=== PATIENT | male | born 1950 | race Caucasian/White ===

== ENCOUNTER → 2020-06-03 14:26 | Outpatient (BNVA) | payer MEDICARE, MEDICAID, SELFPAY | PROVIDERS: Family Provider Family Medicine; Visit Provider Surgery | DX: R11.10 Vomiting, unspecified (principal) | CPT/HCPCS: 87635 ==

== ENCOUNTER 2020-06-08 07:57 | Day surgery (SDC) | payer MEDICARE, MEDICAID, SELFPAY ==
[2020-06-06 16:49] VITALS: BMI 40.3
[2020-06-08 08:15] VITALS: BP 159/95; PULSE 81; RESP 20; TEMP 36.2; O2SAT 94
[2020-06-08] MEDS: sodium chloride 0.9% 1,000 ML 30 ML IV (08:49)
[2020-06-08 08:55] LABS: Glucose Point of Care 154 mg/dL (70-110)
--- NOTE | 2020-06-08 09:01 | ANES.PREANE2 ---
Pre-Anesthetic Assessment Pre-Anesthetic Assessment: Height/Weight: Height 1.75 m Weight 123.831 kg Temp Pulse Resp BP Pulse Ox 97.2 F L 81 20 H 159/95 94 06/08/20 08:15 06/08/20 08:15 06/08/20 08:15 06/08/20 08:15 06/08/20 08:15 Preop Diagnosis: Vomiting Proposed Procedure: Operation Date: 06/08/20 09:15 Proposed Procedures p EGD 10418/R11.10(Not Applicable) - Jerson Yepez MD Familial anesthetic complications: none Was Beta Rom taken within 24 hours: N/A Last intake: Intake Last Liquid Date 06/07/20 Last Liquid Time 19:00 Last Solid Date 06/07/20 Last Solid Time 19:00 Social: Social History: No alcohol and No tobacco Exam: Pre-Anes Outpt Exam: alert, oriented x 3, clear to auscultation bilaterally and regular rate & rhythm Airway: Cervical ROM: WNL MP: 2 Dentition: False Additional comments: full hernandez Pulmonary: Pulmonary: COPD (2 L NC at night) CV/HEM: CV/HEM: HTN GI: GI: GERD Metabolic: Metabolic: DM and Morbid obesity Anesthetic Plan: ASA status: 3 Anesthesia: MAC Risk of > 500 ml blood loss (7ml/kg in children): No Meds/Allergies Current Medications: Current Medications Generic Name Dose Route Start Last Admin Trade Name Freq PRN Reason Stop Dose Admin Sodium Chloride 1,000 mls @ 30 ml s/hr 06/08/20 08:15 06/08/20 08:49 Sodium Chloride 0.9% IV 06/09/20 08:14 30 mls/hr .Q24H PADMAJA Administration PFSH Anesthesia PFSH: Medical History Vomiting Family History Denies family history of Anesthesia complication Bleeding disorder Social History Smoking and tobacco status: never smoked Alcohol intake: never Adopted: No Caregiver/support person: Yes Lives independently: Yes Household members: spouse Housing: House Marital status: Data Anesthesia Other Labs: Laboratory Results - last 48 hr 06/08/20 08:49 POC Glucose 154 Cardiac Studies: No Data to Display
--- NOTE | 2020-06-08 10:16 | W.PM.OPSUD ---
Surgery/Procedure H&P Update DATE OF PROCEDURE: June 08, 2020 DATE H&P PERFORMED: 05/16/20 H&P UPDATE INFORMATION: I have reviewed H&P completed within last 30 days, I have examined patient prior to procedure and No changes to prior documentation PREOP DIAGNOSIS: Vomiting PRIMARY INDICATION FOR PROCEDURE: The same PLANNED PROCEDURE: Operation Date: 06/08/20 09:15 Proposed Procedures p EGD 77568/R11.10(Not Applicable) - Jerson Yepez MD
[2020-06-08 10:41] VITALS: BP 172/101; PULSE 93; RESP 16; TEMP 36.4; O2SAT 98
[2020-06-08 10:56] VITALS: BP 190/125; PULSE 86; RESP 18; TEMP 36.3; O2SAT 98
--- NOTE | 2020-06-08 14:24 | W.PM.OPSFHP ---
Same Day Surgery H&P Indication for Procedure/HPI DATE OF PROCEDURE: June 08, 2020 CHIEF COMPLAINT/INDICATIONFOR SURGICAL PROCEDURE: Vomiting PREOP DIAGNOSIS: Vomiting PLANNED PROCEDRUE: Operation Date: 06/08/20 09:15 Proposed Procedures p EGD 64757/R11.10(Not Applicable) - Jerson Yepez MD History of present illness: This is a pleasant 69 years old gentleman referred to my practice with history of nonbloody emesis for the past 3 months associated with no weight loss. Never had this before and he denies any fatty dyspepsia, patient reports that he is diabetic when I asked him. He never had an EGD before. Denies any other constitutional symptoms. Interim history 06/08/2020 Patient comes today for diagnostic EGD ROS All systems have been reviewed negative except as per the above or per problem list Medications/Allergies* Home Medications Medication Instructions Recorded Confirmed Type albuterol sulfate 2.5 mg INHALATION Q6H 05/16/20 06/08/20 History albuterol sulfate 90 mcg/actuation 2 inh INHALATION Q4H PRN 05/16/20 06/08/20 History breath activated powder inhaler amlodipine 10 mg tablet 10 mg PO DAILY 05/16/20 06/06/20 History aspirin 81 mg tablet,delayed 81 mg PO DAILY 05/16/20 06/06/20 History release baclofen 10 mg tablet 10 mg PO QID 05/16/20 06/06/20 History bisacodyl 5 mg tablet,delayed 5 mg PO DAILY 05/16/20 06/06/20 History release celecoxib 200 mg capsule 200 mg PO DAILY 05/16/20 06/06/20 History docusate sodium 100 mg capsule 100 mg PO BID 05/16/20 06/06/20 History ergocalciferol (vitamin D2) 50,000 50,000 unit PO DIRECTED 05/16/20 06/08/20 History unit tablet fluoxetine 20 mg capsule 20 mg PO DAILY 05/16/20 06/08/20 History fluticasone 250 mcg-salmeterol 50 1 inh INHALATION BID 05/16/20 06/06/20 History mcg/dose blistr powdr for inhalation fluticasone propionate 50 1 spray INTRANASAL DAILY 05/16/20 06/08/20 History mcg/actuation nasal spray,suspension gabapentin 600 mg tablet 600 mg PO TID 05/16/20 06/06/20 History insulin degludec 100 50 unit SUBCUT DAILY ml 05/16/20 06/06/20 History unit-liraglutide 3.6 mg/mL(3 mL) subcutaneous pen lisinopril 20 mg tablet 20 mg PO DAILY 05/16/20 06/06/20 History omeprazole 40 mg capsule,delayed 40 mg PO DAILY 05/16/20 06/06/20 History release oxycodone 10 mg tablet 20 mg PO Q4H PRN tab MDD 1 05/16/20 06/08/20 History sennosides 8.6 mg capsule 8.6 mg PO DAILY 05/16/20 06/06/20 History tamsulosin 0.4 mg capsule 0.4 mg PO DAILY 05/16/20 06/06/20 History Allergies/Adverse Reactions Allergy/AdvReac Type Severity Reaction Status Date / Time metoclopramide [From Reglan] Allergy Severe ADR-Nausea Verified 06/08/20 14:24 Pertinent History/Comorbid Conditions* Medical History (Updated 05/16/20 @ 14:33 by Jerson Yepez MD) Vomiting Family History (Updated 05/16/20 @ 10:56 by Tata Amor RN) Denies family history of Anesthesia complication Bleeding disorder Social History Smoking and tobacco status: never smoked Alcohol intake: never Adopted: No Caregiver/support person: Yes Lives independently: Yes Household members: spouse Housing: House Marital status: Pertinent Exam Findings alert, oriented x 3 and procedure specific exam findings (Done examination nontender nondistended morbidly obese) Recommendations Surgery/Procedure today (Diagnostic EGD with possible biopsy) Coding Level of Care Code 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
--- NOTE | 2020-06-08 21:10 | ANE.PACU2 ---
Inpatient post-anesthesia follow up: Airway intact: Yes Vital signs: Temperature 97.4 F Pulse Rate 86 Respiratory Rate 18 Blood Pressure 190/125 Pulse Oximetry 98 Oxygen Delivery Me thod Room Air Oxygen Flow Rate 4 Fraction of Inspir ed Oxygen Hydration adequate: Yes Nausea and vomiting: No Pain level: 1 Mental status: Baseline
== END 2020-06-08 11:40 | disposition home or self-care (01) ==
PROVIDERS: PCP Family Medicine; Visit Provider Surgery
PROC: 0DJ08ZZ Inspection of Upper Intestinal Tract, Via Natural or Artificial Opening Endoscopic (ICD-10-PCS; CPT 43235; principal; 2020-06-08 09:15)
DX: R11.10 Vomiting, unspecified (principal); K31.7 Polyp of stomach and duodenum; K29.70 Gastritis, unspecified, without bleeding; J44.9 Chronic obstructive pulmonary disease, unspecified; I10 Essential (primary) hypertension; E11.8 Type 2 diabetes mellitus with unspecified complications; E66.01 Morbid (severe) obesity due to excess calories; Z68.41 Body mass index [BMI] 40.0-44.9, adult; K21.9 Gastro-esophageal reflux disease without esophagitis; Z79.82 Long term (current) use of aspirin; Z79.891 Long term (current) use of opiate analgesic
CPT/HCPCS: 12345; 36416; 43239; 82962; 88305; J0360; J2704; J7030

== ENCOUNTER → 2021-12-20 08:53 | Outpatient (BNVA) | payer MEDICARE, MEDICAID, SELFPAY | PROVIDERS: PCP Family Medicine; Visit Provider Nurse Practitioner Family | DX: N40.1 Benign prostatic hyperplasia with lower urinary tract symptoms (principal); Z12.5 Encounter for screening for malignant neoplasm of prostate | CPT/HCPCS: 51798; 81003; 99203 ==

== ENCOUNTER 2023-03-01 09:59 | Inpatient (IN) | payer MEDICARE, MEDICAID, SELFPAY ==
[2023-03-01] VITALS (14 sets, daily range): BP systolic 126–163; BP diastolic 70–90; PULSE 66–101; RESP 11–20; TEMP 36.5–36.9; O2SAT 87–98; BMI 44.3
--- NOTE | 2023-03-01 10:00 | XR_ITS ---
WS: [id number] XR chest 1V portable [id number] REASON FOR EXAM: cp FINDINGS: Significant tortuosity and ectasia of the thoracic aorta. Normal heart size. Calcified granulomas disease bilaterally. Prominence of the upper lobe pulmonary veins. No other significant pulmonary parenchymal or pleural abnormality. Mild degenerative spondylosis in the mid and lower thoracic spine. IMPRESSION: Pulmonary venous hypertension with no other findings of congestive heart failure. No acute chest abno rmality identified.
--- NOTE | 2023-03-01 10:00 | ECG_ITS ---
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 Measurements Intervals [place] Rate: 83 P: 36 NM: 208 QRS: -49 QRSD: 90 T: 56 QT: 401 QTc: 473 Interpretive Statements SINUS RHYTHM LEFT AXIS DEVIATION [QRS AXIS < -30] PATTERN CONSISTENT WITH PULMONARY DISEASE Compared to ECG 11/12/2015 22:05:58 T-wave abnormality no longer present Electronically Signed On 03-01-2023 10:44:14 CDT by Keely Hess M.D. [id number] f
--- NOTE | 2023-03-01 10:00 | W.ED.CHESTPA ---
HPI - Chest Pain General: Chief Complaint: Chest Pain Stated Complaint: Chest Pain Time Seen by Provider: 03/01/23 09:59 History of Present Illness: Mr. Appiah is a 72-year-old gentleman with history of hypertension, diabetes, obesity presented the emergency department for evaluation of chest pain and shortness of breath. He reports onset of symptoms gradual approximately 2 days ago. Notes cough and increased shortness of breath associated with pain in the left anterior chest with radiation to the shoulder blade. He has difficulty describing the characteristic. Denies associated fevers. Has had generalized malaise. EMS found the patient to be hypoxemic, no baseline oxygen requirement, currently requiring 2 L. Overall course of symptoms has worsened. Moderate to severe in intensity. Denies frequent similar episodes in the past. No other specific changes in health, exacerbating, or alleviating factors identified. EMS administered 324 mg aspirin and 4 mg oral Zofran Onset (ago): day(s) Timing of current episode: constant Onset: during rest Pain location: left chest Pain radiation: left shoulder and left scapula Severity: moderate Exacerbating factors: exertion Associated symptoms: Reports dyspnea, nausea and other Review of Systems General: Reports: 10 or more systems reviewed and unremarkable except in HPI and below Resp: Reports: dyspnea GI: Reports: nausea PFSH ED PFSH: Medical History BPH loc w urin obs/LUTS Diabetes GERD (gastroesophageal reflux disease) Hypertension Vomiting Surgical History History of ankle surgery History of hernia surgery History of lumbar surgery S/P TURP Family History Father , AT 86 of unknown cause Mother , AT 36 Lupus Denies family history of Anesthesia complication Bleeding disorder Social History Smoking and tobacco status: former smoker Alcohol intake: never Substance/Drug Use: never Marital status: Current occupational status: disabled Physical Exam Const: COMMON NORMALS: alert GENERAL APPEARANCE: cooperative and well developed HENMT: COMMON NORMALS: normocephalic and atraumatic HEAD & SCALP: normocephalic and atraumatic Eye: COMMON NORMALS: conjunctivae normal CONJUNCTIVA: Yes conjunctivae normal SCLERA: sclerae normal Neck/C-Spine: COMMON NORMALS: supple GENERAL: Yes trachea midline Resp: COMMON NORMALS: normal respiratory effort AUSCULTATION: diminished lung sounds Cardio: COMMON NORMALS: regular rate and regular rhythm RATE: regular rate RHYTHM: regular rhythm GI: COMMON NORMALS: Soft to palpation PALPATION: Yes Soft to palpation and No Tenderness to palpation present (GI) Extremity: GENERAL: Yes normal exam except as noted and Yes edema (Chronic lower extremity appearing vascular changes) Neuro: COMMON NORMALS: moves all extremities SENSORIUM/ORIENTATION: Yes alert and No Orientation impaired Psych: COMMON NORMALS: mental status grossly normal and Normal thought process present THOUGHT PROCESS: Normal thought process present Course Vital Signs: Vital signs: Vital Signs Temperature 98.7 F 03/04/23 12:00 Pulse Rate 78 03/04/23 14:20 Respiratory Rate 17 03/04/23 14:20 Blood Pressure 131/74 03/04/23 14:20 Pulse Oximetry 94 03/04/23 14:20 Oxygen Delivery Me thod Room Air 03/04/23 11:34 Oxygen Flow Rate 1 03/04/23 08:26 MDM - Chest Pain Medical Decision Making 72-year-old gentleman presenting with chest pain. Exam as above. Appears clinically volume overloaded. EKG demonstrates sinus rhythm with left axis deviation, no STEMI. Labs with no leukocytosis, mild anemia. Metabolic panel with no acute electrolyte arrangement. Negative range 2-hour delta troponin. COVID-negative. Chest x-ray with pulmonary venous hypertension and no lobar consolidation or pneumothorax. Treated with Lasix, RT treatment, treatment for COPD and morphine. The results of ED evaluation were discussed with the patient including plan for admission due to requirement for level of care not available if discharged to prevent significant worsening/deterioration. Patient agreeable with plan. Discussed with hospitalist service who was agreeable to admit patient. Medical Records I reviewed the patient's medical records. Lab Data I reviewed the patient's lab results. 03/04/23 05:12 03/04/23 05:12 Laboratory Results WBC 8.3 10^3/uL (4.0-10.0) 03/01/23 10:05 RBC 4.45 10^6/uL (4.1-5.3) 03/01/23 10:05 Hgb 11.3 g/dL (11.7-16.6) L 03/01/23 10:05 Hct 38.3 % (42.0-52.0) L 03/01/23 10:05 MCV 86.1 fl (80-94) 03/01/23 10:05 MCH 25.4 pg (28.0-34.0) L 03/01/23 10:05 MCHC 29.5 g/dL (30.0-36.0) L 03/01/23 10:05 RDW 14.9 % (12.1-15.1) 03/01/23 10:05 Plt Count 282 10^3/cmm (130-400) 03/01/23 10:05 MPV 10.2 fL (7.4-10.4) 03/01/23 10:05 Neut % (Auto) 73.3 % 03/01/23 10:05 Lymph % (Auto) 14.1 % 03/01/23 10:05 Bates % (Auto) 8.8 % 03/01/23 10:05 Eos % (Auto) 2.5 % 03/01/23 10:05 Baso % (Auto) 0.6 % 03/01/23 10:05 Neut # (Auto) 6.05 10^3/uL (1.8-7.7) 03/01/23 10:05 Lymph # (Auto) 1.2 10^3/uL (0.8-4.8) 03/01/23 10:05 Bates # (Auto) 0.7 10^3/uL (0.2-0.9) 03/01/23 10:05 Eos # (Auto) 0.2 10^3/uL (0.0-0.8) 03/01/23 10:05 Baso # (Auto) 0.1 10^3/uL (0.0-0.1) 03/01/23 10:05 Nucleated RBC % (auto) 0 % 03/01/23 10:05 Nucleated RBCs # 0.0 /100WBC 03/01/23 10:05 Specimen Type Arterial 03/01/23 16:16 Sample Site Radial, left 03/01/23 16:16 ABG pH 7.32 (7.35-7.45) L 03/01/23 16:16 ABG pCO2 55.5 mmHg (35-45) H 03/01/23 16:16 ABG pO2 61.4 mmHg (80.0-100.0) L 03/01/23 16:16 ABG HCO3 28.8 mmol/L (22-26) H 03/01/23 16:16 ABG Base Excess 1.7 mmol/L (-2.0-2.0) 03/01/23 16:16 Onel Test Pos 03/01/23 16:16 Hematocrit 37.5 % (42-52) L 03/01/23 16:16 O2 Delivery Device Nc 03/01/23 16:16 O2 Liters/Min 2.0 % 03/01/23 16:16 Cigarette Making Machine Hopper Feeder ID Pedro 03/01/23 16:16 Sodium 138 mmol/L (136-145) 03/01/23 10:05 Potassium 4.5 mmol/L (3.5-5.1) 03/01/23 10:05 Chloride 102 mmol/L (98-107) 03/01/23 10:05 Carbon Dioxide 28 mmol/L (22-29) 03/01/23 10:05 Anion Gap 12.5 (5-19) 03/01/23 10:05 BUN 15 mg/dL (8-23) 03/01/23 10:05 Creatinine 1.2 mg/dL (0.7-1.2) 03/01/23 10:05 GFR Calculation Not Reportable 03/01/23 10:05 Glucose 208 mg/dL (65-115) H 03/01/23 10:05 Estimat Average Glucose 131 03/01/23 10:05 Hemoglobin A1c 6.2 % (4.0-6.0) H 03/01/23 10:05 Calculated Osmolality 293 mOsm/kg (285-295) 03/01/23 10:05 Calcium 8.4 mg/dL (8.5-10.5) L 03/01/23 10:05 Total Bilirubin 0.5 mg/dL (0.15-1.2) 03/01/23 10:05 AST 23 U/L (0-40) 03/01/23 10:05 ALT 15 U/L (0-41) 03/01/23 10:05 Alkaline Phosphatase 212 U/L (40-130) H 03/01/23 10:05 Troponin T Baseline 11 ng/L (0-15) 03/01/23 10:05 Troponin T 120 Minute 10.63 ng/L (0-15) 03/01/23 12:10 Delta Troponin T -0.37 ABS# (0-10) L 03/01/23 12:10 Troponin T Hi Sens 6Hr 9.04 ng/L (0-15) 03/01/23 16:00 Troponin T Hi Sens 6Hr Delta -1.96 ng/L (0-12) L 03/01/23 16:00 NT-Pro-B Natriuret Pep 766 pg/mL (0-125) H 03/01/23 10:05 NT-Pro-B Natriuret Pep Cancelled 03/01/23 10:05 Total Protein 6.5 g/dL (6.6-8.7) L 03/01/23 10:05 Albumin 3.7 g/dL (3.5-5.2) 03/01/23 10:05 Globulin 2.8 g/dL (1.3-4.6) 03/01/23 10:05 Triglycerides 104 mg/dL (0-150) 03/01/23 10:05 Cholesterol 100 mg/dL (0-200) 03/01/23 10:05 LDL Cholesterol, Calc 44 mg/dL (50-129) L 03/01/23 10:05 HDL Cholesterol 35 mg/dL (60-100) L 03/01/23 10:05 LDL/HDL Ratio 1.26 RATIO (0.00-3.22) 03/01/23 10:05 Cholesterol/HDL Ratio 2.86 mg/dL (1.0-5.00) 03/01/23 10:05 Lipase 14 U/L (13-60) 03/01/23 10:05 Procalcitonin 0.05 ng/mL (0-0.5) 03/01/23 10:05 TSH 3.24 uIU/mL (0.27-4.20) 03/01/23 10:05 SARS-CoV-2 Ag (Rapid) negative (Negative) 03/01/23 10:05 Discharge Plan Discharge Patient Disposition: Admitted As Inpatient Admit Provider: Anand Leroy Clinical Impression: Acute exacerbation of chronic obstructive pulmonary disease, Chest pain, Cardiac volume overload Condition: Stable Discharge Diet: Cardiac Discharge Activity: Resume usual activity Coding Level of Care Code ED Supervisor Furnace Room for Zaynab Iglesias
[2023-03-01] MEDS: morphine 4 mg/mL SDV 1 mL IVP (10:11)
[2023-03-01 10:22] LABS: Basophils # 0.1 10^3/uL (0.0-0.1); Basophils % 0.6 %; Eosinophils # 0.2 10^3/uL (0.0-0.8); Eosinophils % 2.5 %; Hematocrit 38.3 % (42.0-52.0); Hemoglobin 11.3 g/dL (11.7-16.6); Lymphocytes # 1.2 10^3/uL (0.8-4.8); Lymphocytes % 14.1 %; Mean Corpuscular HGB Conc 29.5 g/dL (30.0-36.0); Mean Corpuscular Hemoglobin 25.4 pg (28.0-34.0); Mean Corpuscular Volume 86.1 fl (80-94); Mean Platelet Volume 10.2 fL (7.4-10.4); Monocytes # 0.7 10^3/uL (0.2-0.9); Monocytes % 8.8 %; Neutrophils # 6.05 10^3/uL (1.8-7.7); Neutrophils % 73.3 %; Nucleated Red Blood Cells % 0 %; Platelet Count 282 10^3/cmm (130-400); Red Blood Count 4.45 10^6/uL (4.1-5.3); Red Cell Distribution Width 14.9 % (12.1-15.1); White Blood Count 8.3 10^3/uL (4.0-10.0)
[2023-03-01 10:44] LABS: Troponin(5th) Baseline 11 ng/L (0-15)
[2023-03-01 10:51] LABS: Alanine Aminotransferase 15 U/L (0-41); Albumin Level 3.7 g/dL (3.5-5.2); Alkaline Phosphatase 212 U/L (40-130); Anion Gap 12.5 (5-19); Aspartate Amino Transferase 23 U/L (0-40); Blood Urea Nitrogen 15 mg/dL (8-23); Calcium 8.4 mg/dL (8.5-10.5); Carbon Dioxide 28 mmol/L (22-29); Chloride 102 mmol/L (98-107); Globulin 2.8 g/dL (1.3-4.6); Glucose 208 mg/dL (65-115); Lipase 14 U/L (13-60); NT Pro B Type Natriuretic Pept 766 pg/mL (0-125); Osmolality Calculated 293 mOsm/kg (285-295); Potassium 4.5 mmol/L (3.5-5.1); SARS Covid-2 Antigen negative (Negative); Sodium 138 mmol/L (136-145); Total Bilirubin 0.5 mg/dL (0.15-1.2); Total Protein 6.5 g/dL (6.6-8.7)
[2023-03-01] MEDS: ipratropium-albuterol 3 mL Neb INHALATION (11:13)
[2023-03-01] MEDS: FUROsemide 10 mg/mL SDV 4mL 40 MG IVP ×2 (11:29→20:19)
[2023-03-01] MEDS: methylPREDNISolone sod succ 125 MG in water for injection-sterile 2 ML 24 MG IVP (11:32)
[2023-03-01] MEDS: doxycycline 100 MG in sodium chloride 0.9% (plus) 100 ML IV (11:34)
--- NOTE | 2023-03-01 11:58 | PC.PHAR ---
medications verified with Asha from [facility]
--- NOTE | 2023-03-01 12:06 | ECG_ITS ---
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 Measurements Intervals [place] Rate: 74 P: 33 AK: 206 QRS: -45 QRSD: 94 T: 58 QT: 398 QTc: 442 Interpretive Statements SINUS RHYTHM LEFT AXIS DEVIATION [QRS AXIS < -30] POSSIBLE ANTERIOR MYOCARDIAL INFARCTION , OF INDETERMINATE AGE [30 ms Q WAVE IN V3/V4, OR R < 0.2 mV IN V4] Compared to ECG 03/01/2023 10:09:06 Myocardial infarct finding now present Electronically Signed On 03-01-2023 12:59:41 CDT by Keely Hess M.D. [email or web address] montgomeryPatton Surgicalohio [facility].[employer]/store/OM/[id number]
[2023-03-01 13:04] LABS: Troponin 5 2HR 10.63 ng/L (0-15); Troponin 5 2HR Delta -0.37 ABS# (0-10)
--- NOTE | 2023-03-01 14:47 | CT_ITS ---
WS: [id number] CTA OF THE CHEST WITH PULMONARY EMBOLISM PROTOCOL TECHNIQUE: High-resolution contrast enhanced CTA of the chest with coronal and sagittal reformatted i richies with pulmonary embolism protocol. MIP images are also reviewed. CLINICAL INFORMATION: sob COMPARISON: None. DLP: 610.[address] scans at [facility] use at least one of these dose optimization techniques: automated e xposure control; mA and/or kV adjustment per patient size (includes targeted exams where dose is matc hed to clinical indication); or iterative reconstruction. FINDINGS: Proximal main pulmonary arteries are normal. Normal segmental and subsegmental pulmonary arteries. No evidence of pulmonary embolus. Normal caliber thoracic aorta. Aortic calcification. No mediastinal o r hilar lymphadenopathy. Normal GE junction. Splenic artery calcification. Partially visualized ectatic celiac artery. Lungs are well aerated. No acute pulmonary infiltrates. Small nodule right middle lobe measuring 5 mm . Recommend 12-month follow-up. IMPRESSION: 1. No evidence of pulmonary embolus. 2. Lungs are well aerated. No acute pulmonary infiltrates. 3. Slight bibasal atelectasis. 4. Small nodule right middle lobe measuring 5 mm. Recommend 12-month follow-up.
--- NOTE | 2023-03-01 15:09 | P.HP_ITS ---
Providers/Chief Complaint Admitting Physician: Anand Leroy MD Primary Care Provider: Sammie Rocha DO Chief Complaint: Chest Pain History of Present Illness Alen Appiah is a 72 year old male with a past medical history of pulmonary embolism, completed anticoagulation after back surgery, history of insulin- dependent type 2 diabetes mellitus, history of chronic pain on oxycodone, obesity, who presents to [facility] for complaints of shortness of breath, lower extremity edema. Patient tells me that for the last few weeks, to month he has felt short of breath, short of breath with exertion, he tells me that he cannot lie flat, he has still sleep in a recliner, does report orthopnea, paroxysmal nocturnal dyspnea, also reports left substernal chest pain rating down his left arm, he tells me that many years ago he was transferred to [place] for possible heart attack, but after extensive work-up they told him his heart was okay. He does report a history of pulmonary embolism, for which she was placed on anticoagulant therapy for roughly 6 months after back surgery he has chronic back pain for which he uses oxycodone he does have type 2 diabetes mellitus, he tells me that he takes insulin for this, and his home health care nurse primarily manages his insulin, no fevers, no chills, no cough. For his chest pain, the chest pain has been becoming more frequent with the shortness of breath, no nausea, no vomiting Review of Systems General: Reports: ROS unobtainable due to mental status Const: Denies: fever(s) or chills Eyes: Denies: change in vision ENMT: Denies: throat pain Card: Reports: chest pain, edema, swelling of feet/ankles, dyspnea on exertion and orthopnea Resp: Reports: dyspnea GI: Denies: abdominal pain, nausea or vomiting : Denies: flank pain or difficulty urinating Musc: Reports: back pain; Denies: neck pain Skin/Breast: Denies: rash Neuro: Denies: headache(s) or numbness in extremities Psych: Denies: anxiety Medications/Allergies Home Medications Medication Instructions Recorded Confirmed Last Taken Type albuterol sulfate 2.5 mg/3 mL 2.5 mg inhalation Q6H 05/16/20 03/01/23 Unknown History (0.083 %) solution for nebulization albuterol sulfate 90 mcg/actuation 2 inh inhalation Q4H PRN Allergic 05/16/20 03/01/23 06/01/20 History breath activated powder inhaler Symptoms amlodipine 10 mg tablet 10 mg PO DAILY 05/16/20 03/01/23 06/07/20 History aspirin 81 mg tablet,delayed 81 mg PO DAILY 05/16/20 03/01/23 06/04/20 History release bisacodyl 5 mg tablet,delayed 5 mg PO DAILY 05/16/20 03/01/23 06/07/20 History release (Dulcolax (bisacodyl)) celecoxib 200 mg capsule (Celebrex) 200 mg PO DAILY 05/16/20 03/01/23 06/07/20 History docusate sodium 100 mg capsule 100 mg PO BID 05/16/20 03/01/23 06/07/20 History fluticasone 250 mcg-salmeterol 50 1 inh inhalation BID 05/16/20 03/01/23 06/07/20 History mcg/dose blistr powdr for inhalation (Advair Diskus) fluticasone propionate 50 1 spray intranasal DAILY 05/16/20 03/01/23 06/08/20 04:00 History mcg/actuation nasal spray,suspension (Flonase Allergy Relief) gabapentin 600 mg tablet 600 mg PO BID 05/16/20 03/01/23 06/07/20 History insulin degludec 100 50 unit SUBCUT BID 05/16/20 03/01/23 06/06/20 History unit-liraglutide 3.6 mg/mL(3 mL) subcutaneous pen (Skyler 100/3.6) lisinopril 20 mg tablet 20 mg PO DAILY 05/16/20 03/01/23 06/06/20 History oxycodone 10 mg tablet 20 mg PO Q4H PRN Allergic Symptoms 05/16/20 03/01/23 06/08/20 04:00 History sennosides 8.6 mg capsule (senna) 8.6 mg PO DAILY 05/16/20 03/01/23 06/07/20 History pantoprazole 40 mg tablet,delayed 40 mg PO DAILY #30 tabs 08/30/20 03/01/23 Unknown Rx release (Protonix) fluoxetine 20 mg capsule (Prozac) 40 mg PO DAILY 12/20/21 03/01/23 Unknown History linagliptin 5 mg tablet (Tradjenta) 5 mg PO DAILY 12/20/21 03/01/23 Unknown History metoprolol tartrate 25 mg tablet 25 mg PO BID 12/20/21 03/01/23 Unknown History tamsulosin 0.4 mg capsule (Flomax) 0.4 mg PO BID #60 caps 12/20/21 03/01/23 Unknown Rx bumetanide 2 mg tablet 2 mg PO DAILY 03/01/23 03/01/23 Unknown History finasteride 5 mg tablet 5 mg PO DAILY 03/01/23 03/01/23 Unknown History hydromorphone 4 mg tablet 4 mg PO Q4H PRN Pain 03/01/23 03/01/23 Unknown History potassium chloride 20 mEq 20 meq PO DAILY 03/01/23 03/01/23 Unknown History tablet,extended release(part/cryst) Allergies Allergy/AdvReac Type Severity Reaction Status Date / Time metoclopramide [From Reglan] Allergy Severe ADR-Nausea Verified 03/01/23 10:05 PFSH Acute PFSH: Medical History BPH loc w urin obs/LUTS Diabetes GERD (gastroesophageal reflux disease) Hypertension Vomiting Surgical History History of ankle surgery History of hernia surgery History of lumbar surgery S/P TURP Family History Father , AT 86 of unknown cause Mother , AT 36 Lupus Denies family history of Anesthesia complication Bleeding disorder Social History Smoking and tobacco status: former smoker Alcohol intake: never Substance/Drug Use: never Marital status: Current occupational status: disabled Vitals/I&O/Wt Last Vital Signs Temp 97.7 F 03/01/23 09:59 Pulse 79 03/01/23 11:17 Resp 16 03/01/23 11:14 BP 131/71 03/01/23 10:48 Pulse Ox 96 03/01/23 11:14 O2 Del Method Nasal Cannula 03/01/23 11:14 O2 Flow Rate 2 03/01/23 11:14 Weight last 48 hrs Weight 136.078 kg Physical Exam Const: COMMON NORMALS: no acute distress and patient oriented x3 GENERAL APPEARANCE: cooperative, well kempt and well developed HENMT: COMMON NORMALS: normocephalic and Normal external nose present HEAD & SCALP: normocephalic FACE & SINUS: normal facial exam NOSE: Normal external nose present Eye: COMMON NORMALS: Equal, round and reactive pupils present, EOMs intact bilaterally, conjunctivae normal and no scleral icterus CONJUNCTIVA: Yes conjunctivae normal PUPIL: Yes Equal, round and reactive pupils present Neck/C-Spine: COMMON NORMALS: full ROM, no lymphadenopathy, no JVD, Thyroid normal and No carotid bruits THYROID: Thyroid normal Lymph: LYMPHATIC: no lymphadenopathy noted Chest: COMMONS NORMALS: normal inspection of the chest OTHER: Crackles on exam Resp: COMMON NORMALS: normal respiratory effort, No retractions and No use of accessory muscles Cardio: COMMON NORMALS: regular rate, regular rhythm, S1 normal heart sound present, S2 normal heart sound present, No murmurs present (Cardio) and Peripheral pulses 2+ throughout RATE: regular rate RHYTHM: regular rhythm HEART SOUNDS: S1 normal heart sound present and S2 normal heart sound present PERIPHERAL PULSES: Peripheral pulses 2+ throughout GI: COMMON NORMALS: Normal to inspection, nondistended, normoactive bowel sounds present, Soft to palpation, non-tender and No hepatosplenomegaly present PALPATION: Yes Soft to palpation : BLADDER/KIDNEY EXAM: Yes no CVA tenderness Back/Pelvis: COMMON NORMALS: no CVA tenderness Extremity: NARRATIVE EXTREMITY EXAM: Bilateral extremity 2+ pitting edema, with overlying skin changes bilateral lower extremities, up to the level of bilateral knees, Neuro: COMMON NORMALS: patient oriented x3, CN's II-XII intact bilaterally, moves all extremities, no focal motor deficits and no sensory deficits noted MENINGEAL SIGNS: Yes no meningeal signs Psych: COMMON NORMALS: mental status grossly normal, Normal thought process present, cooperative and speech normal APPEARANCE: Yes well kempt SPEECH: Yes normal speech THOUGHT PROCESS: Normal thought process present Skin: COMMON NORMALS: turgor normal and no jaundice GENERAL SKIN EXAM: turgor normal Data 03/01/23 10:05 03/01/23 10:05 A&P Assessment and plan (1) Chest pain: (2) CHF exacerbation: (3) Goals of care, counseling/discussion: (4) Morbid obesity: (5) Type 2 diabetes mellitus: (6) Chronic prescription opiate use: Plan Shortness of breath -Secondary to CHF exacerbation Plan -Fluid restrictions at 1000 cc -Lasix 40 mg IV push this evening -CT angiogram of the chest as he has a history of pulmonary embolism -Cardiac echo -Monitor respiratory status closely Chest pain -Left-sided, radiating down the left arm -Associate with exertion -Associate with shortness of breath -Serial EKGs, serial troponins, telemetry monitoring -Continue aspirin, statin, metoprolol -Cardiac echo Type 2 diabetes mellitus -Lantus 30 units twice daily, low-dose sliding scale, A1c Obesity Chronic pain, continue oxycodone 20 mg p.o., every 4 hours as needed, confirmed with at bedside that this is his dose -There is some discrepancy on if he is taking Dilaudid or not, patient's denies him taking Dilaudid, patient is unsure as he tells me that the home health care nurse sets up most of his medications Goals of care discussion, patient wants to be a DNR/DNI Attestations Medical Necessity Statement*: patient requires hospitalization, inpatient, greater than 2 midnights, for CHF exacerbation, lower extremity edema, chest pain Diagnoses Chest pain R07.9 CHF exacerbation I50.9 Goals of care, counseling/discussion Z71.89 Morbid obesity E66.01 Type 2 diabetes mellitus E11.9 Chronic prescription opiate use Z79.891
[2023-03-01 15:16] LABS: Procalcitonin 0.05 ng/mL (0-0.5)
--- NOTE | 2023-03-01 16:00 | ECG_ITS ---
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 Measurements Intervals [place] Rate: 74 P: 28 [place]: 204 QRS: -57 QRSD: 91 T: 55 QT: 404 QTc: 450 Interpretive Statements SINUS RHYTHM LEFT AXIS DEVIATION [QRS AXIS < -30] POSSIBLE ANTERIOR MYOCARDIAL INFARCTION , PROBABLY OLD [30 ms Q WAVE IN V3/V4, OR R < 0.2 mV IN V4] Compared to ECG 03/01/2023 12:06:36 No significant changes Electronically Signed On 03-01-2023 18:59:22 CDT by Keely Hess M.D. [id number]
[2023-03-01 16:27] LABS: ABG PCO2 55.5 mmHg (35-45); ABG PH Result 7.32 (7.35-7.45); Arterial Blood Gas Hematocrit 37.5 % (42-52); Base Excess ABG 1.7 mmol/L (-2.0-2.0); Blood Gas Allen Test Pos; Blood Gas Operator Identificat WALCI; Blood Gas Sample Site Radial, left; Blood Gas Sample Type Arterial; HCO3 ABG 28.8 mmol/L (22-26); Oxygen Device NC; PO2 ABG 61.4 mmHg (80.0-100.0)
[2023-03-01 16:56] LABS: Troponin 5 6HR 9.04 ng/L (0-15); Troponin 5 6HR Delta -1.96 ng/L (0-12)
[2023-03-01 17:27] LABS: Chol HDL Ratio 2.86 mg/dL (1.0-5.00); Cholesterol 100 mg/dL (0-200); HDL Cholesterol 35 mg/dL (60-100); LDL Cholesterol Calculated 44 mg/dL (50-129); LDL HDL Ratio 1.26 RATIO (0.00-3.22); Thyroid Stimulating Hormone 3.24 uIU/mL (0.27-4.20); Triglycerides 104 mg/dL (0-150)
[2023-03-01 17:30] LABS: Glucose Point of Care 242 mg/dL (70-110)
[2023-03-01] MEDS: tamsulosin 0.4 mg Capsule PO (17:35)
[2023-03-01] MEDS: insulin lispro 100 unit/1 mL SUBCUT (17:36)
[2023-03-01] MEDS: docusate sodium 100 mg Capsule PO (17:36)
[2023-03-01] MEDS: metoprolol tartrate 25 mg Tablet PO (17:36)
[2023-03-01] MEDS: gabapentin 300 mg Capsule 600 MG PO (17:36)
[2023-03-01] MEDS: enoxaparin 40 mg/0.4 mL Syringe SUBCUT (17:36)
[2023-03-01] MEDS: oxyCODONE 5 mg IR Tab/Cap 20 MG PO ×2 (17:43→23:17)
[2023-03-01] MEDS: insulin glargine 100 units/1 mL 30 UNIT SUBCUT (20:21)
[2023-03-01 20:29] LABS: Glucose Point of Care 265 mg/dL (70-110)
[2023-03-01] MEDS: albuterol 2.5 mg/3 mL Neb INHALATION (20:53)
[2023-03-02] VITALS (16 sets, daily range): BP systolic 130–155; BP diastolic 71–90; PULSE 85–102; RESP 13–22; TEMP 36.9–37.1; O2SAT 91–100
[2023-03-02 01:10] LABS: Estmated Average Glucose 131; Hemoglobin A1C 6.2 % (4.0-6.0)
[2023-03-02] MEDS: albuterol 2.5 mg/3 mL Neb INHALATION ×3 (02:30→20:37)
[2023-03-02 04:31] LABS: Basophils % 0.1 %; Hematocrit 37.7 % (42.0-52.0); Hemoglobin 10.9 g/dL (11.7-16.6); Lymphocytes % 10.3 %; Mean Corpuscular HGB Conc 28.9 g/dL (30.0-36.0); Mean Corpuscular Hemoglobin 24.6 pg (28.0-34.0); Mean Corpuscular Volume 85.1 fl (80-94); Mean Platelet Volume 10.9 fL (7.4-10.4); Monocytes # 0.3 10^3/uL (0.2-0.9); Monocytes % 3.2 %; Neutrophils % 85.7 %; Nucleated Red Blood Cells % 0 %; Platelet Count 280 10^3/cmm (130-400); Red Blood Count 4.43 10^6/uL (4.1-5.3); Red Cell Distribution Width 14.6 % (12.1-15.1); White Blood Count 9.5 10^3/uL (4.0-10.0)
[2023-03-02 04:50] LABS: Anion Gap 13.6 (5-19); Blood Urea Nitrogen 20 mg/dL (8-23); Calcium 8.7 mg/dL (8.5-10.5); Carbon Dioxide 28 mmol/L (22-29); Chloride 102 mmol/L (98-107); Glucose 247 mg/dL (65-115); Magnesium 2.2 mg/dL (1.7-2.3); Osmolality Calculated 299 mOsm/kg (285-295); Phosphorus 2.6 mg/dL (2.5-4.5); Potassium 4.6 mmol/L (3.5-5.1); Sodium 139 mmol/L (136-145)
[2023-03-02 06:12] LABS: Glucose Point of Care 217 mg/dL (70-110)
[2023-03-02] MEDS: insulin glargine 100 units/1 mL 30 UNIT SUBCUT ×2 (08:37→20:50)
[2023-03-02] MEDS: insulin lispro 100 unit/1 mL SUBCUT ×2 (08:37→12:01)
[2023-03-02] MEDS: oxyCODONE 5 mg IR Tab/Cap 20 MG PO ×4 (08:38→20:49)
[2023-03-02] MEDS: finasteride 5 mg Tablet PO (08:39)
[2023-03-02] MEDS: pantoprazole DR 40 mg Tablet PO (08:39)
[2023-03-02] MEDS: aspirin 81 mg EC Tablet PO (08:39)
[2023-03-02] MEDS: gabapentin 300 mg Capsule 600 MG PO ×2 (08:39→17:17)
[2023-03-02] MEDS: tamsulosin 0.4 mg Capsule PO ×2 (08:40→17:18)
[2023-03-02] MEDS: potassium chloride ER 20 mEq Tablet PO (08:40)
[2023-03-02] MEDS: metoprolol tartrate 25 mg Tablet PO ×2 (08:40→17:18)
[2023-03-02] MEDS: fluoxetine 20 mg Capsule 40 MG PO (08:40)
[2023-03-02] MEDS: bisacodyl 5 mg Tablet PO (08:40)
[2023-03-02] MEDS: docusate sodium 100 mg Capsule PO ×2 (08:40→17:17)
[2023-03-02] MEDS: lisinopril 20 mg Tablet PO (08:47)
[2023-03-02 10:06] LABS: NT Pro B Type Natriuretic Pept 1008 pg/mL (0-125)
[2023-03-02] MEDS: FUROsemide 10 mg/mL SDV 4mL 40 MG IVP (10:15)
[2023-03-02 11:48] LABS: Glucose Point of Care 252 mg/dL (70-110)
--- NOTE | 2023-03-02 16:35 | P.PN_ITS ---
Subjective Subjective: Patient was seen this morning, his edema is improving, shortness of breath is improving, no chest pain Vitals/I&O/Wt Last Vital Signs Temp 98.8 F 03/02/23 04:00 Pulse 95 03/02/23 12:29 Resp 18 03/02/23 16:34 BP 150/87 03/02/23 12:29 Pulse Ox 96 03/02/23 16:34 O2 Del Method Nasal Cannula 03/02/23 08:55 O2 Flow Rate 2 03/02/23 08:55 03/02/23 03/02/23 03/02/23 06:59 14:59 22:59 Intake Total 220 / 562 460 / 460 Output Total 1999 / 2199 900 / 900 Balance -1780 / -1638 -440 / -440 Weight last 48 hrs Weight 136.078 kg Physical Exam Const: COMMON NORMALS: no acute distress and patient oriented x3 Resp: COMMON NORMALS: normal respiratory effort, No retractions, No use of accessory muscles and clear to auscultation bilaterally AUSCULTATION: clear to auscultation bilaterally Cardio: COMMON NORMALS: regular rate, regular rhythm, S1 normal heart sound present and S2 normal heart sound present RATE: regular rate RHYTHM: regular rhythm HEART SOUNDS: S1 normal heart sound present and S2 normal heart sound present GI: COMMON NORMALS: Normal to inspection, nondistended, normoactive bowel sounds present and non-tender Extremity: NARRATIVE EXTREMITY EXAM: 2+ pitting edema Neuro: COMMON NORMALS: patient oriented x3 Psych: COMMON NORMALS: mental status grossly normal Urinary Catheter Management: Cisse: Cath Placed During This Visit: yes Reason for Continuing Indwelling Catheter: Acute Urinary Retention or Obstruc tion Urinary Catheter Date of Insertion: 03/01/23 Urinary Catheter Time of Insertion: 21:44 Data 03/02/23 03:21 03/02/23 03:21 A&P Assessment and plan (1) Chest pain: (2) CHF exacerbation: (3) Goals of care, counseling/discussion: (4) Morbid obesity: (5) Type 2 diabetes mellitus: (6) Chronic prescription opiate use: Plan Shortness of breath -Secondary to CHF exacerbation Plan -Fluid restrictions at 1000 cc -Lasix 40 mg IV , daily, check creatinine -CT angiogram negative for pulm embolism -Cardiac echo pending -Monitor respiratory status closely Chest pain -Left-sided, radiating down the left arm -Associate with exertion -Associate with shortness of breath -Serial EKGs, serial troponins, telemetry monitoring -Continue aspirin, statin, metoprolol -Cardiac echo Type 2 diabetes mellitus -Lantus 30 units twice daily, low-dose sliding scale, A1c Obesity Chronic pain, continue oxycodone 20 mg p.o., every 4 hours as needed, confirmed with at bedside that this is his dose -There is some discrepancy on if he is taking Dilaudid or not, patient's denies him taking Dilaudid, patient is unsure as he tells me that the home health care nurse sets up most of his medications Goals of care discussion, patient wants to be a DNR/DNI Plan for today up out of bed, PT OT, continue diuresis monitor urine output Attestations Medical Necessity Statement*: Patient requires hospitalization for shortness of breath secondary to CHF exacerbation requiring diuresis Diagnoses Chest pain R07.9 CHF exacerbation I50.9 Goals of care, counseling/discussion Z71.89 Morbid obesity E66.01 Type 2 diabetes mellitus E11.9 Chronic prescription opiate use Z79.891
--- NOTE | 2023-03-02 16:46 | USCV_ITS ---
Alen Appiah Age: 72 Gender: M : 1950 Exam Date: 03/02/2023 14:59 Ordering Phys: Anand Leroy MD Technologist: ABIGAIL Exam Location: [facility] – [place] Indication: chf BP: / HR: 91 Rhythm: Sinus Technical Quality: Poor MEASUREMENTS (Male / Female) Normal Values 2D ECHO LV Diastolic Diameter PLAX 6.5 cm 4.2 - 5.9 / 3.9 - 5.3 cm LV Systolic Diameter PLAX 4.2 cm IVS Diastolic Thickness 0.9 cm 0.6 - 1.0 / 0.6 - 0.9 cm IVS Systolic Thickness 1.8 cm LVPW Diastolic Thickness 0.9 cm 0.6 - 1.0 / 0.6 - 0.9 cm LVPW Systolic Thickness 1.3 cm LVOT Diameter 2.3 cm LV Ejection Fraction 2D Teich 64.1 % LV Ejection Fraction MOD 2C 38.6 % LV Ejection Fraction 2C AL 37.1 % LA Diameter 3.4 cm M-MODE Aortic Annulus Diameter 3.4 cm LA Ao Ratio MM 1.1 MV E Point Septal Separation 0.3 cm DOPPLER MV Area PHT 3.0 cm squared Mitral E to A Ratio 0.9 MV E' Velocity 61.0 cm/s Mitral E to MV E' Ratio 15.2 Mitral E to LV E' Lateral Ratio 12.9 Mitral E to LV E' Septal Ratio 18.5 PV Peak Velocity 95.0 cm/s FINDINGS Left Ventricle This is a poor quality study. The ventricle is probably normal in size and function. Ejection fraction around 55%. Wall motion disturbances cannot be determined. Diastolic function cannot be determined. Right Ventricle Normal right ventricular size and systolic function. Right Atrium Right atrium not well visualized. Left Atrium Left atrium not well visualized. Mitral Valve Mitral valve not well visualized. No mitral valve stenosis. No mitral valve regurgitation. Aortic Valve Aortic valve not well visualized. Tricuspid Valve Tricuspid valve not well visualized. Pulmonic Valve Pulmonic valve not well visualized. Pericardium Normal pericardium without effusion. Aorta Normal ascending aorta dimension. IVC Inferior vena cava not visualized. CONCLUSIONS This is a poor quality study. The ventricle is probably normal in size and function. Ejection fraction around 55%. Wall motion disturbances cannot be determined. Diastolic function cannot be determined. No change from the previous study done 04/28/2015 Dr. Jake Olvera MD (Electronically Signed) Final Date: 03 March 2023 09:23 S
[2023-03-02] MEDS: enoxaparin 40 mg/0.4 mL Syringe SUBCUT (17:17)
--- NOTE | 2023-03-02 19:23 | PC.NURSE ---
blood sugar is 237 per patient's personal blood glucose monitor
[2023-03-03] VITALS (20 sets, daily range): BP systolic 134–162; BP diastolic 74–95; PULSE 75–88; RESP 15–22; TEMP 36.5–36.9; O2SAT 92–98
[2023-03-03] MEDS: oxyCODONE 5 mg IR Tab/Cap 20 MG PO ×5 (01:39→23:58)
[2023-03-03 04:13] LABS: Basophils # 0.1 10^3/uL (0.0-0.1); Basophils % 0.5 %; Eosinophils # 0.1 10^3/uL (0.0-0.8); Eosinophils % 0.9 %; Hematocrit 37.4 % (42.0-52.0); Hemoglobin 11.1 g/dL (11.7-16.6); Lymphocytes # 2.7 10^3/uL (0.8-4.8); Lymphocytes % 24.8 %; Mean Corpuscular HGB Conc 29.7 g/dL (30.0-36.0); Mean Corpuscular Hemoglobin 25.3 pg (28.0-34.0); Mean Corpuscular Volume 85.4 fl (80-94); Mean Platelet Volume 10.4 fL (7.4-10.4); Monocytes # 0.9 10^3/uL (0.2-0.9); Monocytes % 8.1 %; Neutrophils # 7.06 10^3/uL (1.8-7.7); Neutrophils % 65.3 %; Nucleated Red Blood Cells % 0 %; Platelet Count 269 10^3/cmm (130-400); Red Blood Count 4.38 10^6/uL (4.1-5.3); Red Cell Distribution Width 14.8 % (12.1-15.1); White Blood Count 10.8 10^3/uL (4.0-10.0)
[2023-03-03 04:31] LABS: Anion Gap 15.4 (5-19); Blood Urea Nitrogen 28 mg/dL (8-23); Calcium 8.4 mg/dL (8.5-10.5); Carbon Dioxide 29 mmol/L (22-29); Chloride 103 mmol/L (98-107); Glucose 166 mg/dL (65-115); Magnesium 2.1 mg/dL (1.7-2.3); Osmolality Calculated 305 mOsm/kg (285-295); Potassium 4.4 mmol/L (3.5-5.1); Sodium 143 mmol/L (136-145)
[2023-03-03 04:39] LABS: Urine Appearance Clear (CLEAR); Urine Color Yellow (Yellow); pH Urine 5 (5-7)
[2023-03-03 04:40] LABS: Add Urine Microscopic? YES; Bilirubin Urine Neg (Negative); Blood Urine Neg (Negative); Glucose Urine UA Norm (Normal); Ketones Urine Negative (Negative); Leukocyte Esterase Urine 1+ (Negative); Nitrate Urine Negative (Negative); Protein Urine Neg (Negative); Urobilinogen Urine 1 mg/dL (Negative)
[2023-03-03 04:41] LABS: Bacteria Urine TRACE /hpf; RBC Urine 0-4 /hpf (0-2); Squamous Epithelial Cell Urine 0-4 /hpf (0-5); WBC Urine 0-4 /hpf (0-5)
[2023-03-03 04:42] LABS: Add Urine Culture? No
[2023-03-03 04:43] LABS: NT Pro B Type Natriuretic Pept 1277 pg/mL (0-125)
--- NOTE | 2023-03-03 06:20 | PC.NURSE ---
blood glucose 116 per patient's personal glucose monitor
[2023-03-03] MEDS: gabapentin 300 mg Capsule 600 MG PO ×2 (10:00→17:23)
[2023-03-03] MEDS: fluoxetine 20 mg Capsule 40 MG PO (10:00)
[2023-03-03] MEDS: docusate sodium 100 mg Capsule PO ×2 (10:20→17:23)
[2023-03-03] MEDS: pantoprazole DR 40 mg Tablet PO (10:21)
[2023-03-03] MEDS: finasteride 5 mg Tablet PO (10:21)
[2023-03-03] MEDS: lisinopril 20 mg Tablet PO (10:21)
[2023-03-03] MEDS: tamsulosin 0.4 mg Capsule PO ×2 (10:21→17:25)
[2023-03-03] MEDS: bisacodyl 5 mg Tablet PO (10:23)
[2023-03-03] MEDS: aspirin 81 mg EC Tablet PO (10:23)
[2023-03-03] MEDS: insulin glargine 100 units/1 mL 30 UNIT SUBCUT ×2 (10:23→21:08)
[2023-03-03] MEDS: potassium chloride ER 20 mEq Tablet PO (10:23)
[2023-03-03] MEDS: metoprolol tartrate 25 mg Tablet PO ×2 (10:23→17:25)
--- NOTE | 2023-03-03 11:00 | PC.NURSE ---
Per pt ZEN Estrada his BS is 181
[2023-03-03] MEDS: insulin lispro 100 unit/1 mL SUBCUT ×2 (12:27→17:25)
--- NOTE | 2023-03-03 14:11 | P.PN_ITS ---
Subjective Subjective: Patient was seen this morning, he is anxious about being here in the hospital, he is wondering when he can go home, his legs are elevated he tells me that his edema has improved, continues to have episodes of shortness of breath, he tells me that he has chronic back pain, we discussed his chest pain, he denies any current chest pain, he tells me that he has difficulty lying flat due to low back pain, we discussed doing a stress test while he is in in the hospital, he is a bit hesitant to do it, he tells with the last time they did a stress test on him, he just had severe back pain that he was not able to lie flat it was very uncomfortable but he is agreeable to try it if we give him some pain medications, he is already on oxycodone, we discussed potentially trying Dilaudid 1 mg IV push before doing stress testing, he is agreeable, we discussed his creatinine being 1.4, I Radha give his kidneys a break this morning and will give him a dose at 6 PM, he denies any fevers, no chills, no nausea, no vomiting, he was agreeable with the plan, Vitals/I&O/Wt Last Vital Signs Temp 97.7 F 03/03/23 11:35 Pulse 83 03/03/23 11:35 Resp 17 03/03/23 13:13 BP 134/75 03/03/23 11:35 Pulse Ox 96 03/03/23 11:35 O2 Del Method Nasal Cannula 03/03/23 11:35 O2 Flow Rate 2 03/03/23 07:29 03/02/23 03/03/23 03/03/23 22:59 06:59 14:59 Intake Total 120 / 580 300 / 880 600 / 600 Output Total 1750 / 2650 800 / 3450 680 / 680 Balance -1630 / -2070 -500 / -2570 -80 / -80 Physical Exam Const: COMMON NORMALS: no acute distress and patient oriented x3 Resp: COMMON NORMALS: normal respiratory effort, No retractions, No use of accessory muscles and clear to auscultation bilaterally AUSCULTATION: clear to auscultation bilaterally Cardio: COMMON NORMALS: regular rate, regular rhythm, S1 normal heart sound present and S2 normal heart sound present RATE: regular rate RHYTHM: regular rhythm HEART SOUNDS: S1 normal heart sound present and S2 normal heart sound present GI: COMMON NORMALS: Normal to inspection, nondistended, normoactive bowel sounds present and non-tender Neuro: COMMON NORMALS: patient oriented x3 Psych: COMMON NORMALS: mental status grossly normal Skin: NARRATIVE SKIN EXAM: 1+ nonpitting edema Urinary Catheter Management: Cisse: Cath Placed During This Visit: yes Reason for Continuing Indwelling Catheter: Acute Urinary Retention or Obstruction Urinary Catheter Date of Insertion: 03/01/23 Urinary Catheter Time of Insertion: 21:44 Data 03/03/23 03:37 03/03/23 03:37 A&P Assessment and plan (1) Chest pain: (2) CHF exacerbation: (3) Goals of care, counseling/discussion: (4) Morbid obesity: (5) Type 2 diabetes mellitus: (6) Chronic prescription opiate use: Plan Shortness of breath -Secondary to CHF exacerbation Plan -Fluid restrictions at 1000 cc -Creatinine 1.4, will give his kidneys a break this morning -Lasix 40 mg IV 1 dose this evening, daily, check creatinine -CT angiogram negative for pulm embolism -Cardiac echoas below -Monitor respiratory status closely Chest pain -Left-sided, radiating down the left arm -Associate with exertion -Associate with shortness of breath -Serial EKGs, serial troponins, telemetry monitoring -Continue aspirin, statin, metoprolol -N.p.o. midnight, 1 mg of IV push Dilaudid before stress test, stress test awilda orr -Cardiac echo This is a poor quality study.? The ventricle is probably normal ?in size and function.? Ejection fraction around 55%.? Wall ?motion disturbances cannot be determined.? Diastolic function ?cannot be determined. ?No change from the previous study done 04/28/2015 Type 2 diabetes mellitus -Lantus 30 units twice daily, low-dose sliding scale, A1c Obesity Chronic pain, continue oxycodone 20 mg p.o., every 4 hours as needed, confirmed with at bedside that this is his dose -There is some discrepancy on if he is taking Dilaudid or not, patient's denies him taking Dilaudid, patient is unsure as he tells me that the home health care nurse sets up most of his medications Goals of care discussion, patient wants to be a DNR/DNI Plan for today up out of bed, PT OT, 1 dose of Lasix in the evening, n.p.o. midnight, 1 dose of Dilaudid 1 mg IV push before his stress test, stress test tomorrow morning, monitor creatinine monitor electrolytes Attestations Medical Necessity Statement*: Patient requires hospitalization for shortness of breath secondary to CHF exacerbation requiring diuresis, chest pain requiring stress testing Diagnoses Chest pain R07.9 CHF exacerbation I50.9 Goals of care, counseling/discussion Z71.89 Morbid obesity E66.01 Type 2 diabetes mellitus E11.9 Chronic prescription opiate use Z79.891
[2023-03-03 16:34] LABS: Glucose Point of Care 220 mg/dL (70-110)
[2023-03-03] MEDS: FUROsemide 10 mg/mL SDV 4mL 40 MG IVP (17:24)
[2023-03-03] MEDS: enoxaparin 40 mg/0.4 mL Syringe SUBCUT (17:25)
[2023-03-03 20:51] LABS: Glucose Point of Care 192 mg/dL (70-110)
[2023-03-04] VITALS (12 sets, daily range): BP systolic 128–135; BP diastolic 67–76; PULSE 74–78; RESP 12–17; TEMP 37–37.1; O2SAT 90–96
[2023-03-04] MEDS: oxyCODONE 5 mg IR Tab/Cap 20 MG PO ×3 (04:02→13:34)
[2023-03-04 05:37] LABS: Basophils # 0.1 10^3/uL (0.0-0.1); Basophils % 0.7 %; Eosinophils # 0.2 10^3/uL (0.0-0.8); Eosinophils % 2.6 %; Hematocrit 37.4 % (42.0-52.0); Hemoglobin 11.1 g/dL (11.7-16.6); Lymphocytes # 2.3 10^3/uL (0.8-4.8); Lymphocytes % 24.9 %; Mean Corpuscular HGB Conc 29.7 g/dL (30.0-36.0); Mean Corpuscular Hemoglobin 25.3 pg (28.0-34.0); Mean Corpuscular Volume 85.2 fl (80-94); Mean Platelet Volume 10.1 fL (7.4-10.4); Monocytes # 1.1 10^3/uL (0.2-0.9); Monocytes % 12.1 %; Neutrophils # 5.46 10^3/uL (1.8-7.7); Neutrophils % 59.3 %; Nucleated Red Blood Cells % 0 %; Platelet Count 266 10^3/cmm (130-400); Red Blood Count 4.39 10^6/uL (4.1-5.3); Red Cell Distribution Width 14.6 % (12.1-15.1); White Blood Count 9.2 10^3/uL (4.0-10.0)
[2023-03-04 05:59] LABS: Anion Gap 12.6 (5-19); Blood Urea Nitrogen 21 mg/dL (8-23); Calcium 8.3 mg/dL (8.5-10.5); Carbon Dioxide 28 mmol/L (22-29); Chloride 103 mmol/L (98-107); Glucose 99 mg/dL (65-115); Osmolality Calculated 293 mOsm/kg (285-295); Phosphorus 2.8 mg/dL (2.5-4.5); Potassium 3.6 mmol/L (3.5-5.1); Sodium 140 mmol/L (136-145)
[2023-03-04 06:09] LABS: NT Pro B Type Natriuretic Pept 671 pg/mL (0-125)
[2023-03-04 06:43] LABS: Glucose Point of Care 111 mg/dL (70-110)
[2023-03-04] MEDS: bisacodyl 5 mg Tablet PO (08:42)
[2023-03-04] MEDS: fluoxetine 20 mg Capsule 40 MG PO (08:42)
[2023-03-04] MEDS: metoprolol tartrate 25 mg Tablet PO (08:42)
[2023-03-04] MEDS: docusate sodium 100 mg Capsule PO (08:42)
[2023-03-04] MEDS: aspirin 81 mg EC Tablet PO (08:42)
[2023-03-04] MEDS: lisinopril 20 mg Tablet PO (08:42)
[2023-03-04] MEDS: tamsulosin 0.4 mg Capsule PO (08:42)
[2023-03-04] MEDS: potassium chloride ER 20 mEq Tablet PO (08:42)
[2023-03-04] MEDS: gabapentin 300 mg Capsule 600 MG PO (08:43)
[2023-03-04] MEDS: FUROsemide 10 mg/mL SDV 4mL 40 MG IVP (08:43)
[2023-03-04] MEDS: finasteride 5 mg Tablet PO (08:43)
[2023-03-04] MEDS: insulin glargine 100 units/1 mL 30 UNIT SUBCUT (08:43)
[2023-03-04] MEDS: pantoprazole DR 40 mg Tablet PO (08:43)
--- NOTE | 2023-03-04 10:10 | P.DS_ITS ---
Discharge Providers Date of Admission: 03/01/23 16:46 Date of Discharge: March 04, 2023 Attending Provider at Admission: Anand Leroy MD Attending Provider at Discharge: Anand Leroy MD Primary Care Provider: Sammie Rocha DO Diagnoses at Discharge Discharge Diagnosis (1) Chest pain: Status: Acute (2) CHF exacerbation: Status: Acute (3) Goals of care, counseling/discussion: Status: Acute (4) Morbid obesity: Status: Acute (5) Type 2 diabetes mellitus: Status: Acute (6) Chronic prescription opiate use: Status: Acute Reason for Visit Reason for Visit: Chest Pain Hospital Course Hospital Course Alen Appiah is a 72 year old male with a past medical history of pulmonary embolism, completed anticoagulation after back surgery, history of insulin- dependent type 2 diabetes mellitus, history of chronic pain on oxycodone, obesit y, who presents to [facility] for complaints of shortness of breath, lower extremity edema.? Patient tells me that for the last few weeks, to month he has felt short of breath, short of breath with exertion, he tells me that he cannot lie flat, he has still sleep in a recliner, does report orthopnea, paroxysmal nocturnal dyspnea, also reports left substernal chest pain rating down his left arm, he tells me that many years ago he was transferred to [place] for possible heart attack, but after extensive work-up they told him his heart was okay.? He does report a history of pulmonary embolism, for which she was placed on anticoagulant therapy for roughly 6 months after back surgery he has chronic back pain for which he uses oxycodone he does have type 2 diabetes mellitus, he tells me that he takes insulin for this, and his home health care nurse primarily manages his insulin, no fevers, no chills, no cough.? For his chest pain, the chest pain has been becoming more frequent with the shortness of breath, no nausea, no vomiting Patient requires hospitalization for CHF exacerbation, required inpatient diuresis, diuresed over 8 L, clinically improved, discharged on Lasix 40 mg once daily with potassium replacement therapy, creatinine on discharge was 1.0, please see primary care provider this week to recheck creatinine recheck potassium Patient had chest pain during his hospitalization, there is plans on performing a cardiac stress test however on the morning of the stress test patient declined testing as he could not lie flat due to low back pain. Discussed morbidity and mortality associated with CAD, he voiced understanding, all questions answered, declined stress testing for now, discharged on his home on his aspirin, statin, nitro as needed for chest pain, see cardiology in a week Physical Exam Const: COMMON NORMALS: no acute distress and patient oriented x3 Resp: COMMON NORMALS: normal respiratory effort, No retractions, No use of accessory muscles and clear to auscultation bilaterally AUSCULTATION: clear to auscultation bilaterally Cardio: COMMON NORMALS: regular rate, regular rhythm, S1 normal heart sound present and S2 normal heart sound present RATE: regular rate RHYTHM: regular rhythm HEART SOUNDS: S1 normal heart sound present and S2 normal heart sound present GI: COMMON NORMALS: Normal to inspection, nondistended, normoactive bowel sounds present and non-tender Extremity: COMMON NORMALS: no pedal edema Neuro: COMMON NORMALS: patient oriented x3 Psych: COMMON NORMALS: mental status grossly normal Urinary Catheter Management: Cisse: Cath Placed During This Visit: yes Reason for Continuing Indwelling Catheter: Acute Urinary Retention or Obstruction Urinary Catheter Date of Insertion: 03/01/23 Urinary Catheter Time of Insertion: 21:44 Discharge Data Studies Completed and Pending Completed Studies During Hospitalization Category Date Time Status CT angio chest PE protcl [id number] Stat Cat Scan 03/01/23 14:47 Completed XR chest 1V portable [id number] Stat Exams 03/01/23 10:00 Completed CV. echo complete* [id number] Routine Ultrasound 03/02/23 16:46 Completed Pending at discharge Category Date Time Status Sestamibi Stress Test Request Routine Exams 03/03/23 12:40 Ordered NT Pro B Type Natriuretic Pept QAM Lab 03/05/23 06:00 Ordered Laboratory Results WBC 9.2 10^3/uL (4.0-10.0) 03/04/23 05:12 RBC 4.39 10^6/uL (4.1-5.3) 03/04/23 05:12 Hgb 11.1 g/dL (11.7-16.6) L 03/04/23 05:12 Hct 37.4 % (42.0-52.0) L 03/04/23 05:12 MCV 85.2 fl (80-94) 03/04/23 05:12 MCH 25.3 pg (28.0-34.0) L 03/04/23 05:12 MCHC 29.7 g/dL (30.0-36.0) L 03/04/23 05:12 RDW 14.6 % (12.1-15.1) 03/04/23 05:12 Plt Count 266 10^3/cmm (130-400) 03/04/23 05:12 MPV 10.1 fL (7.4-10.4) 03/04/23 05:12 Neut % (Auto) 59.3 % 03/04/23 05:12 Lymph % (Auto) 24.9 % 03/04/23 05:12 [place] % (Auto) 12.1 % 03/04/23 05:12 Eos % (Auto) 2.6 % 03/04/23 05:12 Baso % (Auto) 0.7 % 03/04/23 05:12 Neut # (Auto) 5.46 10^3/uL (1.8-7.7) 03/04/23 05:12 Lymph # (Auto) 2.3 10^3/uL (0.8-4.8) 03/04/23 05:12 [place] # (Auto) 1.1 10^3/uL (0.2-0.9) H 03/04/23 05:12 Eos # (Auto) 0.2 10^3/uL (0.0-0.8) 03/04/23 05:12 Baso # (Auto) 0.1 10^3/uL (0.0-0.1) 03/04/23 05:12 Nucleated RBC % (auto) 0 % 03/04/23 05:12 Nucleated RBCs # 0.0 /100WBC 03/04/23 05:12 Specimen Type Arterial 03/01/23 16:16 Sample Site Radial, left 03/01/23 16:16 ABG pH 7.32 (7.35-7.45) L 03/01/23 16:16 ABG pCO2 55.5 mmHg (35-45) H 03/01/23 16:16 ABG pO2 61.4 mmHg (80.0-100.0) L 03/01/23 16:16 ABG HCO3 28.8 mmol/L (22-26) H 03/01/23 16:16 ABG Base Excess 1.7 mmol/L (-2.0-2.0) 03/01/23 16:16 Onel Test Pos 03/01/23 16:16 Hematocrit 37.5 % (42-52) L 03/01/23 16:16 O2 Delivery Device Nc 03/01/23 16:16 O2 Liters/Min 2.0 % 03/01/23 16:16 Chief Digital Media Officer ID Pedro 03/01/23 16:16 Sodium 140 mmol/L (136-145) 03/04/23 05:12 Potassium 3.6 mmol/L (3.5-5.1) 03/04/23 05:12 Chloride 103 mmol/L (98-107) 03/04/23 05:12 Carbon Dioxide 28 mmol/L (22-29) 03/04/23 05:12 Anion Gap 12.6 (5-19) 03/04/23 05:12 BUN 21 mg/dL (8-23) 03/04/23 05:12 Creatinine 1.0 mg/dL (0.7-1.2) 03/04/23 05:12 GFR Calculation Not Reportable 03/04/23 05:12 Glucose 99 mg/dL (65-115) 03/04/23 05:12 POC Glucose 111 mg/dL (70-110) H 03/04/23 06:37 Estimat Average Glucose 131 03/01/23 10:05 Hemoglobin A1c 6.2 % (4.0-6.0) H 03/01/23 10:05 Calculated Osmolality 293 mOsm/kg (285-295) 03/04/23 05:12 Calcium 8.3 mg/dL (8.5-10.5) L 03/04/23 05:12 Phosphorus 2.8 mg/dL (2.5-4.5) 03/04/23 05:12 Magnesium 2.0 mg/dL (1.7-2.3) 03/04/23 05:12 Total Bilirubin 0.5 mg/dL (0.15-1.2) 03/01/23 10:05 AST 23 U/L (0-40) 03/01/23 10:05 ALT 15 U/L (0-41) 03/01/23 10:05 Alkaline Phosphatase 212 U/L (40-130) H 03/01/23 10:05 Troponin T Baseline 11 ng/L (0-15) 03/01/23 10:05 Troponin T 120 Minute 10.63 ng/L (0-15) 03/01/23 12:10 Delta Troponin T -0.37 ABS# (0-10) L 03/01/23 12:10 Troponin T Hi Sens 6Hr 9.04 ng/L (0-15) 03/01/23 16:00 Troponin T Hi Sens 6Hr Delta -1.96 ng/L (0-12) L 03/01/23 16:00 NT-Pro-B Natriuret Pep 671 pg/mL (0-125) H 03/04/23 05:12 Total Protein 6.5 g/dL (6.6-8.7) L 03/01/23 10:05 Albumin 3.7 g/dL (3.5-5.2) 03/01/23 10:05 Globulin 2.8 g/dL (1.3-4.6) 03/01/23 10:05 Triglycerides 104 mg/dL (0-150) 03/01/23 10:05 Cholesterol 100 mg/dL (0-200) 03/01/23 10:05 LDL Cholesterol, Calc 44 mg/dL (50-129) L 03/01/23 10:05 HDL Cholesterol 35 mg/dL (60-100) L 03/01/23 10:05 LDL/HDL Ratio 1.26 RATIO (0.00-3.22) 03/01/23 10:05 Cholesterol/HDL Ratio 2.86 mg/dL (1.0-5.00) 03/01/23 10:05 Lipase 14 U/L (13-60) 03/01/23 10:05 Procalcitonin 0.05 ng/mL (0-0.5) 03/01/23 10:05 TSH 3.24 uIU/mL (0.27-4.20) 03/01/23 10:05 Urine Color Yellow (Yellow) 03/03/23 03:45 Urine Appearance Clear (CLEAR) 03/03/23 03:45 Urine pH 5 (5-7) 03/03/23 03:45 Ur Specific [place] 1.010 (1.005-1.030) 03/03/23 03:45 Urine Protein Neg (Negative) 03/03/23 03:45 Urine Glucose (UA) Norm (Normal) 03/03/23 03:45 Urine Ketones Negative (Negative) 03/03/23 03:45 Urine Blood Neg (Negative) 03/03/23 03:45 Urine Nitrate Negative (Negative) 03/03/23 03:45 Urine Bilirubin Neg (Negative) 03/03/23 03:45 Urine Urobilinogen 1 mg/dL (Negative) H 03/03/23 03:45 Ur Leukocyte Esterase 1+ (Negative) H 03/03/23 03:45 Urine RBC 0-4 /hpf (0-2) H 03/03/23 03:45 Urine WBC 0-4 /hpf (0-5) H 03/03/23 03:45 Ur Squamous Epith Cells 0-4 /hpf (0-5) H 03/03/23 03:45 Amorphous Sediment Not Reportable 03/03/23 03:45 Urine Bacteria Trace /hpf (NONE) 03/03/23 03:45 SARS-CoV-2 Ag (Rapid) negative (Negative) 03/01/23 10:05 Vitals Last Vital Signs Temp 98.7 F 03/04/23 07:56 Pulse 78 03/04/23 08:26 Resp 16 03/04/23 08:26 BP 135/67 03/04/23 07:56 Pulse Ox 96 03/04/23 08:26 O2 Del Method Nasal Cannula 03/04/23 08:26 O2 Flow Rate 1 03/04/23 08:26 Discharge Plan Discharge Patient Disposition: Home Health Service Condition: Stable Prescriptions: New furosemide [Lasix] 40 mg tablet 40 mg PO DAILY 30 Days Qty: 30 0RF potassium chloride [Klor-Con M20] 20 mEq tablet,ER particles/crystals 20 meq PO DAILY 30 Days Qty: 30 0RF atorvastatin 40 mg tablet 40 mg PO DAILY 30 Days Qty: 30 0RF nitroglycerin 0.4 mg tablet, sublingual 0.4 mg sublingual Q5M PRN (Reason: chest pain) 30 Days Qty: 30 0RF Rx Instructions: do not exceed 3 doses per episode Continued oxycodone 10 mg tablet 20 mg PO Q4H MDD 1 PRN (Reason: Allergic Symptoms) fluticasone propionate [Flonase Allergy Relief] 50 mcg/actuation spray,suspension 1 spray INTRANASAL DAILY Rx Instructions: administer into each nostril fluticasone propion-salmeterol [Advair Diskus] 250-50 mcg/dose blister with device 1 inh INHALATION BID bisacodyl [Dulcolax (bisacodyl)] 5 mg tablet,delayed release (DR/EC) 5 mg PO DAILY aspirin 81 mg tablet,delayed release (DR/EC) 81 mg PO DAILY Hold Instructions: Resume on 06/11/20. gabapentin 600 mg tablet 600 mg PO BID lisinopril 20 mg tablet 20 mg PO DAILY senna 8.6 mg capsule 8.6 mg PO DAILY albuterol sulfate 2.5 mg /3 mL (0.083 %) solution for nebulization 2.5 mg INHALATION Q6H docusate sodium 100 mg capsule 100 mg PO BID albuterol sulfate 90 mcg/actuation aerosol powdr breath activated 2 inh INHALATION Q4H PRN (Reason: Allergic Symptoms) fluoxetine [Prozac] 20 mg capsule 40 mg PO DAILY metoprolol tartrate 25 mg tablet 25 mg PO BID Tradjenta 5 mg tablet 5 mg PO DAILY tamsulosin [Flomax] 0.4 mg capsule 0.4 mg PO BID Qty: 60 12RF Protonix 40 mg tablet,delayed release (DR/EC) 40 mg PO DAILY Qty: 30 2RF potassium chloride 20 mEq tablet,ER particles/crystals 20 meq PO DAILY finasteride 5 mg tablet 5 mg PO DAILY Changed Xultophy 100/3.6 100 unit-3.6 mg /mL (3 mL) insulin pen 30 unit SUBCUT BID Qty: 15 0RF Discontinued amlodipine 10 mg tablet 10 mg PO DAILY celecoxib [Celebrex] 200 mg capsule 200 mg PO DAILY Hold Instructions: Resume on 06/11/20. bumetanide 2 mg tablet 2 mg PO DAILY hydromorphone 4 mg Tablet 4 mg PO Q4H PRN (Reason: Pain) Discharge Orders: Discharge Order (Routine); Ordered 03/04/23 Ordered By: Anand Leroy Referrals: [facility] [Outside] Michi Sosa MD [Physician] - 1 week Sammie Rocha DO [Primary Care Provider] - 1-3 days Discharge Diet: Cardiac Discharge Activity: Resume usual activity Patient Instructions: Opioid Safety Activity Restrictions/Additional Instructions: - Please limit fluid intake to 2 L a day -Take Lasix 40 mg once daily with potassium replacement -She will primary care provider this week to recheck your creatinine and recheck your potassium -See cardiology in 1 week -If any chest pain please go to emergency room Discharge Attestations Time Spent in Discharge Care*: greater than 30 min Quality Metrics Clinical Quality Measures [ No reported AMI, CVA or VTE this stay] Coding Level of Care Code 66502 Total time (in minutes) for Discharge: 45 Diagnoses Chest pain R07.9 CHF exacerbation I50.9 Goals of care, counseling/discussion Z71.89 Morbid obesity E66.01 Type 2 diabetes mellitus E11.9 Chronic prescription opiate use Z79.891
--- NOTE | 2023-03-04 10:51 | PC.SOCIAL ---
IMM update IMM updated with patient. Verbalized an understanding. Copy PG 2 provided. Initialled, dated, timed, and placed in chart.
[2023-03-04 11:18] LABS: Glucose Point of Care 227 mg/dL (70-110)
[2023-03-04] MEDS: insulin lispro 100 unit/1 mL SUBCUT (12:22)
--- NOTE | 2023-03-04 14:56 | PC.NURSE ---
Discharge Note Patient discharged to [home] via [POV] accompanied by [family]. Discharge instructions reviewed with patient and/or customer account representative. Mobile pharmacy medications and/or prescriptions provided. Belongings/home medications returned.
--- NOTE | 2023-03-04 14:57 | PC.NURSE ---
pt has voided twice since the portillo catheter was removed during this shift.
== END 2023-03-04 14:50 | disposition home or self-care (01) | DRG 292 ==
LOC: ER 13:11 → MEDSURG 14:39 → CSU 16:04
PROVIDERS: Admitting Provider Family Medicine; Emergency Provider Emergency Medicine; PCP Family Medicine; Visit Provider Family Medicine
DX: I11.0 Hypertensive heart disease with heart failure (principal); Z68.41 Body mass index [BMI] 40.0-44.9, adult; I50.9 Heart failure, unspecified; Z86.711 Personal history of pulmonary embolism; E11.9 Type 2 diabetes mellitus without complications; Z79.4 Long term (current) use of insulin; G89.29 Other chronic pain; E66.01 Morbid (severe) obesity due to excess calories; M54.50 Low back pain, unspecified; I25.10 Atherosclerotic heart disease of native coronary artery without angina pectoris; Z79.82 Long term (current) use of aspirin; Z79.51 Long term (current) use of inhaled steroids; N40.1 Benign prostatic hyperplasia with lower urinary tract symptoms; K21.9 Gastro-esophageal reflux disease without esophagitis; Z87.891 Personal history of nicotine dependence; Z66 Do not resuscitate
CPT/HCPCS: 36415; 36416; 36600; 51702; 71045; 71275; 80048; 80053; 80061; 81001; 82803; 82962; 83036; 83690; 83735; 83880; 84100; 84145; 84443; 84484; 85025; 87426; 93005; 93306; 94640; 94664; 96365; 96372; 96375; 96376; 97116; 97161; 97165; 99285; J1650; J1815; J1940; J2270; J2930; J3490; J7613; Q9967

== ENCOUNTER 2023-07-30 11:29 | Emergency (ER) | payer MEDICARE, MEDICAID, SELFPAY ==
[2023-07-30 11:35] VITALS: BP 115/75; PULSE 111; RESP 16; TEMP 37.2; O2SAT 92; BMI 41.8
--- NOTE | 2023-07-30 13:12 | W.ED.BACK ---
HPI - Back Pain/Injury General: Chief Complaint: Extremity Injury, Lower Stated Complaint: Hip Pain Time Seen by Provider: 07/30/23 12:40 Source: patient Mode of arrival: wheelchair Limitations: no limitations History of Present Illness: Patient is a 73-year-old male who presents to ED today with complaint of bilateral hip pain. Patient states he woke up with the pain. He denies any injury or trauma. Denies doing anything yesterday where he may have overdid it stating he rarely ambulates in his home. Patient states pain is located primarily throughout his bilateral posterior hips and buttocks. He denies radicular symptoms into his lower extremities. Patient states he can barely walk secondary to pain. He denies numbness, tingling, loss of sensation to his legs. He has not noticed any color or temperature changes to the legs. He states they are always cool. He has not noticed any worsening swelling to his legs. He does have chronic skin changes to his lower extremities but feels like these are baseline. Patient arrives via EMS and appears fairly uncomfortable. He is mildly tachycardic. He states the pain is making him nauseous. Patient does have chronic back pain that he treats with oxycodone. MD elicited complaint: other (bilateral hip pain) Pertinent past history: prior back pain Onset (ago): hour(s) Timing: constant Severity: severe Similar Symptoms Previously: No Radiation: none Exacerbating factors: movement and walking Relieving factors: none Associated symptoms: Reports no associated symptoms and difficulty walking; Deny abdominal pain, chills, fatigue or fever(s) Work related injury: No Review of Systems Const: Denies: fever(s), chills, body aches, fatigue or malaise Card: Denies: chest pain Resp: Denies: dyspnea GI: Denies: abdominal pain Musc: Reports: back pain (chronic-at baseline), joint pain (bilateral hips) and limited range of motion; Denies: neck pain, extremity pain, extremity swelling, joint swelling, joint redness, joint warmth, joint stiffness or muscle cramps Neuro: Reports: difficulty walking; Denies: headache(s), numbness in extremities, weakness in extremities or sensory changes PFS ED PFSH: Medical History Diabetes Hypertension GERD (gastroesophageal reflux disease) BPH loc w urin obs/LUTS Vomiting Surgical History History of ankle surgery History of lumbar surgery History of hernia surgery S/P TURP Family History Father , AT 86 of unknown cause Mother , AT 36 Lupus Denies family history of Anesthesia complication Bleeding disorder Social History Smoking and tobacco/nicotine status: former use of tobacco/nicotine Alcohol intake: never Substance/Drug Use: never Marital status: Current occupational status: disabled Physical Exam Const: COMMON NORMALS: patient oriented x3, no limitations, alert and well nourished GENERAL APPEARANCE: cooperative and in distress (appears uncomfortable) NUTRITIONAL APPEARANCE: obese morbidly obese ORIENTATION/CONSCIOUSNESS: Yes awake, Yes oriented to person, Yes oriented to place and Yes oriented to time Eye: GENERAL EYE: appearance normal, both eyes and all related structures Neck/C-Spine: GENERAL: Yes normal visual inspection Chest: COMMONS NORMALS: normal inspection of the chest and normal palpation of entire chest wall Resp: COMMON NORMALS: normal respiratory effort and clear to auscultation bilaterally AUSCULTATION: clear to auscultation bilaterally Cardio: COMMON NORMALS: regular rhythm RATE: tachycardic RHYTHM: regular rhythm GI: COMMON NORMALS: Normal to inspection, nondistended, normoactive bowel sounds present, Soft to palpation, non-tender, No hepatosplenomegaly present and no masses INSPECTION: Yes normal to inspection AUSCULTATION: Yes normoactive bowel sounds PALPATION: Yes Soft to palpation, No Guarding due to palpation present (GI), No Rigid due to palpation and Yes No hepatosplenomegaly present : COMMON NORMALS: Yes no CVA tenderness BLADDER/KIDNEY EXAM: Yes no CVA tenderness Back/Pelvis: COMMON NORMALS: no CVA tenderness, thoracic and lumbar spine normal to inspection, no thoracic nor lumbar tenderness and thoraco-lumbar ROM normal PELVIS: Yes buttock abnormal Buttock abnormal laterality: bilateral Bilateral buttock abnormal details: tenderness and Yes sciatic notch tenderness SACROILIAC JOINTS: Yes SI joint(s) abnormal SI joint details: tender to palpation SACRUM: no tenderness COCCYX: no tenderness OTHER: area of erythema/early skin breakdown at gluteal cleft consistent with early decubitus ulcer-no pilonidal cyst; he is tender here; I do not appreciate any draining/fluctuance Extremity: COMMON NORMALS: capillary refill normal, no clubbing, cyanosis or edema, no calf tenderness and no pedal edema NARRATIVE EXTREMITY EXAM: bilateral feet are cool to the touch but DP/PT pulses intact; he has chronic venous stasis skin changes anterior lower legs; R femoral pulse easily palpable however cannot palpate L; he has quite a bit of pain with ROM of bilateral hips and is not able to ambulate on them at this time GENERAL: Yes normal exam except as noted Neuro: COMMON NORMALS: patient oriented x3, moves all extremities, no focal motor deficits and no sensory deficits noted SENSORIUM/ORIENTATION: Yes alert, Yes oriented to person, Yes oriented to place and Yes oriented to time GAIT: Yes Unable to assess gait Course Vital Signs: Vital signs: Vital Signs Temperature 99.0 F 07/30/23 11:35 Pulse Rate 85 07/30/23 14:34 Respiratory Rate 16 07/30/23 11:35 Blood Pressure 122/82 07/30/23 14:34 Pulse Oximetry 91 07/30/23 14:34 Oxygen Delivery Me thod Room Air 07/30/23 14:34 MDM - Back Pain/Injury Medical Decision Making Patient here for atraumatic bilateral hip pain. He also reports lower back pain but states the back pain is chronic for him stating he takes oxycodone daily for this. On exam he has no swelling to his lower extremities. Distal DP/PT pulses are intact bilateral and I could find a palpable right femoral pulse but not on left. RN tried to Doppler and also could not thus US was obtained as there was some concern that this could be an aortoiliac claudication like picture. This was negative. I have no concern for DVT. No concern for septic arthritis or osteonecrosis. He did have a developing sacral ulcer and was tender here. I did not feel anything that was suspicious for abscess I did elect to order pelvis CT imaging. Patient ultimately declined this stating he cannot lie flat and still enough for exam. Discussed how I would like to rule out infectious etiology but again he declines. He was given pain meds, steroids, and muscle relaxers and eventually was able to get up and ambulate around the ED with the use of a walker which is more than what he has been able to do since pain started. At this time patient is requesting discharge. He takes oxycodone daily for his chronic back pain. Will place him on steroids and muscle relaxers. Recommend follow-up with his primary care provider and or pain management provider. Strict return ED precautions given. Medical Records I reviewed the patient's medical records. Labs I reviewed the patient's lab results. 07/30/23 14:20 07/30/23 14:20 Radiology Impressions Aorta Iliac Vascular Ultrasound 07/30/23 13:53 IMPRESSION: As above. Laboratory Results WBC 13.33 10^3/uL (3.29-11.43) H 07/30/23 14:20 RBC 5.71 10^6/uL (3.85-5.65) H 07/30/23 14:20 Hgb 15.00 g/dL (11.27-16.99) 07/30/23 14:20 Hct 48.6 % (37-53) 07/30/23 14:20 MCV 85.1 fl (82-101) 07/30/23 14:20 MCH 26.3 pg (27-33) L 07/30/23 14:20 MCHC 30.9 g/dL (30-55) 07/30/23 14:20 RDW 14.7 % (12.1-15.1) 07/30/23 14:20 Plt Count 275 10^3/cmm (157-399) 07/30/23 14:20 MPV 10.0 fL (7.4-10.4) 07/30/23 14:20 Neut % (Auto) 76.6 % 07/30/23 14:20 Lymph % (Auto) 14.7 % 07/30/23 14:20 [place] % (Auto) 6.7 % 07/30/23 14:20 Eos % (Auto) 1.1 % 07/30/23 14:20 Baso % (Auto) 0.5 % 07/30/23 14:20 Neut # (Auto) 10.22 10^3/uL (1.8-7.7) H 07/30/23 14:20 Lymph # (Auto) 2.0 10^3/uL (0.8-4.8) 07/30/23 14:20 [place] # (Auto) 0.9 10^3/uL (0.2-0.9) 07/30/23 14:20 Eos # (Auto) 0.2 10^3/uL (0.0-0.8) 07/30/23 14:20 Baso # (Auto) 0.1 10^3/uL (0.0-0.1) 07/30/23 14:20 Nucleated RBC % (auto) 0 % 07/30/23 14:20 Nucleated RBCs # 0.0 /100WBC 07/30/23 14:20 Sodium 138 mmol/L (136-145) 07/30/23 14:20 Potassium 4.4 mmol/L (3.5-5.1) 07/30/23 14:20 Chloride 100 mmol/L (98-107) 07/30/23 14:20 Carbon Dioxide 27 mmol/L (22-29) 07/30/23 14:20 Anion Gap 15.4 (5-19) 07/30/23 14:20 BUN 20 mg/dL (8-23) 07/30/23 14:20 Creatinine 2.0 mg/dL (0.7-1.2) H 07/30/23 14:20 GFR Calculation Not Reportable 07/30/23 14:20 Glucose 187 mg/dL (65-115) H 07/30/23 14:20 Calculated Osmolality 294 mOsm/kg (285-295) 07/30/23 14:20 Calcium 8.7 mg/dL (8.5-10.5) 07/30/23 14:20 Total Bilirubin 0.8 mg/dL (0.15-1.2) 07/30/23 14:20 AST 121 U/L (0-40) H 07/30/23 14:20 ALT 49 U/L (0-41) H 07/30/23 14:20 Alkaline Phosphatase 230 U/L (40-130) H 07/30/23 14:20 C-Reactive Protein 5.1 mg/L (0.0-4.9) H 07/30/23 14:20 Total Protein 7.3 g/dL (6.6-8.7) 07/30/23 14:20 Albumin 3.4 g/dL (3.5-5.2) L 07/30/23 14:20 Globulin 3.9 g/dL (1.3-4.6) 07/30/23 14:20 All radiology interpretation(s) finalized by discharge Discharge Plan Discharge Patient Disposition: Home Clinical Impression: Acute hip pain, bilateral Condition: Stable Prescriptions: New methocarbamol 500 mg tablet 1,000 mg PO Q8H Qty: 30 0RF Medrol (Reyes) 4 mg tablets,dose pack See Rx Instructions .ROUTE .COMPLEX Qty: 21 0RF Rx Instructions: orally per package directions No Action oxycodone 10 mg tablet 20 mg PO Q4H MDD 1 PRN (Reason: Allergic Symptoms) fluticasone propionate [Flonase Allergy Relief] 50 mcg/actuation spray,suspension 1 spray INTRANASAL DAILY Rx Instructions: administer into each nostril fluticasone propion-salmeterol [Advair Diskus] 250-50 mcg/dose blister with device 1 inh INHALATION BID bisacodyl [Dulcolax (bisacodyl)] 5 mg tablet,delayed release (DR/EC) 5 mg PO DAILY aspirin 81 mg tablet,delayed release (DR/EC) 81 mg PO DAILY Hold Instructions: Resume on 06/11/20. gabapentin 600 mg tablet 600 mg PO BID lisinopril 20 mg tablet 20 mg PO DAILY senna 8.6 mg capsule 8.6 mg PO DAILY albuterol sulfate 2.5 mg /3 mL (0.083 %) solution for nebulization 2.5 mg INHALATION Q6H docusate sodium 100 mg capsule 100 mg PO BID albuterol sulfate 90 mcg/actuation aerosol powdr breath activated 2 inh INHALATION Q4H PRN (Reason: Allergic Symptoms) fluoxetine [Prozac] 20 mg capsule 40 mg PO DAILY metoprolol tartrate 25 mg tablet 25 mg PO BID Tradjenta 5 mg tablet 5 mg PO DAILY tamsulosin [Flomax] 0.4 mg capsule 0.4 mg PO BID Qty: 60 12RF Protonix 40 mg tablet,delayed release (DR/EC) 40 mg PO DAILY Qty: 30 2RF potassium chloride 20 mEq tablet,ER particles/crystals 20 meq PO DAILY finasteride 5 mg tablet 5 mg PO DAILY Xultophy 100/3.6 100 unit-3.6 mg /mL (3 mL) insulin pen 30 unit SUBCUT BID Qty: 15 0RF Discharge Orders: Discharge ED (Routine); Ordered 07/30/23 Ordered By: Odalis Julian Referrals: Sammie Rocha, [Primary Care Provider] - Activity Restrictions/Additional Instructions: As we discussed you can continue to take your normal oxycodone as needed for discomfort. We will also place you on steroids and muscle relaxers. These have been called into the pharmacy on file. Please follow-up with your primary care provider if symptoms do not seem to be improving over the next few days. Please continue to get up and ambulate with use of your walker several times daily to avoid worsening pain and stiffness. Coding Level of Care Code ED Visual Merchandising Director for Zaynab Iglesias
--- NOTE | 2023-07-30 13:22 | PC.PHAR ---
Addendum entered by Bita Yeh 07/30/23 13:23: FAXING MED LIST 1:23PM Original Note: 07/30/23 PT HAS NURSE SET UP MEDS FROM [facility]
[2023-07-30 13:34] VITALS: O2SAT 92
[2023-07-30] MEDS: morphine 4 mg/mL SDV 1 mL IVP (13:34)
--- NOTE | 2023-07-30 13:53 | USR_ITS ---
PROCEDURE INFORMATION: Exam: US Limited Retroperitoneal, Aorta. Exam date and time: 07/30/2023 2:39 PM Age: 73 years old Clinical indication: Other: Hip pain; Additional info: Cannot palpate L femoral pulse; Bilateral hip pains TECHNIQUE: Imaging protocol: Real-time ultrasound of the retroperitoneum with image documentation. Exam focused on the aorta. COMPARISON: CT angio chest PE protcl [id number] 03/01/2023 2:56 PM FINDINGS: The aorta could not be identified due to overlying bowel gas. However the iliac arteries were patent and of normal caliber. Normal triphasic waveforms. US/CV duplex aorta [id number] IMPRESSION: As above.
[2023-07-30 14:27] LABS: Basophils # 0.1 10^3/uL (0.0-0.1); Basophils % 0.5 %; Eosinophils # 0.2 10^3/uL (0.0-0.8); Eosinophils % 1.1 %; Hematocrit 48.6 % (37-53); Lymphocytes % 14.7 %; Mean Corpuscular HGB Conc 30.9 g/dL (30-55); Mean Corpuscular Hemoglobin 26.3 pg (27-33); Mean Corpuscular Volume 85.1 fl (82-101); Monocytes # 0.9 10^3/uL (0.2-0.9); Monocytes % 6.7 %; Neutrophils # 10.22 10^3/uL (1.8-7.7); Neutrophils % 76.6 %; Nucleated Red Blood Cells % 0 %; Platelet Count 275 10^3/cmm (157-399); Red Blood Count 5.71 10^6/uL (3.85-5.65); Red Cell Distribution Width 14.7 % (12.1-15.1); White Blood Count 13.33 10^3/uL (3.29-11.43)
[2023-07-30 14:34] VITALS: BP 122/82; PULSE 85; O2SAT 91
[2023-07-30 14:45] LABS: Alanine Aminotransferase 49 U/L (0-41); Albumin Level 3.4 g/dL (3.5-5.2); Alkaline Phosphatase 230 U/L (40-130); Anion Gap 15.4 (5-19); Aspartate Amino Transferase 121 U/L (0-40); Blood Urea Nitrogen 20 mg/dL (8-23); C Reactive Protein 5.1 mg/L (0.0-4.9); Calcium 8.7 mg/dL (8.5-10.5); Carbon Dioxide 27 mmol/L (22-29); Chloride 100 mmol/L (98-107); Globulin 3.9 g/dL (1.3-4.6); Glucose 187 mg/dL (65-115); Osmolality Calculated 294 mOsm/kg (285-295); Potassium 4.4 mmol/L (3.5-5.1); Sodium 138 mmol/L (136-145); Total Bilirubin 0.8 mg/dL (0.15-1.2); Total Protein 7.3 g/dL (6.6-8.7)
[2023-07-30] MEDS: orphenadrine 30 mg/mL Inj 2 mL 60 MG IVP (15:36)
[2023-07-30] MEDS: dexamethasone 10 mg/mL INJ IVP (15:37)
== END 2023-07-30 16:07 | disposition home or self-care (01) ==
PROVIDERS: Emergency Provider Physician Assistant; PCP Family Medicine
DX: M25.552 Pain in left hip (principal); M25.551 Pain in right hip; Z79.82 Long term (current) use of aspirin; Z87.891 Personal history of nicotine dependence; E11.9 Type 2 diabetes mellitus without complications; I10 Essential (primary) hypertension
CPT/HCPCS: 36415; 80053; 85025; 86140; 93978; 96374; 96375; 99285; J1100; J2270; J2360

== ENCOUNTER 2024-05-24 13:23 | Inpatient (IN) | payer MEDICARE, MEDICAID, SELFPAY ==
[2024-05-24] VITALS (13 sets, daily range): BP systolic 122–208; BP diastolic 71–117; PULSE 88–105; RESP 16–25; TEMP 36.8–37; O2SAT 92–99
--- NOTE | 2024-05-24 13:31 | ED_ITS ---
HPI - Extremity Problem 2 General: Chief complaint: Extremity Problem,Nontraumatic Stated complaint: right foot pain Time Seen by Provider: 05/24/24 13:31 History of Present Illness: 74-year-old male patient comes in today for complaints of redness and swelling to the right ankle area. Patient does have redness extending up into the posterior calf to just below the knee joint. Patient reports increased pain and nausea and vomiting all night. Patient does have a history of chronic back pain, diabetes mellitus, and hypertension. Patient has stasis dermatitis to the bilateral lower extremities. Increased redness is noted to the right lower extremity. Review of patient's medications and notes that patient takes medications for depression, albuterol, laxatives, chronic pain medication, blood pressure medication, medication for reflux, BPH and diabetes mellitus. Patient reports not taking his medications today. Patient's blood pressure is elevated. Related Data Home Medications Medication Instructions Recorded Confirmed aspirin 81 mg tablet,delayed 81 mg PO DAILY 05/16/20 05/24/24 release bisacodyl 5 mg tablet,delayed 5 mg PO DAILY 05/16/20 05/24/24 release (Dulcolax (bisacodyl)) gabapentin 600 mg tablet 600 mg PO TID 05/16/20 05/24/24 lisinopril 20 mg tablet 20 mg PO DAILY 05/16/20 05/24/24 metoprolol tartrate 25 mg tablet 25 mg PO BID 12/20/21 05/24/24 potassium chloride 20 mEq 20 meq PO DAILY 03/01/23 05/24/24 tablet,extended release(part/cryst) atorvastatin 80 mg tablet 80 mg PO BEDTIME 05/24/24 05/24/24 baclofen 20 mg tablet 20 mg PO TID PRN Pain 05/24/24 05/24/24 furosemide 40 mg tablet 40 mg PO DAILY 05/24/24 05/24/24 insulin degludec 100 30 unit SUBCUT BID PRN bs 05/24/24 05/24/24 unit-liraglutide 3.6 mg/mL(3 mL) subcutaneous pen (Xultophy 100/3.6) oxycodone 20 mg tablet 20 mg PO Q4H PRN Pain 05/24/24 05/24/24 sulfamethoxazole 800 1 tab PO BID 05/24/24 05/24/24 mg-trimethoprim 160 mg tablet Previous Rx's Medication Instructions Recorded tamsulosin 0.4 mg capsule (Flomax) 0.4 mg PO BID #60 caps 12/20/21 Allergies Allergy/AdvReac Type Severity Reaction Status Date / Time metoclopramide [From Reglan] Allergy Severe ADR-Nausea Verified 07/30/23 11:43 Review of Systems 2 General: Reports: 10 or more systems reviewed and unremarkable except in HPI and below PFSH ED 2 PFSH: Medical History Diabetes Hypertension GERD (gastroesophageal reflux disease) BPH loc w urin obs/LUTS Vomiting Surgical History History of ankle surgery History of lumbar surgery History of hernia surgery S/P TURP Family History Father , AT 86 of unknown cause Mother , AT 36 Lupus Denies family history of Anesthesia complication Bleeding disorder Social History Smoking and tobacco/nicotine status: former use of tobacco/nicotine Alcohol intake: never Substance/Drug Use: never Marital status: Current occupational status: disabled Physical Exam 2 Const: COMMON NORMALS: alert HENMT: COMMON NORMALS: normocephalic HEAD & SCALP: normocephalic Neck/C-Spine: COMMON NORMALS: full ROM Resp: COMMON NORMALS: normal respiratory effort Cardio: COMMON NORMALS: regular rate RATE: regular rate GI: COMMON NORMALS: non-tender Extremity: NARRATIVE EXTREMITY EXAM: Bilateral lower extremities have dry flaky skin. Right ankle is swollen with increasing redness extending up into the posterior calf. Patient does have a scar to the medial aspect of the ankle from a prior fracture. Neuro: SENSORIUM/ORIENTATION: Yes alert Skin: COMMON NORMALS: turgor normal GENERAL SKIN EXAM: turgor normal Course 2 Vital Signs: Vital signs: Vital Signs Temperature 98.6 F 05/24/24 13:28 Pulse Rate 105 H 05/24/24 15:21 Respiratory Rate 18 05/24/24 15:21 Blood Pressure 157/106 05/24/24 15:21 Pulse Oximetry 95 05/24/24 15:21 Oxygen Delivery Me thod Room Air 05/24/24 15:21 MDM - Extremity (Nontraumatic) Medical Decision Making 74-year-old male patient comes in today for complaints of uncontrolled pain to the right ankle. Patient reports pain started over the last couple of days. Pain has gotten worse last night which caused patient nauseous and vomiting. Patient reports some chills. Patient does have diabetes. Patient does have some redness and swelling to lower ankle which extends up into the calf. Vital signs are normal except for some mild elevation in pulse of 100, and a blood pressure of 207 systolic. Differential diagnosis includes not limited to traumatic arthritis, gout, cellulitis, osteomyelitis, DVT, sepsis. CBC noted a white blood cell count 12,000. CMP noted glucose of 248. CRP was 36. Sed rate was 13. Procalcitonin 0.06. X-ray of the ankle noted soft tissue edema also there was a notable foreign body in the heel with some surrounding gas. Venous duplex was negative for DVT. I reviewed the exam with Dr. Bolanos attending ER physician who recommended discussion with Dr. Garcia foot and ankle surgeon. Dr. Garcia agreed to come in and see the patient for further evaluation and consideration of treatment plan. Patient was ordered ceftriaxone 2 g and 1 g of vancomycin. Patient was also treated for his high blood pressure with hydralazine. Dr. Garcia came in and debrided out the wound and noted a piece of glass in the heel. He recommended admission for antibiotic and to await culture result. He will reevaluate patient in the morning and consider return to surgery for further debridement. Patient was agreeable to plan. I reviewed this with Dr. Dumont, hospitalist on-call, he agreed with admission. Lab Data 05/24/24 13:50 05/24/24 13:50 Radiology Impressions Ankle X-Ray 05/24/24 13:35 IMPRESSION: 1. Moderate to severe soft tissue edema. 2. Findings concerning for superficial subcuticular radiopaque foreign body in the plantar right heel region with adjacent cellulitis with gas-forming organism. Recommend surgical consultation. 3. Degenerative and postsurgical changes are demonstrated, as described above. 4. Decreased bone density. Chronic bony degenerative changes. Venous Duplex 05/24/24 13:35 IMPRESSION: No evidence of deep vein thrombosis. Laboratory Results WBC 12.00 10^3/uL (3.29-11.43) H 05/24/24 13:50 RBC 4.62 10^6/uL (3.85-5.65) 05/24/24 13:50 Hgb 12.30 g/dL (11.27-16.99) 05/24/24 13:50 Hct 39.5 % (37-53) 05/24/24 13:50 MCV 85.5 fl (82-101) 05/24/24 13:50 MCH 26.6 pg (27-33) L 05/24/24 13:50 MCHC 31.1 g/dL (30-55) 05/24/24 13:50 RDW 14.0 % (12.1-15.1) 05/24/24 13:50 Plt Count 246 10^3/cmm (157-399) 05/24/24 13:50 MPV 10.5 fL (7.4-10.4) H 05/24/24 13:50 Neut % (Auto) 83.1 % 05/24/24 13:50 Lymph % (Auto) 7.3 % 05/24/24 13:50 [place] % (Auto) 8.5 % 05/24/24 13:50 Eos % (Auto) 0.4 % 05/24/24 13:50 Baso % (Auto) 0.3 % 05/24/24 13:50 Neut # (Auto) 9.96 10^3/uL (1.8-7.7) H 05/24/24 13:50 Lymph # (Auto) 0.9 10^3/uL (0.8-4.8) 05/24/24 13:50 [place] # (Auto) 1.0 10^3/uL (0.2-0.9) H 05/24/24 13:50 Eos # (Auto) 0.1 10^3/uL (0.0-0.8) 05/24/24 13:50 Baso # (Auto) 0.0 10^3/uL (0.0-0.1) 05/24/24 13:50 Nucleated RBC % (auto) 0 % 05/24/24 13:50 Nucleated RBCs # 0.0 /100WBC 05/24/24 13:50 ESR 13 mm/hr (0-10) H 05/24/24 13:50 Sodium 137 mmol/L (136-145) 05/24/24 13:50 Potassium 4.0 mmol/L (3.5-5.1) 05/24/24 13:50 Chloride 103 mmol/L (98-107) 05/24/24 13:50 Carbon Dioxide 24 mmol/L (22-29) 05/24/24 13:50 Anion Gap 14.0 (5-19) 05/24/24 13:50 BUN 14 mg/dL (8-23) 05/24/24 13:50 Creatinine 1.0 mg/dL (0.7-1.2) 05/24/24 13:50 GFR Calculation Not Reportable 05/24/24 13:50 Glucose 248 mg/dL (65-115) H 05/24/24 13:50 Calculated Osmolality 293 mOsm/kg (285-295) 05/24/24 13:50 Lactic Acid 1.3 mmol/L (0.5-2.2) 05/24/24 13:50 Uric Acid 4.1 mg/dL (3.4-7.0) 05/24/24 13:50 Calcium 7.8 mg/dL (8.5-10.5) L 05/24/24 13:50 Total Bilirubin 0.9 mg/dL (0.15-1.2) 05/24/24 13:50 AST 25 U/L (0-40) 05/24/24 13:50 ALT 22 U/L (0-41) 05/24/24 13:50 Alkaline Phosphatase 139 U/L (40-130) H 05/24/24 13:50 C-Reactive Protein 36.2 mg/L (0.0-4.9) H 05/24/24 13:50 Total Protein 6.2 g/dL (6.6-8.7) L 05/24/24 13:50 Albumin 3.1 g/dL (3.5-5.2) L 05/24/24 13:50 Globulin 3.1 g/dL (1.3-4.6) 05/24/24 13:50 Procalcitonin 0.06 ng/mL (0-0.5) 05/24/24 13:50 Serum Ketones Negative (Negative) 05/24/24 13:50 All radiology interpretation(s) finalized by discharge Discharge Plan Discharge Patient Disposition: Admitted As Inpatient Clinical Impression: Cellulitis Qualifiers: Site of cellulitis: extremity Site of cellulitis of extremity: lower extremity Laterality: right Qualified Code(s): L03.115 - Cellulitis of right lower limb Condition: Stable Coding Level of Care Code ED Well Testing Operator for Zaynab Iglesias
--- NOTE | 2024-05-24 13:35 | XRR_ITS ---
PROCEDURE INFORMATION: Exam: XR Right Ankle Exam date and time: 05/24/2024 1:57 PM Age: 74 years old Clinical indication: Swelling, leg or foot; Additional info: Swelling redness TECHNIQUE: Imaging protocol: Radiologic exam of the right ankle. Views: 3 or more views. AP Oblique Lateral COMPARISON: No relevant prior studies available. FINDINGS: Bones/joints: No definite radiographic evidence for bony destructive changes, osteomyelitis. There is a screw entering the lateral distal fibula which is fractured at the level of the fibula tibia fusion. The distal screw enters the distal metadiaphysis. There is a separate posterior screw through the distal tibia. Bony irregularity within the distal fibula and tibia compatible with old healed fractures. Moderate to severe generalized bony degenerative changes. Diffusely severely decreased bone density. Limited sensitivity to detect acute abnormalities. Soft tissues: Radiopaque density in the subcuticular soft tissues of the plantar heel region measuring up to 5 mm on sagittal image. This may represent radiopaque foreign body. There is adjacent severe soft tissue edema and soft tissue emphysema within the plantar right heel region concerning for cellulitis with gas-forming organism. Diffuse moderate to severe soft tissue edema. Subcutaneous phleboliths identified. Notes: If there is further concern, recommend follow-up radiographs or MRI for complete assessment. XR/XR ankle RT min 3V* [id number] IMPRESSION: 1. Moderate to severe soft tissue edema. 2. Findings concerning for superficial subcuticular radiopaque foreign body in the plantar right heel region with adjacent cellulitis with gas-forming organism. Recommend surgical consultation. 3. Degenerative and postsurgical changes are demonstrated, as described above. 4. Decreased bone density. Chronic bony degenerative changes.
--- NOTE | 2024-05-24 13:35 | USR_ITS ---
PROCEDURE INFORMATION: Exam: US Duplex Right Lower Extremity Veins, Limited Exam date and time: 05/24/2024 2:06 PM Age: 74 years old Clinical indication: Swelling (edema) of limb; Lower extremity, right; Additional info: Redness swelling TECHNIQUE: Imaging protocol: Real-time duplex ultrasound of the right extremity with 2-D [place] scale, color Doppler flow and spectral waveform analysis including responses to compression and other maneuvers (when performed) with image documentation. Limited exam was focused on the right lower extremity veins. COMPARISON: CR (LOW EXM, ) 05/24/2024 1:57 PM FINDINGS: Right deep veins: Common femoral, femoral, profunda femoral and popliteal veins demonstrate normal compressibility, patency without thrombus. Normal Doppler waveforms. Superficial veins: Greater saphenous vein at the saphenofemoral junction is patent without thrombus. Other veins: Not applicable. Soft tissues: Subcutaneous edema. US/[place] [id number] IMPRESSION: No evidence of deep vein thrombosis.
--- NOTE | 2024-05-24 14:06 | PC.PHAR ---
[facility] [phone] Girdler-sets up medications for pt. He has most of his bottles with him.
[2024-05-24 14:18] LABS: Basophils % 0.3 %; Eosinophils # 0.1 10^3/uL (0.0-0.8); Eosinophils % 0.4 %; Hematocrit 39.5 % (37-53); Lymphocytes # 0.9 10^3/uL (0.8-4.8); Lymphocytes % 7.3 %; Mean Corpuscular HGB Conc 31.1 g/dL (30-55); Mean Corpuscular Hemoglobin 26.6 pg (27-33); Mean Corpuscular Volume 85.5 fl (82-101); Mean Platelet Volume 10.5 fL (7.4-10.4); Monocytes % 8.5 %; Neutrophils # 9.96 10^3/uL (1.8-7.7); Neutrophils % 83.1 %; Nucleated Red Blood Cells % 0 %; Platelet Count 246 10^3/cmm (157-399); Red Blood Count 4.62 10^6/uL (3.85-5.65)
[2024-05-24 14:20] LABS: Ketone (Acetest) Serum Negative (Negative)
[2024-05-24 14:22] LABS: Erythrocyte Sedimentation Rate 13 mm/hr (0-10)
[2024-05-24 14:33] LABS: Lactic Sepsis W/Reflex 1.3 mmol/L (0.5-2.2)
[2024-05-24 14:34] LABS: Alanine Aminotransferase 22 U/L (0-41); Albumin Level 3.1 g/dL (3.5-5.2); Alkaline Phosphatase 139 U/L (40-130); Aspartate Amino Transferase 25 U/L (0-40); Blood Urea Nitrogen 14 mg/dL (8-23); C Reactive Protein 36.2 mg/L (0.0-4.9); Calcium 7.8 mg/dL (8.5-10.5); Carbon Dioxide 24 mmol/L (22-29); Chloride 103 mmol/L (98-107); Globulin 3.1 g/dL (1.3-4.6); Glucose 248 mg/dL (65-115); Osmolality Calculated 293 mOsm/kg (285-295); Sodium 137 mmol/L (136-145); Total Bilirubin 0.9 mg/dL (0.15-1.2); Total Protein 6.2 g/dL (6.6-8.7); Uric Acid 4.1 mg/dL (3.4-7.0)
[2024-05-24] MEDS: HYDROmorphone 1 mg/mL INJ 1 mL IVP (14:39)
[2024-05-24] MEDS: ondansetron 2 mg/ML SDV 2 mL 4 MG IVP (14:39)
[2024-05-24 14:40] LABS: Procalcitonin 0.06 ng/mL (0-0.5)
[2024-05-24] MEDS: cefTRIAXone 2,000 mg SDV 2000 MG IVP (15:19)
[2024-05-24] MEDS: hyDRALAzine 20 mg/mL INJ 1 mL IVP (15:19)
--- NOTE | 2024-05-24 15:22 | P.CONIM_ITS ---
Providers/Reason For Consult 2 Consulting Physician/Specialty*: Neal Garcia D.P.M. Reason for Consult*: Foreign body with diabetic foot infection right heel Primary Care Provider: Sammie Rocha DO History of Present Illness History of Present Illness Alen Appiah is a 74 year old diabetic male presenting with a foreign body in the right heel. The incident occurred when she stepped barefoot on a piece of glass while outside with her dogs on April. Patient reported that the glass penetrated his skin, but he experienced minimal sensations of entry at the time. Medical history includes diabetes mellitus, with blood sugar levels ranging between 84 and 200, and prior episodes of cellulitis resulting from leg swelling. Notably, the patient also has a history of an ankle fracture with internal fixation hardware, including a broken screw. Primary care physician Dr. Rocha placed him on Bactrim DS May 01, 2020 for which she has been taking twice daily up until today which she has not taken due to nausea and has not eaten any food, Bactrim was prescribed for genitourinary complaint. The patient denies smoking and previous hospitalizations related to cellulitis, as far as she recalls. On presentation, the heel wound displayed gas presence on X-ray, consistent with gangrene, posing a risk of serious complications if not managed promptly. Review of Systems 2 General: Reports: 10 or more systems reviewed and unremarkable except in HPI and below Narrative: - Cardiovascular: Reports diminished dis christi pulses - Dermatologic: Reports redness and swel ling of the legs - Lower Extremity: Reports presence of a foreign body in the right heel - Skin: Reports swelling, redness on leg s. - Musculoskeletal: Reports discomfort an d limited mobility due to existing hardware from prior ankle fracture. - Endocrine: Denies any uncontrolled lauryn betes symptoms recently. - General: Reports previous nausea and v omiting likely due to Bactrim. Const: Denies: fever(s) or chills Eyes: Denies: change in vision Card: Denies: chest pain or palpitations Resp: Denies: dyspnea or productive cough GI: Denies: abdominal pain, nausea or vomiting : Denies: flank pain Musc: Reports: extremity swelling, joint stiffness and deformity Skin/Breast: Reports: erythema, sores, changes in skin color, dry skin, nail changes and change in hair Neuro: Reports: numbness in extremities, sensory changes and difficulty walking Psych: Denies: suicidal ideation Endo: Denies: change in body appearance Ede/Lymph: Denies: tender lymph nodes Medications/Allergies Home Medications Medication Instructions Recorded Confirmed Last Taken Type aspirin 81 mg tablet,delayed 81 mg PO DAILY 05/16/20 05/24/24 05/23/24 History release bisacodyl 5 mg tablet,delayed 5 mg PO DAILY 05/16/20 05/24/24 05/23/24 History release (Dulcolax (bisacodyl)) gabapentin 600 mg tablet 600 mg PO TID 05/16/20 05/24/24 05/23/24 History lisinopril 20 mg tablet 20 mg PO DAILY 05/16/20 05/24/24 05/23/24 History metoprolol tartrate 25 mg tablet 25 mg PO BID 12/20/21 05/24/24 05/23/24 History tamsulosin 0.4 mg capsule (Flomax) 0.4 mg PO BID #60 caps 12/20/21 05/24/24 05/23/24 Rx potassium chloride 20 mEq 20 meq PO DAILY 03/01/23 05/24/24 05/23/24 History tablet,extended release(part/cryst) atorvastatin 80 mg tablet 80 mg PO BEDTIME 05/24/24 05/24/24 05/23/24 History baclofen 20 mg tablet 20 mg PO TID PRN Pain 05/24/24 05/24/24 Unknown History furosemide 40 mg tablet 40 mg PO DAILY 05/24/24 05/24/24 05/23/24 History insulin degludec 100 30 unit SUBCUT BID PRN bs 05/24/24 05/24/24 Unknown History unit-liraglutide 3.6 mg/mL(3 mL) subcutaneous pen (Xultophy 100/3.6) oxycodone 20 mg tablet 20 mg PO Q4H PRN Pain 05/24/24 05/24/24 05/23/24 History sulfamethoxazole 800 1 tab PO BID 05/24/24 05/24/24 05/23/24 History mg-trimethoprim 160 mg tablet Allergies Allergy/AdvReac Type Severity Reaction Status Date / Time metoclopramide [From Reglan] Allergy Severe ADR-Nausea Verified 07/30/23 11:43 PFSH Acute 2 PFSH: Medical History Diabetes Hypertension GERD (gastroesophageal reflux disease) BPH loc w urin obs/LUTS Vomiting Surgical History History of ankle surgery History of lumbar surgery History of hernia surgery S/P TURP Family History Father , AT 86 of unknown cause Mother , AT 36 Lupus Denies family history of Anesthesia complication Bleeding disorder Social History Smoking and tobacco/nicotine status: former use of tobacco/nicotine Alcohol intake: never Substance/Drug Use: never Marital status: Current occupational status: disabled Vitals/I&O/Wt Last Vital Signs Temp 98.6 F 05/24/24 13:28 Pulse 105 H 05/24/24 15:21 Resp 18 05/24/24 15:21 BP 157/106 05/24/24 15:21 Pulse Ox 95 05/24/24 15:21 O2 Del Method Room Air 05/24/24 15:21 Physical Exam 2 Narrative: Patient is alert and oriented x 3 and in no acute distress. - Vascular- Diminished pulses palpated a t grade +1; capillary refill time less than 5 seconds distal hallux bilaterally. - Dermatologic- Redness and swelling of the legs; presence of petechiae and scratches noted, - Musculoskeletal- Significant piece of glass measuring approximately 4 mm x 5 mm within the right heel. - Neurological- Protective sensation int act 0/10 sites tested with Noti Joel monofilament bilaterally. Const: COMMON NORMALS: no acute distress, patient oriented x3 and alert Eye: COMMON NORMALS: Equal, round and reactive pupils present PUPIL: Yes Equal, round and reactive pupils present Chest: CHEST: Yes Symmetrical chest wall rise Resp: COMMON NORMALS: normal respiratory effort and No use of accessory muscles Cardio: COMMON NORMALS: regular rate and regular rhythm; negative for Peripheral pulses 2+ throughout RATE: regular rate RHYTHM: r egular rhythm PERIPHERAL PULSES: No Peripheral pulses 2+ throughout Extremity: RIGHT LOWER EXTREMITY: Yes foot & digits (Redness and swelling of the legs; presence of petechiae and scratches noted) Right foot and digits: Yes other (Significant piece of glass measuring approximately 4 mm x 5 mm ) Neuro: COMMON NORMALS: patient oriented x3 SENSORIUM/ORIENTATION: Yes alert SENSORY EXAM: Yes extremities and other (Absent protective sensation) M OTOR EXAM: 5/5 motor strength present throughout Skin: COMMON NORMALS: negative for no wounds Data 05/24/24 13:50 05/24/24 13:50 Micro: Microbiology 05/24/24 13:49 Blood Culture - Preliminary Blood SPECIMEN COLLECTED 05/24/24 13:50 Blood Culture - Preliminary Blood SPECIMEN COLLECTED A&P Assessment and plan (1) Type 2 diabetes mellitus: (2) Cellulitis: Qualifiers: Laterality: right Site of cellulitis: extremity Site of cellulitis of extremity: lower extremity Qualified Code(s): L03.115 - Cellulitis of right lower limb (3) Foreign body in foot: PROCEDURE: Full thickness wound debridement Location: Right heel Local Anesthesia: none due to neuropathy Consent: Verbal Sterile Prep: with alcohol Details: Full thickness sharp debridement of the wound was performed using sterile dermal curette. The wound was debrided of hyperkeratotic rim and devitalized and fibrotic tissue down to muscle/fascia, being the deepest level of debridement. Predebridement measurements: 4 mm x 4 mm x 10 mm Postdebridement measurements: 5 mm x 5 mm x 15 mm Hemostasis: Pressure Irrigation: sterile saline Dressing: Betadine wet-to-dry Estimated Blood Loss: minimal Offloading: Nonweightbearing Qualifiers: Encounter type: initial encounter Laterality: right Qualified Code(s): S90.851A - Superficial foreign body, right foot, initial encounter Plan Mr. Appiah is a 74-year-old diabetic male with glass foreign body right heel having failed outpatient oral antibiotics Bactrim DS. - Labs: WBC count 12.0, ESR 13, CRP 36.2 - Tests and Diagnostics: Duplex Doppler negative for DVT. X-ray of the right ankle shows a foreign body in the right heel with adjacent cellulitis and gas- forming organisms, soft tissue edema, or emphysema. - X-ray of right heel: Presence of gas, indicating gangrene, and locating the foreign body. In the emergency department I performed an aggressive bedside debridement with postdebridement wound culture taken right heel sent to microbiology for Gram stain, culture and sensitivity Recommend admission to hospital service for empiric IV antibiotics to include coverage for MRSA and gram-negative's Potential surgical debridement scheduled for tomorrow at noon pending his response to debridement performed in the ED and IV antibiotics N.p.o. at midnight Coding Level of Care Code Acute Code for Chg Fwd Diagnoses Type 2 diabetes mellitus E11.9 Cellulitis L03.115 Laterality: right Site of cellulitis: extremity Site of cellulitis of extremity: lower extremity Foreign body in right foot, initial encounter S90.851A Encounter type: initial encounter Laterality: right Comment [id number] CPT code debridement
[2024-05-24] MEDS: VANCOMYCIN ADD-Vantage 1,000 MG in 0.9% NaCl ADD-Vantage 250 ML 250 MG IV (15:31)
--- NOTE | 2024-05-24 17:36 | PM.HP ---
Providers/Chief Complaint Admitting Physician: Jennifer Dumont MD Primary Care Provider: Sammie Rocha DO Chief Complaint: right foot pain History of Present Illness Alen Appiah is a 74 year old male with past medical history of pulmonary embolism post back surgery not on anticoagulation anymore, hyperlipidemia, hypertension, diabetes mellitus, diastolic heart failure, morbid obesity, BPH presented to the ER today because of worsening pain, discharge from his right foot. Patient apparently walked outside his house without issue on . Today is Saturday. Apparently he stepped on a glass and had a glass stuck at the base of his foot since . In the ER he was seen by podiatry team with concerns for foreign body and cellulitis. The glass was removed. The ER he was found to have an elevated blood pressure of more than 200 systolics. He was given 20 of IV hydralazine, 1 of hydromorphone, 250 cc of IV fluid bolus, IV ceftriaxone and vancomycin along with removal of foreign body. On examination patient is sitting in a chair. As per the patient and sister at bedside patient usually sleeps in a recliner because of difficulty in breathing on lying down flat for many years. He is supposed to be on Lasix which she has not taken for a long time. He is apparently on antibiotic with Bactrim since May 01 which was started for some kind of an infection in his left scrotum by a physician at [facility]. He is not able to recollect the name of the physician or the hospital where he was diagnosed with swelling of the scrotum. He is not aware of the diagnosis. He has been on Bactrim since May 01. He states he is otherwise regular with his medication but does not check his blood pressures at home. He lives with his who is also currently admitted at [facility] for confusion from UTI. Review of Systems General: Reports: 10 or more systems reviewed and unremarkable except in HPI and below Const: Denies: fever(s), chills, body aches, change in appetite, change in weight, malaise, night sweats, diaphoresis, change in sleep pattern, daytime sleepiness or snoring Eyes: Denies: change in vision, blurry vision, photophobia, eye discomfort or eye discharge ENMT: Denies: throat pain, enlarged tonsils, hoarseness, mouth pain, oral sores, dry mouth, tinnitus, nasal congestion or post nasal drip Card: Denies: chest pain, palpitations, irregular heart rhythm, edema, swelling of feet/ankles, lightheadedness, syncope, pre-syncope, dyspnea on exertion, orthopnea, leg pain with exertion or acrocyanosis Resp: Denies: dyspnea, productive cough, non-productive cough, wheezing, stridor, pain on inspiration, change in phlegm color, hemoptysis or chest congestion GI: Denies: abdominal pain, nausea, vomiting, hematemesis, coffee ground emesis, dysphagia, heartburn, diarrhea, constipation, bloating, GI cramping, change in bowel habits, pain on defecation, hematochezia or melena : Denies: flank pain, difficulty urinating, dysuria, urinary frequency, urinary urgency, urinary hesitancy, urinary dribbling, difficulty starting urination, change in urine stream, nocturia or hematuria Musc: Denies: neck pain, back pain, extremity pain, joint pain, joint swelling, joint redness, joint stiffness or limited range of motion Neuro: Denies: headache(s), numbness in extremities, weakness in extremities, sensory changes, lack of coordination, difficulty walking, frequent falls, dizziness, vertigo, confusion, Slurred speech present, difficulty communicating thoughts or seizure-like activity Psych: Denies: anxiety, depression, mood swings, panic attacks, hopelessness or irritability Endo: Denies: polyuria, polydipsia, tired all the time, cold intolerance, excessive sweating, flushing or heat intolerance Ede/Lymph: Denies: easy bruising or easy bleeding All/Imm: Denies: tongue swelling, facial swelling or acute wheezing Medications/Allergies Home Medications Medication Instructions Recorded Confirmed Last Taken Type aspirin 81 mg tablet,delayed 81 mg PO DAILY 05/16/20 05/24/24 05/23/24 History release bisacodyl 5 mg tablet,delayed 5 mg PO DAILY 05/16/20 05/24/24 05/23/24 History release (Dulcolax (bisacodyl)) gabapentin 600 mg tablet 600 mg PO TID 05/16/20 05/24/24 05/23/24 History lisinopril 20 mg tablet 20 mg PO DAILY 05/16/20 05/24/24 05/23/24 History metoprolol tartrate 25 mg tablet 25 mg PO BID 12/20/21 05/24/24 05/23/24 History tamsulosin 0.4 mg capsule (Flomax) 0.4 mg PO BID #60 caps 12/20/21 05/24/24 05/23/24 Rx potassium chloride 20 mEq 20 meq PO DAILY 03/01/23 05/24/24 05/23/24 History tablet,extended release(part/cryst) atorvastatin 80 mg tablet 80 mg PO BEDTIME 05/24/24 05/24/24 05/23/24 History baclofen 20 mg tablet 20 mg PO TID PRN Pain 05/24/24 05/24/24 Unknown History furosemide 40 mg tablet 40 mg PO DAILY 05/24/24 05/24/24 05/23/24 History insulin degludec 100 30 unit SUBCUT BID PRN bs 05/24/24 05/24/24 Unknown History unit-liraglutide 3.6 mg/mL(3 mL) subcutaneous pen (Xultophy 100/3.6) nitroglycerin 0.4 mg sublingual 0.4 mg sublingual Q5M PRN chest 05/24/24 05/24/24 Unknown History tablet (Nitrostat) pain oxycodone 20 mg tablet 20 mg PO Q4H PRN Pain 05/24/24 05/24/24 05/23/24 History sulfamethoxazole 800 1 tab PO BID 05/24/24 05/24/24 05/23/24 History mg-trimethoprim 160 mg tablet Allergies Allergy/AdvReac Type Severity Reaction Status Date / Time metoclopramide [From Reglan] Allergy Severe ADR-Nausea Verified 07/30/23 11:43 PFSH Acute PFSH: Medical History (Updated 05/24/24 @ 17:38 by Benedict Haro MD) Diastolic CHF Pulmonary embolism History of proctoscopy Chronic back pain Diabetes Hypertension GERD (gastroesophageal reflux disease) BPH loc w urin obs/LUTS Vomiting Surgical History (Updated 05/24/24 @ 17:37 by Benedict Haro MD) History of back surgery History of ankle surgery History of lumbar surgery History of hernia surgery S/P TURP Family History Father , AT 86 of unknown cause Mother , AT 36 Lupus Denies family history of Anesthesia complication Bleeding disorder Social History Smoking and tobacco/nicotine status: former use of tobacco/nicotine Alcohol intake: never Substance/Drug Use: never Marital status: Current occupational status: disabled Vitals/I&O/Wt Last Vital Signs Temp 98.6 F 05/24/24 13:28 Pulse 105 H 05/24/24 15:21 Resp 18 05/24/24 15:21 BP 197/98 05/24/24 16:25 Pulse Ox 95 05/24/24 15:21 O2 Del Method Room Air 05/24/24 15:21 05/24/24 05/24/24 05/24/24 06:59 14:59 22:59 Intake Total 250 / 250 Balance 250 / 250 Physical Exam Narrative: General: No acute distress, AO x3, chronically sick appearing, morbidly obese HEENT: PERRLA, pupils bilaterally equal and reactive Chest: Normal vesicular breath sounds, no added sounds, equal good air entry bilaterally CVS: S1-S2 regular, no murmurs, no tachycardia, no gallops, no rubs Abdomen: Soft, nontender, no organomegaly, bowel sounds present Neuro: No focal deficits, no facial deformity, AO x3, power 5/5 in all limbs Extremity: Bilateral 2+ pitting edema up to knees, superficial venous ulcers in variable healing, right heel wound dressing with mild soakage. : MALE GROIN/PERINEUM EXAM: Yes inguinal lymphadenopathy SCROTUM: Yes testes descended bilaterally and Yes scrotal swelling Scrotal swelling laterality: left Data 05/24/24 13:50 05/24/24 13:50 Micro: Microbiology 05/24/24 13:49 Blood Culture - Preliminary Blood SPECIMEN COLLECTED 05/24/24 13:50 Blood Culture - Preliminary Blood SPECIMEN COLLECTED A&P Assessment and plan (1) Cellulitis: Qualifiers: Laterality: right Site of cellulitis: extremity Site of cellulitis of extremity: lower extremity Qualified Code(s): L03.115 - Cellulitis of right lower limb (2) Foreign body in foot: Qualifiers: Encounter type: initial encounter Laterality: right Qualified Code(s): S90.851A - Superficial foreign body, right foot, initial encounter (3) Diastolic CHF: (4) Type 2 diabetes mellitus: (5) Morbid obesity: (6) Uncontrolled hypertension: Plan Gentleman with history of uncontrolled hypertension, diastolic heart failure, orthopnea presented to the ER with right foot pain found to have cellulitis and foreign body. Cellulitis: In setting of foreign body. Foreign body removed in the ER by podiatry. Plan for OR debridement in AM. Check blood culture. Will request OR cultures. Check MRSA swab, procalcitonin. For now start patient on IV Zosyn and linezolid. Dressing as per podiatry team. Uncontrolled hypertension: Goal blood pressure less than 140/90 mmHg. Blood pressure is elevated and noted to have systolics in the ER. Received IV hydralazine. Continue with home dose of lisinopril 20 mg daily, change from metoprolol. Coreg 12.5 mg twice daily. Add amlodipine 10 mg oral daily. 10 mg IV hydralazine every 4 hours as needed for systolic blood pressure more than 160 mmHg. For now blood pressure elevated to more than 200 mmhg with HR of 105. Give 10 mg of IV labetalol. Orthopnea: Does have history of diastolic heart failure. Noncompliant with Lasix. Fluid restriction to less than 1500 cc. Cisse catheterization. IV Lasix 40 mg twice daily. Check echocardiogram. Strict input output charting. Patient for some reason is on 30-day course of Bactrim. First dose on May 01. Not sure of the reason. Will try to request documents from [facility]. Patient not sure where the medication was prescribed. Check urinalysis, urine culture, urine chlamydia and gonorrhea. Check scrotal ultrasound. For now we will hold off on Bactrim. Continue other chronic medication. Type 2 diabetes mellitus: Check A1c. See sliding scale low-dose protocol. Full code Carb consistent diet. N.p.o. after midnight. Patient is at high risk of DVT. Has history of pulmonary embolism after back surgery. Heparin 5000 Q8 hourly. Protonix OPD prophylaxis Attestations Medical Necessity Statement*: Admission for more than 2 midnights for management of foot cellulitis in setting of foreign body requiring debridement, uncontrolled hypertension, diastolic heart failure Diagnoses Cellulitis L03.115 Laterality: right Site of cellulitis: extremity Site of cellulitis of extremity: lower extremity Foreign body in right foot, initial encounter S90.857I Encounter type: initial encounter Laterality: right Diastolic CHF I50.30 Type 2 diabetes mellitus E11.9 Morbid obesity E66.01 Uncontrolled hypertension I10
[2024-05-24 17:46] LABS: INR 1.05 (0.8-1.2)
[2024-05-24 17:50] LABS: Iron 19 ug/dL (59-158); Percent Saturation 8.4 % (20-50); Total Iron Binding Capacity 224 mcg/dl; Unsaturated Iron Binding 205 ug/dL (112-347)
[2024-05-24 18:15] LABS: NT Pro B Type Natriuretic Pept 2330 pg/mL (0-125)
[2024-05-24 18:23] LABS: Lactic Sepsis W/Reflex 1.5 mmol/L (0.5-2.2)
[2024-05-24 18:43] LABS: Procalcitonin 0.06 ng/mL (0-0.5)
[2024-05-24] MEDS: FUROsemide 10 mg/mL SDV 4mL 40 MG IVP (18:44)
[2024-05-24] MEDS: amlodipine 10 mg Tablet PO (18:44)
[2024-05-24] MEDS: carvedilol 12.5 mg Tablet PO (18:45)
[2024-05-24] MEDS: piperacillin-tazobactam 3.375 GM in sodium chloride 0.9% (plus) 50 ML IV (18:45)
--- NOTE | 2024-05-24 19:02 | PC.NURSE ---
PT STATES HE HAS HYPERTENSION BUT DID NOT TAKE HIS MEDS TODAY D/T FEELING SICK. PROVIDER NOTIFIED AND MEDS ORDERED.
[2024-05-24] MEDS: labetalol 5 mg/mL SDV 20mL 10 MG IVP (19:31)
[2024-05-24 20:05] LABS: Bilirubin Urine Negative (Negative); Blood Urine Negative (Negative); Glucose Urine UA Negative (Normal); Ketones Urine Negative (Negative); Leukocyte Esterase Urine Negative (Negative); Nitrate Urine Negative (Negative); Protein Urine Negative (Negative); Specific Gravity, Urine 1.007 (1.005-1.030); Urine Appearance Clear (CLEAR); Urine Color Yellow (Yellow)
[2024-05-24 20:10] LABS: Add Urine Microscopic? YES; Bacteria Urine None Seen /hpf; Hyaline Casts Urine 0-4 /lpf; RBC Urine 0-2 /hpf (0-2); Squamous Epithelial Cell Urine 0-5 /hpf (0-5); WBC Urine 0-5 /hpf (0-5)
--- NOTE | 2024-05-24 20:50 | PC.NURSE ---
PRIMARY CONTACT INFO UPDATE Didi Arroyo, sister to the patient requests to be contacted at her cell number [phone] instead of her home number in the chart. patient's is currently admitted in the hospital in [place], so primary point of contact will be Didi for now.
[2024-05-24 20:52] LABS: Glucose Point of Care 243 mg/dL (70-110)
[2024-05-24] MEDS: tamsulosin 0.4 mg Capsule PO (21:32)
[2024-05-24] MEDS: baclofen 10 mg Tablet 20 MG PO (21:32)
[2024-05-24] MEDS: gabapentin 300 mg Capsule 600 MG PO (21:32)
[2024-05-24] MEDS: atorvastatin 40 mg Tablet 80 MG PO (21:32)
[2024-05-24] MEDS: pantoprazole 40 mg SDV IVP (21:32)
[2024-05-24] MEDS: oxyCODONE 5 mg IR Tab/Cap 20 MG PO (21:33)
[2024-05-24] MEDS: heparin 5,000 unit/mL INJ 1 mL 5000 UNIT SUBCUT (21:33)
[2024-05-24] MEDS: insulin lispro 100 unit/1 mL SUBCUT (21:40)
[2024-05-24] MEDS: morphine 4 mg/mL SDV 1 mL 2 MG IVP (23:33)
[2024-05-25] VITALS (19 sets, daily range): BP systolic 90–139; BP diastolic 47–80; PULSE 65–83; RESP 16–23; TEMP 36.4–36.7; O2SAT 92–98
[2024-05-25] MEDS: piperacillin-tazobactam 3.375 GM in sodium chloride 0.9% (plus) 50 ML IV ×3 (02:30→17:36)
[2024-05-25] MEDS: oxyCODONE 5 mg IR Tab/Cap 20 MG PO ×4 (02:31→19:39)
[2024-05-25 04:40] LABS: MRSA PCR OZH (swab) NOT DETECTED (Negative)
[2024-05-25] MEDS: FUROsemide 10 mg/mL SDV 4mL 40 MG IVP ×2 (05:46→17:26)
[2024-05-25] MEDS: linezolid 600 mg Tablet PO ×2 (05:46→17:25)
[2024-05-25] MEDS: heparin 5,000 unit/mL INJ 1 mL 5000 UNIT SUBCUT ×2 (05:46→21:25)
[2024-05-25 06:35] LABS: Glucose Point of Care 175 mg/dL (70-110)
--- NOTE | 2024-05-25 06:38 | P.PN_ITS ---
Subjective 2 Subjective: Patient seen bedside this a.m., right foot dressing had to be changed overnight due to bleeding. Complains of back pain. Patient denies any subjective nausea, vomiting, fever, chills, shortness of breath or chest pain. Vitals/I&O/Wt Last Vital Signs Temp 97.9 F 05/25/24 04:00 Pulse 79 05/25/24 04:00 Resp 20 H 05/25/24 06:35 BP 132/76 05/25/24 04:00 Pulse Ox 92 05/25/24 06:35 O2 Del Method Nasal Cannula 05/25/24 04:00 05/24/24 05/24/24 05/25/24 14:59 22:59 06:59 Intake Total 250 / 250 50 / 300 Output Total 1600 / 1600 775 / 2375 Balance -1350 / -1350 -725 / -2075 Weight last 48 hrs Weight 264 lb 3.2 oz Weight 276 lb 1.6 oz Physical Exam 2 Narrative: Patient is alert and oriented x 3 and in no acute distress. - Vascular- Diminished pulses palpated a t grade +1; capillary refill time less than 5 seconds distal hallux bilaterally. - Dermatologic- Redness and swelling of the legs; presence of petechiae and scratches noted, - Musculoskeletal- Significant piece of glass measuring approximately 4 mm x 5 mm within the right heel. - Neurological- Protective sensation int act 0/10 sites tested with [place] Joel monofilament bilaterally. Const: COMMON NORMALS: no acute distress, patient oriented x3 and alert Eye: COMMON NORMALS: Equal, round and reactive pupils present PUPIL: Yes Equal, round and reactive pupils present Chest: CHEST: Yes Symmetrical chest wall rise Resp: COMMON NORMALS: normal respiratory effort and No use of accessory muscles Cardio: COMMON NORMALS: regular rate and regular rhythm; negative for Peripheral pulses 2+ throughout RATE: regular rate RHYTHM: r egular rhythm PERIPHERAL PULSES: No Peripheral pulses 2+ throughout Extremity: RIGHT LOWER EXTREMITY: Yes foot & digits (Redness and swelling of the legs; presence of petechiae and scratches noted) Right foot and digits: Yes other (Significant piece of glass measuring approximately 4 mm x 5 mm ) Neuro: COMMON NORMALS: patient oriented x3 SENSORIUM/ORIENTATION: Yes alert SENSORY EXAM: Yes extremities and other (Absent protective sensation) M OTOR EXAM: 5/5 motor strength present throughout Skin: COMMON NORMALS: negative for no wounds Urinary Catheter Management: Cisse: Cath Placed During This Visit: yes Urinary Catheter Date of Insertion: 05/24/24 Data 05/24/24 13:50 05/24/24 13:50 Micro: Microbiology 05/24/24 13:49 Blood Culture - Preliminary Blood SPECIMEN COLLECTED 05/24/24 13:50 Blood Culture - Preliminary Blood SPECIMEN COLLECTED A&P Assessment and plan (1) Cellulitis: Qualifiers: Laterality: right Site of cellulitis: extremity Site of cellulitis of extremity: lower extremity Qualified Code(s): L03.115 - Cellulitis of right lower limb (2) Foreign body in foot: Qualifiers: Encounter type: initial encounter Laterality: right Qualified Code(s): S90.851A - Superficial foreign body, right foot, initial encounter (3) Diabetic peripheral neuropathy associated with type 2 diabetes mellitus: Plan 74-year-old diabetic male with foreign body right heel with soft tissue emphysema and cellulitis streaking to the medial malleolus. -Dressing change Betadine wet-to-dry -Scheduled for OR debridement at noon -Remain n.p.o. -Continuing empiric IV antibiotics till cultures yield further information -Nonweightbearing right foot may toe-touch for transfers -Elevate lower extremities while resting Attestations 2 Medical Necessity Statement*: Require surgical debridement and IV antibiotics Coding Level of Care Code Acute Code for Chg Fwd Diagnoses Cellulitis L03.115 Laterality: right Site of cellulitis: extremity Site of cellulitis of extremity: lower extremity Foreign body in right foot, initial encounter S90.851A Encounter type: initial encounter Laterality: right Diabetic peripheral neuropathy associated with type 2 diabetes mellitus E11.42
[2024-05-25] MEDS: gabapentin 300 mg Capsule 600 MG PO ×3 (08:42→21:26)
[2024-05-25] MEDS: insulin lispro 100 unit/1 mL SUBCUT ×3 (08:42→21:26)
[2024-05-25] MEDS: aspirin 81 mg EC Tablet PO (08:43)
[2024-05-25] MEDS: tamsulosin 0.4 mg Capsule PO ×2 (08:43→17:25)
[2024-05-25] MEDS: lisinopril 20 mg Tablet PO (08:43)
[2024-05-25] MEDS: carvedilol 12.5 mg Tablet PO ×2 (08:43→17:25)
[2024-05-25] MEDS: amlodipine 10 mg Tablet PO (08:43)
--- NOTE | 2024-05-25 09:57 | PC.CHAP ---
Pastoral Care Encounter/Spiritual Assessment Type of Contact [] Declined wool dyer visit [] Patient/Family/Request visit [] Outpatient visit [] Follow-up visit [] Physician referral [] Code/Alert [x] Routine visit [] Staff referral [] Actively dying [] Patient sleeping [] Family support [] [] Out of room [] Palliative care [] [] Receiving care in room [] Pre-surgical visit [] Trauma [] Long length of stay [] ICU visit [] Other: Relational/Emotional Strength [] Patient feels connected with others/family/visitors/staff [] Distress [] Loneliness/isolation [] Abandonment Spirituality of Patient [x] Person of Alicia [] Attends Muslim of their Alicia [x Believes in Prayer [] Reads Bible or Sabianism materials [] There are Spiritual issues to be addressed [employer] Interventions [x] Prayer [x] Active listening [] Non-anxious presence [] Spiritual/emotional support [] Crisis/trauma care [] Spiritual counseling [] Bereavement support [] Provided bereavement packet [x] Provided Bible/devotional materials [] Provided toy/stuffed animal, coloring book to patient or family member [] Provided Communion [] Anointing/[place] [] Salvation [x] Completed spiritual assessment [] Other: Impact on Illness or Injury [] Angry [] Fearful [] Anxious [] Often cries [] Exhaustion [] Unable to work [] Unable to attend orthodoxy [] Unable to walk/stand [] Unable to read [] Unable to drive [] Unable to eat/drink [] Unable to sleep [] Unable to be with family [] Patient intubated [] Other: Summary Time spent with patient 10 min
[2024-05-25 11:19] LABS: Glucose Point of Care 133 mg/dL (70-110)
[2024-05-25] MEDS: sodium chloride 0.9% 1,000 ML 30 ML IV (11:30)
--- NOTE | 2024-05-25 11:38 | P.PN_ITS ---
Subjective 2 Subjective: He is awaiting debridement in OR around noon today. Denies any dyspnea or shortness of breath, denies any complaints. States he is doing all right. Vitals/I&O/Wt Last Vital Signs Temp 97.6 F 05/25/24 07:50 Pulse 76 05/25/24 09:15 Resp 18 05/25/24 09:15 BP 125/73 05/25/24 07:50 Pulse Ox 98 05/25/24 09:15 O2 Del Method Room Air 05/25/24 09:15 05/24/24 05/25/24 05/25/24 22:59 06:59 14:59 Intake Total 250 / 250 50 / 300 50 / 50 Output Total 1600 / 1600 775 / 2375 Balance -1350 / -1350 -725 / -2075 50 / 50 Weight last 48 hrs Weight 119.839 kg Weight 125.237 kg Physical Exam 2 Const: COMMON NORMALS: patient oriented x3 and alert GENERAL APPEARANCE: c ooperative ORIENTATION/CONSCIOUSNESS: Yes awake HENMT: COMMON NORMALS: oropharynx normal Neck/C-Spine: COMMON NORMALS: no JVD Resp: COMMON NORMALS: normal respiratory effort and clear to auscultation bilaterally AUSCULTATION: clear to auscultation bilaterally Cardio: COMMON NORMALS: no JVD, regular rhythm, S1 normal heart sound present, S2 normal heart sound present and No murmurs present (Cardio) RHYTHM: regular rhythm HEART SOUNDS: S1 normal heart sound present and S2 normal heart sound present GI: COMMON NORMALS: Normal to inspection, nondistended, normoactive bowel sounds present, Soft to palpation and non-tender PALPATION: Yes Soft to palpation Extremity: COMMON NORMALS: no joint enlargement and no pedal edema OTHER: Right lower extremity wrapped in fresh dressing, no bleeding or strikethrough. Neuro: COMMON NORMALS: patient oriented x3 and moves all extremities S ENSORIUM/ORIENTATION: Yes alert Skin: COMMON NORMALS: no rashes or lesions noted GENERAL SKIN EXAM: no rashes or lesions noted Urinary Catheter Management: Cisse: Cath Placed During This Visit: yes Reason for Continuing Indwelling Catheter: Other Urinary Catheter Date of Insertion: 05/24/24 Data 05/24/24 13:50 05/24/24 13:50 Micro: Microbiology 05/24/24 19:51 Bacterial Antigens - Final Urine Kidney 05/24/24 13:49 Blood Culture - Preliminary Blood SPECIMEN COLLECTED 05/24/24 13:50 Blood Culture - Preliminary Blood SPECIMEN COLLECTED A&P Assessment and plan (1) Cellulitis: Qualifiers: Laterality: right Site of cellulitis: extremity Site of cellulitis of extremity: lower extremity Qualified Code(s): L03.115 - Cellulitis of right lower limb (2) Foreign body in foot: Qualifiers: Encounter type: initial encounter Laterality: right Qualified Code(s): S90.851A - Superficial foreign body, right foot, initial encounter (3) Diastolic CHF: (4) Type 2 diabetes mellitus: (5) Morbid obesity: (6) Uncontrolled hypertension: Plan Gentleman with history of uncontrolled hypertension, diastolic heart failure, orthopnea presented to the ER with right foot pain found to have cellulitis and foreign body. Cellulitis: Pending debridement today at noon. He states he is doing well. Discussed with nursing, case filler. Reviewed podiatry note. Continue antibiotic coverage with Zosyn. Linezolid. Monitor for risk of agranulocytosis. Repeat CBC. Monitor for risk of C. difficile. In setting of foreign body. Foreign body removed in the ER by podiatry. Check blood culture. Will request OR cultures. Check MRSA swab, procalcitonin. For now start patient on IV Zosyn and linezolid. Dressing as per podiatry team. Bleeding around Cisse: Noted in the OR. No blood in urine. Possible Cisse catheter injury. Check proper balloon inflation. Keep Cisse in place currently. Discussed with nursing staff. Will need to follow-up with urology. Uncontrolled hypertension: Continue with home dose of lisinopril 20 mg daily, change from metoprolol. Coreg 12.5 mg twice daily. Cont amlodipine 10 mg oral daily. 10 mg IV hydralazine every 4 hours as needed for systolic blood pressure more than 160 mmHg. For now blood pressure elevated to more than 200 mmhg with HR of 105. Give 10 mg of IV labetalol. Orthopnea: Does have history of diastolic heart failure. Noncompliant with Lasix. Fluid restriction to less than 1500 cc. Cisse catheterization. IV Lasix 40 mg twice daily. Pending echocardiogram. Strict input output charting. Patient for some reason is on 30-day course of Bactrim. First dose on May 01. Not sure of the reason. Will try to request documents from [employer]. Patient not sure where the medication was prescribed. Check urinalysis, urine culture, urine chlamydia and gonorrhea. Check scrotal ultrasound. For now we will hold off on Bactrim. Continue other chronic medication. Type 2 diabetes mellitus: Requested A1c. See sliding scale low-dose protocol. Full code Carb consistent diet. N.p.o. after midnight. Patient is at high risk of DVT. Has history of pulmonary embolism after back surgery. Heparin 5000 Q8 hourly. Protonix OPD prophylaxis Attestations 2 Medical Necessity Statement*: Continue admission for assessment management of cellulitis, surgical debridement, IV antibiotics, possible decompensated CHF pending further cardiac assessment. and High MDM includes amount and/or complexity of data reviewed/ordered [ previous or external records, resulted lab(s)/test(s) and other healthcare professional discussion] and described risk of complication, morbidity or mortality of management as documented Diagnoses Cellulitis L03.115 Laterality: right Site of cellulitis: extremity Site of cellulitis of extremity: lower extremity Foreign body in right foot, initial encounter S90.851A Encounter type: initial encounter Laterality: right Diastolic CHF I50.30 Type 2 diabetes mellitus E11.9 Morbid obesity E66.01 Uncontrolled hypertension I10
--- NOTE | 2024-05-25 11:50 | P.HPUD_ITS ---
Surgery/Procedure H&P Update DATE OF PROCEDURE: May 25, 2024 DATE H&P PERFORMED: 05/16/20 H&P UPDATE INFORMATION: I have reviewed H&P completed within last 30 days, I have examined patient prior to procedure, No changes to prior documentation and H&P is in [facility] [place] on date indicated PLANNED PROCEDURE: Operation Date: 05/25/24 12:10 Proposed Procedures p Incision And Drainage of Right Foot(Right) - Neal Garcia DPM
--- NOTE | 2024-05-25 11:56 | ANES.PREANE2 ---
Pre-Anesthetic Assessment Height/Weight: Height 1.75 m Weight 119.839 kg Temp Pulse Resp BP Pulse Ox O2 Del Method 97.9 F 67 18 117/72 92 Room Air 05/25/24 11:00 05/25/24 11:00 05/25/24 11:00 05/25/24 11:00 05/25/24 11:00 05/25/24 11:00 Operation Date: 05/25/24 12:10 Proposed Procedures p Incision And Drainage of Right Foot(Right) - Neal Garcia DPM Familial anesthetic complications: none Was Beta Rom taken within 24 hours: Yes Was Clonidine taken within 24 hours: N/A Last intake: Intake Last Liquid Date 05/24/24 Last Liquid Time 23:00 Last Solid Date 05/24/24 Last Solid Time 22:00 Social No alcohol and No tobacco Exam alert, oriented x 3, clear to auscultation bilaterally and regular rate & rhythm Airway Mallampati: Class III Dentition: full CV/HEM Congestive Heart Failure and Hypertension Metabolic Diabetes Mellitus and Morbid Obesity Anesthetic Plan ASA status: 4 Anesthesia: Choice Risk of > 500 ml blood loss (7ml/kg in children): No Medications/Allergies Home Medications Medication Instructions Recorded Confirmed Last Taken Type aspirin 81 mg tablet,delayed 81 mg PO DAILY 05/16/20 05/24/24 05/23/24 History release bisacodyl 5 mg tablet,delayed 5 mg PO DAILY 05/16/20 05/24/24 05/23/24 History release (Dulcolax (bisacodyl)) gabapentin 600 mg tablet 600 mg PO TID 05/16/20 05/24/24 05/23/24 History lisinopril 20 mg tablet 20 mg PO DAILY 05/16/20 05/24/24 05/23/24 History metoprolol tartrate 25 mg tablet 25 mg PO BID 12/20/21 05/24/24 05/23/24 History tamsulosin 0.4 mg capsule (Flomax) 0.4 mg PO BID #60 caps 12/20/21 05/24/24 05/23/24 Rx potassium chloride 20 mEq 20 meq PO DAILY 03/01/23 05/24/24 05/23/24 History tablet,extended release(part/cryst) atorvastatin 80 mg tablet 80 mg PO BEDTIME 05/24/24 05/24/24 05/23/24 History baclofen 20 mg tablet 20 mg PO TID PRN Pain 05/24/24 05/24/24 Unknown History furosemide 40 mg tablet 40 mg PO DAILY 05/24/24 05/24/24 05/23/24 History insulin degludec 100 30 unit SUBCUT BID PRN bs 05/24/24 05/24/24 Unknown History unit-liraglutide 3.6 mg/mL(3 mL) subcutaneous pen (Xultophy 100/3.6) nitroglycerin 0.4 mg sublingual 0.4 mg sublingual Q5M PRN chest 05/24/24 05/24/24 Unknown History tablet (Nitrostat) pain oxycodone 20 mg tablet 20 mg PO Q4H PRN Pain 05/24/24 05/24/24 05/23/24 History sulfamethoxazole 800 1 tab PO BID 05/24/24 05/24/24 05/23/24 History mg-trimethoprim 160 mg tablet Allergies Allergy/AdvReac Type Severity Reaction Status Date / Time metoclopramide [From [facility]] Allergy Severe ADR-Nausea Verified 07/30/23 11:43 Current Medications Generic Name Dose Route Start Last Admin Trade Name Freq PRN Reason Stop Dose Admin Amlodipine Besylate 10 mg 05/24/24 17:35 05/25/24 08:43 Amlodipine 10 Mg Tablet PO 10 mg DAILY PADMAJA Administration Aspirin 81 mg 05/25/24 09:00 05/25/24 08:43 Aspirin 81 Mg Ec Tablet PO 81 mg DAILY PADMAJA Administration Atorvastatin Calcium 80 mg 05/24/24 21:00 05/24/24 21:32 Atorvastatin 40 Mg Tablet PO 80 mg BEDTIME PADMAJA Administration Baclofen 20 mg 05/24/24 21:08 05/24/24 21:32 Baclofen 10 Mg Tablet PO 20 mg TID PRN Administration Pain Carvedilol 12.5 mg 05/24/24 18:00 05/25/24 08:43 Carvedilol 12.5 Mg Tablet PO 12.5 mg BID PADMAJA Administration Furosemide 40 mg 05/24/24 17:45 05/25/24 05:46 Furosemide 10 Mg/Ml Sdv 4ml IVP 40 mg Q12H PADMAJA Administration Gabapentin 600 mg 05/24/24 21:00 05/25/24 08:42 Gabapentin 300 Mg Capsule PO 600 mg TID PADMAJA Administration Heparin Sodium (Porcine) 5,000 unit 05/24/24 20:29 05/25/24 05:46 Heparin 5,000 Unit/Ml Inj 1 Ml SUBCUT 5,000 unit Q8H PADMAJA Administration Piperacillin Sod/Tazobactam 50 mls @ 12.5 mls/hr 05/24/24 18:00 05/25/24 09:56 Sod 3.375 gm/ Sodium Chloride IV 12.5 mls/hr Q8H PADMAJA Administration Protocol Sodium Chloride 1,000 mls @ 30 mls/hr 05/25/24 11:30 05/25/24 11:30 Sodium Chloride 0.9% IV 05/26/24 11:29 30 mls/hr .Q24H PAMDAJA Administration Insulin Human Lispro 0 unit 05/24/24 18:00 05/25/24 11:04 Insulin Lispro 100 Unit/1 Ml SUBCUT Not Given WM&BEDTIME PADMAJA Protocol Linezolid 600 mg 05/25/24 05:00 05/25/24 05:46 Linezolid 600 Mg Tablet PO 600 mg Q12H PADMAJA Administration Protocol Lisinopril 20 mg 05/25/24 09:00 05/25/24 08:43 Lisinopril 20 Mg Tablet PO 20 mg DAILY PADMAJA Administration Morphine Sulfate 2 mg 05/24/24 21:21 05/24/24 23:33 Morphine 4 Mg/Ml Sdv 1 Ml IVP 2 mg Q4H PRN Administration SEVERE PAIN Oxycodone HCl 20 mg 05/24/24 21:00 05/25/24 06:35 Oxycodone 5 Mg Ir Tab/Cap PO 20 mg Q4H PRN Administration MODERATE PAIN Pantoprazole Sodium 40 mg 05/24/24 20:29 05/24/24 21:32 Pantoprazole 40 Mg Sdv IVP 40 mg Q24H PADMAJA Administration Tamsulosin HCl 0.4 mg 05/24/24 20:29 05/25/24 08:43 Tamsulosin 0.4 Mg Capsule PO 0.4 mg BID PADMAJA Administration PFSH Anesthesia Medical History (Updated 05/25/24 @ 06:40 by Neal Garcia DPM) Diastolic CHF Pulmonary embolism History of proctoscopy Chronic back pain Diabetes Hypertension GERD (gastroesophageal reflux disease) BPH loc w urin obs/LUTS Vomiting Surgical History (Updated 05/24/24 @ 17:37 by Benedict Haro MD) History of back surgery History of ankle surgery History of lumbar surgery History of hernia surgery S/P TURP Family History Father , AT 86 of unknown cause Mother , AT 36 Lupus Denies family history of Anesthesia complication Bleeding disorder Social History Smoking and tobacco/nicotine status: former use of tobacco/nicotine Alcohol intake: never Substance/Drug Use: never Marital status: Current occupational status: disabled Data Anesthesia 05/24/24 13:50 05/24/24 13:50 Short CBC 05/24/24 Range/Units 13:50 WBC 12.00 H (3.29-11.43) 10^3/uL Hgb 12.30 (11.27-16.99) g/dL Hct 39.5 (37-53) % MCV 85.5 (82-101) fl Plt Count 246 (157-399) 10^3/cmm Neut % (Auto) 83.1 % Neut # (Auto) 9.96 H (1.8-7.7) 10^3/uL BMP 05/24/24 13:50 Sodium 137 Potassium 4.0 Chloride 103 Carbon Dioxide 24 BUN 14 Creatinine 1.0 Glucose 248 H Calcium 7.8 L Cardiac Enzymes 05/24/24 Range/Units 13:50 NT-Pro-B Natriuret Pep 2330 H (0-125) pg/mL Liver Function 05/24/24 Range/Units 13:50 Total Bilirubin 0.9 (0.15-1.2) mg/dL AST 25 (0-40) U/L ALT 22 (0-41) U/L Alkaline Phosphatase 139 H (40-130) U/L Albumin 3.1 L (3.5-5.2) g/dL Urine 05/24/24 Range/Units 19:57 Urine Color Yellow (Yellow) Urine Appearance Clear (CLEAR) Urine pH 7.0 (5-7) Ur Specific [place] 1.007 (1.005-1.030) Urine Protein Negative (Negative) Urine Glucose (UA) Negative (Normal) Urine Ketones Negative (Negative) Urine Nitrate Negative (Negative) Urine Bilirubin Negative (Negative) Ur Leukocyte Esterase Negative (Negative) Urine RBC 0-2 (0-2) /hpf Urine WBC 0-5 (0-5) /hpf Coags 05/24/24 13:50 ESR 13 H PT 14.00 INR 1.05 C-Reactive Protein 36.2 H Microbiology 05/24/24 19:51 Bacterial Antigens - Final Urine Kidney 05/24/24 13:49 Blood Culture - Preliminary Blood SPECIMEN COLLECTED 05/24/24 13:50 Blood Culture - Preliminary Blood SPECIMEN COLLECTED Cardiac Studies: Echocardiogram 03/02/23
[2024-05-25] MEDS: lidocaine 1% 10 ML INJ INJECTION (12:32)
--- NOTE | 2024-05-25 12:32 | PM.OP ---
Operative Report Date of procedure: May 25, 2024 Pre-op diagnosis: Puncture wound right foot. Right foot infection with soft tissue emphysema Post-op diagnosis: Same Procedure done: Incision and debridement right heel down to myofascial layer. CPT code 05763 Implants: No implants Surgeon: Neal Garcia DPM [employer]: Gavi Estimated blood loss: 2 mL No tourniquet Brief History: willie Appiah is a 74 year old diabetic male presenting with a foreign body in the right heel. The incident occurred when she stepped barefoot on a piece of glass while outside with her dogs on April. Patient reported that the glass penetrated his skin, but he experienced minimal sensations of entry at the time. Medical history includes diabetes mellitus, with blood sugar levels ranging between 84 and 200, and prior episodes of cellulitis resulting from leg swelling. Notably, the patient also has a history of an ankle fracture with internal fixation hardware, including a broken screw. Primary care physician Dr. Rocha placed him on Bactrim DS May 01, 2020 for which she has been taking twice daily up until today which she has not taken due to nausea and has not eaten any food, Bactrim was prescribed for genitourinary complaint. The patient denies smoking and previous hospitalizations related to cellulitis, as far as she recalls. On presentation, the heel wound displayed gas presence on X-ray, consistent with gangrene, posing a risk of serious complications. Procedure: Under mild sedation patient was brought to the operating room and remained on the gurney in supine position. Timeout was performed. Anesthesia was then administered by the anesthesia service. Local anesthesia was injected by myself consisting of 10 cc of 1% lidocaine plain in the right heel. No tourniquet utilized. Right lower extremity was scrubbed, prepped and draped utilizing normal aseptic technique. Attention was directed to a wound that probe down to myofascial layer of the right plantar heel measuring approximately 5 mm x 5 mm x 5 mm, there is a boggy base with devitalized soft tissue down to myofascial layer there was black adipose tissue, sharp debridement performed with pickups and a #15 blade as well as rongeur of all devitalized tissue including epidermis, dermis, subcutaneous tissue and muscle and fascia. The incision was irrigated with copious amounts of sterile skin solution. Wound did not tunnel. No further devitalized tissue appreciated postdebridement. Postdebridement wound measurements 1.3 cm x 1.4 cm x 2 cm. Dressing consisting of Adaptic, sterile 4 x 4, Kerlix and Sterling wrap as well as application of a postop shoe to the right lower extremity. Patient tolerated the procedure and anesthesia well and was transferred to the PACU with vital signs stable and vascular status intact. Following a period of postoperative monitoring he will be transferred back to the floor to continue empiric IV antibiotics.
--- NOTE | 2024-05-25 12:50 | ANE.PACU2 ---
Inpatient post-anesthesia follow up: Airway intact: Yes Vital signs: Temperature 97.6 F Pulse Rate 78 Respiratory Rate 16 Blood Pressure 113/62 Pulse Oximetry 93 Oxygen Delivery Me thod Room Air Oxygen Flow Rate Fraction of Inspir ed Oxygen Hydration adequate: Yes Nausea and vomiting: No Pain level: 1 Mental status: Baseline
--- NOTE | 2024-05-25 12:55 | ANE.PACU2 ---
Inpatient post-anesthesia follow up: Airway intact: Yes Vital signs: Temperature 97.5 F Pulse Rate 69 Respiratory Rate 18 Blood Pressure 133/73 Pulse Oximetry 96 Oxygen Delivery Me thod Room Air Oxygen Flow Rate Fraction of Inspir ed Oxygen Hydration adequate: Yes Nausea and vomiting: No Pain level: 1 Mental status: Baseline
[2024-05-25 14:31] LABS: Estmated Average Glucose 146; Hemoglobin A1C 6.7 % (4.0-6.0)
[2024-05-25 14:50] LABS: Folate Level 11.8 ng/mL (4.5-32.2)
[2024-05-25 16:32] LABS: Glucose Point of Care 263 mg/dL (70-110)
--- NOTE | 2024-05-25 17:33 | USCV_ITS ---
Alen Appiah Age: 74 Gender: M : 1950 Exam Date: 05/25/2024 10:20 Ordering Phys: Benedict Haro MD Technologist: [place] [facility] [place]: cp BP: 132 / 320 HR: Rhythm: Sinus Technical Quality: Adequate MEASUREMENTS (Male / Female) Normal Values 2D ECHO LV Diastolic Diameter PLAX 5.0 cm 4.2 - 5.9 / 3.9 - 5.3 cm IVS Diastolic Thickness 1.3 cm 0.6 - 1.0 / 0.6 - 0.9 cm IVS Systolic Thickness 2.1 cm LVPW Diastolic Thickness 1.2 cm 0.6 - 1.0 / 0.6 - 0.9 cm LVPW Systolic Thickness 2.0 cm LVOT Diameter 2.2 cm LV Ejection Fraction 2D Teich 55.9 % LV Ejection Fraction MOD 4C 61.4 % LV Ejection Fraction MOD 2C 68.0 % LV Ejection Fraction 2C AL 69.2 % LA Diameter 3.7 cm RA Systolic Volume 4C AL 42.5 ml RA Systolic Volume 4C MOD 41.4 ml LA Sys Volume AL 54.9 cm cubed LA Sys Volume Index AL 16.8 cm cubed/m squared M-MODE LA Ao Ratio MM 1.3 AV Cusp Separation MM 2.7 cm DOPPLER MV Area PHT 4.5 cm squared Mitral E to A Ratio 0.8 TR Peak Velocity 143.0 cm/s TR Peak Gradient 8.2 mmHg TV Peak E Velocity 79.0 cm/s Right Atrial Pressure 3.0 mmHg Pulmonary Artery Systolic Pressu 11.2 mmHg PV Peak Velocity 104.0 cm/s FINDINGS Left Ventricle Normal left ventricular size, systolic function and wall thickness, with no regional wall motion abnormalities. Left ventricular ejection fraction is estimated at 60 %. Grade I/IV diastolic dysfunction (abnormal relaxation filling pattern), normal to mildly elevated filling pressures. Right Ventricle The right ventricle is normal in size and function. Right Atrium The right atrium is normal in size. Left Atrium The left atrium is normal in size. Mitral Valve Structurally normal mitral valve without significant stenosis or prolapse. There is no mitral regurgitation. Aortic Valve Structurally normal trileaflet aortic valve. No aortic valve stenosis. Trace aortic valve regurgitation. Tricuspid Valve Structurally normal tricuspid valve without significant stenosis or regurgitation. Pulmonary artery systolic pressure is normal. Pulmonic Valve Structurally normal pulmonic valve without significant stenosis. There is no pulmonic regurgitation. Pericardium Normal pericardium without effusion. Aorta Normal ascending aorta dimension. IVC The inferior vena cava appears normal. CONCLUSIONS Normal left ventricular size, systolic function and wall thickness, with no regional wall motion abnormalities. Left ventricular ejection fraction is estimated at 60 %. Grade I/IV diastolic dysfunction (abnormal relaxation filling pattern), normal to mildly elevated filling pressures. There is no pericardial effusion. No significant valve abnormalities. Right atrial pressure is around 5 mm of mercury. Joseline Almanzar MD (Electronically Signed) Final Date: 26 May 2024 21:59 S
--- NOTE | 2024-05-25 17:35 | US_ITS ---
WS: [id number] TESTICULAR ULTRASOUND HISTORY: concern for epidymo-orchitis COMPARISON: None available. TECHNIQUE: Real-time and color Doppler imaging or utilized to perform a testicular ultrasound. Right testicle: 4.6 cm x 3.0 cm x 2.6 cm. Normal size and echogenicity. No mass or torsion. Normal color Doppler is present throughout. Systolic and diastolic velocities are both present. No significant hydrocele. Right epididymis: Normal epididymis with no increased vascularity. Left testicle: 4.4 cm x 3.0 cm x 3.0 cm. Normal size and echogenicity. No mass or torsion. Increased Doppler throughout the LEFT testicle. Left epididymis: Heterogeneous enlarged hypervascular LEFT epididymis. US/US scrotum [id number] IMPRESSION: 1. Acute LEFT epididymo-orchitis. 2. No testicular mass or torsion.
[2024-05-25 20:48] LABS: Glucose Point of Care 264 mg/dL (70-110)
[2024-05-25] MEDS: atorvastatin 40 mg Tablet 80 MG PO (21:26)
[2024-05-25] MEDS: pantoprazole 40 mg SDV IVP (21:26)
[2024-05-25 22:50] LABS: Basophils # 0.1 10^3/uL (0.0-0.1); Basophils % 0.5 %; Eosinophils # 0.1 10^3/uL (0.0-0.8); Eosinophils % 0.9 %; Hematocrit 40.5 % (37-53); Lymphocytes # 1.8 10^3/uL (0.8-4.8); Mean Corpuscular HGB Conc 30.9 g/dL (30-55); Mean Corpuscular Hemoglobin 26.8 pg (27-33); Mean Corpuscular Volume 86.7 fl (82-101); Monocytes % 7.4 %; Neutrophils # 9.79 10^3/uL (1.8-7.7); Neutrophils % 76.8 %; Nucleated Red Blood Cells % 0 %; Platelet Count 280 10^3/cmm (157-399); Red Blood Count 4.67 10^6/uL (3.85-5.65); Red Cell Distribution Width 14.1 % (12.1-15.1); White Blood Count 12.76 10^3/uL (3.29-11.43)
[2024-05-25 23:11] LABS: Alanine Aminotransferase 19 U/L (0-41); Albumin Level 3.1 g/dL (3.5-5.2); Alkaline Phosphatase 129 U/L (40-130); Aspartate Amino Transferase 21 U/L (0-40); Blood Urea Nitrogen 19 mg/dL (8-23); Carbon Dioxide 29 mmol/L (22-29); Chloride 103 mmol/L (98-107); Creatinine Clr Calc Pharmacy 60.0578; Globulin 3.4 g/dL (1.3-4.6); Glucose 142 mg/dL (65-115); Osmolality Calculated 295 mOsm/kg (285-295); Phosphorus 2.8 mg/dL (2.5-4.5); Sodium 140 mmol/L (136-145); Total Bilirubin 0.6 mg/dL (0.15-1.2); Total Protein 6.5 g/dL (6.6-8.7)
[2024-05-25 23:12] LABS: Chol HDL Ratio 1.91 mg/dL (1.0-5.00); Cholesterol 65 mg/dL (0-200); HDL Cholesterol 34 mg/dL (60-100); LDL Cholesterol Calculated 17 mg/dL (50-129); Triglycerides 68 mg/dL (0-150)
[2024-05-25 23:16] LABS: Anion Gap 11.5 (5-19); Potassium 3.5 mmol/L (3.5-5.1)
[2024-05-25 23:18] LABS: Procalcitonin 0.07 ng/mL (0-0.5)
[2024-05-26] VITALS (12 sets, daily range): BP systolic 115–128; BP diastolic 60–77; PULSE 68–84; RESP 15–20; TEMP 36.3–36.8; O2SAT 90–96
[2024-05-26] MEDS: piperacillin-tazobactam 3.375 GM in sodium chloride 0.9% (plus) 50 ML IV ×3 (01:35→17:34)
[2024-05-26] MEDS: oxyCODONE 5 mg IR Tab/Cap 20 MG PO ×3 (01:37→20:18)
[2024-05-26] MEDS: baclofen 10 mg Tablet 20 MG PO ×2 (01:43→20:20)
[2024-05-26] MEDS: linezolid 600 mg Tablet PO ×2 (05:17→17:25)
[2024-05-26] MEDS: FUROsemide 10 mg/mL SDV 4mL 40 MG IVP ×2 (05:17→17:25)
[2024-05-26] MEDS: heparin 5,000 unit/mL INJ 1 mL 5000 UNIT SUBCUT ×3 (05:18→20:19)
[2024-05-26 06:32] LABS: Glucose Point of Care 179 mg/dL (70-110)
--- NOTE | 2024-05-26 06:38 | P.PN_ITS ---
Subjective 2 Subjective: Patient seen bedside this a.m., sitting in the chair. Surgical dressing has minimal strikethrough bleeding. 1 day status post incision and debridement right heel ulcer down to myofascial layer. Patient denies any subjective nausea, vomiting, fever, chills, shortness of breath or chest pain. Vitals/I&O/Wt Last Vital Signs Temp 97.4 F L 05/26/24 04:00 Pulse 74 05/26/24 06:00 Resp 18 05/26/24 04:00 BP 122/70 05/26/24 04:00 Pulse Ox 91 05/26/24 04:00 O2 Del Method Room Air 05/26/24 04:00 05/25/24 05/25/24 05/26/24 14:59 22:59 06:59 Intake Total 400.5 / 400.5 650 / 1050.5 50 / 1100.5 Output Total 605 / 605 900 / 1505 150 / 1655 Balance -204.5 / -204.5 -250 / -454.5 -100 / -554.5 Weight last 48 hrs Weight 260 lb 6.4 oz Weight 264 lb 3.2 oz Weight 276 lb 1.6 oz Physical Exam 2 Narrative: Patient is alert and oriented x 3 and in no acute distress. - Vascular- Diminished pulses palpated a t grade +1; capillary refill time less than 5 seconds distal hallux bilaterally. - Dermatologic-wound right plantar heel 1.3 cm x 1.4 cm x 2 cm, does not probe to bone. Redness and swelling of the legs; presence of petechiae and scratches noted. - Musculoskeletal-pain to palpation righ t heel. - Neurological- Protective sensation int act 0/10 sites tested with [place] Joel monofilament bilaterally. Const: COMMON NORMALS: no acute distress, patient oriented x3 and alert Eye: COMMON NORMALS: Equal, round and reactive pupils present PUPIL: Yes Equal, round and reactive pupils present Chest: CHEST: Yes Symmetrical chest wall rise Resp: COMMON NORMALS: normal respiratory effort and No use of accessory muscles Cardio: COMMON NORMALS: regular rate and regular rhythm; negative for Peripheral pulses 2+ throughout RATE: regular rate RHYTHM: r egular rhythm PERIPHERAL PULSES: No Peripheral pulses 2+ throughout Extremity: RIGHT LOWER EXTREMITY: Yes foot & digits (Redness and swelling of the legs; presence of petechiae and scratches noted) Right foot and digits: Yes other (Significant piece of glass measuring approximately 4 mm x 5 mm ) Neuro: COMMON NORMALS: patient oriented x3 SENSORIUM/ORIENTATION: Yes alert SENSORY EXAM: Yes extremities and other (Absent protective sensation) M OTOR EXAM: 5/5 motor strength present throughout Skin: COMMON NORMALS: negative for no wounds Urinary Catheter Management: Cisse: Cath Placed During This Visit: yes Reason for Continuing Indwelling Catheter: Acute Urinary Retention or Obstruction Urinary Catheter Date of Insertion: 05/24/24 Data 05/25/24 22:37 05/25/24 22:37 Micro: Microbiology 05/24/24 13:49 Blood Culture - Preliminary Blood NEGATIVE TO DATE 05/24/24 13:50 Blood Culture - Preliminary Blood NEGATIVE TO DATE 05/24/24 15:50 Gram Stain - Final Toe - Right Wound Culture - Preliminary 05/24/24 19:51 Bacterial Antigens - Final Urine Kidney A&P Assessment and plan (1) Cellulitis: Qualifiers: Laterality: right Site of cellulitis: extremity Site of cellulitis of extremity: lower extremity Qualified Code(s): L03.115 - Cellulitis of right lower limb (2) Foreign body in foot: Qualifiers: Encounter type: initial encounter Laterality: right Qualified Code(s): S90.851A - Superficial foreign body, right foot, initial encounter (3) Diabetic peripheral neuropathy associated with type 2 diabetes mellitus: Plan 74-year-old diabetic male with foreign body right heel with soft tissue emphysema and cellulitis streaking to the medial malleolus. Status post incision and debridement right heel wound date of operation 05/25/2024 Mild improvement of cellulitis to the right lower extremity Dressing changed with half-inch packing, Betadine, 4 x 4 gauze, Kerlix and Sterling wrap, postop shoe Continuing empiric IV antibiotics till cultures yield further information so far there is suppression of growth likely due to being on Bactrim for several weeks prior to the wound Nonweightbearing right foot may toe-touch for transfers Elevate lower extremities while resting Requires continued close monitoring, recommend continuation of empiric of antibiotics until clinical improvement is appreciated. Podiatry will follow daily and monitor progress of the lower extremities. Attestations 2 Medical Necessity Statement*: Requires continued empiric IV antibiotics. High risk wound at right plantar heel with soft tissue emphysema is at risk for higher level of amputation pending infection control. Requires continued hospitalization, empiric of antibiotics and wound care for limb salvage Coding Level of Care Code Acute Code for Chg Fwd Diagnoses Cellulitis L03.115 Laterality: right Site of cellulitis: extremity Site of cellulitis of extremity: lower extremity Foreign body in right foot, initial encounter S90.851A Encounter type: initial encounter Laterality: right Diabetic peripheral neuropathy associated with type 2 diabetes mellitus E11.42
[2024-05-26] MEDS: insulin lispro 100 unit/1 mL SUBCUT ×3 (08:55→20:20)
[2024-05-26] MEDS: lisinopril 20 mg Tablet PO (08:56)
[2024-05-26] MEDS: tamsulosin 0.4 mg Capsule PO ×2 (08:56→17:25)
[2024-05-26] MEDS: gabapentin 300 mg Capsule 600 MG PO ×3 (08:56→20:18)
[2024-05-26] MEDS: amlodipine 10 mg Tablet PO (08:56)
[2024-05-26] MEDS: aspirin 81 mg EC Tablet PO (08:56)
[2024-05-26] MEDS: carvedilol 12.5 mg Tablet PO ×2 (08:56→17:25)
[2024-05-26 11:25] LABS: Glucose Point of Care 126 mg/dL (70-110)
[2024-05-26 12:55] LABS: Chlamydia Trachomatis RNA TMA NOT DETECTED (NOT DETECTED); Neisseria Gonorrhoeae RNA, TMA NOT DETECTED (NOT DETECTED)
--- NOTE | 2024-05-26 16:01 | PM.PN ---
Subjective Subjective: Wakes up. Tells me that he spoke with the content development manager this morning and that the content development manager was satisfied with the appearance of his foot during dressing change. Denies pain at the time of the visit. Vitals/I&O/Wt Last Vital Signs Temp 97.8 F 05/26/24 15:11 Pulse 73 05/26/24 15:11 Resp 15 05/26/24 15:11 BP 120/77 05/26/24 15:11 Pulse Ox 96 05/26/24 15:11 O2 Del Method Room Air 05/26/24 15:11 05/26/24 05/26/24 05/26/24 06:59 14:59 22:59 Intake Total 50 / 1100.5 600 / 600 50 / 650 Output Total 150 / 1655 800 / 800 Balance -100 / -554.5 600 / 600 -750 / -150 Weight last 48 hrs Weight 118.115 kg Weight 118.115 kg Weight 119.839 kg Weight 125.237 kg Physical Exam Const: COMMON NORMALS: patient oriented x3 and alert GENERAL APPEARANCE: cooperative ORIENTATION/CONSCIOUSNESS: Yes awake HENMT: COMMON NORMALS: oropharynx normal Neck/C-Spine: COMMON NORMALS: no JVD Resp: COMMON NORMALS: normal respiratory effort and clear to auscultation bilaterally AUSCULTATION: clear to auscultation bilaterally Cardio: COMMON NORMALS: no JVD, regular rhythm, S1 normal heart sound present, S2 normal heart sound present and No murmurs present (Cardio) RHYTHM: regular rhythm HEART SOUNDS: S1 normal heart sound present and S2 normal heart sound present GI: COMMON NORMALS: Normal to inspection, nondistended, normoactive bowel sounds present, Soft to palpation and non-tender PALPATION: Yes Soft to palpation Extremity: COMMON NORMALS: no joint enlargement and no pedal edema OTHER: Right lower extremity in dressing, no bleeding or strikethrough. Neuro: COMMON NORMALS: patient oriented x3 and moves all extremities SENSORIUM/ORIENTATION: Yes alert Skin: COMMON NORMALS: no rashes or lesions noted GENERAL SKIN EXAM: no rashes or lesions noted Urinary Catheter Management: Cisse: Cath Placed During This Visit: yes Reason for Continuing Indwelling Catheter: Acute Urinary Retention or Obstruction Urinary Catheter Date of Insertion: 05/24/24 Data 05/25/24 22:37 05/25/24 22:37 Micro: Microbiology 05/24/24 15:50 Gram Stain - Final Toe - Right Wound Culture - Preliminary 05/24/24 13:49 Blood Culture - Preliminary Blood NEGATIVE TO DATE 05/24/24 13:50 Blood Culture - Preliminary Blood NEGATIVE TO DATE A&P Assessment and plan (1) Cellulitis: Qualifiers: Laterality: right Site of cellulitis: extremity Site of cellulitis of extremity: lower extremity Qualified Code(s): L03.115 - Cellulitis of right lower limb (2) Foreign body in foot: Qualifiers: Encounter type: initial encounter Laterality: right Qualified Code(s): S90.851A - Superficial foreign body, right foot, initial encounter (3) Diastolic CHF: (4) Type 2 diabetes mellitus: (5) Morbid obesity: (6) Uncontrolled hypertension: Plan Gentleman with history of uncontrolled hypertension, diastolic heart failure, orthopnea presented to the ER with right foot pain found to have cellulitis and foreign body. Cellulitis: Status post debridement in OR by podiatry on 05/25. Reviewed vitals, CBC, CMP, wound culture, podiatry note. So far satisfactory progress, noted recommendation for continued IV antibiotics pending further reassessment for continued improvement with treatment. Discussed with case repairer, at current time anticipate discharge with oral antibiotic. Nursing. Continue antibiotic coverage with Zosyn. Linezolid. Monitor for risk of agranulocytosis. Repeat CBC. Monitor for risk of C. difficile. In setting of foreign body. Foreign body removed in the ER by podiatry. Check blood culture. Will request OR cultures. Check MRSA swab, procalcitonin. For now start patient on IV Zosyn and linezolid. Monitor for risk of agranulocytosis, C. difficile. Dressing as per podiatry team. Bleeding around Cisse: So far without additional bleeding. Noted in the OR. No blood in urine. Possible Cisse catheter injury. Check proper balloon inflation. Keep Cisse in place currently. Discussed with nursing staff. Will need to follow-up with urology. Acute left epididymoorchitis: Reviewed testicular ultrasound, reviewed chlamydia, gonorrhea, not detected. Noted acute left epididymoorchitis. Continue to bag coverage with Zosyn, linezolid. Uncontrolled hypertension: Continue with home dose of lisinopril 20 mg daily, change from metoprolol. Coreg 12.5 mg twice daily. Cont amlodipine 10 mg oral daily. 10 mg IV hydralazine every 4 hours as needed for systolic blood pressure more than 160 mmHg. For now blood pressure elevated to more than 200 mmhg with HR of 105. Give 10 mg of IV labetalol. Orthopnea: Does have history of diastolic heart failure. Noncompliant with Lasix. Fluid restriction to less than 1500 cc. Cisse catheterization. IV Lasix 40 mg twice daily. Pending echocardiogram. Strict input output charting. Patient for some reason is on 30-day course of Bactrim. First dose on May 01. appears for epididymoorchitis as noted on ultrasound. Continue other chronic medication. Type 2 diabetes mellitus: Requested A1c. See sliding scale low-dose protocol. Full code Carb consistent diet. N.p.o. after midnight. Patient is at high risk of DVT. Has history of pulmonary embolism after back surgery. Heparin 5000 Q8 hourly. Protonix OPD prophylaxis Attestations Medical Necessity Statement*: Continue admission for assessment management of cellulitis, surgical debridement, IV antibiotics, possible decompensated CHF pending further cardiac assessment. and High MDM includes amount and/or complexity of data reviewed/ordered [ previous or external records, resulted lab(s)/test(s) and other healthcare professional discussion] and described risk of complication, morbidity or mortality of management as documented Diagnoses Cellulitis L03.115 Laterality: right Site of cellulitis: extremity Site of cellulitis of extremity: lower extremity Foreign body in right foot, initial encounter S90.850B Encounter type: initial encounter Laterality: right Diastolic CHF I50.30 Type 2 diabetes mellitus E11.9 Morbid obesity E66.01 Uncontrolled hypertension I10
[2024-05-26 17:06] LABS: Glucose Point of Care 446 mg/dL (70-110)
[2024-05-26 17:11] LABS: Vitamin B12 234 pg/mL (232-1245)
[2024-05-26 20:15] LABS: Glucose Point of Care 287 mg/dL (70-110)
[2024-05-26] MEDS: pantoprazole 40 mg SDV IVP (20:19)
[2024-05-26] MEDS: atorvastatin 40 mg Tablet 80 MG PO (20:19)
[2024-05-27] VITALS (15 sets, daily range): BP systolic 118–151; BP diastolic 62–81; PULSE 58–80; RESP 14–19; TEMP 36.3–36.7; O2SAT 90–95
[2024-05-27] MEDS: piperacillin-tazobactam 3.375 GM in sodium chloride 0.9% (plus) 50 ML IV ×3 (01:51→17:03)
[2024-05-27] MEDS: FUROsemide 10 mg/mL SDV 4mL 40 MG IVP ×2 (05:02→17:02)
[2024-05-27] MEDS: heparin 5,000 unit/mL INJ 1 mL 5000 UNIT SUBCUT ×3 (05:02→21:39)
[2024-05-27] MEDS: linezolid 600 mg Tablet PO ×2 (05:02→17:01)
[2024-05-27] MEDS: oxyCODONE 5 mg IR Tab/Cap 20 MG PO ×3 (05:09→17:09)
[2024-05-27 05:26] LABS: Basophils # 0.1 10^3/uL (0.0-0.1); Basophils % 0.4 %; Eosinophils # 0.2 10^3/uL (0.0-0.8); Eosinophils % 1.6 %; Hematocrit 40.3 % (37-53); Lymphocytes # 2.5 10^3/uL (0.8-4.8); Lymphocytes % 22.6 %; Mean Corpuscular Hemoglobin 27.2 pg (27-33); Mean Corpuscular Volume 87.6 fl (82-101); Mean Platelet Volume 10.3 fL (7.4-10.4); Monocytes # 1.1 10^3/uL (0.2-0.9); Monocytes % 9.8 %; Neutrophils # 7.28 10^3/uL (1.8-7.7); Neutrophils % 65.2 %; Nucleated Red Blood Cells % 0 %; Platelet Count 284 10^3/cmm (157-399); Red Cell Distribution Width 14.2 % (12.1-15.1); White Blood Count 11.16 10^3/uL (3.29-11.43)
[2024-05-27 05:47] LABS: Anion Gap 12.4 (5-19); Blood Urea Nitrogen 24 mg/dL (8-23); Calcium 7.8 mg/dL (8.5-10.5); Carbon Dioxide 28 mmol/L (22-29); Chloride 105 mmol/L (98-107); Creatinine Clr Calc Pharmacy 49.0819; Glucose 137 mg/dL (65-115); Osmolality Calculated 300 mOsm/kg (285-295); Potassium 3.4 mmol/L (3.5-5.1); Sodium 142 mmol/L (136-145)
[2024-05-27 06:36] LABS: Glucose Point of Care 164 mg/dL (70-110)
--- NOTE | 2024-05-27 06:43 | P.PN_ITS ---
Subjective 2 Subjective: Patient seen bedside this a.m., no strikethrough bleeding at dressing right foot. Endorses back pain, only has pain at the right foot when pressure is applied. Patient denies any subjective nausea, vomiting, fever, chills, shortness of breath or chest pain. Vitals/I&O/Wt Last Vital Signs Temp 98.1 F 05/27/24 04:00 Pulse 69 05/27/24 05:56 Resp 16 05/27/24 05:09 BP 139/75 05/27/24 04:00 Pulse Ox 90 05/27/24 04:00 O2 Del Method Room Air 05/27/24 04:00 05/26/24 05/26/24 05/27/24 14:59 22:59 06:59 Intake Total 600 / 600 340 / 940 50 / 990 Output Total 1350 / 1350 150 / 1500 Balance 600 / 600 -1010 / -410 -100 / -510 Weight last 48 hrs Weight 260 lb 6.4 oz Weight 260 lb 6.4 oz Physical Exam 2 Narrative: GENERAL: Patient is alert and oriented ?3 and in no acute distress. The following is a focused bilateral lower extremity exam. VASCULAR: Dorsalis pedis palpable bilaterally. Posterior tibial arteries palpable. Capillary refill time less than 3 seconds to the distal hallux bilaterally. Calf is supple and nontender proximally and distally. Mild edema noted to the lower extremities +1 pitting tested at lower one third anterior tibial crest. NEUROLOGICAL: Protective sensation intact 0/10 sites, tested with Clifford Joel monofilament to bilateral feet. DERMATOLOGICAL: wound right plantar heel 1.3 cm x 1.4 cm x 2 cm, does not probe to bone. Redness and swelling of the legs; presence of petechiae and scratches noted. There is cellulitis to the level of the ankle both medially and laterally that has yet to subside. MUSCULOSKELETAL: Tenderness to palpation right plantar heel. No crepitus with palpation of soft tissue right lower extremity. Urinary Catheter Management: Cisse: Cath Placed During This Visit: no Data 05/27/24 04:50 05/27/24 04:50 Micro: Microbiology 05/24/24 15:50 Gram Stain - Final Toe - Right Wound Culture - Preliminary A&P Assessment and plan (1) Cellulitis: Qualifiers: Laterality: right Site of cellulitis: extremity Site of cellulitis of extremity: lower extremity Qualified Code(s): L03.115 - Cellulitis of right lower limb (2) Foreign body in foot: Qualifiers: Encounter type: initial encounter Laterality: right Qualified Code(s): S90.851A - Superficial foreign body, right foot, initial encounter (3) Diabetic peripheral neuropathy associated with type 2 diabetes mellitus: Plan 74-year-old diabetic male with foreign body right heel with soft tissue emphysema and cellulitis streaking to the medial malleolus. Status post incision and debridement right heel wound date of operation 05/25/2024 Mild improvement of cellulitis to the right lower extremity Dressing changed with half-inch packing, Betadine, 4 x 4 gauze, Kerlix and Sterling wrap, postop shoe Continuing empiric IV antibiotics till cultures yield further information so far there is suppression of growth likely due to being on Bactrim for several weeks prior to the wound Nonweightbearing right foot may toe-touch for transfers Elevate lower extremities while resting Repeat right foot x-ray Ordered CT right foot without contrast due to kidney function, patient is not a candidate for MRI due to back pain he cannot lie flat. Requires continued close monitoring, recommend continuation of empiric of antibiotics until substantial clinical improvement is appreciated. Podiatry will follow daily and monitor progress of the lower extremities. Attestations 2 Medical Necessity Statement*: Requires continued empiric IV antibiotics for cellulitis and limb salvage effort, may require additional surgical debridement of right foot wound. Coding Level of Care Code Acute Code for [facility] Fwd Diagnoses Cellulitis L03.115 Laterality: right Site of cellulitis: extremity Site of cellulitis of extremity: lower extremity Foreign body in right foot, initial encounter S90.851A Encounter type: initial encounter Laterality: right Diabetic peripheral neuropathy associated with type 2 diabetes mellitus E11.42
--- NOTE | 2024-05-27 07:16 | XR_ITS ---
WS: [id number] XR foot RT min 3V* [id number] REASON FOR EXAM: Serial x-ray for right heel wound FINDINGS: Significant osteopenia. No fracture or focal bone lesion. Severe MCP subluxations of the second through the fourth toes. Midfoot and hindfoot joint spaces are intact and relatively well preserved. No abnormality of the calcaneus. XR/XR foot RT min 3V* [id number] IMPRESSION: Severe forefoot subluxations. No abnormality of the calcaneus.
--- NOTE | 2024-05-27 07:24 | CT_ITS ---
WS: [id number] Noncontrast CT RIGHT foot TECHNIQUE: Noncontrast CT RIGHT foot with coronal and sagittal reformatted images. CLINICAL INFORMATION: Puncture wound with subsequent diabetic foot infection, heel DLP: 139.[address] scans at [facility] use at least one of these dose optimization techniques: automated e xposure control; mA and/or kV adjustment per patient size (includes targeted exams where dose is matc hed to clinical indication); or iterative reconstruction. FINDINGS: Osteopenia.Lateral subluxation of the phalanges of the MTP joints. Hallux valgus. Postoperative gonzalez es at the distal tibial plafond and fibula unchanged in appearance. Unchanged screw fracture Plantar soft tissue laceration overlying the calcaneus. No evidence of osteomyelitis. No drainable fl uid collections or abscess. Mild induration in the area of injury. No visualized radiopaque fragments . CT/CT foot RT wo con* [id number] IMPRESSION: No evidence of osteomyelitis. No drainable abscess or fluid collection
[2024-05-27] MEDS: insulin lispro 100 unit/1 mL SUBCUT ×4 (07:40→21:38)
[2024-05-27] MEDS: amlodipine 10 mg Tablet PO (07:42)
[2024-05-27] MEDS: aspirin 81 mg EC Tablet PO (07:42)
[2024-05-27] MEDS: gabapentin 300 mg Capsule 600 MG PO ×3 (07:43→21:38)
[2024-05-27] MEDS: carvedilol 12.5 mg Tablet PO ×2 (07:43→17:01)
[2024-05-27] MEDS: lisinopril 20 mg Tablet PO (07:44)
[2024-05-27] MEDS: tamsulosin 0.4 mg Capsule PO ×2 (07:44→17:01)
[2024-05-27] MEDS: metroNIDAZOLE 500 MG Tablet PO ×2 (08:59→17:01)
--- NOTE | 2024-05-27 10:22 | PC.SOCIAL ---
IMM Update pg 2 of IMM Updated and reviewed w/ patient. Copy provided and copy dated, initialed and placed in chart.
[2024-05-27 11:28] LABS: Glucose Point of Care 284 mg/dL (70-110)
[2024-05-27 14:16] LABS: C.Diff PCR (Lab) NEGATIVE (Negative)
[2024-05-27] MEDS: morphine 4 mg/mL SDV 1 mL 2 MG IVP ×2 (14:37→21:39)
--- NOTE | 2024-05-27 15:40 | P.PN_ITS ---
Subjective 2 Subjective: He wakes up, states that he is doing all right. Denies pain or discomfort. Has spoken with podiatry today. He was not sure how to use incentive spirometer, discussed with him and ran through an attempt. Vitals/I&O/Wt Last Vital Signs Temp 97.4 F L 05/27/24 11:48 Pulse 73 05/27/24 11:48 Resp 18 05/27/24 14:37 BP 151/81 05/27/24 11:48 Pulse Ox 94 05/27/24 11:48 O2 Del Method Room Air 05/27/24 11:48 05/27/24 05/27/24 05/27/24 06:59 14:59 22:59 Intake Total 50 / 990 770 / 770 Output Total 150 / 1500 600 / 600 Balance -100 / -510 170 / 170 Weight last 48 hrs Weight 118.115 kg Weight 118.115 kg Physical Exam 2 Const: COMMON NORMALS: patient oriented x3 and alert GENERAL APPEARANCE: c ooperative ORIENTATION/CONSCIOUSNESS: Yes awake HENMT: COMMON NORMALS: oropharynx normal Neck/C-Spine: COMMON NORMALS: no JVD Resp: COMMON NORMALS: normal respiratory effort and clear to auscultation bilaterally AUSCULTATION: clear to auscultation bilaterally Cardio: COMMON NORMALS: no JVD, regular rhythm, S1 normal heart sound present, S2 normal heart sound present and No murmurs present (Cardio) RHYTHM: regular rhythm HEART SOUNDS: S1 normal heart sound present and S2 normal heart sound present GI: COMMON NORMALS: Normal to inspection, nondistended, normoactive bowel sounds present, Soft to palpation and non-tender PALPATION: Yes Soft to palpation Extremity: COMMON NORMALS: no joint enlargement and no pedal edema OTHER: Right lower extremity in dressing, no bleeding or strikethrough. Neuro: COMMON NORMALS: patient oriented x3 and moves all extremities S ENSORIUM/ORIENTATION: Yes alert Skin: COMMON NORMALS: no rashes or lesions noted GENERAL SKIN EXAM: no rashes or lesions noted Urinary Catheter Management: Cisse: Cath Placed During This Visit: yes Reason for Continuing Indwelling Catheter: Acute Urinary Retention or Obstruction Urinary Catheter Date of Insertion: 05/24/24 Data 05/27/24 04:50 05/27/24 04:50 Micro: Microbiology 05/24/24 15:50 Gram Stain - Final Toe - Right Wound Culture - Final A&P Assessment and plan (1) Cellulitis: Qualifiers: Laterality: right Site of cellulitis: extremity Site of cellulitis of extremity: lower extremity Qualified Code(s): L03.115 - Cellulitis of right lower limb (2) Foreign body in foot: Qualifiers: Encounter type: initial encounter Laterality: right Qualified Code(s): S90.851A - Superficial foreign body, right foot, initial encounter (3) Diastolic CHF: (4) Type 2 diabetes mellitus: (5) Morbid obesity: (6) Uncontrolled hypertension: Plan Gentleman with history of uncontrolled hypertension, diastolic heart failure, orthopnea presented to the ER with right foot pain found to have cellulitis and foreign body. Cellulitis and wound infection right foot: Persistent cellulitis with still concern of persistent infection appearance at the right heel wound on reassessment by podiatry. Discussed with him. Continue IV antibiotics. We discussed consideration of obtaining MRI, however, due to his back pain he would not be able to stand this study. Additionally with his renal dysfunction not very safe candidate for IV contrast. On review of renal function, reviewed BUN is 24, creatinine is 1.7. We discussed with podiatry with him at least obtaining a noncontrast CT for additional assessment, requested. As per discussion with podiatry additional coverage provided with Flagyl for further anaerobic coverage, so cultures unfortunately may be affected giving falsely negative results. Reviewed CBC, blood and wound culture. Continue antibiotic coverage with Zosyn. Linezolid. Monitor for risk of C. difficile, Monitor for risk of agranulocytosis. Repeat CBC. Monitor for risk of C. difficile. Discussed with high risk case manager. Continue pain management, renew IV morphine which she has been needing for severe pain, oxycodone. In setting of foreign body. Foreign body removed in the ER by podiatry. Reviewed blood culture. Will request OR cultures. Check MRSA swab, procalcitonin. For now start patient on IV Zosyn and linezolid. Monitor for risk of agranulocytosis, C. difficile. Dressing as per podiatry team. Bleeding around Cisse: Possible urethral injury, given small amount of blood around the Cisse from the urethra, discussed with nursing staff, confirmed balloon placement is in the bladder lumen. Maintain Cisse. Follow-up with urology. Hypokalemia: Supplemented. Acute left epididymoorchitis: Reviewed testicular ultrasound, reviewed chlamydia, gonorrhea, not detected. Noted acute left epididymoorchitis. Continue to bag coverage with Zosyn, linezolid. Uncontrolled hypertension: Continue with home dose of lisinopril 20 mg daily, change from metoprolol. Coreg 12.5 mg twice daily. Cont amlodipine 10 mg oral daily. 10 mg IV hydralazine every 4 hours as needed for systolic blood pressure more than 160 mmHg. For now blood pressure elevated to more than 200 mmhg with HR of 105. Give 10 mg of IV labetalol. Orthopnea: Does have history of diastolic heart failure. Noncompliant with Lasix. Fluid restriction to less than 1500 cc. Cisse catheterization. IV Lasix 40 mg twice daily. Pending echocardiogram. Strict input output charting. Patient for some reason is on 30-day course of Bactrim. First dose on May 01. appears for epididymoorchitis as noted on ultrasound. Continue other chronic medication. Type 2 diabetes mellitus: Requested A1c. See sliding scale low-dose protocol. Full code Carb consistent diet. N.p.o. after midnight. Patient is at high risk of DVT. Has history of pulmonary embolism after back surgery. Heparin 5000 Q8 hourly. Protonix OPD prophylaxis Attestations 2 Medical Necessity Statement*: Continue hospitalization for right foot cellulitis and wound infection, so far without significant improvement, and gentleman on antibiotic preadmission making culture assessment difficult, continue IV antibiotics at this time pending further reassessment, possible debridement by podiatry. and High MDM includes amount and/or complexity of data reviewed/ordered [ resulted lab(s)/test(s) and other healthcare professional discussion] and described risk of complication, morbidity or mortality of management as documented Diagnoses Cellulitis L03.115 Laterality: right Site of cellulitis: extremity Site of cellulitis of extremity: lower extremity Foreign body in right foot, initial encounter S90.961N Encounter type: initial encounter Laterality: right Diastolic CHF I50.30 Type 2 diabetes mellitus E11.9 Morbid obesity E66.01 Uncontrolled hypertension I10
[2024-05-27] MEDS: loperamide 2 mg Capsule PO ×2 (16:23→21:38)
[2024-05-27 16:35] LABS: Glucose Point of Care 274 mg/dL (70-110)
[2024-05-27 21:06] LABS: Glucose Point of Care 302 mg/dL (70-110)
[2024-05-27] MEDS: atorvastatin 40 mg Tablet 80 MG PO (21:38)
[2024-05-27] MEDS: pantoprazole 40 mg SDV IVP (21:39)
[2024-05-28] VITALS (14 sets, daily range): BP systolic 107–146; BP diastolic 56–78; PULSE 61–80; RESP 14–18; TEMP 36.4–36.7; O2SAT 92–95
[2024-05-28] MEDS: piperacillin-tazobactam 3.375 GM in sodium chloride 0.9% (plus) 50 ML IV ×3 (01:25→17:33)
[2024-05-28] MEDS: FUROsemide 10 mg/mL SDV 4mL 40 MG IVP ×2 (05:13→17:23)
[2024-05-28] MEDS: morphine 4 mg/mL SDV 1 mL 2 MG IVP (05:13)
[2024-05-28] MEDS: heparin 5,000 unit/mL INJ 1 mL 5000 UNIT SUBCUT ×3 (05:13→20:06)
[2024-05-28] MEDS: linezolid 600 mg Tablet PO ×2 (05:13→17:20)
[2024-05-28 05:38] LABS: Basophils # 0.1 10^3/uL (0.0-0.1); Basophils % 0.6 %; Eosinophils # 0.2 10^3/uL (0.0-0.8); Eosinophils % 1.9 %; Hematocrit 37.5 % (37-53); Lymphocytes # 2.6 10^3/uL (0.8-4.8); Mean Corpuscular HGB Conc 29.6 g/dL (30-55); Mean Corpuscular Hemoglobin 26.6 pg (27-33); Mean Corpuscular Volume 89.7 fl (82-101); Mean Platelet Volume 10.4 fL (7.4-10.4); Monocytes # 0.9 10^3/uL (0.2-0.9); Monocytes % 8.4 %; Neutrophils # 6.93 10^3/uL (1.8-7.7); Neutrophils % 64.4 %; Nucleated Red Blood Cells % 0 %; Platelet Count 289 10^3/cmm (157-399); Red Blood Count 4.18 10^6/uL (3.85-5.65); Red Cell Distribution Width 14.1 % (12.1-15.1); White Blood Count 10.77 10^3/uL (3.29-11.43)
[2024-05-28 05:56] LABS: Blood Urea Nitrogen 25 mg/dL (8-23); Calcium 7.4 mg/dL (8.5-10.5); Carbon Dioxide 23 mmol/L (22-29); Chloride 103 mmol/L (98-107); Creatinine Clr Calc Pharmacy 55.6261; Glucose 155 mg/dL (65-115); Osmolality Calculated 294 mOsm/kg (285-295); Sodium 138 mmol/L (136-145)
[2024-05-28] MEDS: oxyCODONE 5 mg IR Tab/Cap 20 MG PO ×3 (06:12→17:44)
[2024-05-28 06:17] LABS: Anion Gap 15.3 (5-19); Potassium 3.3 mmol/L (3.5-5.1)
[2024-05-28 06:33] LABS: Slide Review Slide Review Perform
[2024-05-28 06:34] LABS: Glucose Point of Care 203 mg/dL (70-110)
--- NOTE | 2024-05-28 07:02 | P.PN_ITS ---
Subjective 2 Subjective: Patient seen bedside this a.m., no strikethrough bleeding at dressing right foot. Patient denies any subjective nausea, vomiting, fever, chills, shortness of breath or chest pain. Vitals/I&O/Wt Last Vital Signs Temp 97.9 F 05/28/24 04:00 Pulse 68 05/28/24 05:49 Resp 14 05/28/24 06:12 BP 124/66 05/28/24 04:00 Pulse Ox 92 05/28/24 04:00 O2 Del Method Room Air 05/28/24 04:00 05/27/24 05/28/24 05/28/24 22:59 06:59 14:59 Intake Total 1250 / 2020 50 / 2070 Output Total 600 / 1200 650 / 1850 Balance 650 / 820 -600 / 220 Weight last 48 hrs Weight 260 lb 6.4 oz Physical Exam 2 Narrative: GENERAL: Patient is alert and oriented ?3 and in no acute distress. The following is a focused bilateral lower extremity exam. VASCULAR: Dorsalis pedis palpable bilaterally. Posterior tibial arteries palpable. Capillary refill time less than 3 seconds to the distal hallux bilaterally. Calf is supple and nontender proximally and distally. Mild edema noted to the lower extremities +1 pitting tested at lower one third anterior tibial crest. NEUROLOGICAL: Protective sensation intact 0/10 sites, tested with Vivian Joel monofilament to bilateral feet. DERMATOLOGICAL: wound right plantar heel 1.3 cm x 1.4 cm x 2 cm, does not probe to bone. Redness and swelling of the legs; presence of petechiae and scratches noted. There is cellulitis to the level of the ankle both medially and laterally that has yet to subside. MUSCULOSKELETAL: Tenderness to palpation right plantar heel. No crepitus with palpation of soft tissue right lower extremity. Urinary Catheter Management: Cisse: Cath Placed During This Visit: yes Reason for Continuing Indwelling Catheter: Acute Urinary Retention or Obstruction Urinary Catheter Date of Insertion: 05/24/24 Data 05/28/24 04:58 05/28/24 04:58 Micro: Microbiology 05/24/24 15:50 Gram Stain - Final Toe - Right Wound Culture - Final A&P Assessment and plan (1) Cellulitis: Qualifiers: Laterality: right Site of cellulitis: extremity Site of cellulitis of extremity: lower extremity Qualified Code(s): L03.115 - Cellulitis of right lower limb (2) Foreign body in foot: Qualifiers: Encounter type: initial encounter Laterality: right Qualified Code(s): S90.851A - Superficial foreign body, right foot, initial encounter (3) Diabetic peripheral neuropathy associated with type 2 diabetes mellitus: Plan 74-year-old diabetic male with foreign body right heel with soft tissue emphysema and cellulitis streaking to the medial malleolus. Status post incision and debridement right heel wound date of operation 05/25/2024 Mild improvement of cellulitis to the right lower extremity Dressing changed with half-inch packing, Betadine, 4 x 4 gauze, Kerlix and Sterling wrap, postop shoe Continuing empiric IV antibiotics till cultures yield further information so far there is suppression of growth likely due to being on Bactrim for several weeks prior to the wound Nonweightbearing right foot may toe-touch for transfers Elevate lower extremities while resting Right foot x-ray and CT scan negative for abscess, negative for osteomyelitis Requires continued close monitoring, recommend continuation of empiric of antibiotics until substantial clinical improvement is appreciated. Podiatry will follow daily and monitor progress of the lower extremities. Attestations 2 Medical Necessity Statement*: Continue hospitalization for right foot cellulitis and wound infection, so far without significant improvement, and gentleman on antibiotic preadmission making culture assessment difficult, continue IV antibiotics at this time pending further reassessment, possible debridement by podiatry. Coding Level of Care Code Acute Code for [facility] Fwd Diagnoses Cellulitis L03.115 Laterality: right Site of cellulitis: extremity Site of cellulitis of extremity: lower extremity Foreign body in right foot, initial encounter S90.851A Encounter type: initial encounter Laterality: right Diabetic peripheral neuropathy associated with type 2 diabetes mellitus E11.42
[2024-05-28] MEDS: insulin lispro 100 unit/1 mL SUBCUT ×4 (07:43→21:13)
[2024-05-28] MEDS: gabapentin 300 mg Capsule 600 MG PO ×3 (08:17→20:05)
[2024-05-28] MEDS: amlodipine 10 mg Tablet PO (08:18)
[2024-05-28] MEDS: carvedilol 12.5 mg Tablet PO ×2 (08:18→17:20)
[2024-05-28] MEDS: lisinopril 20 mg Tablet PO (08:18)
[2024-05-28] MEDS: aspirin 81 mg EC Tablet PO (08:18)
[2024-05-28] MEDS: metroNIDAZOLE 500 MG Tablet PO ×2 (08:18→17:21)
[2024-05-28] MEDS: tamsulosin 0.4 mg Capsule PO ×2 (08:18→17:21)
[2024-05-28 11:10] LABS: Glucose Point of Care 216 mg/dL (70-110)
[2024-05-28] MEDS: baclofen 10 mg Tablet 20 MG PO ×2 (13:06→22:07)
[2024-05-28 16:47] LABS: Glucose Point of Care 237 mg/dL (70-110)
--- NOTE | 2024-05-28 19:06 | P.PN_ITS ---
Subjective 2 Subjective: He states he is doing all right. His left pinky finger started falling asleep from having his elbow on the armrest, he placed a pillow under it with improvement. Vitals/I&O/Wt Last Vital Signs Temp 98 F 05/28/24 15:43 Pulse 72 05/28/24 15:43 Resp 16 05/28/24 17:44 BP 132/70 05/28/24 15:43 Pulse Ox 95 05/28/24 17:44 O2 Del Method Room Air 05/28/24 15:43 05/28/24 05/28/24 05/28/24 06:59 14:59 22:59 Intake Total 50 / 2070 840 / 840 410 / 1250 Output Total 650 / 1850 700 / 700 600 / 1300 Balance -600 / 220 140 / 140 -190 / -50 Physical Exam 2 Const: COMMON NORMALS: patient oriented x3 and alert GENERAL APPEARANCE: c ooperative ORIENTATION/CONSCIOUSNESS: Yes awake HENMT: COMMON NORMALS: oropharynx normal Neck/C-Spine: COMMON NORMALS: no JVD Resp: COMMON NORMALS: normal respiratory effort and clear to auscultation bilaterally AUSCULTATION: clear to auscultation bilaterally Cardio: COMMON NORMALS: no JVD, regular rhythm, S1 normal heart sound present, S2 normal heart sound present and No murmurs present (Cardio) RHYTHM: regular rhythm HEART SOUNDS: S1 normal heart sound present and S2 normal heart sound present GI: COMMON NORMALS: Normal to inspection, nondistended, normoactive bowel sounds present, Soft to palpation and non-tender PALPATION: Yes Soft to palpation Extremity: COMMON NORMALS: no joint enlargement and no pedal edema OTHER: Right lower extremity in dressing, no bleeding or strikethrough. Neuro: COMMON NORMALS: patient oriented x3 and moves all extremities S ENSORIUM/ORIENTATION: Yes alert Skin: COMMON NORMALS: no rashes or lesions noted GENERAL SKIN EXAM: no rashes or lesions noted Urinary Catheter Management: Cisse: Cath Placed During This Visit: yes Reason for Continuing Indwelling Catheter: Acute Urinary Retention or Obstruction Urinary Catheter Date of Insertion: 05/24/24 Data 05/28/24 04:58 05/28/24 04:58 A&P Assessment and plan (1) Cellulitis: Qualifiers: Laterality: right Site of cellulitis: extremity Site of cellulitis of extremity: lower extremity Qualified Code(s): L03.115 - Cellulitis of right lower limb (2) Foreign body in foot: Qualifiers: Encounter type: initial encounter Laterality: right Qualified Code(s): S90.851A - Superficial foreign body, right foot, initial encounter (3) Diastolic CHF: (4) Type 2 diabetes mellitus: (5) Morbid obesity: (6) Uncontrolled hypertension: Plan Gentleman with history of uncontrolled hypertension, diastolic heart failure, orthopnea presented to the ER with right foot pain found to have cellulitis and foreign body. Cellulitis and wound infection right foot: Reviewed CT of the foot. Reviewed vitals, CBC, BMP. Without leukocytosis. Afebrile. Reviewed podiatry note. Continue IV antibiotic today. Reviewed wound culture, blood culture, unrevealing. Discussed with nursing, case work aide. Persistent cellulitis with still concern of persistent infection appearance at the right heel wound on reassessment by podiatry. Cultures are complicated by the fact that he was on Bactrim preadmission. Continue antibiotic coverage with Zosyn. Linezolid. Monitor for risk of C. difficile, Monitor for risk of agranulocytosis. Repeat CBC. Monitor for risk of C. difficile. Continue pain management, renew IV morphine which she has been needing for severe pain, oxycodone. In setting of foreign body. Foreign body removed in the ER by podiatry. Reviewed blood culture. Will request OR cultures. Check MRSA swab, procalcitonin. For now start patient on IV Zosyn and linezolid. Monitor for risk of agranulocytosis, C. difficile. Dressing as per podiatry team. Bleeding around Cisse: Possible urethral injury, given small amount of blood around the Cisse from the urethra, discussed with nursing staff, confirmed balloon placement is in the bladder lumen. Maintain Cisse. Follow-up with urology. Hypokalemia: Supplemented. Acute left epididymoorchitis: Reviewed testicular ultrasound, reviewed chlamydia, gonorrhea, not detected. Noted acute left epididymoorchitis. Continue to bag coverage with Zosyn, linezolid. Uncontrolled hypertension: Continue with home dose of lisinopril 20 mg daily, change from metoprolol. Coreg 12.5 mg twice daily. Cont amlodipine 10 mg oral daily. 10 mg IV hydralazine every 4 hours as needed for systolic blood pressure more than 160 mmHg. For now blood pressure elevated to more than 200 mmhg with HR of 105. Give 10 mg of IV labetalol. Orthopnea: Does have history of diastolic heart failure. Noncompliant with Lasix. Fluid restriction to less than 1500 cc. Cisse catheterization. IV Lasix 40 mg twice daily. Pending echocardiogram. Strict input output charting. Patient for some reason is on 30-day course of Bactrim. First dose on May 01. appears for epididymoorchitis as noted on ultrasound. Continue other chronic medication. Type 2 diabetes mellitus: Requested A1c. See sliding scale low-dose protocol. Full code Carb consistent diet. N.p.o. after midnight. Patient is at high risk of DVT. Has history of pulmonary embolism after back surgery. Heparin 5000 Q8 hourly. Protonix OPD prophylaxis Attestations 2 Medical Necessity Statement*: Continue hospitalization for right foot cellulitis and wound infection, so far without significant improvement, and gentleman on antibiotic preadmission making culture assessment difficult, continue IV antibiotics at this time pending further reassessment, possible debridement by podiatry. and High MDM includes amount and/or complexity of data reviewed/ordered [ previous or external records, resulted lab(s)/test(s), ordered lab(s)/test(s) and other healthcare professional discussion] and described risk of complication, morbidity or mortality of management as documented Diagnoses Cellulitis L03.115 Laterality: right Site of cellulitis: extremity Site of cellulitis of extremity: lower extremity Foreign body in right foot, initial encounter S90.855W Encounter type: initial encounter Laterality: right Diastolic CHF I50.30 Type 2 diabetes mellitus E11.9 Morbid obesity E66.01 Uncontrolled hypertension I10
[2024-05-28] MEDS: pantoprazole 40 mg SDV IVP (20:05)
[2024-05-28] MEDS: atorvastatin 40 mg Tablet 80 MG PO (20:05)
[2024-05-28 20:56] LABS: Glucose Point of Care 316 mg/dL (70-110)
[2024-05-29] VITALS (9 sets, daily range): BP systolic 119–161; BP diastolic 65–87; PULSE 64–75; RESP 14–19; TEMP 36.5–37; O2SAT 92–94
[2024-05-29] MEDS: piperacillin-tazobactam 3.375 GM in sodium chloride 0.9% (plus) 50 ML IV ×2 (01:23→11:41)
[2024-05-29] MEDS: heparin 5,000 unit/mL INJ 1 mL 5000 UNIT SUBCUT ×2 (04:23→11:41)
[2024-05-29 04:58] LABS: Basophils # 0.1 10^3/uL (0.0-0.1); Basophils % 0.7 %; Eosinophils # 0.3 10^3/uL (0.0-0.8); Eosinophils % 3.4 %; Hematocrit 36.6 % (37-53); Lymphocytes # 2.1 10^3/uL (0.8-4.8); Mean Corpuscular HGB Conc 31.1 g/dL (30-55); Mean Corpuscular Hemoglobin 27.1 pg (27-33); Mean Corpuscular Volume 86.9 fl (82-101); Mean Platelet Volume 9.8 fL (7.4-10.4); Monocytes # 0.9 10^3/uL (0.2-0.9); Monocytes % 8.9 %; Neutrophils # 6.53 10^3/uL (1.8-7.7); Neutrophils % 65.4 %; Nucleated Red Blood Cells % 0 %; Platelet Count 288 10^3/cmm (157-399); Red Blood Count 4.21 10^6/uL (3.85-5.65); White Blood Count 9.99 10^3/uL (3.29-11.43)
[2024-05-29] MEDS: FUROsemide 10 mg/mL SDV 4mL 40 MG IVP (05:12)
[2024-05-29] MEDS: linezolid 600 mg Tablet PO (05:12)
[2024-05-29 05:20] LABS: Anion Gap 13.4 (5-19); Blood Urea Nitrogen 25 mg/dL (8-23); Calcium 7.7 mg/dL (8.5-10.5); Carbon Dioxide 25 mmol/L (22-29); Chloride 105 mmol/L (98-107); Creatinine Clr Calc Pharmacy 59.5994; Glucose 214 mg/dL (65-115); Osmolality Calculated 301 mOsm/kg (285-295); Potassium 3.4 mmol/L (3.5-5.1); Sodium 140 mmol/L (136-145)
--- NOTE | 2024-05-29 06:19 | P.PN_ITS ---
Subjective 2 Subjective: Patient seen this afternoon, resting in his chair/recliner, endorses back pain, only has foot pain when pressure is applied to the right foot. Vitals/I&O/Wt Last Vital Signs Temp 98.0 F 05/29/24 04:00 Pulse 75 05/29/24 05:04 Resp 19 H 05/29/24 04:00 BP 138/83 05/29/24 04:00 Pulse Ox 94 05/29/24 04:00 O2 Del Method Room Air 05/29/24 04:00 05/28/24 05/28/24 05/29/24 14:59 22:59 06:59 Intake Total 840 / 840 760 / 1600 50 / 1650 Output Total 700 / 700 1350 / 2050 450 / 2500 Balance 140 / 140 -590 / -450 -400 / -850 Weight last 48 hrs Weight 260 lb 6.4 oz Physical Exam 2 Narrative: GENERAL: Patient is alert and oriented ?3 and in no acute distress. The following is a focused bilateral lower extremity exam. VASCULAR: Dorsalis pedis palpable bilaterally. Posterior tibial arteries palpable. Capillary refill time less than 3 seconds to the distal hallux bilaterally. Calf is supple and nontender proximally and distally. Mild edema noted to the lower extremities +1 pitting tested at lower one third anterior tibial crest. NEUROLOGICAL: Protective sensation intact 0/10 sites, tested with Martell Joel monofilament to bilateral feet. DERMATOLOGICAL: wound right plantar heel 1.3 cm x 1.4 cm x 2 cm, does not probe to bone. Redness and swelling of the legs; presence of petechiae and scratches noted. There is cellulitis to the level of the ankle both medially and laterally that demonstrates appreciable improvement and appreciable subsidence. MUSCULOSKELETAL: Tenderness to palpation right plantar heel. No crepitus with palpation of soft tissue right lower extremity. Urinary Catheter Management: Cisse: Cath Placed During This Visit: yes Reason for Continuing Indwelling Catheter: Acute Urinary Retention or Obstruction Urinary Catheter Date of Insertion: 05/24/24 Data 05/29/24 04:34 05/29/24 04:34 A&P Assessment and plan (1) Cellulitis: Qualifiers: Laterality: right Site of cellulitis: extremity Site of cellulitis of extremity: lower extremity Qualified Code(s): L03.115 - Cellulitis of right lower limb (2) Foreign body in foot: Qualifiers: Encounter type: initial encounter Laterality: right Qualified Code(s): S90.851A - Superficial foreign body, right foot, initial encounter (3) Diabetic peripheral neuropathy associated with type 2 diabetes mellitus: Plan 74-year-old diabetic male with foreign body right heel with soft tissue emphysema and cellulitis streaking to the medial malleolus. Status post incision and debridement right heel wound date of operation 05/25/2024 Mild improvement of cellulitis to the right lower extremity Dressing changed with half-inch packing, Betadine, 4 x 4 gauze, Kerlix and Sterling wrap, postop shoe Continuing empiric IV antibiotics till cultures yield further information so far there is suppression of growth likely due to being on Bactrim for several weeks prior to the wound Nonweightbearing right foot may toe-touch for transfers Elevate lower extremities while resting Right foot x-ray and CT scan negative for abscess, negative for osteomyelitis Requires continued close monitoring, recommend continuation of empiric of antibiotics. Podiatry will follow daily and monitor progress of the lower extremities. Attestations 2 Medical Necessity Statement*: Continue hospitalization for right foot cellulitis and wound infection, so far without significant improvement, and gentleman on antibiotic preadmission making culture assessment difficult, continue IV antibiotics at this time pending further reassessment, possible debridement by podiatry. Coding Level of Care Code [facility] Diagnoses Cellulitis L03.115 Laterality: right Site of cellulitis: extremity Site of cellulitis of extremity: lower extremity Foreign body in right foot, initial encounter S90.851A Encounter type: initial encounter Laterality: right Diabetic peripheral neuropathy associated with type 2 diabetes mellitus E11.42
[2024-05-29 06:35] LABS: Glucose Point of Care 215 mg/dL (70-110)
[2024-05-29] MEDS: metroNIDAZOLE 500 MG Tablet PO (09:47)
[2024-05-29] MEDS: tamsulosin 0.4 mg Capsule PO (09:47)
[2024-05-29] MEDS: amlodipine 10 mg Tablet PO (09:48)
[2024-05-29] MEDS: gabapentin 300 mg Capsule 600 MG PO (09:48)
[2024-05-29] MEDS: aspirin 81 mg EC Tablet PO (09:49)
[2024-05-29] MEDS: lisinopril 20 mg Tablet PO (09:49)
[2024-05-29] MEDS: carvedilol 12.5 mg Tablet PO (09:49)
[2024-05-29] MEDS: insulin lispro 100 unit/1 mL SUBCUT ×2 (09:51→11:41)
--- NOTE | 2024-05-29 09:54 | PC.SOCIAL ---
IMM Update pg 2 of IMM Updated and reviewed w/ patient. Copy provided and copy dated, initialed and placed in chart.
--- NOTE | 2024-05-29 10:11 | PM.PN ---
Subjective Subjective: He states he is doing all right today. Feeling tired. Did not have a restful night. Vitals/I&O/Wt Last Vital Signs Temp 98.6 F 05/29/24 08:00 Pulse 72 05/29/24 08:00 Resp 14 05/29/24 08:00 BP 119/70 05/29/24 08:00 Pulse Ox 94 05/29/24 08:00 O2 Del Method Room Air 05/29/24 08:00 05/28/24 05/29/24 05/29/24 22:59 06:59 14:59 Intake Total 760 / 1600 50 / 1650 125 / 125 Output Total 1350 / 2050 450 / 2500 Balance -590 / -450 -400 / -850 125 / 125 Weight last 48 hrs Weight 118.115 kg Physical Exam Const: COMMON NORMALS: patient oriented x3 and alert GENERAL APPEARANCE: cooperative ORIENTATION/CONSCIOUSNESS: Yes awake HENMT: COMMON NORMALS: oropharynx normal Neck/C-Spine: COMMON NORMALS: no JVD Resp: COMMON NORMALS: normal respiratory effort and clear to auscultation bilaterally AUSCULTATION: clear to auscultation bilaterally Cardio: COMMON NORMALS: no JVD, regular rhythm, S1 normal heart sound present, S2 normal heart sound present and No murmurs present (Cardio) RHYTHM: regular rhythm HEART SOUNDS: S1 normal heart sound present and S2 normal heart sound present GI: COMMON NORMALS: Normal to inspection, nondistended, normoactive bowel sounds present, Soft to palpation and non-tender PALPATION: Yes Soft to palpation Extremity: COMMON NORMALS: no joint enlargement and no pedal edema OTHER: Right lower extremity in dressing, no bleeding or strikethrough. Neuro: COMMON NORMALS: patient oriented x3 and moves all extremities SENSORIUM/ORIENTATION: Yes alert Skin: COMMON NORMALS: no rashes or lesions noted GENERAL SKIN EXAM: no rashes or lesions noted Urinary Catheter Management: Cisse: Cath Placed During This Visit: yes Reason for Continuing Indwelling Catheter: Acute Urinary Retention or Obstruction Urinary Catheter Date of Insertion: 05/24/24 Data 05/29/24 04:34 05/29/24 04:34 A&P Assessment and plan (1) Cellulitis: Qualifiers: Laterality: right Site of cellulitis: extremity Site of cellulitis of extremity: lower extremity Qualified Code(s): L03.115 - Cellulitis of right lower limb (2) Foreign body in foot: Qualifiers: Encounter type: initial encounter Laterality: right Qualified Code(s): S90.851A - Superficial foreign body, right foot, initial encounter (3) Diastolic CHF: (4) Type 2 diabetes mellitus: (5) Morbid obesity: (6) Uncontrolled hypertension: Plan Gentleman with history of uncontrolled hypertension, diastolic heart failure, orthopnea presented to the ER with right foot pain found to have cellulitis and foreign body. Cellulitis and wound infection right foot: Continue wound care. As per discussion with brazing machine operator automatic this morning continue broad-spectrum coverage given culture has been unrevealing unfortunately likely due to effect of antibiotics preadmission. Patient decided he wants to pursue SNF. Arrangements underway for SNF per discussion with onsite case manager. Was still needing IV morphine for pain, will renew for now. Renew oxycodone. Reviewed CBC, BMP. Continue IV antibiotic today. Reviewed wound culture, blood culture, unrevealing. Discussed with nursing, onsite case manager. Persistent cellulitis with still concern of persistent infection appearance at the right heel wound on reassessment by podiatry. Cultures are complicated by the fact that he was on Bactrim preadmission. Continue antibiotic coverage with Zosyn. Linezolid. Monitor for risk of C. difficile, Monitor for risk of agranulocytosis. Recheck CBC In setting of foreign body. Foreign body removed in the ER by podiatry. Reviewed blood culture. Will request OR cultures. Reviewed MRSA swab. Dressing as per podiatry team. Bleeding around Cisse: Continue Cisse, maintain catheter. Educate patient. Follow-up with urology. Possible urethral injury, given small amount of blood around the Cisse from the urethra, discussed with nursing staff, confirmed balloon placement is in the bladder lumen. Maintain Cisse. Follow-up with urology. Need for skilled care: Given need for continued wound care, multiple antibiotics, continued Cisse catheter, and based on his performance with physical therapy would further benefit from SNF rehabilitation. Discussed with onsite case manager. Arrangements are underway. Hypokalemia: Additional supplementation requested. Recheck chemistry Acute left epididymoorchitis: Reviewed testicular ultrasound, reviewed chlamydia, gonorrhea, not detected. Noted acute left epididymoorchitis. Continue to bag coverage with Zosyn, linezolid. Uncontrolled hypertension: Continue with home dose of lisinopril 20 mg daily. Coreg 12.5 mg twice daily. Cont amlodipine 10 mg oral daily. 10 mg IV hydralazine every 4 hours as needed for systolic blood pressure more than 160 mmHg. Orthopnea: Does have history of diastolic heart failure. Noncompliant with Lasix. Fluid restriction to less than 1500 cc. Cisse catheterization. IV Lasix 40 mg twice daily. Reviewed echocardiogram. Grade 1 diastolic dysfunction Strict input output charting. On 30-day course of Bactrim preadmission. First dose on May 01. appears for epididymoorchitis as noted on ultrasound. Continue other chronic medication. Type 2 diabetes mellitus: Reviewed A1c. 6.7 See sliding scale low-dose protocol. Full code Carb consistent diet. Heparin 5000 Q8 hourly. Protonix OPD prophylaxis Attestations Medical Necessity Statement*: Continue hospitalization for right foot cellulitis and wound infection, so far without significant improvement, and gentleman on antibiotic preadmission making culture assessment difficult, continue IV antibiotics at this time pending further reassessment, possible debridement by podiatry. and High MDM includes amount and/or complexity of data reviewed/ordered [ resulted lab(s)/test(s), ordered lab(s)/test(s) and other healthcare professional discussion] and described risk of complication, morbidity or mortality of management as documented Diagnoses Cellulitis L03.115 Laterality: right Site of cellulitis: extremity Site of cellulitis of extremity: lower extremity Foreign body in right foot, initial encounter S90.851A Encounter type: initial encounter Laterality: right Diastolic CHF I50.30 Type 2 diabetes mellitus E11.9 Morbid obesity E66.01 Uncontrolled hypertension I10
[2024-05-29 11:27] LABS: Glucose Point of Care 340 mg/dL (70-110)
[2024-05-29] MEDS: potassium chloride ER 20 mEq Tablet 40 MEQ PO (11:41)
[2024-05-29] MEDS: oxyCODONE 5 mg IR Tab/Cap 20 MG PO (13:52)
--- NOTE | 2024-05-29 14:35 | PC.NURSE ---
1422- Report called to TATIANA Goins at [facility]. Reason for admission, interventions/surgeries, medications, portillo and reason for not removing, and wound care orders given. All questions and concerns addressed.
--- NOTE | 2024-05-29 14:59 | P.DS_ITS ---
Discharge Providers Date of Admission: 05/24/24 16:55 Date of Discharge: May 29, 2024 Attending Provider at Admission: Jennifer Dumont MD Attending Provider at Discharge: Addy Moses Primary Care Provider: Sammie Rocha DO Diagnoses at Discharge Discharge Diagnosis (1) Cellulitis: Status: Acute Qualifiers: Laterality: right Site of cellulitis: extremity Site of cellulitis of extremity: lower extremity Qualified Code(s): L03.115 - Cellulitis of right lower limb (2) Foreign body in foot: Status: Acute Qualifiers: Encounter type: initial encounter Laterality: right Qualified Code(s): S90.851A - Superficial foreign body, right foot, initial encounter (3) Diabetic peripheral neuropathy associated with type 2 diabetes mellitus: Status: Acute Reason for Visit Reason for Visit: right foot pain Hospital Course Hospital Course Pleasant 74-year-old gentleman with diabetes, HTN, HLD, diastolic CHF, obesity, GERD, BPH, history of PE not on anticoagulation anymore, presented with concerns of pain and a foreign body in his right foot with accompanying cellulitis. Shard of glass was removed in ER by podiatry, due to surrounding infection, foot wound infection and cellulitis which required debridement, with leukocytosis, tachycardia, was admitted for further management, treated with IV antibiotics while in the hospital. On presentation also found to have orthopnea, CHF exacerbation, treated with IV Lasix, also uncontrolled hypertension, antihypertensives were adjusted, continued on lisinopril, started on Coreg, amlodipine, with as needed doses of hydralazine. A1c was checked and was 6.7. Underwent incision and debridement of the right heel down to my fascial layer on 05/25. Cultures were obtained, however, he was on a 30-day course of Bactrim preadmission and does unfortunately cultures have been unrevealing. Initially unknown reason for Bactrim, and was found to have epididymoorchitis on scrotal ultrasound. Following debridement with IV antibiotics, wound care, right foot cellulitis gradually showing improvement. He was unable to undergo MRI, and with CKD with fluctuating creatinine foot was imaged with plain CT as per discussion which did not reveal signs of osteomyelitis at current time. With now showing good progress on right foot infection, as per discussion discharged today with follow-up with wound care, additional broad-spectrum antibiotic coverage due to lack of usable culture results, immunocompromise with underlying diabetes and degree of initial wound infection. He is discharging to correction for further skilled care, rehabilitation, and is asked to follow-up with wound care clinic for further treatment and reassessment, continued monitoring of healing, or further reassessment in case of lack of hearing or signs suspicious of progression to osteomyelitis. Physical Exam Const: COMMON NORMALS: patient oriented x3 and alert GENERAL APPEARANCE: cooperative ORIENTATION/CONSCIOUSNESS: Yes awake HENMT: COMMON NORMALS: oropharynx normal Neck/C-Spine: COMMON NORMALS: no JVD Resp: COMMON NORMALS: normal respiratory effort and clear to auscultation bilaterally AUSCULTATION: clear to auscultation bilaterally Cardio: COMMON NORMALS: no JVD, regular rhythm, S1 normal heart sound present, S2 normal heart sound present and No murmurs present (Cardio) RHYTHM: regular rhythm HEART SOUNDS: S1 normal heart sound present and S2 normal heart sound present GI: COMMON NORMALS: Normal to inspection, nondistended, normoactive bowel sounds present, Soft to palpation and non-tender PALPATION: Yes Soft to palpation Extremity: COMMON NORMALS: no joint enlargement and no pedal edema OTHER: Right lower extremity in dressing, no bleeding or strikethrough. Neuro: COMMON NORMALS: patient oriented x3 and moves all extremities SENSORIUM/ORIENTATION: Yes alert Skin: COMMON NORMALS: no rashes or lesions noted GENERAL SKIN EXAM: no rashes or lesions noted Urinary Catheter Management: Raman: Cath Placed During This Visit: yes Reason for Continuing Indwelling Catheter: Acute Urinary Retention or Obstruction Urinary Catheter Date of Insertion: 05/24/24 Discharge Data Studies Completed and Pending Completed Studies During Hospitalization Category Date Time Status CT foot RT wo con* [id number] Routine Cat Scan 05/27/24 07:24 Completed XR ankle RT min 3V* [id number] Stat Exams 05/24/24 13:35 Completed XR foot RT min 3V* [id number] Routine Exams 05/27/24 07:16 Completed CV. echo complete* [id number] Routine Ultrasound 05/25/24 17:33 Completed US scrotum [id number] Routine Ultrasound 05/25/24 17:35 Completed US venous duplex lower extremity RT [CV venous duplex Ultrasound 05/24/24 13:[place] [id number]] Stat Pending at discharge Category Date Time Status Basic Metabolic Panel AM LABS Lab 05/30/24 04:00 Ordered Basic Metabolic Panel AM LABS Lab 05/31/24 04:00 Ordered Basic Metabolic Panel AM LABS Lab 06/01/24 04:00 Ordered Complete Blood Count w/Auto AM LABS Lab 05/30/24 04:00 Ordered Complete Blood Count w/Auto AM LABS Lab 05/31/24 04:00 Ordered Complete Blood Count w/Auto AM LABS Lab 06/01/24 04:00 Ordered Radiology Impressions Ankle X-Ray 05/24/24 13:35 IMPRESSION: 1. Moderate to severe soft tissue edema. 2. Findings concerning for superficial subcuticular radiopaque foreign body in the plantar right heel region with adjacent cellulitis with gas-forming organism. Recommend surgical consultation. 3. Degenerative and postsurgical changes are demonstrated, as described above. 4. Decreased bone density. Chronic bony degenerative changes. Venous Duplex 05/24/24 13:35 IMPRESSION: No evidence of deep vein thrombosis. Scrotum Ultrasound 05/25/24 17:35 IMPRESSION: 1. Acute LEFT epididymo-orchitis. 2. No testicular mass or torsion. Foot X-Ray 05/27/24 07:16 IMPRESSION: Severe forefoot subluxations. No abnormality of the calcaneus. Foot CT 05/27/24 07:24 IMPRESSION: No evidence of osteomyelitis. No drainable abscess or fluid collection Laboratory Results WBC 9.99 10^3/uL (3.29-11.43) 05/29/24 04:34 RBC 4.21 10^6/uL (3.85-5.65) 05/29/24 04:34 Hgb 11.40 g/dL (11.27-16.99) 05/29/24 04:34 Hct 36.6 % (37-53) L 05/29/24 04:34 MCV 86.9 fl (82-101) 05/29/24 04:34 MCH 27.1 pg (27-33) 05/29/24 04:34 MCHC 31.1 g/dL (30-55) D 05/29/24 04:34 RDW 14.0 % (12.1-15.1) 05/29/24 04:34 Plt Count 288 10^3/cmm (157-399) 05/29/24 04:34 MPV 9.8 fL (7.4-10.4) 05/29/24 04:34 Neut % (Auto) 65.4 % 05/29/24 04:34 Lymph % (Auto) 21.0 % 05/29/24 04:34 [place] % (Auto) 8.9 % 05/29/24 04:34 Eos % (Auto) 3.4 % 05/29/24 04:34 Baso % (Auto) 0.7 % 05/29/24 04:34 Neut # (Auto) 6.53 10^3/uL (1.8-7.7) 05/29/24 04:34 Lymph # (Auto) 2.1 10^3/uL (0.8-4.8) 05/29/24 04:34 [place] # (Auto) 0.9 10^3/uL (0.2-0.9) 05/29/24 04:34 Eos # (Auto) 0.3 10^3/uL (0.0-0.8) 05/29/24 04:34 Baso # (Auto) 0.1 10^3/uL (0.0-0.1) 05/29/24 04:34 Nucleated RBC % (auto) 0 % 05/29/24 04:34 Nucleated RBCs # 0.0 /100WBC 05/29/24 04:34 ESR 13 mm/hr (0-10) H 05/24/24 13:50 PT 14.00 SECONDS (12.1-14.9) 05/24/24 13:50 INR 1.05 (0.8-1.2) 05/24/24 13:50 Sodium 140 mmol/L (136-145) 05/29/24 04:34 Potassium 3.4 mmol/L (3.5-5.1) L 05/29/24 04:34 Chloride 105 mmol/L (98-107) 05/29/24 04:34 Carbon Dioxide 25 mmol/L (22-29) 05/29/24 04:34 Anion Gap 13.4 (5-19) 05/29/24 04:34 BUN 25 mg/dL (8-23) H 05/29/24 04:34 Creatinine 1.4 mg/dL (0.7-1.2) H 05/29/24 04:34 GFR Calculation Not Reportable 05/29/24 04:34 Glucose 214 mg/dL (65-115) H 05/29/24 04:34 POC Glucose 340 mg/dL (70-110) H 05/29/24 11:24 Estimat Average Glucose 146 05/24/24 13:50 Hemoglobin A1c 6.7 % (4.0-6.0) H 05/24/24 13:50 Calculated Osmolality 301 mOsm/kg (285-295) H 05/29/24 04:34 Lactic Acid 1.5 mmol/L (0.5-2.2) 05/24/24 17:58 Uric Acid 4.1 mg/dL (3.4-7.0) 05/24/24 13:50 Calcium 7.7 mg/dL (8.5-10.5) L 05/29/24 04:34 Phosphorus 2.8 mg/dL (2.5-4.5) 05/25/24 22:37 Magnesium 2.0 mg/dL (1.7-2.3) 05/25/24 22:37 Iron 19 ug/dL (59-158) L 05/24/24 13:50 TIBC 224 mcg/dl 05/24/24 13:50 % Saturation 8.4 % (20-50) L 05/24/24 13:50 Unsat Iron Binding 205 ug/dL (112-347) 05/24/24 13:50 Total Bilirubin 0.6 mg/dL (0.15-1.2) 05/25/24 22:37 AST 21 U/L (0-40) 05/25/24 22:37 ALT 19 U/L (0-41) 05/25/24 22:37 Alkaline Phosphatase 129 U/L (40-130) 05/25/24 22:37 C-Reactive Protein 36.2 mg/L (0.0-4.9) H 05/24/24 13:50 NT-Pro-B Natriuret Pep 2330 pg/mL (0-125) H 05/24/24 13:50 Total Protein 6.5 g/dL (6.6-8.7) L 05/25/24 22:37 Albumin 3.1 g/dL (3.5-5.2) L 05/25/24 22:37 Globulin 3.4 g/dL (1.3-4.6) 05/25/24 22:37 Triglycerides 68 mg/dL (0-150) 05/25/24 22:37 Cholesterol 65 mg/dL (0-200) 05/25/24 22:37 LDL Cholesterol, Calc 17 mg/dL (50-129) L 05/25/24 22:37 HDL Cholesterol 34 mg/dL (60-100) L 05/25/24 22:37 LDL/HDL Ratio 0.50 RATIO (0.00-3.22) 05/25/24 22:37 Cholesterol/HDL Ratio 1.91 mg/dL (1.0-5.00) 05/25/24 22:37 Vitamin B12 234 pg/mL (232-1245) 05/24/24 13:50 Vitamin B12 Cancelled 05/24/24 13:50 Folate 11.8 ng/mL (4.5-32.2) 05/24/24 13:50 Procalcitonin 0.07 ng/mL (0-0.5) 05/25/24 22:37 TSH 1.40 uIU/mL (0.27-4.20) 05/24/24 13:50 Urine Color Yellow (Yellow) 05/24/24 19:57 Urine Appearance Clear (CLEAR) 05/24/24 19:57 Urine pH 7.0 (5-7) 05/24/24 19:57 Ur Specific [place] 1.007 (1.005-1.030) 05/24/24 19:57 Urine Protein Negative (Negative) 05/24/24 19:57 Urine Glucose (UA) Negative (Normal) 05/24/24 19:57 Urine Ketones Negative (Negative) 05/24/24 19:57 Urine Blood Negative (Negative) 05/24/24 19:57 Urine Nitrate Negative (Negative) 05/24/24 19:57 Urine Bilirubin Negative (Negative) 05/24/24 19:57 Urine Urobilinogen 1.0 mg/dL (Negative) 05/24/24 19:57 Ur Leukocyte Esterase Negative (Negative) 05/24/24 19:57 Urine RBC 0-2 /hpf (0-2) 05/24/24 19:57 Urine WBC 0-5 /hpf (0-5) 05/24/24 19:57 Ur Squamous Epith Cells 0-5 /hpf (0-5) 05/24/24 19:57 Amorphous Sediment Not Reportable 05/24/24 19:57 Urine Bacteria None seen /hpf (NONE) 05/24/24 19:57 Hyaline Casts 0-4 /lpf H 05/24/24 19:57 Nasal MRSA (PCR) Not detected (Negative) 05/25/24 02:50 Serum Ketones Negative (Negative) 05/24/24 13:50 C.trachomatis RNA (TMA) Not detected (NOT DETECTED) 05/24/24 19:51 Chlamydia/GC Comment See note 05/24/24 19:51 C. difficile (PCR) Negative (Negative) 05/27/24 13:20 N.gonorrhoeae RNA (TMA) Not detected (NOT DETECTED) 05/24/24 19:51 Vitals Last Vital Signs Temp 98.6 F 05/29/24 08:00 Pulse 75 05/29/24 11:40 Resp 18 05/29/24 13:52 BP 161/74 05/29/24 11:40 Pulse Ox 94 05/29/24 11:40 O2 Del Method Room Air 05/29/24 11:40 Discharge Plan Discharge Patient Disposition: Home Health Service Condition: Stable Prescriptions: New acetaminophen 325 mg Tablet 650 mg PO Q6H PRN (Reason: Mild/Mod Pain Or Temp >/= 101) Qty: 30 0RF carvedilol 12.5 mg Tablet 12.5 mg PO BID Qty: 180 0RF amlodipine 10 mg Tablet 10 mg PO DAILY Qty: 90 0RF linezolid 600 mg Tablet 600 mg PO Q12H Qty: 14 0RF metronidazole 500 mg Tablet 500 mg PO TID Qty: 21 0RF levofloxacin 750 mg tablet 750 mg PO DAILY 10 Days Qty: 10 0RF Continued bisacodyl [Dulcolax (bisacodyl)] 5 mg tablet,delayed release (DR/EC) 5 mg PO DAILY aspirin 81 mg tablet,delayed release (DR/EC) 81 mg PO DAILY Hold Instructions: Resume on 06/11/20. gabapentin 600 mg tablet 600 mg PO TID lisinopril 20 mg tablet 20 mg PO DAILY tamsulosin [Flomax] 0.4 mg capsule 0.4 mg PO BID Qty: 60 12RF potassium chloride 20 mEq tablet,ER particles/crystals 20 meq PO DAILY oxycodone 20 mg tablet 20 mg PO Q4H PRN (Reason: Pain) Xultophy 100/3.6 100 unit-3.6 mg /mL (3 mL) insulin pen 30 unit SUBCUT BID PRN (Reason: bs) furosemide 40 mg tablet 40 mg PO DAILY atorvastatin 80 mg tablet 80 mg PO BEDTIME baclofen 20 mg tablet 20 mg PO TID PRN (Reason: Pain) nitroglycerin [Nitrostat] 0.4 mg Tablet, Sublingual 0.4 mg SUBLINGUAL Q5M PRN (Reason: chest pain) Rx Instructions: do not exceed 3 doses per episode Discontinued metoprolol tartrate 25 mg tablet 25 mg PO BID sulfamethoxazole-trimethoprim 800-160 mg tablet 1 tab PO BID Discharge Orders: Discharge Order (Routine); Ordered 05/29/24 Ordered By: Addy Moses Other Ambulatory Orders: DME: Wheelchair (Order) Location: None Selected Ordered By: Addy Moses Referrals: [facility] [Provider Group] (Culture negative R foot infection (on Bactrim pre-admit), DM HER OFFICE WILL CALL WITH APPOINTMENT We have notified your physician's clinic of the need for a follow-up appointment to be scheduled. If you have not heard from them within the next 2 business days, please call them directly. We have notified your physician's clinic of the need for a follow-up appointment to be scheduled. If you have not heard from them within the next 2 business days, please call them directly. ) Wound Care [Provider Group] (DR ALMEIDA WILL CALL WOUND CARE FOR APPOINTMENT IF NEEDED) [facility] [Outside] Tom Hamilton [Referring] - (EPIDYDYMO-ORCHITIS BLEED ,RAMAN WEANING We have notified your physician's clinic of the need for a follow-up appointment to be scheduled. If you have not heard from them within the next 2 business days, please call them directly. SENT REFERRAL) Neal Almeida DPM [Physician] - 06/04/24 10:15 am Sammie Rocha DO [Primary Care Provider] - 06/01/24 9:00 am Discharge Diet: As Directed, Cardiac and Diabetic Discharge Activity: As per PT/OT instructions Patient Instructions: Metronidazole (By mouth), Levofloxacin (By mouth) (Levaquin, Levaquin Leva-bel), Linezolid (By mouth), Acute Wound Care (DC), Urinary Leg Bag (GEN), How to Change a Catheter Drainage Bag (GEN), Opioid Safety, Post Anesthesia Care Activity Restrictions/Additional Instructions: Continue to antibiotics for coverage of right foot infection with linezolid, levaquin and flagyl, follow-up with wound care clinic daily for dressing changes, wound reassessment. Monitoring for any progression that may be suspicious for bone infection. Follow up with infectious disease. Follow-up with urology for reassessment of inflammation/infection of your left testicle with epididymo-orchitis. continue treatment with levaquin. As well as for reassessment after having some blood from the urethra around the Raman catheter. Keep Raman catheter in place currently until reassessed by urology. Continue to monitor blood pressure at home 3 times daily and continue to optimize control. Target blood pressure 120/80. Maintain fluid restriction of less than 1500mL of all liquid consumed in a day. Follow up with your primary doctor regarding heart failure, diabetes, hypertension and other chronic problems in addition to the above problems. Seek medical attention in case of any worsening or new concerning symptoms. Discharge Attestations Time Spent in Discharge Care*: greater than 30 min Quality Metrics Clinical Quality Measures [ No reported AMI, CVA or VTE this stay] Coding Level of Care Code 16474 Total time (in minutes) for Discharge: 55 Diagnoses Cellulitis L03.115 Laterality: right Site of cellulitis: extremity Site of cellulitis of extremity: lower extremity Foreign body in right foot, initial encounter S90.851A Encounter type: initial encounter Laterality: right Diabetic peripheral neuropathy associated with type 2 diabetes mellitus E11.42
== END 2024-05-29 16:00 | disposition skilled nursing facility (03) | DRG 570 ==
LOC: ER 16:26 → ER IP 17:29 → MEDSURG 18:45
PROVIDERS: Podiatrist Foot & Ankle Surgery; Student in an Organized Health Care Education/Training Program; Admitting Provider Student in an Organized Health Care Education/Training Program; Emergency Provider Nurse Practitioner Family; PCP Family Medicine; Visit Provider Internal Medicine
PROC: 0JBQ0ZZ Excision of Right Foot Subcutaneous Tissue and Fascia, Open Approach (ICD-10-PCS; principal; 2024-05-25 12:00)
DX: L03.115 Cellulitis of right lower limb (principal); I50.33 Acute on chronic diastolic (congestive) heart failure; I13.0 Hypertensive heart and chronic kidney disease with heart failure and stage 1 through stage 4 chronic kidney disease, or unspecified chronic kidney disease; T79.7XXA Traumatic subcutaneous emphysema, initial encounter; S91.341A Puncture wound with foreign body, right foot, initial encounter; W25.XXXA Contact with sharp glass, initial encounter; E11.65 Type 2 diabetes mellitus with hyperglycemia; E11.22 Type 2 diabetes mellitus with diabetic chronic kidney disease; N18.9 Chronic kidney disease, unspecified; Z79.2 Long term (current) use of antibiotics; Z79.82 Long term (current) use of aspirin; Z79.4 Long term (current) use of insulin; Z79.891 Long term (current) use of opiate analgesic; K21.9 Gastro-esophageal reflux disease without esophagitis; N40.1 Benign prostatic hyperplasia with lower urinary tract symptoms; Z87.891 Personal history of nicotine dependence; Z86.711 Personal history of pulmonary embolism; E78.5 Hyperlipidemia, unspecified; E66.01 Morbid (severe) obesity due to excess calories; Z68.38 Body mass index [BMI] 38.0-38.9, adult; E87.6 Hypokalemia; N45.3 Epididymo-orchitis; E11.42 Type 2 diabetes mellitus with diabetic polyneuropathy; G89.29 Other chronic pain; M54.9 Dorsalgia, unspecified; T50.1X6A Underdosing of loop [high-ceiling] diuretics, initial encounter; Z91.128 Patient's intentional underdosing of medication regimen for other reason
CPT/HCPCS: 36415; 36416; 51702; 73610; 73630; 73700; 76870; 80048; 80053; 80061; 81001; 82009; 82607; 82746; 82962; 83036; 83540; 83550; 83605; 83735; 83880; 84100; 84145; 84443; 84550; 85025; 85610; 85651; 86140; 86403; 87040; 87070; 87075; 87205; 87491; 87493; 87591; 93306; 93971; 94664; 96365; 96372; 96375; 97110; 97116; 97161; 97167; 97530; 99285; J0360; J0696; J1171; J1644; J1815; J1940; J2270; J2405; J2470; J2543; J2704; J3010; J3370; J3490; J7030; J7050

== ENCOUNTER → 2024-06-08 12:57 | Outpatient (BNVA) | payer MEDICARE, MEDICAID, SELFPAY | PROVIDERS: PCP Family Medicine; Visit Provider Podiatrist Foot & Ankle Surgery | DX: E11.42 Type 2 diabetes mellitus with diabetic polyneuropathy (principal); S91.301D Unspecified open wound, right foot, subsequent encounter; X58.XXXD Exposure to other specified factors, subsequent encounter; Z79.4 Long term (current) use of insulin | CPT/HCPCS: 99213 ==

== ENCOUNTER → 2024-06-15 14:12 | Outpatient (BNVA) | payer MEDICARE, MEDICAID, SELFPAY | PROVIDERS: PCP Family Medicine; Visit Provider Thoracic Surgery (Cardiothoracic Vascular Surgery) | DX: E11.621 Type 2 diabetes mellitus with foot ulcer (principal); E11.52 Type 2 diabetes mellitus with diabetic peripheral angiopathy with gangrene; L97.412 Non-pressure chronic ulcer of right heel and midfoot with fat layer exposed | CPT/HCPCS: 11042; 87070; 87176; 87205; 99213 ==

== ENCOUNTER → 2024-06-25 08:34 | Outpatient (BNVA) | payer MEDICARE, MEDICAID, SELFPAY | PROVIDERS: PCP Family Medicine; Visit Provider Thoracic Surgery (Cardiothoracic Vascular Surgery) | DX: E11.52 Type 2 diabetes mellitus with diabetic peripheral angiopathy with gangrene (principal); E11.621 Type 2 diabetes mellitus with foot ulcer; L97.412 Non-pressure chronic ulcer of right heel and midfoot with fat layer exposed | CPT/HCPCS: 11042 ==

== ENCOUNTER → 2024-07-02 08:42 | Outpatient (BNVA) | payer MEDICARE, MEDICAID, SELFPAY | PROVIDERS: PCP Family Medicine; Visit Provider Thoracic Surgery (Cardiothoracic Vascular Surgery) | DX: E11.52 Type 2 diabetes mellitus with diabetic peripheral angiopathy with gangrene (principal); E11.621 Type 2 diabetes mellitus with foot ulcer; L97.412 Non-pressure chronic ulcer of right heel and midfoot with fat layer exposed | CPT/HCPCS: 11042; 97605; A6237 ==

== ENCOUNTER → 2024-07-09 09:08 | Outpatient (BNVA) | payer MEDICARE, MEDICAID, SELFPAY | PROVIDERS: PCP Family Medicine; Visit Provider Thoracic Surgery (Cardiothoracic Vascular Surgery) | DX: E11.52 Type 2 diabetes mellitus with diabetic peripheral angiopathy with gangrene (principal); E11.621 Type 2 diabetes mellitus with foot ulcer; L97.415 Non-pressure chronic ulcer of right heel and midfoot with muscle involvement without evidence of necrosis | CPT/HCPCS: 11042; A6237; A6250 ==

== ENCOUNTER → 2024-07-16 08:57 | Outpatient (BNVA) | payer MEDICARE, MEDICAID, SELFPAY | PROVIDERS: PCP Family Medicine; Visit Provider Thoracic Surgery (Cardiothoracic Vascular Surgery) | DX: E11.52 Type 2 diabetes mellitus with diabetic peripheral angiopathy with gangrene (principal); E11.621 Type 2 diabetes mellitus with foot ulcer; L97.412 Non-pressure chronic ulcer of right heel and midfoot with fat layer exposed | CPT/HCPCS: 11042; A6210 ==

== ENCOUNTER → 2024-07-21 08:44 | Outpatient (BNVA) | payer MEDICARE, MEDICAID, SELFPAY | PROVIDERS: PCP Family Medicine; Visit Provider Thoracic Surgery (Cardiothoracic Vascular Surgery) | DX: E11.52 Type 2 diabetes mellitus with diabetic peripheral angiopathy with gangrene (principal); E11.621 Type 2 diabetes mellitus with foot ulcer; L97.412 Non-pressure chronic ulcer of right heel and midfoot with fat layer exposed | CPT/HCPCS: 11042; A6237; A6250 ==

== ENCOUNTER → 2024-07-24 08:51 | Outpatient (BNVA) | payer MEDICARE, MEDICAID, SELFPAY | PROVIDERS: PCP Family Medicine; Visit Provider Thoracic Surgery (Cardiothoracic Vascular Surgery) | DX: E11.52 Type 2 diabetes mellitus with diabetic peripheral angiopathy with gangrene (principal); E11.621 Type 2 diabetes mellitus with foot ulcer; L97.412 Non-pressure chronic ulcer of right heel and midfoot with fat layer exposed | CPT/HCPCS: 97605; A6237; A6250 ==

== ENCOUNTER → 2024-07-28 08:50 | Outpatient (BNVA) | payer MEDICARE, MEDICAID, SELFPAY | PROVIDERS: PCP Family Medicine; Visit Provider Thoracic Surgery (Cardiothoracic Vascular Surgery) | DX: E11.52 Type 2 diabetes mellitus with diabetic peripheral angiopathy with gangrene (principal); E11.621 Type 2 diabetes mellitus with foot ulcer; L97.412 Non-pressure chronic ulcer of right heel and midfoot with fat layer exposed | CPT/HCPCS: 11042; 97605; A6237; A6250 ==

== ENCOUNTER → 2024-08-04 08:34 | Outpatient (BNVA) | payer MEDICARE, MEDICAID, SELFPAY | PROVIDERS: PCP Family Medicine; Visit Provider Thoracic Surgery (Cardiothoracic Vascular Surgery) | DX: E11.52 Type 2 diabetes mellitus with diabetic peripheral angiopathy with gangrene (principal); E11.621 Type 2 diabetes mellitus with foot ulcer; L97.411 Non-pressure chronic ulcer of right heel and midfoot limited to breakdown of skin | CPT/HCPCS: 97597; A6210 ==

== ENCOUNTER 2024-10-24 05:43 | Inpatient (IN) | payer MEDICARE, MEDICAID, SELFPAY ==
[2024-10-24] VITALS (15 sets, daily range): BP systolic 105–175; BP diastolic 65–110; PULSE 75–111; RESP 16–18; TEMP 36.6–37.1; O2SAT 92–100; BMI 41.2
[2024-10-24] MEDS: ondansetron 2 mg/ML SDV 2 mL 4 MG IVP (06:20)
[2024-10-24] MEDS: sodium chloride 0.9% 500 ML 999 ML IV ×2 (06:20→07:55)
[2024-10-24 06:21] LABS: Basophils # 0.1 10^3/uL (0.0-0.1); Basophils % 0.4 %; Eosinophils # 0.1 10^3/uL (0.0-0.8); Eosinophils % 0.8 %; Hematocrit 44.9 % (37-53); Lymphocytes # 2.3 10^3/uL (0.8-4.8); Mean Corpuscular HGB Conc 31.8 g/dL (30-55); Mean Corpuscular Hemoglobin 26.7 pg (27-33); Mean Corpuscular Volume 83.9 fl (82-101); Mean Platelet Volume 9.9 fL (7.4-10.4); Monocytes # 1.2 10^3/uL (0.2-0.9); Monocytes % 7.5 %; Neutrophils # 12.72 10^3/uL (1.8-7.7); Neutrophils % 76.6 %; Nucleated Red Blood Cells % 0 %; Platelet Count 371 10^3/cmm (157-399); Red Blood Count 5.35 10^6/uL (3.85-5.65); Red Cell Distribution Width 13.3 % (12.1-15.1)
[2024-10-24 06:28] LABS: Lactic Sepsis W/Reflex 1.1 mmol/L (0.5-2.2)
[2024-10-24 06:29] LABS: Alanine Aminotransferase 12 U/L (0-41); Albumin Level 3.1 g/dL (3.5-5.2); Alkaline Phosphatase 129 U/L (40-130); Aspartate Amino Transferase 16 U/L (0-40); Blood Urea Nitrogen 18 mg/dL (8-23); C Reactive Protein 35.8 mg/L (0.0-4.9); Calcium 7.8 mg/dL (8.5-10.5); Carbon Dioxide 24 mmol/L (22-29); Chloride 105 mmol/L (98-107); Globulin 3.7 g/dL (1.3-4.6); Glucose 164 mg/dL (65-115); Osmolality Calculated 288 mOsm/kg (285-295); Sodium 136 mmol/L (136-145); Total Bilirubin 0.7 mg/dL (0.15-1.2); Total Protein 6.8 g/dL (6.6-8.7)
[2024-10-24 06:43] LABS: Creatinine Clr Calc Pharmacy 59.9607
--- NOTE | 2024-10-24 06:59 | XRR_ITS ---
PROCEDURE INFORMATION: Exam: XR Right Foot Exam date and time: 10/24/2024 7:39 AM Age: 74 years old Clinical indication: Pain; Heel; Right; Additional info: Diabetic ulcer on heel TECHNIQUE: Imaging protocol: Radiologic exam of the right foot. Views: 3 or more views. COMPARISON: CT foot RT wo con* [id number] 05/27/2024 9:53 AM FINDINGS: Bones/joints: There is osteopenia. Orthopedic hardware distal tibia and fibula with 1 of the screws fractured. No evidence of osteomyelitis. Soft tissues: Soft tissue defect posterior to the calcaneus. No soft tissue air or gas. XR/XR foot RT min 3V* [id number] IMPRESSION: No radiographic evidence of osteomyelitis.
--- NOTE | 2024-10-24 06:59 | CTR_ITS ---
PROCEDURE INFORMATION: Exam: CT Abdomen And Pelvis With Contrast Exam date and time: 10/24/2024 7:34 AM Age: 74 years old Clinical indication: Other: Diarrhea; Abdominal pain; Colic; Additional info: Abdominal pain, diarrhea, leukocytosis TECHNIQUE: Imaging protocol: Computed tomography of the abdomen and pelvis with contrast. Radiation optimization: All CT scans at this facility use at least one of these dose optimization techniques: automated exposure control; mA and/or kV adjustment per patient size (includes targeted exams where dose is matched to clinical indication); or iterative reconstruction. Contrast material: OMNIPAQUE 350; Contrast volume: 100 ml; Contrast route: INTRAVENOUS (IV); COMPARISON: US scrotum [id number] 05/25/2024 10:38 AM RADIATION DOSE METRICS: Total DLP (mGy-cm): 1156.43 FINDINGS: Liver: Normal. No mass. Gallbladder and biliary ducts: Normal. No calcified stones. No ductal dilation. Pancreas: Normal. No ductal dilation. Spleen: Normal. No splenomegaly. Adrenal glands: Normal. No mass. Kidneys and ureters: Normal. No hydronephrosis. Stomach and bowel: Mild to moderate diffuse colonic wall thickening in keeping with pancolitis. Diffuse circumferential thickening of the rectum Appendix: No evidence of appendicitis. Intraperitoneal space: Unremarkable. No free air. No significant fluid collection. Vasculature: Mild fusiform dilation of the proximal celiac axis of the 15 mm. Lymph nodes: Unremarkable. No enlarged lymph nodes. Urinary bladder: Mild concentric urinary bladder wall thickening possibly from chronic bladder outlet obstruction versus cystitis. Please correlate clinically. Reproductive: Prostate gland not visualized Bones/joints: Unremarkable. No acute fracture. Soft tissues: Unremarkable. CT/CT abdomen pelvis w con* [id number] IMPRESSION: 1. Pancolitis. 2. Mild concentric urinary bladder wall thickening possibly from chronic bladder outlet obstruction versus cystitis. Please correlate clinically.
[2024-10-24] MEDS: iohexol 350 mg/mL 500 mL Btl (per mL) IV (07:35)
--- NOTE | 2024-10-24 07:52 | W.ED.NAVMDI ---
HPI - Nausea/Vomiting/Diarrhea General: Chief complaint: Nausea/Vomiting/Diarrhea Stated complaint: DIARRHEA Time Seen by Provider: 10/24/24 06:02 History of Present Illness: This patient is a 74-year-old male presenting with uncontrolled diarrhea. This apparently has been going on for at least a week. He saw his primary care provider and Areli Tran, Dr. Rocha and was given some sort of shot in the office. He was given a prescription which the pharmacy was not able to fill as they did not carry that medication. He does not know the names of any of these medicines. He says that Dr. Rocha told him he had an infection. He has been on antibiotics quite a bit over the past year due to an infected ulcer on his right heel. He says that he had surgery on that and it was better for a while. He thinks it is continuing to improve. He notes that he was in a detention after the surgery until a week or 2 ago and now he is not able to care for himself at home. He is a diabetic. His continuous monitor while I was in the room read a blood glucose of 143. He has not been able to eat anything in the past 48 hours due to nausea and vomiting as well as his diarrhea. He denies abdominal pain. He denies fever. He denies chest pain or shortness of breath. He denies any other skin sores or rashes. Related Data Home Medications ?Medication ?Instructions ?Recorded ?Confirmed aspirin 81 mg tablet,delayed 81 mg PO DAILY 05/16/20 10/24/24 release bisacodyl 5 mg tablet,delayed 5 mg PO DAILY 05/16/20 10/24/24 release (Dulcolax (bisacodyl)) gabapentin 600 mg tablet 600 mg PO TID 05/16/20 10/24/24 lisinopril 20 mg tablet 20 mg PO DAILY 05/16/20 10/24/24 potassium chloride 20 mEq 20 meq PO DAILY 03/01/23 10/24/24 tablet,extended release(part/cryst) baclofen 20 mg tablet 20 mg PO TID PRN Pain 05/24/24 10/24/24 furosemide 40 mg tablet 40 mg PO DAILY 05/24/24 10/24/24 insulin degludec 100 30 unit SUBCUT BID PRN bs 05/24/24 10/24/24 unit-liraglutide 3.6 mg/mL(3 mL) subcutaneous pen (Xultophy 100/3.6) nitroglycerin 0.4 mg sublingual 0.4 mg sublingual Q5M PRN chest 05/24/24 10/24/24 tablet (Nitrostat) pain oxycodone 20 mg tablet 20 mg PO Q4H PRN Pain 05/24/24 10/24/24 amlodipine 10 mg tablet 10 mg PO DAILY 10/24/24 10/24/24 atorvastatin 10 mg tablet 10 mg PO BEDTIME 10/24/24 10/24/24 ketoconazole 2 % topical cream 1 applic topical BID 10/24/24 10/24/24 multivitamin with folic acid 400 1 tab PO DAILY 10/24/24 10/24/24 mcg tablet (Tab-A-Rossi) ondansetron 4 mg disintegrating See Rx Instructions .Route .COMPLEX 10/24/24 10/24/24 tablet Previous Rx's ?Medication ?Instructions ?Recorded tamsulosin 0.4 mg capsule (Flomax) 0.4 mg PO BID #60 caps 12/20/21 acetaminophen 325 mg tablet 650 mg (2 x 325 mg) PO Q6H PRN 05/29/24 Mild/Mod Pain Or Temp >/= 101 #30 tabs amlodipine 10 mg tablet 10 mg PO DAILY #90 tabs 05/29/24 carvedilol 12.5 mg tablet 12.5 mg PO BID #180 tabs 05/29/24 metronidazole 500 mg tablet 500 mg PO TID #21 tabs 05/29/24 Allergies Allergy/AdvReac Type Severity Reaction Status Date / Time metoclopramide (From Reglan) Allergy Severe ADR-Nausea Verified 06/08/24 13:32 [facility] ED PFSH: Medical History Diastolic CHF Pulmonary embolism History of proctoscopy Chronic back pain Diabetes Hypertension GERD (gastroesophageal reflux disease) BPH loc w urin obs/LUTS Vomiting Surgical History History of back surgery History of ankle surgery History of lumbar surgery History of hernia surgery S/P TURP Family History Father , AT 86 of unknown cause Mother , AT 36 Lupus Denies family history of Anesthesia complication Bleeding disorder Social History Smoking and tobacco/nicotine status: former use of tobacco/nicotine Alcohol intake: never Substance/Drug Use: never Marital status: Current occupational status: disabled Physical Exam Const: COMMON NORMALS: no acute distress, patient oriented x3, no limitations and alert GENERAL APPEARANCE: cooperative OTHER: Obese, uncomfortable HENMT: HEAD & SCALP: normal to inspection FACE & SINUS: normal facial exam Eye: GENERAL EYE: appearance normal, both eyes and all related structures Neck/C-Spine: COMMON NORMALS: supple, no meningeal signs and no JVD Chest: COMMONS NORMALS: normal inspection of the chest Resp: COMMON NORMALS: normal respiratory effort, No use of accessory muscles and clear to auscultation bilaterally AUSCULTATION: clear to auscultation bilaterally Cardio: COMMON NORMALS: no JVD, regular rate, regular rhythm and No murmurs present (Cardio) RATE: regular rate RHYTHM: regular rhythm GI: COMMON NORMALS: Normal to inspection, nondistended, normoactive bowel sounds present, Soft to palpation and non-tender INSPECTION: Yes normal to inspection AUSCULTATION: Yes normoactive bowel sounds PALPATION: Yes Soft to palpation Back/Pelvis: COMMON NORMALS: thoracic and lumbar spine normal to inspection Extremity: NARRATIVE EXTREMITY EXAM: Right foot on the plantar surface of the heel there is a approximately 3 cm open ulceration which is foul-smelling and draining thick purulent discharge. The surrounding skin is erythematous. There appear to be some Charcot type changes to the foot. Neuro: COMMON NORMALS: patient oriented x3, moves all extremities and no focal motor deficits SENSORIUM/ORIENTATION: Yes alert MENINGEAL SIGNS: Yes no meningeal signs OTHER: Neuropathy of bilateral lower extremities. Psych: COMMON NORMALS: mental status grossly normal, cooperative and normal affect Skin: COMMON NORMALS: no rashes or lesions noted and turgor normal GENERAL SKIN EXAM: no rashes or lesions noted and turgor normal Course Vital Signs: Vital signs: Vital Signs Temperature 98.7 F 10/24/24 11:58 Pulse Rate 97 10/24/24 11:58 Respiratory Rate 18 10/24/24 11:58 Blood Pressure 153/85 04/05/25 11:58 Pulse Oximetry 99 10/24/24 11:58 Oxygen Delivery Me thod Room Air 10/24/24 11:58 MDM - Nausea/Vomiting/Diarrhea Medical Decision Making Patient presenting with severe diarrhea. He has a history of significant antibiotic use although I cannot get the specifics from him. He certainly has high risk for C. difficile and that will be tested. I suspect that the foot ulcer is also infected fairly significantly. I do not see any notes in the last for 5 months at this facility. As he was in a detention there may well be notes from other facilities and providers as far as evaluation of this wound. The patient also says he has home health that comes about once a week. I do not know if they were checking the wound. IV fluids, labs, Zofran, CT abdomen and pelvis with contrast and an x-ray of the foot are ordered. CT does show pancolitis. Stool specimen was positive for C. difficile. White count was elevated. The patient has demonstrated an inability to care for himself. He is not able to even get up from the bed and has been stooling in the bed. He has expressed an interest in going back to a detention. He is also significantly dehydrated and will be admitted to the hospital for further management. Vancomycin was given p.o. in the ED. We did not start any treatment for his ulcer on his foot and hospitalist plan to consult podiatry. Lab Data 10/24/24 06:06 10/24/24 06:06 Radiology Impressions Abdomen/Pelvis CT 10/24/24 06:59 IMPRESSION: 1. Pancolitis. 2. Mild concentric urinary bladder wall thickening possibly from chronic bladder outlet obstruction versus cystitis. Please correlate clinically. Foot X-Ray 10/24/24 06:59 IMPRESSION: No radiographic evidence of osteomyelitis. Laboratory Results WBC 16.60 10^3/uL (3.29-11.43) H 10/24/24 06:06 RBC 5.35 10^6/uL (3.85-5.65) 10/24/24 06:06 Hgb 14.30 g/dL (11.27-16.99) 10/24/24 06:06 Hct 44.9 % (37-53) 10/24/24 06:06 MCV 83.9 fl (82-101) 10/24/24 06:06 MCH 26.7 pg (27-33) L 10/24/24 06:06 MCHC 31.8 g/dL (30-55) 10/24/24 06:06 RDW 13.3 % (12.1-15.1) 10/24/24 06:06 Plt Count 371 10^3/cmm (157-399) 10/24/24 06:06 MPV 9.9 fL (7.4-10.4) 10/24/24 06:06 Neut % (Auto) 76.6 % 10/24/24 06:06 Lymph % (Auto) 14.0 % 10/24/24 06:06 [place] % (Auto) 7.5 % 10/24/24 06:06 Eos % (Auto) 0.8 % 10/24/24 06:06 Baso % (Auto) 0.4 % 10/24/24 06:06 Neut # (Auto) 12.72 10^3/uL (1.8-7.7) H 10/24/24 06:06 Lymph # (Auto) 2.3 10^3/uL (0.8-4.8) 10/24/24 06:06 [place] # (Auto) 1.2 10^3/uL (0.2-0.9) H 10/24/24 06:06 Eos # (Auto) 0.1 10^3/uL (0.0-0.8) 10/24/24 06:06 Baso # (Auto) 0.1 10^3/uL (0.0-0.1) 10/24/24 06:06 Nucleated RBC % (auto) 0 % 10/24/24 06:06 Nucleated RBCs # 0.0 /100WBC 10/24/24 06:06 Sodium 136 mmol/L (136-145) 10/24/24 06:06 Potassium 4.0 mmol/L (3.5-5.1) 10/24/24 06:06 Chloride 105 mmol/L (98-107) 10/24/24 06:06 Carbon Dioxide 24 mmol/L (22-29) 10/24/24 06:06 Anion Gap 11.0 (5-19) 10/24/24 06:06 BUN 18 mg/dL (8-23) 10/24/24 06:06 Creatinine 1.4 mg/dL (0.7-1.2) H 10/24/24 06:06 GFR Calculation Not Reportable 10/24/24 06:06 Glucose 164 mg/dL (65-115) H 10/24/24 06:06 Calculated Osmolality 288 mOsm/kg (285-295) 10/24/24 06:06 Lactic Acid 1.1 mmol/L (0.5-2.2) 10/24/24 06:06 Calcium 7.8 mg/dL (8.5-10.5) L 10/24/24 06:06 Total Bilirubin 0.7 mg/dL (0.15-1.2) 10/24/24 06:06 AST 16 U/L (0-40) 10/24/24 06:06 ALT 12 U/L (0-41) 10/24/24 06:06 Alkaline Phosphatase 129 U/L (40-130) 10/24/24 06:06 C-Reactive Protein 35.8 mg/L (0.0-4.9) H 10/24/24 06:06 Total Protein 6.8 g/dL (6.6-8.7) 10/24/24 06:06 Albumin 3.1 g/dL (3.5-5.2) L 10/24/24 06:06 Globulin 3.7 g/dL (1.3-4.6) 10/24/24 06:06 Urine Color Dark yellow (Yellow) A 10/24/24 07:24 Urine Appearance Slightly cloudy (CLEAR) 10/24/24 07:24 Urine pH 5 (5-7) 10/24/24 07:24 Ur Specific [place] 1.020 (1.005-1.030) 10/24/24 07:24 Urine Protein Trace (Negative) 10/24/24 07:24 Urine Glucose (UA) Norm (Normal) 10/24/24 07:24 Urine Ketones 1+ (Negative) H 10/24/24 07:24 Urine Blood Neg (Negative) 10/24/24 07:24 Urine Nitrate Negative (Negative) 10/24/24 07:24 Urine Bilirubin 1+ (Negative) H 10/24/24 07:24 Urine Urobilinogen 1 mg/dL (Negative) H 10/24/24 07:24 Ur Leukocyte Esterase 2+ (Negative) H 10/24/24 07:24 Urine RBC 3-5 /hpf (0-2) 10/24/24 07:24 Urine WBC 51-100 /hpf (0-5) H 10/24/24 07:24 Ur Squamous Epith Cells 0-5 /hpf (0-5) 10/24/24 07:24 Amorphous Sediment Not Reportable 10/24/24 07:24 Urine Bacteria None seen /hpf (NONE) 10/24/24 07:24 Hyaline Casts 6.17 /lpf 10/24/24 07:24 C. difficile (PCR) Positive (Negative) H 10/24/24 06:44 All radiology interpretation(s) finalized by discharge Discharge Plan Discharge Patient Disposition: Admitted As Inpatient Admit Provider: Jennifer Dumont Clinical Impression: Vomiting, Morbid obesity, Type 2 diabetes mellitus, C. difficile colitis, Foot ulcer, Dehydration Condition: Stable Coding Level of Care Code ED Director Housekeeping for Zaynab Iglesias
[2024-10-24 07:55] LABS: Bacteria Urine None Seen /hpf; Hyaline Casts Urine 6.17 /lpf; Squamous Epithelial Cell Urine 0-5 /hpf (0-5); Urine Color Dark Yellow (Yellow); WBC Urine 51-100 /hpf (0-5)
[2024-10-24 07:56] LABS: Add Urine Microscopic? YES; Bilirubin Urine 1+ (Negative); Blood Urine Neg (Negative); Glucose Urine UA Norm (Normal); Ketones Urine 1+ (Negative); Leukocyte Esterase Urine 2+ (Negative); Nitrate Urine Negative (Negative); Protein Urine Trace (Negative); Urine Appearance Slightly Cloudy (CLEAR); Urobilinogen Urine 1 mg/dL (Negative); pH Urine 5 (5-7)
[2024-10-24 07:57] LABS: Add Urine Culture? Yes
[2024-10-24 09:03] LABS: C.Diff PCR (Lab) POSITIVE (Negative)
--- NOTE | 2024-10-24 10:39 | PC.NURSE ---
report called to [facility] on [place], no further questions. informed of C-Diff precautions.
[2024-10-24] MEDS: vancomycin 125 mg Capsule PO (11:31)
[2024-10-24 11:39] LABS: Glucose Point of Care 194 mg/dL (70-110)
[2024-10-24] MEDS: enoxaparin 40 mg/0.4 mL Syringe SUBCUT (12:19)
[2024-10-24] MEDS: fidaxomicin 200 mg Tablet PO ×2 (12:19→17:33)
[2024-10-24] MEDS: pantoprazole DR 40 mg Tablet PO (12:19)
--- NOTE | 2024-10-24 14:05 | PM.HP ---
Providers/Chief Complaint Admitting Physician: Jennifer Dumont MD Primary Care Provider: Sammie Rocha DO Chief Complaint: DIARRHEA History of Present Illness Alen Appiah is a 74 year old male 74-year-old gentleman with diabetes, HTN, HLD, diastolic CHF, obesity, GERD, BPH, history of PE not on anticoagulation anymore, last admitted in May 2024 for foreign body in his right foot with accompanying cellulitis. Shard of glass was removed in ER by podiatry, he underwent I&D on right heel down to myofascial layer 05/25/24. There were no signs of osteomyelitis at that time. HE was discharged with oral levofloxacin, oral linezolid and oral metronidazole at that time for one week. he continued f/up with wound care where he was last assessed in july 2024. He had a wound vac in place until ? . C/o some ankle pain and off, previously refused X ray imaging at wound care center. He eventually moved into [facility] where he was getting consistent wound care. He left the facility about 2 weeks ago and presented to ER today c/o 2 weeks of persistent diarrhea. Nausea +, no vomiting. C diff testing + on stool today. Ct showing colitis. he does not recall being on any abx other than the episode in May. He has a dressing in place over his foot which hasnt been changed in a few days. Review of Systems General: Reports: 10 or more systems reviewed and unremarkable except in HPI and below Const: Denies: fever(s), chills or body aches Eyes: Denies: change in vision, blurry vision or photophobia ENMT: Reports: hoarseness; Denies: throat pain, enlarged tonsils, odynophagia or nasal congestion Card: Denies: chest pain, palpitations, irregular heart rhythm, edema, swelling of feet/ankles, lightheadedness, pre-syncope, dyspnea on exertion or orthopnea Resp: Denies: dyspnea, productive cough, non-productive cough, wheezing, stridor, pain on inspiration, change in phlegm color, hemoptysis or chest congestion GI: Denies: abdominal pain, nausea, vomiting, hematemesis, coffee ground emesis, dysphagia, heartburn, diarrhea, constipation, GI cramping, change in stool character, hematochezia or melena : Denies: flank pain, dysuria, urinary frequency, urinary urgency, urinary hesitancy or hematuria Musc: Denies: neck pain, back pain, extremity pain, joint swelling, joint warmth or deformity Neuro: Denies: headache(s), numbness in extremities, weakness in extremities, sensory changes, difficulty walking, frequent falls, dizziness, vertigo, behavioral changes, Slurred speech present or seizure-like activity Psych: Denies: anxiety, depression, suicidal ideation or homicidal ideation Endo: Denies: polyuria, polydipsia, tired all the time, cold intolerance or hot flashes Ede/Lymph: Denies: easy bruising or easy bleeding Medications/Allergies Home Medications ?Medication ?Instructions ?Recorded ?Confirmed ?Last Taken ?Type aspirin 81 mg tablet,delayed 81 mg PO DAILY 05/16/20 10/24/24 10/23/24 History release bisacodyl 5 mg tablet,delayed 5 mg PO DAILY 05/16/20 10/24/24 05/23/24 History release (Dulcolax (bisacodyl)) gabapentin 600 mg tablet 600 mg PO TID 05/16/20 10/24/24 10/23/24 History lisinopril 20 mg tablet 20 mg PO DAILY 05/16/20 10/24/24 10/23/24 History tamsulosin 0.4 mg capsule (Flomax) 0.4 mg PO BID #60 caps 12/20/21 10/24/24 10/23/24 Rx potassium chloride 20 mEq 20 meq PO DAILY 03/01/23 10/24/24 10/23/24 History tablet,extended release(part/cryst) baclofen 20 mg tablet 20 mg PO TID PRN Pain 05/24/24 10/24/24 10/23/24 History furosemide 40 mg tablet 40 mg PO DAILY 05/24/24 10/24/24 10/24/24 History insulin degludec 100 30 unit SUBCUT BID PRN bs 05/24/24 10/24/24 10/23/24 History unit-liraglutide 3.6 mg/mL(3 mL) subcutaneous pen (Xultophy 100/3.6) nitroglycerin 0.4 mg sublingual 0.4 mg sublingual Q5M PRN chest 05/24/24 10/24/24 Unknown History tablet (Nitrostat) pain oxycodone 20 mg tablet 20 mg PO Q4H PRN Pain 05/24/24 10/24/24 10/23/24 History acetaminophen 325 mg tablet 650 mg (2 x 325 mg) PO Q6H PRN 05/29/24 10/24/24 Unknown Rx Mild/Mod Pain Or Temp >/= 101 #30 tabs amlodipine 10 mg tablet 10 mg PO DAILY #90 tabs 05/29/24 10/24/24 10/23/24 Rx carvedilol 12.5 mg tablet 12.5 mg PO BID #180 tabs 05/29/24 10/24/24 10/23/24 Rx metronidazole 500 mg tablet 500 mg PO TID #21 tabs 05/29/24 10/24/24 10/23/24 Rx amlodipine 10 mg tablet 10 mg PO DAILY 10/24/24 10/24/24 10/23/24 History atorvastatin 10 mg tablet 10 mg PO BEDTIME 10/24/24 10/24/24 10/23/24 19:00 History ketoconazole 2 % topical cream 1 applic topical BID 10/24/24 10/24/24 10/23/24 History multivitamin with folic acid 400 1 tab PO DAILY 10/24/24 10/24/24 10/23/24 History mcg tablet (Tab-A-Rossi) ondansetron 4 mg disintegrating See Rx Instructions .Route .COMPLEX 10/24/24 10/24/24 10/23/24 History tablet Allergies Allergy/AdvReac Type Severity Reaction Status Date / Time metoclopramide (From Reglan) Allergy Severe ADR-Nausea Verified 06/08/24 13:32 PFSH Acute PFSH: Medical History Diastolic CHF Pulmonary embolism History of proctoscopy Chronic back pain Diabetes Hypertension GERD (gastroesophageal reflux disease) BPH loc w urin obs/LUTS Vomiting Surgical History History of back surgery History of ankle surgery History of lumbar surgery History of hernia surgery S/P TURP Family History Father , AT 86 of unknown cause Mother , AT 36 Lupus Denies family history of Anesthesia complication Bleeding disorder Social History Smoking and tobacco/nicotine status: former use of tobacco/nicotine Alcohol intake: never Substance/Drug Use: never Marital status: Current occupational status: disabled Vitals/I&O/Wt Last Vital Signs Temp 98.7 F 10/24/24 11:58 Pulse 97 10/24/24 11:58 Resp 18 10/24/24 11:58 BP 153/85 10/24/24 11:58 Pulse Ox 99 10/24/24 11:58 O2 Del Method Room Air 10/24/24 11:58 10/23/24 10/24/24 10/24/24 22:59 06:59 14:59 Intake Total 0 / 0 1000 / 1000 Balance 0 / 0 1000 / 1000 Weight last 48 hrs Weight 122.924 kg Physical Exam Narrative: General: No acute distress, AO x3 HEENT: PERRLA, pupils bilaterally equal and reactive, pallors not present Chest: Normal vesicular breath sounds, no added sounds, equal good air entry bilaterally CVS: S1-S2 regular, no murmurs, no tachycardia, no gallops, no rubs Abdomen: Soft, nontender, no organomegaly, bowel sounds present Neuro: No focal deficits, no facial deformity, AO x3, power 5/5 in all limbs Data 10/24/24 06:06 10/24/24 06:06 Micro: Microbiology 10/24/24 06:44 Occult Blood (FIT) - Final Stool Other data: Radiology Impressions Abdomen/Pelvis CT 10/24/24 06:59 IMPRESSION: 1. Pancolitis. 2. Mild concentric urinary bladder wall thickening possibly from chronic bladder outlet obstruction versus cystitis. Please correlate clinically. Foot X-Ray 10/24/24 06:59 IMPRESSION: No radiographic evidence of osteomyelitis. Laboratory Results WBC 16.60 10^3/uL (3.29-11.43) H 10/24/24 06:06 RBC 5.35 10^6/uL (3.85-5.65) 10/24/24 06:06 Hgb 14.30 g/dL (11.27-16.99) 10/24/24 06:06 Hct 44.9 % (37-53) 10/24/24 06:06 MCV 83.9 fl (82-101) 10/24/24 06:06 MCH 26.7 pg (27-33) L 10/24/24 06:06 MCHC 31.8 g/dL (30-55) 10/24/24 06:06 RDW 13.3 % (12.1-15.1) 10/24/24 06:06 Plt Count 371 10^3/cmm (157-399) 10/24/24 06:06 MPV 9.9 fL (7.4-10.4) 10/24/24 06:06 Neut % (Auto) 76.6 % 10/24/24 06:06 Lymph % (Auto) 14.0 % 10/24/24 06:06 [place] % (Auto) 7.5 % 10/24/24 06:06 Eos % (Auto) 0.8 % 10/24/24 06:06 Baso % (Auto) 0.4 % 10/24/24 06:06 Neut # (Auto) 12.72 10^3/uL (1.8-7.7) H 10/24/24 06:06 Lymph # (Auto) 2.3 10^3/uL (0.8-4.8) 10/24/24 06:06 [place] # (Auto) 1.2 10^3/uL (0.2-0.9) H 10/24/24 06:06 Eos # (Auto) 0.1 10^3/uL (0.0-0.8) 10/24/24 06:06 Baso # (Auto) 0.1 10^3/uL (0.0-0.1) 10/24/24 06:06 Nucleated RBC % (auto) 0 % 10/24/24 06:06 Nucleated RBCs # 0.0 /100WBC 10/24/24 06:06 Sodium 136 mmol/L (136-145) 10/24/24 06:06 Potassium 4.0 mmol/L (3.5-5.1) 10/24/24 06:06 Chloride 105 mmol/L (98-107) 10/24/24 06:06 Carbon Dioxide 24 mmol/L (22-29) 10/24/24 06:06 Anion Gap 11.0 (5-19) 10/24/24 06:06 BUN 18 mg/dL (8-23) 10/24/24 06:06 Creatinine 1.4 mg/dL (0.7-1.2) H 10/24/24 06:06 GFR Calculation Not Reportable 10/24/24 06:06 Glucose 164 mg/dL (65-115) H 10/24/24 06:06 POC Glucose 194 mg/dL (70-110) H 10/24/24 11:06 Calculated Osmolality 288 mOsm/kg (285-295) 10/24/24 06:06 Lactic Acid 1.1 mmol/L (0.5-2.2) 10/24/24 06:06 Calcium 7.8 mg/dL (8.5-10.5) L 10/24/24 06:06 Total Bilirubin 0.7 mg/dL (0.15-1.2) 10/24/24 06:06 AST 16 U/L (0-40) 10/24/24 06:06 ALT 12 U/L (0-41) 10/24/24 06:06 Alkaline Phosphatase 129 U/L (40-130) 10/24/24 06:06 C-Reactive Protein 35.8 mg/L (0.0-4.9) H 10/24/24 06:06 Total Protein 6.8 g/dL (6.6-8.7) 10/24/24 06:06 Albumin 3.1 g/dL (3.5-5.2) L 10/24/24 06:06 Globulin 3.7 g/dL (1.3-4.6) 10/24/24 06:06 Urine Color Dark yellow (Yellow) A 10/24/24 07:24 Urine Appearance Slightly cloudy (CLEAR) 10/24/24 07:24 Urine pH 5 (5-7) 10/24/24 07:24 Ur Specific [place] 1.020 (1.005-1.030) 10/24/24 07:24 Urine Protein Trace (Negative) 10/24/24 07:24 Urine Glucose (UA) Norm (Normal) 10/24/24 07:24 Urine Ketones 1+ (Negative) H 10/24/24 07:24 Urine Blood Neg (Negative) 10/24/24 07:24 Urine Nitrate Negative (Negative) 10/24/24 07:24 Urine Bilirubin 1+ (Negative) H 10/24/24 07:24 Urine Urobilinogen 1 mg/dL (Negative) H 10/24/24 07:24 Ur Leukocyte Esterase 2+ (Negative) H 10/24/24 07:24 Urine RBC 3-5 /hpf (0-2) 10/24/24 07:24 Urine WBC 51-100 /hpf (0-5) H 10/24/24 07:24 Ur Squamous Epith Cells 0-5 /hpf (0-5) 10/24/24 07:24 Amorphous Sediment Not Reportable 10/24/24 07:24 Urine Bacteria None seen /hpf (NONE) 10/24/24 07:24 Hyaline Casts 6.17 /lpf 10/24/24 07:24 C. difficile (PCR) Positive (Negative) H 10/24/24 06:44 A&P Assessment and plan (1) C. difficile colitis: Pancolitis related to C diff Start Dificid 200mg po BID x 10 days monitor BM for improvement Clear liquid diet for bowel rest (2) Foot ulcer: elevated WBC count may be related to C diff colitis vs infected wound It does not appear he has had adequate care for his wound in the last few days since d/c from [place] X ray without evidence ofosteomyelitis Broken hardware at ankle, as noted on previous CT additionally prior wound cx from May 2025 from [facility] with MRSA start vancomycin empirically Podiatry consult to assess for debridement (3) Type 2 diabetes mellitus: insulin sliding scale Plan dvt ppx: lovenox full code PDMP PDMP Reviewed: Not Reviewed Attestations Medical Necessity Statement*: > 2 midnight anticipated Coding Level of Care Code Acute Code for [facility] Diagnoses C. difficile colitis A04.72 Foot ulcer L97.509 Type 2 diabetes mellitus E11.9
[2024-10-24] MEDS: vancomycin 1,250 MG/250 ML PIGGYBACK 166.67 MG IV (14:42)
[2024-10-24] MEDS: cefTRIAXone 1,000 mg SDV 1000 MG IVP (14:42)
[2024-10-24] MEDS: gabapentin 300 mg Capsule 600 MG PO ×2 (14:42→21:05)
[2024-10-24] MEDS: baclofen 10 mg Tablet 20 MG PO (16:06)
[2024-10-24] MEDS: oxyCODONE 5 mg IR Tab/Cap 20 MG PO ×2 (16:06→22:55)
--- NOTE | 2024-10-24 16:56 | PHA.VACGOAL ---
Vancomycin Goal - Goal Vancomycin Goal:: 10-15 mg/L Vancomycin Indication:: SSTI - Therapy Day of therpy:: Day [1]of [] . Actual body weight (kg): 122.924 kg - Data Labs: WBC 16.60 10^3/uL (3.29-11.43) H 10/24/24 06:06 RBC 5.35 10^6/uL (3.85-5.65) 10/24/24 06:06 Hgb 14.30 g/dL (11.27-16.99) 10/24/24 06:06 Hct 44.9 % (37-53) 10/24/24 06:06 MCV 83.9 fl (82-101) 10/24/24 06:06 MCH 26.7 pg (27-33) L 10/24/24 06:06 MCHC 31.8 g/dL (30-55) 10/24/24 06:06 RDW 13.3 % (12.1-15.1) 10/24/24 06:06 Sodium 136 mmol/L (136-145) 10/24/24 06:06 Potassium 4.0 mmol/L (3.5-5.1) 10/24/24 06:06 Chloride 105 mmol/L (98-107) 10/24/24 06:06 Carbon Dioxide 24 mmol/L (22-29) 10/24/24 06:06 Anion Gap 11.0 (5-19) 10/24/24 06:06 BUN 18 mg/dL (8-23) 10/24/24 06:06 Creatinine 1.4 mg/dL (0.7-1.2) H 10/24/24 06:06 GFR Calculation Not Reportable 10/24/24 06:06 Treatment plan:: new consult Regimen:: New start vancomycin for foot ulcer. History of MRSA SSTI infection. X-ray- no signs of osteomyelitis. Started on maintenance dose of 1250 mg q18h.
[2024-10-24 17:03] LABS: Glucose Point of Care 237 mg/dL (70-110)
[2024-10-24] MEDS: tamsulosin 0.4 mg Capsule PO (17:34)
[2024-10-24] MEDS: carvedilol 12.5 mg Tablet PO (17:34)
[2024-10-24] MEDS: insulin lispro 100 unit/1 mL SUBCUT (17:34)
[2024-10-24 20:59] LABS: Glucose Point of Care 119 mg/dL (70-110)
[2024-10-24] MEDS: ATORVASTATIN 10 MG TABLET PO (21:05)
[2024-10-25] VITALS (9 sets, daily range): BP systolic 98–126; BP diastolic 54–88; PULSE 58–65; RESP 16–19; TEMP 36.4–36.8; O2SAT 92–98
[2024-10-25 03:52] LABS: Basophils # 0.1 10^3/uL (0.0-0.1); Basophils % 0.4 %; Eosinophils # 0.3 10^3/uL (0.0-0.8); Eosinophils % 2.4 %; Hematocrit 37.9 % (37-53); Lymphocytes # 2.5 10^3/uL (0.8-4.8); Lymphocytes % 18.1 %; Mean Corpuscular HGB Conc 31.1 g/dL (30-55); Mean Corpuscular Hemoglobin 26.5 pg (27-33); Mean Corpuscular Volume 85.2 fl (82-101); Mean Platelet Volume 10.5 fL (7.4-10.4); Monocytes % 7.4 %; Neutrophils # 9.92 10^3/uL (1.8-7.7); Nucleated Red Blood Cells % 0 %; Platelet Count 328 10^3/cmm (157-399); Red Blood Count 4.45 10^6/uL (3.85-5.65); Red Cell Distribution Width 13.5 % (12.1-15.1); White Blood Count 13.99 10^3/uL (3.29-11.43)
[2024-10-25] MEDS: oxyCODONE 5 mg IR Tab/Cap 20 MG PO ×3 (04:00→15:02)
[2024-10-25 05:46] LABS: Alanine Aminotransferase 10 U/L (0-41); Albumin Level 2.7 g/dL (3.5-5.2); Alkaline Phosphatase 97 U/L (40-130); Anion Gap 11.5 (5-19); Aspartate Amino Transferase 14 U/L (0-40); Blood Urea Nitrogen 19 mg/dL (8-23); Calcium 7.6 mg/dL (8.5-10.5); Carbon Dioxide 25 mmol/L (22-29); Chloride 106 mmol/L (98-107); Creatinine Clr Calc Pharmacy 59.9607; Globulin 2.9 g/dL (1.3-4.6); Glucose 159 mg/dL (65-115); Osmolality Calculated 294 mOsm/kg (285-295); Potassium 3.5 mmol/L (3.5-5.1); Sodium 139 mmol/L (136-145); Total Bilirubin 0.4 mg/dL (0.15-1.2); Total Protein 5.6 g/dL (6.6-8.7)
[2024-10-25 06:57] LABS: Glucose Point of Care 169 mg/dL (70-110)
[2024-10-25] MEDS: insulin lispro 100 unit/1 mL SUBCUT ×3 (07:58→21:07)
[2024-10-25] MEDS: amlodipine 10 mg Tablet PO (07:59)
[2024-10-25] MEDS: carvedilol 12.5 mg Tablet PO (07:59)
[2024-10-25] MEDS: vancomycin 1,250 MG/250 ML PIGGYBACK 166.7 MG IV (07:59)
[2024-10-25] MEDS: pantoprazole DR 40 mg Tablet PO (07:59)
[2024-10-25] MEDS: fidaxomicin 200 mg Tablet PO ×2 (07:59→17:07)
[2024-10-25] MEDS: tamsulosin 0.4 mg Capsule PO ×2 (07:59→17:07)
[2024-10-25] MEDS: gabapentin 300 mg Capsule 600 MG PO ×3 (07:59→20:21)
[2024-10-25] MEDS: aspirin 81 mg EC Tablet PO (07:59)
[2024-10-25] MEDS: bisacodyl 5 mg Tablet PO (07:59)
[2024-10-25] MEDS: FUROsemide 40 mg Tablet PO (07:59)
[2024-10-25] MEDS: lisinopril 20 mg Tablet PO (07:59)
[2024-10-25] MEDS: baclofen 10 mg Tablet 20 MG PO ×2 (08:05→15:02)
--- NOTE | 2024-10-25 09:23 | PM.CONSULT ---
Providers/Reason For Consult Consulting Physician/Specialty*: Neal Garcia D.P.M. Reason for Consult*: Right heel wound Attending Physician: Jennifer Dumont MD Primary Care Provider: Sammie Rocha DO History of Present Illness History of Present Illness Alen Appiah is a 74 year old diabetic male with comorbidities of hypertension, hyperlipidemia, diastolic congestive heart failure, obesity, has a history of pulmonary embolism. Patient was admitted in May 2024 for foreign body of the right heel with associated cellulitis. Foreign body was a piece of glass, underwent debridement of the right heel down to the myofascial layer on May 25, 2024 at that hospital mission he had significant cellulitis streaking up the leg this eventually resolved and he was discharged with wound care clinic follow-up. Patient's response to wound care was consistent and improving, he was placed into [facility] correction and after having left 2 weeks ago his wound started digressing as he was not consistently changing his dressing. His dressing that he presented in to the emergency department with yesterday was several days old. He states that he did better in a correction and would like to go back to facilitate full recovery. Review of Systems General: Reports: 10 or more systems reviewed and unremarkable except in HPI and below Const: Denies: fever(s) or chills Eyes: Denies: change in vision Card: Denies: chest pain or palpitations Resp: Denies: dyspnea or productive cough GI: Denies: abdominal pain, nausea or vomiting : Denies: flank pain Musc: Reports: extremity swelling, joint stiffness and deformity Skin/Breast: Reports: erythema, sores, changes in skin color, dry skin, nail changes and change in hair Neuro: Reports: numbness in extremities, sensory changes and difficulty walking Psych: Denies: suicidal ideation Endo: Denies: change in body appearance Ede/Lymph: Denies: tender lymph nodes Medications/Allergies Home Medications ?Medication ?Instructions ?Recorded ?Confirmed ?Last Taken ?Type aspirin 81 mg tablet,delayed 81 mg PO DAILY 05/16/20 10/24/24 10/23/24 History release bisacodyl 5 mg tablet,delayed 5 mg PO DAILY 05/16/20 10/24/24 05/23/24 History release (Dulcolax (bisacodyl)) gabapentin 600 mg tablet 600 mg PO TID 05/16/20 10/24/24 10/23/24 History lisinopril 20 mg tablet 20 mg PO DAILY 05/16/20 10/24/24 10/23/24 History tamsulosin 0.4 mg capsule (Flomax) 0.4 mg PO BID #60 caps 12/20/21 10/24/24 10/23/24 Rx potassium chloride 20 mEq 20 meq PO DAILY 03/01/23 10/24/24 10/23/24 History tablet,extended release(part/cryst) baclofen 20 mg tablet 20 mg PO TID PRN Pain 05/24/24 10/24/24 10/23/24 History furosemide 40 mg tablet 40 mg PO DAILY 05/24/24 10/24/24 10/24/24 History insulin degludec 100 30 unit SUBCUT BID PRN bs 05/24/24 10/24/24 10/23/24 History unit-liraglutide 3.6 mg/mL(3 mL) subcutaneous pen (Xultophy 100/3.6) nitroglycerin 0.4 mg sublingual 0.4 mg sublingual Q5M PRN chest 05/24/24 10/24/24 Unknown History tablet (Nitrostat) pain oxycodone 20 mg tablet 20 mg PO Q4H PRN Pain 05/24/24 10/24/24 10/23/24 History acetaminophen 325 mg tablet 650 mg (2 x 325 mg) PO Q6H PRN 05/29/24 10/24/24 Unknown Rx Mild/Mod Pain Or Temp >/= 101 #30 tabs amlodipine 10 mg tablet 10 mg PO DAILY #90 tabs 05/29/24 10/24/24 10/23/24 Rx carvedilol 12.5 mg tablet 12.5 mg PO BID #180 tabs 05/29/24 10/24/24 10/23/24 Rx metronidazole 500 mg tablet 500 mg PO TID #21 tabs 05/29/24 10/24/24 10/23/24 Rx amlodipine 10 mg tablet 10 mg PO DAILY 10/24/24 10/24/24 10/23/24 History atorvastatin 10 mg tablet 10 mg PO BEDTIME 10/24/24 10/24/24 10/23/24 19:00 History ketoconazole 2 % topical cream 1 applic topical BID 04/12/1310/24/24 10/23/24 History multivitamin with folic acid 400 1 tab PO DAILY 10/24/24 10/24/24 10/23/24 History mcg tablet (Tab-A-Rossi) ondansetron 4 mg disintegrating See Rx Instructions .Route .COMPLEX 10/24/24 10/24/24 10/23/24 History tablet Allergies Allergy/AdvReac Type Severity Reaction Status Date / Time metoclopramide (From [facility]) Allergy Severe ADR-Nausea Verified 06/08/24 13:32 Current Medications Generic Name Dose Route Start Last Admin Trade Name Freq PRN Reason Stop Dose Admin Amlodipine Besylate 10 mg 10/25/24 09:00 10/25/24 07:59 Amlodipine 10 Mg Tablet PO 10 mg DAILY PADMAJA Administration Aspirin 81 mg 10/25/24 09:00 10/25/24 07:59 Aspirin 81 Mg Ec Tablet PO 81 mg DAILY PADMAJA Administration Atorvastatin Calcium 10 mg 10/24/24 21:00 10/24/24 21:05 Atorvastatin 10 Mg Tablet PO 10 mg BEDTIME PADMAJA Administration Baclofen 20 mg 10/24/24 14:34 10/25/24 08:05 Baclofen 10 Mg Tablet PO 20 mg TID PRN Administration Pain Bisacodyl 5 mg 10/25/24 09:00 10/25/24 07:59 Bisacodyl 5 Mg Tablet PO 5 mg DAILY PADMAJA Administration Carvedilol 12.5 mg 10/24/24 18:00 10/25/24 07:59 Carvedilol 12.5 Mg Tablet PO 12.5 mg BID PADMAJA Administration Ceftriaxone Sodium 1,000 mg 10/24/24 14:30 10/24/24 14:42 Ceftriaxone 1,000 Mg Sdv IVP 1,000 mg Q24H PADMAJA Administration Protocol Enoxaparin Sodium 40 mg 10/24/24 11:45 10/24/24 12:19 Enoxaparin 40 Mg/0.4 Ml Syringe SUBCUT 40 mg Q24H PADMAJA Administration Fidaxomicin 200 mg 10/24/24 12:00 10/25/24 07:59 Fidaxomicin 200 Mg Tablet PO 11/02/24 18:01 200 mg BID PADMAJA Administration Protocol Furosemide 40 mg 10/25/24 09:00 10/25/24 07:59 Furosemide 40 Mg Tablet PO 40 mg DAILY PADMAJA Administration Gabapentin 600 mg 10/24/24 15:00 10/25/24 07:59 Gabapentin 300 Mg Capsule PO 600 mg TID PADMAJA Administration Vancomycin HCl 1,250 mg in 250 mls @ 166.667 mls/hr 10/24/24 15:00 10/25/24 07:59 Vancocin IV 166.7 mls/hr Q18H PADMAJA Administration Insulin Human Lispro 0 unit 10/24/24 18:00 10/25/24 07:58 Insulin Lispro 100 Unit/1 Ml SUBCUT 2 unit WM&BEDTIME PADMAJA Administration Protocol Lisinopril 20 mg 10/25/24 09:00 10/25/24 07:59 Lisinopril 20 Mg Tablet PO 20 mg DAILY PADMAJA Administration Oxycodone HCl 20 mg 10/24/24 14:35 10/25/24 08:05 Oxycodone 5 Mg Ir Tab/Cap PO 20 mg Q4H PRN Administration Pain Pantoprazole Sodium 40 mg 10/24/24 12:00 10/25/24 07:[address] 40 Mg Tablet PO 40 mg DAILY PADMAJA Administration Tamsulosin HCl 0.4 mg 10/24/24 18:00 10/25/24 07:59 Tamsulosin 0.4 Mg Capsule PO 0.4 mg BID PADMAJA Administration PFSH Acute PFSH: Medical History Diastolic CHF Pulmonary embolism History of proctoscopy Chronic back pain Diabetes Hypertension GERD (gastroesophageal reflux disease) BPH loc w urin obs/LUTS Vomiting Surgical History History of back surgery History of ankle surgery History of lumbar surgery History of hernia surgery S/P TURP Family History Father , AT 86 of unknown cause Mother , AT 36 Lupus Denies family history of Anesthesia complication Bleeding disorder Social History Smoking and tobacco/nicotine status: former use of tobacco/nicotine Alcohol intake: never Substance/Drug Use: never Marital status: Current occupational status: disabled Vitals/I&O/Wt Last Vital Signs Temp 97.5 F L 10/25/24 07:44 Pulse 64 10/25/24 07:44 Resp 18 10/25/24 08:05 BP 126/88 10/25/24 07:44 Pulse Ox 97 10/25/24 08:05 O2 Del Method Room Air 10/25/24 07:44 10/24/24 10/25/24 10/25/24 22:59 06:59 14:59 Intake Total 250 / 1730 480 / 480 Balance 250 / 1730 480 / 480 Weight last 48 hrs Weight 271 lb Weight 271 lb Physical Exam Narrative: VASCULAR: Dorsalis pedis palpable bilaterally. Posterior tibial arteries palpable. Capillary refill time less than 3 seconds to the distal hallux bilaterally. Calf is supple and nontender proximally and distally. Mild edema noted to the lower extremities +1 pitting tested at lower one third anterior tibial crest. NEUROLOGICAL: Protective sensation intact 0/10 sites, tested with [place] monofilament to bilateral feet. DERMATOLOGICAL: Right heel wound measurements 2.4 cm x 3.2 cm x 0.2 cm, does not probe to bone, hyperkeratotic rim, large granular base with some biofilm and slough. MUSCULOSKELETAL: Tenderness to palpation right plantar heel. No crepitus with palpation of soft tissue right lower extremity. Const: COMMON NORMALS: no acute distress, patient oriented x3 and alert HENMT: COMMON NORMALS: normocephalic HEAD & SCALP: normocephalic Eye: COMMON NORMALS: Equal, round and reactive pupils present PUPIL: Yes Equal, round and reactive pupils present Lymph: LYMPHATIC: lymphedema Resp: COMMON NORMALS: normal respiratory effort, No retractions and No use of accessory muscles Cardio: COMMON NORMALS: regular rate RATE: regular rate Extremity: COMMON NORMALS: no calf tenderness; negative for no pedal edema GENERAL: Yes deformity Neuro: COMMON NORMALS: patient oriented x3 SENSORIUM/ORIENTATION: Yes alert SENSORY EXAM: Yes extremities MONOFILAMENT EXAM PERFORMED: Yes MOTOR EXAM: 5/5 motor strength present throughout Psych: COMMON NORMALS: cooperative Skin: COMMON NORMALS: no wounds WOUNDS: Yes wounds noted NAILS: discolored, dystrophic and yellow and thickened Data 10/25/24 03:37 10/25/24 04:57 Micro: Microbiology 10/24/24 06:44 Occult Blood (FIT) - Final Stool A&P Assessment and plan (1) Diabetic peripheral neuropathy associated with type 2 diabetes mellitus: (2) Chronic ulcer of right heel with fat layer exposed: PROCEDURE: Full thickness wound debridement Location: Right heel Local Anesthesia: none due to neuropathy Consent: Verbal Sterile Prep: with alcohol Details: Full thickness sharp debridement of the wound was performed using sterile dermal curette. The wound was debrided of hyperkeratotic rim and devitalized and fibrotic tissue down to subcutaneous tissue, being the deepest level of debridement. Predebridement measurements: 2.4 cm x 3.2 cm x 0.2 cm Postdebridement measurements: 2.5 cm x 3.3 cm x 0.2 cm Hemostasis: Pressure Irrigation: sterile saline Dressing: Betadine wet-to-dry Estimated Blood Loss: minimal Offloading: Nonweightbearing right heel. Plan 74-year-old diabetic male presents with diabetic ulcer to right posterior heel proximately 5 months in duration. Empiric antibiotics, history of MRSA Wound debridement as above, no indications for surgical invention at this time Betadine wet-to-dry dressing applied postdebridement today, tomorrow will likely switch to wound foam with superabsorbent dressing Partial weightbearing right foot with cam boot. Patient would benefit from placement to correction to continue wound care regimen after this hospitalization Podiatry will follow PDMP PDMP Reviewed: Not Reviewed Coding Level of Care Code Acute Code for [facility] Diagnoses Diabetic peripheral neuropathy associated with type 2 diabetes mellitus E11.42 Chronic ulcer of right heel with fat layer exposed L97.412
[2024-10-25 09:30] LABS: Erythrocyte Sedimentation Rate 1 mm/hr (0-10)
[2024-10-25 11:34] LABS: Glucose Point of Care 151 mg/dL (70-110)
[2024-10-25] MEDS: enoxaparin 40 mg/0.4 mL Syringe SUBCUT (12:26)
[2024-10-25] MEDS: cefTRIAXone 1,000 mg SDV 1000 MG IVP (15:02)
--- NOTE | 2024-10-25 15:20 | PM.PN ---
Subjective Subjective: Continues to have diarrhea, however frequency appears to be reducing to 4-5 times per day. Soft blood pressure this morning ranging 98 systolic. Denies any dizziness or other orthostatic symptoms. Medications: Reviewed: Yes Vitals/I&O/Wt Last Vital Signs Temp 97.7 F 10/25/24 13:00 Pulse 62 10/25/24 13:00 Resp 18 10/25/24 15:02 BP 98/54 10/25/24 13:00 Pulse Ox 98 10/25/24 15:02 O2 Del Method Room Air 10/25/24 13:00 10/25/24 10/25/24 10/25/24 06:59 14:59 22:59 Intake Total 1090 / 1090 Balance 1090 / 1090 Weight last 48 hrs Weight 122.924 kg Weight 122.924 kg Physical Exam Narrative: General: No acute distress, AO x3 HEENT: PERRLA, pupils bilaterally equal and reactive, pallors not present Chest: Normal vesicular breath sounds, no added sounds, equal good air entry bilaterally CVS: S1-S2 regular, no murmurs, no tachycardia, no gallops, no rubs Abdomen: Soft, nontender, no organomegaly, bowel sounds present Neuro: No focal deficits, no facial deformity, AO x3, power 5/5 in all limbs Data 10/25/24 03:37 10/25/24 04:57 Micro: Microbiology 10/24/24 07:24 Urine Culture - Final Urine,Clean Catch A&P Assessment and plan (1) C. difficile colitis: Pancolitis related to C diff Start Dificid 200mg po BID x 10 days monitor BM for improvement Clear liquid diet for bowel rest (2) Foot ulcer: elevated WBC count may be related to C diff colitis vs infected wound It does not appear he has had adequate care for his wound in the last few days since d/c from [place] X [facility] without evidence ofosteomyelitis Broken hardware at ankle, as noted on previous CT additionally prior wound cx from May 2025 from [facility] with MRSA start vancomycin empirically Podiatry consult to assess for debridement (3) Type 2 diabetes mellitus: insulin sliding scale Plan dvt ppx: lovenox full code October 25, 2024 Diarrhea still persisting but frequency appears to be reducing. Continue Dificid 200 mg twice daily for C. difficile pancolitis. Leukocytosis is trending down at 13,000 today. Evaluated by podiatry at bedside today, underwent debridement of his heel ulcer. Continue ceftriaxone and vancomycin empirically for now with plan to transition to oral antibiotics for a short course at the time of discharge. No gross signs of underlying osteomyelitis. Soft blood pressure this morning. Hold lisinopril, amlodipine. Reduce Coreg dose to 6.25 mg twice daily. Hold home dose of Lasix for now. He is clinically appearing to be euvolemic. He is hungry and wishes to advance his diet. Advance to GI soft today. No nausea or vomiting. Patient states he is unable to manage his ADLs at home and would like to explore transitioning back to SNF to enable wound care management. PDMP PDMP Reviewed: Not Reviewed Attestations Medical Necessity Statement*: wound debridement today, need for abx, C diff pancolitis treatment Coding Level of Care Code Acute Code for [facility] Diagnoses C. difficile colitis A04.72 Foot ulcer L97.509 Type 2 diabetes mellitus E11.9
[2024-10-25 16:49] LABS: Glucose Point of Care 123 mg/dL (70-110)
[2024-10-25] MEDS: carvedilol 6.25 mg Tablet PO (17:08)
[2024-10-25] MEDS: ATORVASTATIN 10 MG TABLET PO (20:22)
[2024-10-25 20:41] LABS: Glucose Point of Care 184 mg/dL (70-110)
[2024-10-26] VITALS (10 sets, daily range): BP systolic 94–120; BP diastolic 57–71; PULSE 50–83; RESP 15–19; TEMP 36.2–36.8; O2SAT 94–96
[2024-10-26] MEDS: vancomycin 1,250 MG/250 ML PIGGYBACK 166.7 MG IV (02:04)
[2024-10-26 03:38] LABS: Basophils # 0.1 10^3/uL (0.0-0.1); Basophils % 0.8 %; Eosinophils # 0.5 10^3/uL (0.0-0.8); Eosinophils % 4.4 %; Lymphocytes # 3.1 10^3/uL (0.8-4.8); Lymphocytes % 27.6 %; Mean Corpuscular HGB Conc 29.7 g/dL (30-55); Mean Corpuscular Hemoglobin 26.1 pg (27-33); Mean Corpuscular Volume 87.9 fl (82-101); Mean Platelet Volume 11.1 fL (7.4-10.4); Monocytes # 0.8 10^3/uL (0.2-0.9); Monocytes % 7.2 %; Neutrophils # 6.58 10^3/uL (1.8-7.7); Neutrophils % 58.7 %; Nucleated Red Blood Cells % 0 %; Platelet Count 169 10^3/cmm (157-399); Red Blood Count 4.21 10^6/uL (3.85-5.65); Red Cell Distribution Width 13.9 % (12.1-15.1)
[2024-10-26 04:02] LABS: Total Bilirubin 0.2 mg/dL (0.15-1.2)
[2024-10-26 04:34] LABS: Albumin Level 2.5 g/dL (3.5-5.2); Calcium 7.3 mg/dL (8.5-10.5); Carbon Dioxide 21 mmol/L (22-29); Chloride 105 mmol/L (98-107); Creatinine Clr Calc Pharmacy 46.6361; Total Protein 4.9 g/dL (6.6-8.7)
[2024-10-26 04:35] LABS: Alanine Aminotransferase 11 U/L (0-41); Alkaline Phosphatase 82 U/L (40-130); Anion Gap 14.3 (5-19); Aspartate Amino Transferase 19 U/L (0-40); Blood Urea Nitrogen 20 mg/dL (8-23); Globulin 2.4 g/dL (1.3-4.6); Glucose 116 mg/dL (65-115); Osmolality Calculated 288 mOsm/kg (285-295); Potassium 3.3 mmol/L (3.5-5.1); Sodium 137 mmol/L (136-145)
[2024-10-26] MEDS: baclofen 10 mg Tablet 20 MG PO ×2 (04:37→20:49)
[2024-10-26 06:39] LABS: Glucose Point of Care 174 mg/dL (70-110)
--- NOTE | 2024-10-26 08:57 | PC.CHAP ---
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 [] Patient/Family/Request visit [] Outpatient visit [] Follow-up visit [] Physician referral [] Code/Alert [x] Routine visit [] Staff referral [] Actively dying [] Patient sleeping [] Family support [] [] Out of room [] Palliative care [] [] Receiving care in room [] Pre-surgical visit [] Trauma [] Long length of stay [] ICU visit [] Other: Relational/Emotional Strength [] Patient feels connected with others/family/visitors/staff [] Distress [] Loneliness/isolation [] Abandonment Spirituality of Patient [] Person of Alicia [] Attends Sikhism of their Alicia [] Believes in Prayer [] Reads Bible or Latter-Day materials [] There are Spiritual issues to be addressed Test And Turn Up Technician Interventions [x] Prayer [] Active listening [] Non-anxious presence [] Spiritual/emotional support [] Crisis/trauma care [] Spiritual counseling [] Bereavement support [] Provided bereavement packet [] Provided Bible/devotional materials [] Provided toy/stuffed animal, coloring book to patient or family member [] Provided Communion [] Anointing/Brice [] Salvation [] Completed spiritual assessment [] Other: Impact on Illness or Injury [] Angry [] Fearful [] Anxious [] Often cries [] Exhaustion [] Unable to work [] Unable to attend latter-day [] Unable to walk/stand [] Unable to read [] Unable to drive [] Unable to eat/drink [] Unable to sleep [] Unable to be with family [] Patient intubated [] Other: Summary precaution Time spent with patient
[2024-10-26] MEDS: aspirin 81 mg EC Tablet PO (09:00)
[2024-10-26] MEDS: carvedilol 6.25 mg Tablet PO ×2 (09:00→17:37)
[2024-10-26] MEDS: fidaxomicin 200 mg Tablet PO ×2 (09:00→17:37)
[2024-10-26] MEDS: gabapentin 300 mg Capsule 600 MG PO ×3 (09:00→21:57)
[2024-10-26] MEDS: tamsulosin 0.4 mg Capsule PO ×2 (09:00→17:37)
[2024-10-26] MEDS: bisacodyl 5 mg Tablet PO (09:00)
[2024-10-26] MEDS: pantoprazole DR 40 mg Tablet PO (09:00)
[2024-10-26] MEDS: insulin lispro 100 unit/1 mL SUBCUT ×3 (09:01→21:56)
--- NOTE | 2024-10-26 10:36 | PC.SOCIAL ---
IMM Updated Updated pt on IMM. No questions voiced. Provided pt a copy. Initialed, dated, & timed a copy & placed in chart.
[2024-10-26 11:00] LABS: Glucose Point of Care 259 mg/dL (70-110)
--- NOTE | 2024-10-26 11:31 | PM.PN ---
Subjective Subjective: seen today no acute events overnight continues to have diarrhea however it has slowed down laying in recliner asking for pain medication for back pain which he says is chronic Vitals/I&O/Wt Last Vital Signs Temp 97.2 F L 10/26/24 08:00 Pulse 63 10/26/24 08:00 Resp 19 H 10/26/24 08:00 BP 119/69 10/26/24 08:00 Pulse Ox 95 10/26/24 08:00 O2 Del Method Room Air 10/26/24 08:00 10/25/24 10/26/24 10/26/24 22:59 06:59 14:59 Intake Total 240 / 1330 250 / 1580 480 / 480 Balance 240 / 1330 250 / 1580 480 / 480 Physical Exam Narrative: General: No acute distress, AO x3 HEENT: PERRLA, pupils bilaterally equal and reactive, pallors not present Chest: Normal vesicular breath sounds, no added sounds, equal good air entry bilaterally CVS: S1-S2 regular, no murmurs, no tachycardia, no gallops, no rubs Abdomen: Soft, nontender, no organomegaly, bowel sounds present Neuro: No focal deficits, no facial deformity, AO x3, power 5/5 in all limbs Data 10/26/24 02:45 10/26/24 02:45 Micro: Microbiology 10/24/24 07:24 Urine Culture - Final Urine,Clean Catch A&P Assessment and plan (1) C. difficile colitis: Pancolitis related to C diff Start Dificid 200mg po BID x 10 days monitor BM for improvement Clear liquid diet for bowel rest (2) Foot ulcer: elevated WBC count may be related to C diff colitis vs infected wound It does not appear he has had adequate care for his wound in the last few days since d/c from [place] X ray without evidence ofosteomyelitis Broken hardware at ankle, as noted on previous CT additionally prior wound cx from May 2025 from [facility] with MRSA start vancomycin empirically Podiatry consult to assess for debridement (3) Type 2 diabetes mellitus: insulin sliding scale Plan dvt ppx: lovenox full code October 25, 2024 Diarrhea still persisting but frequency appears to be reducing. Continue Dificid 200 mg twice daily for C. difficile pancolitis. Leukocytosis is trending down at 13,000 today. Evaluated by podiatry at bedside today, underwent debridement of his heel ulcer. Continue ceftriaxone and vancomycin empirically for now with plan to transition to oral antibiotics for a short course at the time of discharge. No gross signs of underlying osteomyelitis. Soft blood pressure this morning. Hold lisinopril, amlodipine. Reduce Coreg dose to 6.25 mg twice daily. Hold home dose of Lasix for now. He is clinically appearing to be euvolemic. He is hungry and wishes to advance his diet. Advance to GI soft today. No nausea or vomiting. Patient states he is unable to manage his ADLs at home and would like to explore transitioning back to SNF to enable wound care management. 10/26/2024 diarrhea persists, but frequency reducing abdomen non tender at this time continue dificid 200 twice a day leukocytosis resolved K 3.3 today. order 40 x1 creatinine slightly elevated EMANUEL probably due to pre-renal cause continue to monitor BMP daily check bladder scan, straight cath x1 PDMP PDMP Reviewed: Not Reviewed Attestations Medical Necessity Statement*: c.diff diarrhea Diagnoses C. difficile colitis A04.72 Foot ulcer L97.509 Type 2 diabetes mellitus E11.9
[2024-10-26] MEDS: enoxaparin 40 mg/0.4 mL Syringe SUBCUT (12:24)
[2024-10-26] MEDS: oxyCODONE 5 mg IR Tab/Cap 20 MG PO ×2 (12:29→20:50)
[2024-10-26] MEDS: cefTRIAXone 1,000 mg SDV 1000 MG IVP (14:18)
--- NOTE | 2024-10-26 14:46 | P.PN_ITS ---
Subjective 2 Subjective: Patient seen bedside this afternoon, he was resting comfortably in his recliner, dressings are intact to the right foot and he is wearing a cam boot for offloading. Endorses diarrhea which she states has some improvement. Patient denies any subjective nausea, vomiting, fever, chills, shortness of breath or chest pain. Vitals/I&O/Wt Last Vital Signs Temp 97.5 F L 10/26/24 11:39 Pulse 68 10/26/24 14:00 Resp 18 10/26/24 12:29 BP 104/66 10/26/24 11:39 Pulse Ox 95 10/26/24 11:39 O2 Del Method Room Air 10/26/24 11:39 10/25/24 10/26/24 10/26/24 22:59 06:59 14:59 Intake Total 240 / 1330 250 / 1580 960 / 960 Balance 240 / 1330 250 / 1580 960 / 960 Physical Exam 2 Narrative: VASCULAR: Dorsalis pedis palpable bilaterally. Posterior tibial arteries palpable. Capillary refill time less than 3 seconds to the distal hallux bilaterally. Calf is supple and nontender proximally and distally. Mild edema noted to the lower extremities +1 pitting tested at lower one third anterior tibial crest. NEUROLOGICAL: Protective sensation intact 0/10 sites, tested with [place] Joel monofilament to bilateral feet. DERMATOLOGICAL: Right heel wound measurements 2.4 cm x 3.2 cm x 0.2 cm, does not probe to bone, hyperkeratotic rim, large granular base with some biofilm and slough. MUSCULOSKELETAL: Tenderness to palpation right plantar heel. No crepitus with palpation of soft tissue right lower extremity. Const: COMMON NORMALS: no acute distress, patient oriented x3 and alert HENMT: COMMON NORMALS: normocephalic HEAD & SCALP: normocephalic Eye: COMMON NORMALS: Equal, round and reactive pupils present PUPIL: Yes Equal, round and reactive pupils present Lymph: LYMPHATIC: lymphedema Resp: COMMON NORMALS: normal respiratory effort, No retractions and No use of accessory muscles Cardio: COMMON NORMALS: regular rate RATE: regular rate Extremity: COMMON NORMALS: no calf tenderness; negative for no pedal edema GENERAL: Yes deformity Neuro: COMMON NORMALS: patient oriented x3 SENSORIUM/ORIENTATION: Yes alert SENSORY EXAM: Yes extremities MONOFILAMENT EXAM PERFORMED: Yes MOTOR EXAM: 5/5 motor strength present throughout Psych: COMMON NORMALS: cooperative Skin: COMMON NORMALS: no wounds WOUNDS: Yes wounds noted NAILS: d iscolored, dystrophic and yellow and thickened Data 10/26/24 02:45 10/26/24 02:45 Micro: Microbiology 10/24/24 06:44 E. coli Shiga-like Toxin (PCR) - Final Stool Campylobacter (PCR) - Final 10/24/24 07:24 Urine Culture - Final Urine,Clean Catch A&P Assessment and plan (1) Diabetic peripheral neuropathy associated with type 2 diabetes mellitus: (2) Chronic ulcer of right heel with fat layer exposed: Plan 74-year-old diabetic male presents with diabetic ulcer to right posterior heel proximately 5 months in duration. Patient on IV antibiotics per hospitalist. No plans for surgical intervention at the right heel wound during this hospitalization. Primary dressing Hydrofera Blue, secured with Juanito and paper tape, offloaded with cam boot Partial weightbearing right foot with cam boot. Patient would benefit [facility] to continue wound care regimen after this hospitalization Podiatry will follow PDMP PDMP Reviewed: Not Reviewed Attestations 2 Medical Necessity Statement*: Continue medical management for diarrhea, continued wound care right heel. Coding Level of Care Code Acute Code for [facility] Diagnoses Diabetic peripheral neuropathy associated with type 2 diabetes mellitus E11.42 Chronic ulcer of right heel with fat layer exposed L97.412
[2024-10-26 16:31] LABS: Glucose Point of Care 125 mg/dL (70-110)
[2024-10-26 20:46] LABS: Vancomycin Trough 18.7 ug/mL (10-15)
[2024-10-26 20:50] LABS: Glucose Point of Care 239 mg/dL (70-110)
[2024-10-26] MEDS: ATORVASTATIN 10 MG TABLET PO (21:57)
[2024-10-27] VITALS (10 sets, daily range): BP systolic 110–151; BP diastolic 64–79; PULSE 64–92; RESP 16–18; TEMP 36.3–36.7; O2SAT 94–98; BMI 41.2
[2024-10-27 06:12] LABS: Vancomycin Random 15.9 ug/mL (20.0-40.0)
[2024-10-27 07:04] LABS: Glucose Point of Care 186 mg/dL (70-110)
[2024-10-27] MEDS: pantoprazole DR 40 mg Tablet PO (09:27)
[2024-10-27] MEDS: fidaxomicin 200 mg Tablet PO ×2 (09:27→18:07)
[2024-10-27] MEDS: tamsulosin 0.4 mg Capsule PO ×2 (09:27→18:07)
[2024-10-27] MEDS: gabapentin 300 mg Capsule 600 MG PO ×3 (09:27→20:57)
[2024-10-27] MEDS: aspirin 81 mg EC Tablet PO (09:27)
[2024-10-27] MEDS: insulin lispro 100 unit/1 mL SUBCUT ×4 (09:28→21:14)
[2024-10-27] MEDS: VANCOMYCIN ADD-Vantage 1,000 MG in 0.9% NaCl ADD-Vantage 250 ML 250 MG IV ×2 (09:28→20:58)
[2024-10-27] MEDS: carvedilol 6.25 mg Tablet PO ×2 (09:29→18:07)
[2024-10-27 09:32] LABS: Blood Urea Nitrogen 20 mg/dL (8-23); Calcium 7.4 mg/dL (8.5-10.5); Carbon Dioxide 20 mmol/L (22-29); Chloride 106 mmol/L (98-107); Creatinine Clr Calc Pharmacy 52.4657; Glucose 159 mg/dL (65-115); Osmolality Calculated 294 mOsm/kg (285-295); Sodium 139 mmol/L (136-145)
[2024-10-27] MEDS: oxyCODONE 5 mg IR Tab/Cap 20 MG PO ×3 (09:37→20:57)
[2024-10-27 11:38] LABS: Glucose Point of Care 231 mg/dL (70-110)
--- NOTE | 2024-10-27 12:15 | P.PN_ITS ---
Subjective 2 Subjective: Patient seen bedside this afternoon, he is in good spirits, in his recliner, wearing his boot for offloading of the right heel wound. Dressings intact, denies any other complaints. Vitals/I&O/Wt Last Vital Signs Temp 97.6 F 10/27/24 11:48 Pulse 73 10/27/24 11:48 Resp 18 10/27/24 11:48 BP 122/67 10/27/24 11:48 Pulse Ox 95 10/27/24 11:48 O2 Del Method Room Air 10/27/24 11:48 10/26/24 10/27/24 10/27/24 22:59 06:59 14:59 Intake Total 480 / 1440 590 / 2030 730 / 730 Output Total 350 / 350 Balance 480 / 1440 590 / 2030 380 / 380 Weight last 48 hrs Weight 271 lb Physical Exam 2 Narrative: VASCULAR: Dorsalis pedis palpable bilaterally. Posterior tibial arteries palpable. Capillary refill time less than 3 seconds to the distal hallux bilaterally. Calf is supple and nontender proximally and distally. Mild edema noted to the lower extremities +1 pitting tested at lower one third anterior tibial crest. NEUROLOGICAL: Protective sensation intact 0/10 sites, tested with [place] Joel monofilament to bilateral feet. DERMATOLOGICAL: Right heel wound measurements 2.4 cm x 3.2 cm x 0.2 cm, does not probe to bone, granular base noted no erythema warmth or purulent drainage. MUSCULOSKELETAL: Tenderness to palpation right plantar heel. No crepitus with palpation of soft tissue right lower extremity. Const: COMMON NORMALS: no acute distress, patient oriented x3 and alert HENMT: COMMON NORMALS: normocephalic HEAD & SCALP: normocephalic Eye: COMMON NORMALS: Equal, round and reactive pupils present PUPIL: Yes Equal, round and reactive pupils present Lymph: LYMPHATIC: lymphedema Resp: COMMON NORMALS: normal respiratory effort, No retractions and No use of accessory muscles Cardio: COMMON NORMALS: regular rate RATE: regular rate Extremity: COMMON NORMALS: no calf tenderness; negative for no pedal edema GENERAL: Yes deformity Neuro: COMMON NORMALS: patient oriented x3 SENSORIUM/ORIENTATION: Yes alert SENSORY EXAM: Yes extremities MONOFILAMENT EXAM PERFORMED: Yes MOTOR EXAM: 5/5 motor strength present throughout Psych: COMMON NORMALS: cooperative Skin: COMMON NORMALS: no wounds WOUNDS: Yes wounds noted NAILS: d iscolored, dystrophic and yellow and thickened Data 10/26/24 02:45 10/27/24 05:16 Micro: Microbiology 10/24/24 06:44 E. coli Shiga-like Toxin (PCR) - Final Stool Campylobacter (PCR) - Final A&P Assessment and plan (1) Diabetic peripheral neuropathy associated with type 2 diabetes mellitus: (2) Chronic ulcer of right heel with fat layer exposed: Plan 74-year-old diabetic male presents with diabetic ulcer to right posterior heel proximately 5 months in duration. Patient on IV antibiotics per hospitalist. No plans for surgical intervention at the right heel wound during this hospitalization. Primary dressing Hydrofera Blue, secured with silicone bordered foam offloaded with cam boot Partial weightbearing right foot with cam boot. Patient would benefit from placement to shelter to continue wound care regimen after this hospitalization Podiatry will follow PDMP PDMP Reviewed: Not Reviewed Attestations 2 Medical Necessity Statement*: C. difficile, requiring additional medical management Coding Level of Care Code Acute Code for [facility] Diagnoses Diabetic peripheral neuropathy associated with type 2 diabetes mellitus E11.42 Chronic ulcer of right heel with fat layer exposed L97.412
[2024-10-27] MEDS: enoxaparin 40 mg/0.4 mL Syringe SUBCUT (12:36)
--- NOTE | 2024-10-27 13:26 | P.PN_ITS ---
Subjective 2 Subjective: seen today has not had diarrhea since yesterday Vitals/I&O/Wt Last Vital Signs Temp 97.6 F 10/27/24 11:48 Pulse 73 10/27/24 11:48 Resp 18 10/27/24 11:48 BP 122/67 10/27/24 11:48 Pulse Ox 95 10/27/24 11:48 O2 Del Method Room Air 10/27/24 11:48 10/26/24 10/27/24 10/27/24 22:59 06:59 14:59 Intake Total 480 / 1440 590 / 2030 1330 / 1330 Output Total 350 / 350 Balance 480 / 1440 / 2029 980 / 980 Weight last 48 hrs Weight 122.924 kg Physical Exam 2 Narrative: General: No acute distress, AO x3 HEENT: PERRLA, pupils bilaterally equal and reactive, pallors not present Chest: Normal vesicular breath sounds, no added sounds, equal good air entry bilaterally CVS: S1-S2 regular, no murmurs, no tachycardia, no gallops, no rubs Abdomen: Soft, nontender, no organomegaly, bowel sounds present Neuro: No focal deficits, no facial deformity, AO x3, power 5/5 in all limbs Data 10/26/24 02:45 10/27/24 05:16 Micro: Microbiology 10/24/24 06:44 E. coli Shiga-like Toxin (PCR) - Final Stool Campylobacter (PCR) - Final A&P Assessment and plan (1) C. difficile colitis: Pancolitis related to C diff Start Dificid 200mg po BID x 10 days monitor BM for improvement Clear liquid diet for bowel rest (2) Foot ulcer: elevated WBC count may be related to C diff colitis vs infected wound It does not appear he has had adequate care for his wound in the last few days since d/c from [facility] X ray without evidence ofosteomyelitis Broken hardware at ankle, as noted on previous CT additionally prior wound cx from May 2025 from [facility] with MRSA start vancomycin empirically Podiatry consult to assess for debridement (3) Type 2 diabetes mellitus: insulin sliding scale Plan dvt ppx: lovenox full code October 25, 2024 Diarrhea still persisting but frequency appears to be reducing. Continue Dificid 200 mg twice daily for C. difficile pancolitis. Leukocytosis is trending down at 13,000 today. Evaluated by podiatry at bedside today, underwent debridement of his heel ulcer. Continue ceftriaxone and vancomycin empirically for now with plan to transition to oral antibiotics for a short course at the time of discharge. No gross signs of underlying osteomyelitis. Soft blood pressure this morning. Hold lisinopril, amlodipine. Reduce Coreg dose to 6.25 mg twice daily. Hold home dose of Lasix for now. He is clinically appearing to be euvolemic. He is hungry and wishes to advance his diet. Advance to GI soft today. No nausea or vomiting. Patient states he is unable to manage his ADLs at home and would like to explore transitioning back to SNF to enable wound care management. 10/26/2024 diarrhea persists, but frequency reducing abdomen non tender at this time continue dificid 200 twice a day leukocytosis resolved K 3.3 today. order 40 x1 creatinine slightly elevated EMANUEL probably due to pre-renal cause continue to monitor BMP daily check bladder scan, straight cath x1 10/27/2024 diarrhea has improved iv been informed pt may not be able to get dificid as outpatient we will switch to oral vanc order oral potassium 40 oral x1 Cr at baseline check BMP daily awaiting senior care placement appreciate podiatry recommendations PDMP PDMP Reviewed: Not Reviewed Attestations 2 Medical Necessity Statement*: awaiting placement to [place] Diagnoses C. difficile colitis A04.72 Foot ulcer L97.509 Type 2 diabetes mellitus E11.9
[2024-10-27] MEDS: potassium chloride ER 20 mEq Tablet 40 MEQ PO (14:30)
[2024-10-27] MEDS: cefTRIAXone 1,000 mg SDV 1000 MG IVP (14:30)
[2024-10-27 16:54] LABS: Glucose Point of Care 224 mg/dL (70-110)
[2024-10-27] MEDS: baclofen 10 mg Tablet 20 MG PO (20:57)
[2024-10-27] MEDS: ATORVASTATIN 10 MG TABLET PO (20:58)
[2024-10-27 21:11] LABS: Glucose Point of Care 198 mg/dL (70-110)
[2024-10-28] VITALS (9 sets, daily range): BP systolic 107–159; BP diastolic 66–89; PULSE 63–81; RESP 16–18; TEMP 36.3–36.8; O2SAT 94–97; BMI 41.2
[2024-10-28 05:47] LABS: Basophils # 0.1 10^3/uL (0.0-0.1); Basophils % 0.8 %; Eosinophils # 0.6 10^3/uL (0.0-0.8); Eosinophils % 5.7 %; Hematocrit 35.5 % (37-53); Lymphocytes # 2.8 10^3/uL (0.8-4.8); Lymphocytes % 28.4 %; Mean Corpuscular Hemoglobin 27.2 pg (27-33); Mean Corpuscular Volume 87.9 fl (82-101); Mean Platelet Volume 10.5 fL (7.4-10.4); Monocytes # 0.8 10^3/uL (0.2-0.9); Monocytes % 8.3 %; Neutrophils # 5.19 10^3/uL (1.8-7.7); Neutrophils % 53.7 %; Nucleated Red Blood Cells % 0 %; Platelet Count 281 10^3/cmm (157-399); Red Blood Count 4.04 10^6/uL (3.85-5.65); Red Cell Distribution Width 13.5 % (12.1-15.1); White Blood Count 9.67 10^3/uL (3.29-11.43)
[2024-10-28 06:04] LABS: Blood Urea Nitrogen 18 mg/dL (8-23); Calcium 7.5 mg/dL (8.5-10.5); Carbon Dioxide 19 mmol/L (22-29); Chloride 111 mmol/L (98-107); Creatinine Clr Calc Pharmacy 64.5731; Glucose 197 mg/dL (65-115); Magnesium 2.1 mg/dL (1.7-2.3); Osmolality Calculated 293 mOsm/kg (285-295); Sodium 138 mmol/L (136-145)
[2024-10-28 06:30] LABS: Glucose Point of Care 207 mg/dL (70-110)
[2024-10-28] MEDS: VANCOMYCIN ADD-Vantage 1,000 MG in 0.9% NaCl ADD-Vantage 250 ML 250 MG IV ×2 (09:06→20:59)
[2024-10-28] MEDS: insulin lispro 100 unit/1 mL SUBCUT ×4 (09:07→22:00)
[2024-10-28] MEDS: aspirin 81 mg EC Tablet PO (09:08)
[2024-10-28] MEDS: gabapentin 300 mg Capsule 600 MG PO ×3 (09:08→20:58)
[2024-10-28] MEDS: bisacodyl 5 mg Tablet PO (09:08)
[2024-10-28] MEDS: fidaxomicin 200 mg Tablet PO ×2 (09:08→17:05)
[2024-10-28] MEDS: carvedilol 6.25 mg Tablet PO ×2 (09:08→17:05)
[2024-10-28] MEDS: pantoprazole DR 40 mg Tablet PO (09:08)
[2024-10-28] MEDS: tamsulosin 0.4 mg Capsule PO ×2 (09:08→17:05)
[2024-10-28 10:57] LABS: Glucose Point of Care 293 mg/dL (70-110)
--- NOTE | 2024-10-28 12:48 | PM.PN ---
Subjective Subjective: Seen this morning. Diarrhea has resolved. He had formed stool 1 episode yesterday evening. Patient asking when he will able to leave the hospital. Vitals/I&O/Wt Last Vital Signs Temp 97.4 F L 10/28/24 11:22 Pulse 76 10/28/24 11:22 Resp 18 10/28/24 11:22 BP 138/75 10/28/24 11:22 Pulse Ox 97 10/28/24 11:22 O2 Del Method Room Air 10/28/24 11:22 10/27/24 10/28/24 10/28/24 22:59 06:59 14:59 Intake Total 850 / 2180 1100 / 3280 480 / 480 Balance 850 / 1830 1100 / 2930 480 / 480 Weight last 48 hrs Weight 122.924 kg Weight 122.924 kg Physical Exam Narrative: General: No acute distress, AO x3 HEENT: PERRLA, pupils bilaterally equal and reactive, pallors not present Chest: Normal vesicular breath sounds, no added sounds, equal good air entry bilaterally CVS: S1-S2 regular, no murmurs, no tachycardia, no gallops, no rubs Abdomen: Soft, nontender, no organomegaly, bowel sounds present Neuro: No focal deficits, no facial deformity, AO x3, power 5/5 in all limbs Data 10/28/24 04:57 10/28/24 04:57 Micro: Microbiology 10/24/24 06:44 E. coli Shiga-like Toxin (PCR) - Final Stool Salmonella/Shigella Culture - Final Campylobacter (PCR) - Final A&P Assessment and plan (1) C. difficile colitis: Pancolitis related to C diff Start Dificid 200mg po BID x 10 days monitor BM for improvement Clear liquid diet for bowel rest (2) Foot ulcer: elevated WBC count may be related to C diff colitis vs infected wound It does not appear he has had adequate care for his wound in the last few days since d/c from [facility] X ray without evidence ofosteomyelitis Broken hardware at ankle, as noted on previous CT additionally prior wound cx from May 2025 from [facility] with MRSA start vancomycin empirically Podiatry consult to assess for debridement (3) Type 2 diabetes mellitus: insulin sliding scale Plan dvt ppx: lovenox full code October 25, 2024 Diarrhea still persisting but frequency appears to be reducing. Continue Dificid 200 mg twice daily for C. difficile pancolitis. Leukocytosis is trending down at 13,000 today. Evaluated by podiatry at bedside today, underwent debridement of his heel ulcer. Continue ceftriaxone and vancomycin empirically for now with plan to transition to oral antibiotics for a short course at the time of discharge. No gross signs of underlying osteomyelitis. Soft blood pressure this morning. Hold lisinopril, amlodipine. Reduce Coreg dose to 6.25 mg twice daily. Hold home dose of Lasix for now. He is clinically appearing to be euvolemic. He is hungry and wishes to advance his diet. Advance to GI soft today. No nausea or vomiting. Patient states he is unable to manage his ADLs at home and would like to explore transitioning back to SNF to enable wound care management. 10/26/2024 diarrhea persists, but frequency reducing abdomen non tender at this time continue dificid 200 twice a day leukocytosis resolved K 3.3 today. order 40 x1 creatinine slightly elevated EMANUEL probably due to pre-renal cause continue to monitor BMP daily check bladder scan, straight cath x1 10/27/2024 diarrhea has improved iv been informed pt may not be able to get dificid as outpatient we will switch to oral vanc order oral potassium 40 oral x1 Cr at baseline check BMP daily awaiting [facility] placement appreciate podiatry recommendations 10/28/2024 Diarrhea has resolved. Continue Dificid while inpatient. Will switch oral vancomycin at time of discharge. Nursing facility will not accept Dificid. Potassium improved to 4.0. Creatinine 1.3 today. Patient is medically ready for discharge. Awaiting placement to nursing facility. Continue IV Vanco and ceftriaxone while inpatient. Will switch to oral Levaquin at discharge. Patient to follow-up with podiatry as outpatient. PDMP PDMP Reviewed: Not Reviewed Attestations Medical Necessity Statement*: awaiting placement to [place] Diagnoses C. difficile colitis A04.72 Foot ulcer L97.509 Type 2 diabetes mellitus E11.9
--- NOTE | 2024-10-28 12:59 | PC.SOCIAL ---
IMM Updated Updated pt on IMM. No questions voiced. Provided pt a copy. Initialed, dated, & timed copy in chart.
[2024-10-28] MEDS: enoxaparin 40 mg/0.4 mL Syringe SUBCUT (13:00)
[2024-10-28] MEDS: oxyCODONE 5 mg IR Tab/Cap 20 MG PO ×2 (14:14→20:59)
[2024-10-28] MEDS: cefTRIAXone 1,000 mg SDV 1000 MG IVP (14:15)
--- NOTE | 2024-10-28 15:11 | PM.PN ---
Subjective Subjective: Patient seen bedside this afternoon, in his recliner, wearing his boot for offloading of the right heel wound. Dressings intact, denies any other complaints. Vitals/I&O/Wt Last Vital Signs Temp 97.4 F L 10/28/24 11:22 Pulse 76 10/28/24 11:22 Resp 18 10/28/24 14:14 BP 138/75 10/28/24 11:22 Pulse Ox 97 10/28/24 11:22 O2 Del Method Room Air 10/28/24 11:22 10/28/24 10/28/24 10/28/24 06:59 14:59 22:59 Intake Total 1100 / 3280 960 / 960 Balance 1100 / 2930 960 / 960 Weight last 48 hrs Weight 271 lb Weight 271 lb Physical Exam Narrative: VASCULAR: Dorsalis pedis palpable bilaterally. Posterior tibial arteries palpable. Capillary refill time less than 3 seconds to the distal hallux bilaterally. Calf is supple and nontender proximally and distally. Mild edema noted to the lower extremities +1 pitting tested at lower one third anterior tibial crest. NEUROLOGICAL: Protective sensation intact 0/10 sites, tested with [place] monofilament to bilateral feet. DERMATOLOGICAL: Right heel wound measurements 2.4 cm x 3.2 cm x 0.2 cm, does not probe to bone, granular base noted no erythema warmth or purulent drainage. MUSCULOSKELETAL: Tenderness to palpation right plantar heel. No crepitus with palpation of soft tissue right lower extremity. Const: COMMON NORMALS: no acute distress, patient oriented x3 and alert HENMT: COMMON NORMALS: normocephalic HEAD & SCALP: normocephalic Eye: COMMON NORMALS: Equal, round and reactive pupils present PUPIL: Yes Equal, round and reactive pupils present Lymph: LYMPHATIC: lymphedema Resp: COMMON NORMALS: normal respiratory effort, No retractions and No use of accessory muscles Cardio: COMMON NORMALS: regular rate RATE: regular rate Extremity: COMMON NORMALS: no calf tenderness; negative for no pedal edema GENERAL: Yes deformity Neuro: COMMON NORMALS: patient oriented x3 SENSORIUM/ORIENTATION: Yes alert SENSORY EXAM: Yes extremities MONOFILAMENT EXAM PERFORMED: Yes MOTOR EXAM: 5/5 motor strength present throughout Psych: COMMON NORMALS: cooperative Skin: COMMON NORMALS: no wounds WOUNDS: Yes wounds noted NAILS: discolored, dystrophic and yellow and thickened Data 10/28/24 04:57 10/28/24 04:57 Micro: Microbiology 10/24/24 06:44 E. coli Shiga-like Toxin (PCR) - Final Stool Salmonella/Shigella Culture - Final Campylobacter (PCR) - Final A&P Assessment and plan (1) Diabetic peripheral neuropathy associated with type 2 diabetes mellitus: (2) Chronic ulcer of right heel with fat layer exposed: Plan 74-year-old diabetic male presents with diabetic ulcer to right posterior heel proximately 5 months in duration. Patient on IV antibiotics per hospitalist. No plans for surgical intervention at the right heel wound during this hospitalization. Primary dressing Hydrofera Blue, secured with silicone bordered foam offloaded with cam boot Partial weightbearing right foot with cam boot. Patient would benefit from placement to [facility] to continue wound care regimen after this hospitalization Podiatry will follow PDMP PDMP Reviewed: Not Reviewed Attestations Medical Necessity Statement*: C. difficile request continue medical management Coding Level of Care Code Acute Code for [facility] Diagnoses Diabetic peripheral neuropathy associated with type 2 diabetes mellitus E11.42 Chronic ulcer of right heel with fat layer exposed L97.412
[2024-10-28 16:50] LABS: Glucose Point of Care 205 mg/dL (70-110)
[2024-10-28] MEDS: baclofen 10 mg Tablet 20 MG PO (19:36)
[2024-10-28] MEDS: ATORVASTATIN 10 MG TABLET PO (20:58)
[2024-10-28 21:19] LABS: Glucose Point of Care 249 mg/dL (70-110)
[2024-10-29] VITALS (10 sets, daily range): BP systolic 132–174; BP diastolic 71–92; PULSE 64–76; RESP 15–18; TEMP 36.4–36.9; O2SAT 90–97; BMI 41.2
[2024-10-29 05:43] LABS: Basophils # 0.1 10^3/uL (0.0-0.1); Basophils % 0.7 %; Eosinophils # 0.6 10^3/uL (0.0-0.8); Eosinophils % 6.5 %; Hematocrit 36.8 % (37-53); Lymphocytes # 2.5 10^3/uL (0.8-4.8); Lymphocytes % 25.9 %; Mean Corpuscular HGB Conc 31.3 g/dL (30-55); Mean Corpuscular Hemoglobin 26.8 pg (27-33); Mean Corpuscular Volume 85.8 fl (82-101); Monocytes # 0.8 10^3/uL (0.2-0.9); Monocytes % 7.9 %; Neutrophils # 5.54 10^3/uL (1.8-7.7); Neutrophils % 56.8 %; Nucleated Red Blood Cells % 0 %; Platelet Count 295 10^3/cmm (157-399); Red Blood Count 4.29 10^6/uL (3.85-5.65); Red Cell Distribution Width 13.4 % (12.1-15.1); White Blood Count 9.75 10^3/uL (3.29-11.43)
[2024-10-29 06:05] LABS: Anion Gap 11.7 (5-19); Blood Urea Nitrogen 10 mg/dL (8-23); Calcium 7.3 mg/dL (8.5-10.5); Carbon Dioxide 23 mmol/L (22-29); Chloride 109 mmol/L (98-107); Creatinine Clr Calc Pharmacy 93.2723; Glucose 191 mg/dL (65-115); Magnesium 1.9 mg/dL (1.7-2.3); Osmolality Calculated 294 mOsm/kg (285-295); Potassium 3.7 mmol/L (3.5-5.1); Sodium 140 mmol/L (136-145)
[2024-10-29 06:29] LABS: Glucose Point of Care 225 mg/dL (70-110)
[2024-10-29 08:27] LABS: Vancomycin Trough 19.4 ug/mL (10-15)
[2024-10-29] MEDS: pantoprazole DR 40 mg Tablet PO (09:32)
[2024-10-29] MEDS: aspirin 81 mg EC Tablet PO (09:32)
[2024-10-29] MEDS: gabapentin 300 mg Capsule 600 MG PO ×3 (09:32→20:35)
[2024-10-29] MEDS: carvedilol 6.25 mg Tablet PO ×2 (09:32→17:46)
[2024-10-29] MEDS: fidaxomicin 200 mg Tablet PO ×2 (09:33→17:47)
[2024-10-29] MEDS: tamsulosin 0.4 mg Capsule PO ×2 (09:33→17:47)
[2024-10-29] MEDS: insulin lispro 100 unit/1 mL SUBCUT ×4 (09:33→20:44)
[2024-10-29 11:02] LABS: Glucose Point of Care 272 mg/dL (70-110)
[2024-10-29] MEDS: oxyCODONE 5 mg IR Tab/Cap 20 MG PO ×2 (11:08→17:47)
[2024-10-29] MEDS: enoxaparin 40 mg/0.4 mL Syringe SUBCUT (11:23)
[2024-10-29 12:00] LABS: Estmated Average Glucose 137; Hemoglobin A1C 6.4 % (4.0-6.0)
--- NOTE | 2024-10-29 12:31 | P.PN_ITS ---
Subjective 2 Subjective: Patient seen bedside this afternoon he is utilizing his recliner and offloaded with a cam boot. States he is having difficulties with insurance approval for [facility] placement. Vitals/I&O/Wt Last Vital Signs Temp 98.0 F 10/29/24 11:29 Pulse 76 10/29/24 11:29 Resp 16 10/29/24 11:29 BP 166/92 10/29/24 11:29 Pulse Ox 97 10/29/24 11:29 O2 Del Method Room Air 10/29/24 11:29 10/28/24 10/29/24 10/29/24 22:59 06:59 14:59 Intake Total 1620 / 2580 240 / 240 Balance 1620 / 2580 240 / 240 Weight last 48 hrs Weight 271 lb Weight 271 lb Physical Exam 2 Narrative: VASCULAR: Dorsalis pedis palpable bilaterally. Posterior tibial arteries palpable. Capillary refill time less than 3 seconds to the distal hallux bilaterally. Calf is supple and nontender proximally and distally. Mild edema noted to the lower extremities +1 pitting tested at lower one third anterior tibial crest. NEUROLOGICAL: Protective sensation intact 0/10 sites, tested with [place] Joel monofilament to bilateral feet. DERMATOLOGICAL: Right heel wound measurements 2.4 cm x 3.2 cm x 0.2 cm, does not probe to bone, granular base noted no erythema warmth or purulent drainage. MUSCULOSKELETAL: Tenderness to palpation right plantar heel. No crepitus with palpation of soft tissue right lower extremity. Const: COMMON NORMALS: no acute distress, patient oriented x3 and alert HENMT: COMMON NORMALS: normocephalic HEAD & SCALP: normocephalic Eye: COMMON NORMALS: Equal, round and reactive pupils present PUPIL: Yes Equal, round and reactive pupils present Lymph: LYMPHATIC: lymphedema Resp: COMMON NORMALS: normal respiratory effort, No retractions and No use of accessory muscles Cardio: COMMON NORMALS: regular rate RATE: regular rate Extremity: COMMON NORMALS: no calf tenderness; negative for no pedal edema GENERAL: Yes deformity Neuro: COMMON NORMALS: patient oriented x3 SENSORIUM/ORIENTATION: Yes alert SENSORY EXAM: Yes extremities MONOFILAMENT EXAM PERFORMED: Yes MOTOR EXAM: 5/5 motor strength present throughout Psych: COMMON NORMALS: cooperative Skin: COMMON NORMALS: no wounds WOUNDS: Yes wounds noted NAILS: d iscolored, dystrophic and yellow and thickened Data 10/29/24 05:18 10/29/24 05:18 Micro: Microbiology 10/24/24 06:44 E. coli Shiga-like Toxin (PCR) - Final Stool Salmonella/Shigella Culture - Final Campylobacter (PCR) - Final A&P Assessment and plan (1) Diabetic peripheral neuropathy associated with type 2 diabetes mellitus: (2) Chronic ulcer of right heel with fat layer exposed: Plan 74-year-old diabetic male presents with diabetic ulcer to right posterior heel proximately 5 months in duration. Patient on IV antibiotics per hospitalist. No plans for surgical intervention at the right heel wound during this hospitalization. Primary dressing Hydrofera Blue, secured with silicone bordered foam offloaded with cam boot Partial weightbearing right foot with cam boot. Patient would benefit from placement to [facility] to continue wound care regimen after this hospitalization Follow-up in wound care clinic after this hospitalization PDMP PDMP Reviewed: Not Reviewed Attestations 2 Medical Necessity Statement*: C. difficile Coding Level of Care Code Acute Code for [facility] Diagnoses Diabetic peripheral neuropathy associated with type 2 diabetes mellitus E11.42 Chronic ulcer of right heel with fat layer exposed L97.412
--- NOTE | 2024-10-29 13:24 | P.DS_ITS ---
Discharge Providers Date of Admission: 10/24/24 09:34 Date of Discharge: October 29, 2024 Attending Provider at Admission: Jennifer Dumont MD Attending Provider at Discharge: Susana Valera MD Primary Care Provider: Sammie Rocha DO Diagnoses at Discharge Discharge Diagnosis (1) Diabetic peripheral neuropathy associated with type 2 diabetes mellitus: Status: Acute (2) Chronic ulcer of right heel with fat layer exposed: Status: Acute Reason for Visit Reason for Visit: DIARRHEA Hospital Course Hospital Course Patient presents to the hospital with C. difficile colitis. He was On Dificid 200 twice daily. Diet was slowly advanced. Eventually time of discharge he still had intermittent diarrhea however it had improved significantly. Secondly he had a infected wound of foot. Podiatry evaluated the patient and were performing dressing changes. Heel ulcer was debrided. Patient was eventually sent to nursing facility for wound care. Nursing facility was not able to accept Dificid therefore he was switched to oral vancomycin for 5 more days to equal 10 days total. Hemoglobin A1c 6.6. Insulin was stopped. Secondary to intermittent active diarrhea secondary to a C. difficile infection his Lasix and potassium were held at discharge. Blood pressure medications were also held they are to be gradually restarted. Physical Exam 2 Narrative: General: No acute distress, AO x3 HEENT: PERRLA, pupils bilaterally equal and reactive, pallors not present Chest: Normal vesicular breath sounds, no added sounds, equal good air entry bilaterally CVS: S1-S2 regular, no murmurs, no tachycardia, no gallops, no rubs Abdomen: Soft, nontender, no organomegaly, bowel sounds present Neuro: No focal deficits, no facial deformity, AO x3, power 5/5 in all limbs Discharge Data Studies Completed and Pending Completed Studies During Hospitalization Category Date Time Status CT abdomen pelvis w con* [id number] Urgent Cat Scan 10/24/24 06:59 Completed XR foot RT min 3V* [id number] Stat Exams 10/24/24 06:59 Completed Stool Culture - Enteric [Salmonella / Shigella / Campy] Lab 10/24/24 06:44 Completed Routine Radiology Impressions Abdomen/Pelvis CT 10/24/24 06:59 IMPRESSION: 1. Pancolitis. 2. Mild concentric urinary bladder wall thickening possibly from chronic bladder outlet obstruction versus cystitis. Please correlate clinically. Foot X-Ray 10/24/24 06:59 IMPRESSION: No radiographic evidence of osteomyelitis. Laboratory Results WBC 9.75 10^3/uL (3.29-11.43) 10/29/24 05:18 RBC 4.29 10^6/uL (3.85-5.65) 10/29/24 05:18 Hgb 11.50 g/dL (11.27-16.99) 10/29/24 05:18 Hct 36.8 % (37-53) L 10/29/24 05:18 MCV 85.8 fl (82-101) 10/29/24 05:18 MCH 26.8 pg (27-33) L 10/29/24 05:18 MCHC 31.3 g/dL (30-55) 10/29/24 05:18 RDW 13.4 % (12.1-15.1) 10/29/24 05:18 Plt Count 295 10^3/cmm (157-399) 10/29/24 05:18 MPV 10.0 fL (7.4-10.4) 10/29/24 05:18 Neut % (Auto) 56.8 % 10/29/24 05:18 Lymph % (Auto) 25.9 % 10/29/24 05:18 [place] % (Auto) 7.9 % 10/29/24 05:18 Eos % (Auto) 6.5 % 10/29/24 05:18 Baso % (Auto) 0.7 % 10/29/24 05:18 Neut # (Auto) 5.54 10^3/uL (1.8-7.7) 10/29/24 05:18 Lymph # (Auto) 2.5 10^3/uL (0.8-4.8) 10/29/24 05:18 [place] # (Auto) 0.8 10^3/uL (0.2-0.9) 10/29/24 05:18 Eos # (Auto) 0.6 10^3/uL (0.0-0.8) 10/29/24 05:18 Baso # (Auto) 0.1 10^3/uL (0.0-0.1) 10/29/24 05:18 Nucleated RBC % (auto) 0 % 10/29/24 05:18 Nucleated RBCs # 0.0 /100WBC 10/29/24 05:18 ESR 1 mm/hr (0-10) 10/25/24 03:37 Sodium 140 mmol/L (136-145) 10/29/24 05:18 Potassium 3.7 mmol/L (3.5-5.1) 10/29/24 05:18 Chloride 109 mmol/L (98-107) H 10/29/24 05:18 Carbon Dioxide 23 mmol/L (22-29) 10/29/24 05:18 Anion Gap 11.7 (5-19) 10/29/24 05:18 BUN 10 mg/dL (8-23) 10/29/24 05:18 Creatinine 0.9 mg/dL (0.7-1.2) 10/29/24 05:18 GFR Calculation Not Reportable 10/29/24 05:18 Glucose 191 mg/dL (65-115) H 10/29/24 05:18 POC Glucose 272 mg/dL (70-110) H 10/29/24 10:54 Estimat Average Glucose 137 10/29/24 05:18 Hemoglobin A1c 6.4 % (4.0-6.0) H 10/29/24 05:18 Calculated Osmolality 294 mOsm/kg (285-295) 10/29/24 05:18 Lactic Acid 1.1 mmol/L (0.5-2.2) 10/24/24 06:06 Calcium 7.3 mg/dL (8.5-10.5) L 10/29/24 05:18 Magnesium 1.9 mg/dL (1.7-2.3) 10/29/24 05:18 Total Bilirubin 0.2 mg/dL (0.15-1.2) 10/26/24 02:45 AST 19 U/L (0-40) 10/26/24 02:45 ALT 11 U/L (0-41) 10/26/24 02:45 Alkaline Phosphatase 82 U/L (40-130) 10/26/24 02:45 C-Reactive Protein 35.8 mg/L (0.0-4.9) H 10/24/24 06:06 Total Protein 4.9 g/dL (6.6-8.7) L 10/26/24 02:45 Albumin 2.5 g/dL (3.5-5.2) L 10/26/24 02:45 Globulin 2.4 g/dL (1.3-4.6) 10/26/24 02:45 Urine Color Dark yellow (Yellow) A 10/24/24 07:24 Urine Appearance Slightly cloudy (CLEAR) 10/24/24 07:24 Urine pH 5 (5-7) 10/24/24 07:24 Ur Specific [place] 1.020 (1.005-1.030) 10/24/24 07:24 Urine Protein Trace (Negative) 10/24/24 07:24 Urine Glucose (UA) Norm (Normal) 10/24/24 07:24 Urine Ketones 1+ (Negative) H 10/24/24 07:24 Urine Blood Neg (Negative) 10/24/24 07:24 Urine Nitrate Negative (Negative) 10/24/24 07:24 Urine Bilirubin 1+ (Negative) H 10/24/24 07:24 Urine Urobilinogen 1 mg/dL (Negative) H 10/24/24 07:24 Ur Leukocyte Esterase 2+ (Negative) H 10/24/24 07:24 Urine RBC 3-5 /hpf (0-2) 10/24/24 07:24 Urine WBC 51-100 /hpf (0-5) H 10/24/24 07:24 Ur Squamous Epith Cells 0-5 /hpf (0-5) 10/24/24 07:24 Amorphous Sediment Not Reportable 10/24/24 07:24 Urine Bacteria None seen /hpf (NONE) 10/24/24 07:24 Hyaline Casts 6.17 /lpf 10/24/24 07:24 Vancomycin Trough 19.4 ug/mL (10-15) H 10/29/24 08:03 Random Vancomycin 15.9 ug/mL (20.0-40.0) L 10/27/24 05:16 C. difficile (PCR) Positive (Negative) H 10/24/24 06:44 Vitals Last Vital Signs Temp 98.0 F 10/29/24 11:29 Pulse 76 10/29/24 11:29 Resp 16 10/29/24 11:29 BP 166/92 10/29/24 11:29 Pulse Ox 97 10/29/24 11:29 O2 Del Method Room Air 10/29/24 11:29 Discharge Plan Discharge Patient Disposition: Xfer SNF Condition: Stable Prescriptions: New vancomycin 125 mg capsule 125 mg PO Q6H 5 Days Qty: 20 0RF insulin lispro [Humalog U-100 Insulin] 100 unit/mL Solution See Rx Instructions .ROUTE .COMPLEX Qty: 3 0RF Rx Instructions: low dose intensity sliding scale Continued bisacodyl [Dulcolax (bisacodyl)] 5 mg tablet,delayed release (DR/EC) 5 mg PO DAILY aspirin 81 mg tablet,delayed release (DR/EC) 81 mg PO DAILY gabapentin 600 mg tablet 600 mg PO TID tamsulosin [Flomax] 0.4 mg capsule 0.4 mg PO BID Qty: 60 12RF oxycodone 20 mg tablet 20 mg PO Q4H PRN (Reason: Pain) baclofen 20 mg tablet 20 mg PO TID PRN (Reason: Pain) nitroglycerin [Nitrostat] 0.4 mg Tablet, Sublingual 0.4 mg SUBLINGUAL Q5M PRN (Reason: chest pain) Rx Instructions: do not exceed 3 doses per episode acetaminophen 325 mg Tablet 650 mg PO Q6H PRN (Reason: Mild/Mod Pain Or Temp >/= 101) Qty: 30 0RF carvedilol 12.5 mg Tablet 12.5 mg PO BID Qty: 180 0RF amlodipine 10 mg Tablet 10 mg PO DAILY Qty: 90 0RF atorvastatin 10 mg tablet 10 mg PO BEDTIME ketoconazole 2 % cream 1 applic TOPICAL BID ondansetron 4 mg tablet,disintegrating See Rx Instructions .ROUTE .COMPLEX Rx Instructions: dissolve one tablet on tongue and swallow with saliva EVERY SIX hours as needed for nausea/emesis. multivitamin with folic acid [Tab-A-Rossi] 400 mcg tablet 1 tab PO DAILY Held potassium chloride 20 mEq tablet,ER particles/crystals 20 meq PO DAILY Hold Instructions: see pcp furosemide 40 mg tablet 40 mg PO DAILY Hold Instructions: see pcp Discontinued lisinopril 20 mg tablet 20 mg PO DAILY Xultophy 100/3.6 100 unit-3.6 mg /mL (3 mL) insulin pen 30 unit SUBCUT BID PRN (Reason: bs) metronidazole 500 mg Tablet 500 mg PO TID Qty: 21 0RF amlodipine 10 mg tablet 10 mg PO DAILY Discharge Orders: Discharge Order (Routine); Ordered 10/29/24 Ordered By: Susana Valera Referrals: Sammie Rocha DO [Primary Care Provider] - 4-7 days Neal Garcia DPM [Physician] - 2 weeks Discharge Diet: Cardiac and Diabetic Discharge Activity: Limit activity as instructed and Use walker/crutches as instructed Patient Instructions: Clostridium Difficile, Vancomycin (By mouth), Insulin Lispro (By injection) (Humalog, Humalog Pen, Lispro-PFC,..., Foot Ulcers in a Person with Diabetes (DC) Activity Restrictions/Additional Instructions: Primary dressing Hydrofera Blue, secured with silicone bordered foam offloaded with cam boot Partial weightbearing right foot with cam boot. Discharge Attestations Time Spent in Discharge Care*: greater than 30 min Quality Metrics Clinical Quality Measures [ No reported AMI, CVA or VTE this stay] Coding Level of Care Code Acute Code for Chg Fwd Diagnoses Diabetic peripheral neuropathy associated with type 2 diabetes mellitus E11.42 Chronic ulcer of right heel with fat layer exposed L97.412
[2024-10-29 17:01] LABS: Glucose Point of Care 230 mg/dL (70-110)
[2024-10-29] MEDS: ATORVASTATIN 10 MG TABLET PO (20:36)
[2024-10-29] MEDS: baclofen 10 mg Tablet 20 MG PO (20:36)
[2024-10-29 20:44] LABS: Glucose Point of Care 314 mg/dL (70-110)
== END 2024-10-29 21:25 | disposition skilled nursing facility (03) | DRG 357 ==
LOC: ER 07:57 → MEDSURG 10:01
PROVIDERS: Internal Medicine; Podiatrist Foot & Ankle Surgery; Admitting Provider Student in an Organized Health Care Education/Training Program; Emergency Provider Emergency Medicine; PCP Family Medicine; Visit Provider Internal Medicine
DX: A04.72 Enterocolitis due to Clostridium difficile, not specified as recurrent (principal); I50.32 Chronic diastolic (congestive) heart failure; L97.412 Non-pressure chronic ulcer of right heel and midfoot with fat layer exposed; N13.8 Other obstructive and reflux uropathy; N17.9 Acute kidney failure, unspecified; Z68.41 Body mass index [BMI] 40.0-44.9, adult; E11.42 Type 2 diabetes mellitus with diabetic polyneuropathy; D72.829 Elevated white blood cell count, unspecified; E11.621 Type 2 diabetes mellitus with foot ulcer; I11.0 Hypertensive heart disease with heart failure; G89.29 Other chronic pain; K21.9 Gastro-esophageal reflux disease without esophagitis; N40.1 Benign prostatic hyperplasia with lower urinary tract symptoms; E66.01 Morbid (severe) obesity due to excess calories; E86.0 Dehydration; E78.5 Hyperlipidemia, unspecified; Z86.14 Personal history of Methicillin resistant Staphylococcus aureus infection; Z79.82 Long term (current) use of aspirin; Z79.4 Long term (current) use of insulin; Z79.899 Other long term (current) drug therapy; Z88.8 Allergy status to other drugs, medicaments and biological substances; Z86.711 Personal history of pulmonary embolism; Z87.891 Personal history of nicotine dependence
CPT/HCPCS: 36415; 36416; 73630; 74177; 80048; 80053; 80202; 81001; 82274; 82962; 83036; 83605; 83735; 85025; 85651; 86140; 87045; 87086; 87427; 87449; 87493; 96372; 96374; 97116; 97161; 97165; 97535; 97760; 99285; J0696; J1650; J1815; J2405; J3370; J7040; J7050; J9999; L4361; Q3014

== ENCOUNTER → 2024-11-10 08:34 | Outpatient (BNVA) | payer MEDICARE, MEDICAID, SELFPAY | PROVIDERS: PCP Family Medicine; Visit Provider Podiatrist Foot & Ankle Surgery | DX: E11.42 Type 2 diabetes mellitus with diabetic polyneuropathy (principal); E11.621 Type 2 diabetes mellitus with foot ulcer; L97.512 Non-pressure chronic ulcer of other part of right foot with fat layer exposed; Z79.4 Long term (current) use of insulin | CPT/HCPCS: 99213 ==

== ENCOUNTER → 2024-12-01 09:54 | Outpatient (BNVA) | payer MEDICARE, MEDICAID, SELFPAY | PROVIDERS: PCP Family Medicine; Visit Provider Podiatrist Foot & Ankle Surgery | DX: E11.42 Type 2 diabetes mellitus with diabetic polyneuropathy (principal); E11.621 Type 2 diabetes mellitus with foot ulcer; L97.512 Non-pressure chronic ulcer of other part of right foot with fat layer exposed; M21.41 Flat foot [pes planus] (acquired), right foot; M21.42 Flat foot [pes planus] (acquired), left foot; M20.41 Other hammer toe(s) (acquired), right foot; M20.42 Other hammer toe(s) (acquired), left foot; Z79.4 Long term (current) use of insulin | CPT/HCPCS: 99214 ==

== ENCOUNTER → 2024-12-29 09:55 | Outpatient (BNVA) | payer MEDICARE, MEDICAID, SELFPAY | PROVIDERS: PCP Family Medicine; Visit Provider Podiatrist Foot & Ankle Surgery | DX: E11.42 Type 2 diabetes mellitus with diabetic polyneuropathy (principal); M21.41 Flat foot [pes planus] (acquired), right foot; M21.42 Flat foot [pes planus] (acquired), left foot; M20.41 Other hammer toe(s) (acquired), right foot; M20.42 Other hammer toe(s) (acquired), left foot; L97.421 Non-pressure chronic ulcer of left heel and midfoot limited to breakdown of skin; E11.621 Type 2 diabetes mellitus with foot ulcer; Z79.4 Long term (current) use of insulin | CPT/HCPCS: 99213 ==

== ENCOUNTER 2025-01-11 16:39 | Emergency (ER) | payer MEDICARE, MEDICAID, SELFPAY ==
[2025-01-11] VITALS (8 sets, daily range): BP systolic 128–159; BP diastolic 79–104; PULSE 88–100; RESP 16–18; TEMP 36.7; O2SAT 92–99; BMI 42.5
[2025-01-11] MEDS: sodium chloride 0.9% 1,000 ML 999 ML IV (17:02)
--- NOTE | 2025-01-11 17:13 | W.ED.NAVMDI ---
Documented by User: Jamari Conner DO 01/12/25 07:52 HPI - Nausea/Vomiting/Diarrhea General: Chief complaint: Nausea/Vomiting/Diarrhea Stated complaint: N/D Time Seen by Provider: 01/11/25 16:47 History of Present Illness: 74-year-old male presents emergency room complaining of diarrhea. He has a history of C. difficile in the past he has an infection in his foot he thinks he may still be on some antibiotics he said he recently had been in his been having problems with C. difficile he is having recurrent diarrhea now much worse difficult to function. He denies fever denies any medic easier melena. Associated nausea: Yes Associated symtoms: Reports nausea; Denies chest pain or dysuria Related Data Home Medications ?Medication ?Instructions ?Recorded ?Confirmed aspirin 81 mg tablet,delayed 81 mg PO DAILY 05/16/20 12/29/24 release bisacodyl 5 mg tablet,delayed 5 mg PO DAILY 05/16/20 12/29/24 release (Dulcolax (bisacodyl)) gabapentin 600 mg tablet 600 mg PO TID 05/16/20 12/29/24 potassium chloride 20 mEq 20 meq PO DAILY 03/01/23 12/29/24 tablet,extended release(part/cryst) Held on 10/29/24. Instructions: see pcp baclofen 20 mg tablet 20 mg PO TID PRN Pain 05/24/24 12/29/24 furosemide 40 mg tablet 40 mg PO DAILY 05/24/24 12/29/24 Held on 10/29/24. Instructions: see pcp nitroglycerin 0.4 mg sublingual 0.4 mg sublingual Q5M PRN chest 05/24/24 12/29/24 tablet (Nitrostat) pain oxycodone 20 mg tablet 20 mg PO Q4H PRN Pain 05/24/24 12/29/24 atorvastatin 10 mg tablet 10 mg PO BEDTIME 10/24/24 12/29/24 ketoconazole 2 % topical cream 1 applic topical BID 10/24/24 12/29/24 multivitamin with folic acid 400 1 tab PO DAILY 10/24/24 12/29/24 mcg tablet (Tab-A-Rossi) ondansetron 4 mg disintegrating See Rx Instructions .Route .COMPLEX 10/24/24 12/29/24 tablet Previous Rx's ?Medication ?Instructions ?Recorded tamsulosin 0.4 mg capsule (Flomax) 0.4 mg PO BID #60 caps 12/20/21 acetaminophen 325 mg tablet 650 mg (2 x 325 mg) PO Q6H PRN 05/29/24 Mild/Mod Pain Or Temp >/= 101 #30 tabs amlodipine 10 mg tablet 10 mg PO DAILY #90 tabs 05/29/24 carvedilol 12.5 mg tablet 12.5 mg PO BID #180 tabs 05/29/24 insulin lispro 100 unit/mL See Rx Instructions .Route 10/29/24 subcutaneous solution (Humalog .COMPLEX #3 mL U-100 Insulin) Diabetic shoes #1 ea 12/01/24 Lactobacillus acidophilus 100 mg PO BID #20 caps 01/11/25 (Acidophilus capsule) ciprofloxacin HCl 500 mg tablet 500 mg PO BID #14 tabs 01/11/25 (Cipro) metronidazole 500 mg tablet 500 mg PO Q6H #28 tabs 01/11/25 Allergies Allergy/AdvReac Type Severity Reaction Status Date / Time metoclopramide (From Reglan) Allergy Severe ADR-Nausea Verified 12/29/24 09:56 Review of Systems Const: Denies: fever(s) or chills Card: Denies: chest pain Resp: Denies: dyspnea GI: Reports: nausea, vomiting and diarrhea; Denies: abdominal pain : Denies: dysuria, urinary frequency or urinary urgency Musc: Denies: neck pain or back pain Skin/Breast: Denies: rash PFSH ED PFSH: Medical History Diastolic CHF Pulmonary embolism History of proctoscopy Chronic back pain Diabetes Hypertension GERD (gastroesophageal reflux disease) BPH loc w urin obs/LUTS Vomiting Surgical History History of back surgery History of ankle surgery History of lumbar surgery History of hernia surgery S/P TURP Family History Father , AT 86 of unknown cause Mother , AT 36 Lupus Denies family history of Anesthesia complication Bleeding disorder Social History Smoking and tobacco/nicotine status: never used tobacco/nicotine Alcohol intake: never Substance/Drug Use: never Marital status: Current occupational status: disabled Physical Exam Const: COMMON NORMALS: no acute distress GENERAL APPEARANCE: cooperative and comfortable ORIENTATION/CONSCIOUSNESS: Yes awake HENMT: COMMON NORMALS: normocephalic, atraumatic and hearing grossly normal bilaterally HEAD & SCALP: normocephalic and atraumatic Resp: COMMON NORMALS: normal respiratory effort, No retractions, No use of accessory muscles and clear to auscultation bilaterally AUSCULTATION: clear to auscultation bilaterally Cardio: COMMON NORMALS: regular rate, regular rhythm and No murmurs present (Cardio) RATE: regular rate RHYTHM: regular rhythm GI: COMMON NORMALS: Soft to palpation and No hepatosplenomegaly present AUSCULTATION: Yes normoactive bowel sounds PALPATION: Yes Soft to palpation, No Tenderness to palpation present (GI), No Guarding due to palpation present (GI) and Yes No hepatosplenomegaly present Extremity: COMMON NORMALS: normal to inspection, capillary refill normal, no clubbing, cyanosis or edema, no calf tenderness and no pedal edema Skin: COMMON NORMALS: no rashes or lesions noted GENERAL SKIN EXAM: no rashes or lesions noted Course Vital Signs: Vital signs: Vital Signs Temperature 98.0 F 01/11/25 16:42 Pulse Rate 93 01/12/25 00:07 Respiratory Rate 17 01/12/25 00:07 Blood Pressure 159/90 01/12/25 00:07 Pulse Oximetry 99 01/12/25 00:07 Oxygen Delivery Me thod Nasal Cannula 01/11/25 23:00 Oxygen Flow Rate 2 01/11/25 23:00 MDM - Nausea/Vomiting/Diarrhea Medical Decision Making Care signed out to Dr. Al at change of shift. See final notes for diagnosis and disposition. Patient was turned over to id by Dr. Conner pending labs, ct abdomen/pelvis, and recheck. HPI: Patient is a male who presents to the ED with a chief complaint of abdominal pain and diarrhea for the past couple of days. The patient reports having severe diarrhea but denies vomiting. He initially suspected he might have C. difficile infection again, as he reports a previous episode while in a fdc. The patient denies fever, black stools, or bloody stools. He has been on multiple antibiotics recently for a right foot infection. Of note, the patient was unable to complete a CT scan due to inability to lay flat secondary to back pain from a previous back operation several years ago. The patient was adamant that he could not tolerate lying flat for the procedure despite offers of pain or anxiety medication to assist with the procedure. ROS: Constitutional: Denies fever. Gastrointestinal: Positive for diarrhea and abdominal pain. Denies vomiting, black stools, or bloody stools. Musculoskeletal: Reports chronic back pain from previous surgery, unable to lay flat. All other systems reviewed and negative or noncontributory. MEDICATIONS AND ALLERGIES: Meds: Multiple antibiotics recently for foot infection, specific names not provided. Allergies: No known allergies mentioned. PAST HISTORICAL DATA: PMH: History of C. difficile infection while in fdc, right foot infection. PSH: Back surgery several years ago. Social: Previously in fdc, current living situation not specified. PHYSICAL EXAM: General: Alert, chronically ill appearing, in no apparent distress. HEENT: Head normocephalic and atraumatic. Mucous membranes moist. Neck: Supple. Respiratory: No increased work of breathing, no wheezing. Cardiac: Regular rate and rhythm, 2+ pulses in all extremities. Abdomen: Soft, non-distended, no rebound or guarding. Patient reports pain. Extremities: Right foot examined, appears to be healing from previous infection. Neuro: Cranial nerves grossly intact, no focal motor or sensory deficits noted. INITIAL IMPRESSION AND PLAN: Given the history and presentation, the primary working diagnosis is infectious colitis, possibly C. difficile colitis given patient's history of recent antibiotic use and prior C. difficile infection. Additional considerations include inflammatory bowel disease, ischemic colitis, and medication-induced diarrhea. Based on this initial impression I will order stool studies to evaluate for C. difficile and other infectious etiologies. CT scan of the abdomen/pelvis was ultimately able to be done after pain medicaiton provided to allow patient to tolerate supine position. FINAL IMPRESSION: Based on all the above, my clinical impression is most compatible with colitis, likely infectious in etiology. The clinical picture is not currently suggestive of C. difficile colitis given the lack of significant diarrhea during the ED stay. Although other conditions were also considered, they were deemed unlikely based on the clinical information available. CLINICAL DISPOSITION: The patient's current condition is stable in my estimation and the most appropriate and indicated disposition at this time is discharge home with oral antibiotics. The patient is safe for discharge as imaging showed colitis which can be appropriately treated with oral antibiotics on an outpatient basis. The patient has not had significant diarrhea during the ED stay, is hemodynamically stable, and has arranged for transportation home. The patient has been prescribed ciprofloxacin and metronidazole (Flagyl) for treatment of colitis, and strict return precautions have been provided. RISK STRATIFICATION AND CLINICAL DECISION RULES APPLIED: No formal clinical decision rules were applied during this encounter. CASE SUMMARY: Male patient presented to the ED with abdominal pain and diarrhea for the past couple of days. Patient has a history of recent antibiotic use for a foot infection and previous C. difficile infection while in a fdc. Initially, CT scan was ordered but could not be performed due to patient's inability to lay flat secondary to back pain from previous surgery. Despite this limitation, imaging was eventually obtained showing findings consistent with colitis. Patient did not have significant diarrhea during the ED stay other than a small solid bowel movement, making C. difficile colitis unlikely. Patient was treated with oral ciprofloxacin and metronidazole (Flagyl) and discharged home with instructions to continue the antibiotics and return if symptoms worsen. Patient arranged for family member transportation home. Lab Data 01/11/25 18:05 01/11/25 18:05 Radiology Impressions Abdomen/Pelvis CT 01/11/25 17:37 IMPRESSION: Circumferential bowel wall thickening mid descending colon through the mid sigmoid colon which is nonspecific but may represent inflammatory or infectious colitis. No diverticula identified. Laboratory Results WBC 17.27 10^3/uL (3.29-11.43) H 01/11/25 18:05 RBC 5.03 10^6/uL (3.85-5.65) 01/11/25 18:05 Hgb 12.90 g/dL (11.27-16.99) 01/11/25 18:05 Hct 43.5 % (37-53) 01/11/25 18:05 MCV 86.5 fl (82-101) 01/11/25 18:05 MCH 25.6 pg (27-33) L 01/11/25 18:05 MCHC 29.7 g/dL (30-55) L 01/11/25 18:05 RDW 15.0 % (12.1-15.1) 01/11/25 18:05 Plt Count 248 10^3/cmm (157-399) 01/11/25 18:05 MPV 9.9 fL (7.4-10.4) 01/11/25 18:05 Neut % (Auto) 76.8 % 01/11/25 18:05 Lymph % (Auto) 11.3 % 01/11/25 18:05 [place] % (Auto) 8.0 % 01/11/25 18:05 Eos % (Auto) 3.1 % 01/11/25 18:05 Baso % (Auto) 0.5 % 01/11/25 18:05 Neut # (Auto) 13.26 10^3/uL (1.8-7.7) H 01/11/25 18:05 Lymph # (Auto) 2.0 10^3/uL (0.8-4.8) 01/11/25 18:05 [place] # (Auto) 1.4 10^3/uL (0.2-0.9) H 01/11/25 18:05 Eos # (Auto) 0.5 10^3/uL (0.0-0.8) 01/11/25 18:05 Baso # (Auto) 0.1 10^3/uL (0.0-0.1) 01/11/25 18:05 Nucleated RBC % (auto) 0 % 01/11/25 18:05 Nucleated RBCs # 0.0 /100WBC 01/11/25 18:05 Sodium 140 mmol/L (136-145) 01/11/25 18:05 Potassium 4.1 mmol/L (3.5-5.1) 01/11/25 18:05 Chloride 108 mmol/L (98-107) H 01/11/25 18:05 Carbon Dioxide 20 mmol/L (22-29) L 01/11/25 18:05 Anion Gap 16.1 (5-19) 01/11/25 18:05 BUN 19 mg/dL (8-23) 01/11/25 18:05 Creatinine 1.3 mg/dL (0.7-1.2) H 01/11/25 18:05 GFR Calculation Not Reportable 01/11/25 18:05 Glucose 177 mg/dL (65-115) H 01/11/25 18:05 Calculated Osmolality 297 mOsm/kg (285-295) H 01/11/25 18:05 Lactic Acid 0.8 mmol/L (0.5-2.2) 01/11/25 19:42 Calcium 8.1 mg/dL (8.5-10.5) L 01/11/25 18:05 Total Bilirubin 0.6 mg/dL (0.15-1.2) 01/11/25 18:05 AST 18 U/L (0-40) 01/11/25 18:05 ALT 18 U/L (0-41) 01/11/25 18:05 Alkaline Phosphatase 115 U/L (40-130) 01/11/25 18:05 Total Protein 6.9 g/dL (6.6-8.7) 01/11/25 18:05 Albumin 3.4 g/dL (3.5-5.2) L 01/11/25 18:05 Globulin 3.5 g/dL (1.3-4.6) 01/11/25 18:05 Urine Color Yellow (Yellow) 01/11/25 20:52 Urine Appearance Clear (CLEAR) 01/11/25 20:52 Urine pH 5.0 (5-7) 01/11/25 20:52 Ur Specific [place] 1.017 (1.005-1.030) 01/11/25 20:52 Urine Protein Trace (Negative) A 01/11/25 20:52 Urine Glucose (UA) Negative (Normal) 01/11/25 20:52 Urine Ketones Trace (Negative) 01/11/25 20:52 Urine Blood Negative (Negative) 01/11/25 20:52 Urine Nitrate Negative (Negative) 01/11/25 20:52 Urine Bilirubin Negative (Negative) 01/11/25 20:52 Urine Urobilinogen 1.0 mg/dL (Negative) 01/11/25 20:52 Ur Leukocyte Esterase Negative (Negative) 01/11/25 20:52 Urine RBC 0-2 /hpf (0-2) 01/11/25 20:52 Urine WBC 0-5 /hpf (0-5) 01/11/25 20:52 Ur Squamous Epith Cells 0-5 /hpf (0-5) 01/11/25 20:52 Amorphous Sediment Not Reportable 01/11/25 20:52 Urine Bacteria None seen /hpf (NONE) 01/11/25 20:52 Hyaline Casts 0.40 /lpf 01/11/25 20:52 Discharge Plan Discharge Patient Disposition: Home Clinical Impression: Colitis Condition: Stable Prescriptions: New ciprofloxacin HCl [Cipro] 500 mg tablet 500 mg PO BID Qty: 14 0RF metronidazole 500 mg tablet 500 mg PO Q6H Qty: 28 0RF Acidophilus Capsule 100 mg PO BID Qty: 20 0RF No Action bisacodyl [Dulcolax (bisacodyl)] 5 mg tablet,delayed release (DR/EC) 5 mg PO DAILY aspirin 81 mg tablet,delayed release (DR/EC) 81 mg PO DAILY gabapentin 600 mg tablet 600 mg PO TID tamsulosin [Flomax] 0.4 mg capsule 0.4 mg PO BID Qty: 60 12RF (DME) Diabetic shoes See Rx Instructions .ROUTE .MEDSUPPLY Qty: 1 0RF Rx Instructions: With 3 pairs of inserts potassium chloride 20 mEq tablet,ER particles/crystals 20 meq PO DAILY oxycodone 20 mg tablet 20 mg PO Q4H PRN (Reason: Pain) furosemide 40 mg tablet 40 mg PO DAILY baclofen 20 mg tablet 20 mg PO TID PRN (Reason: Pain) nitroglycerin [Nitrostat] 0.4 mg Tablet, Sublingual 0.4 mg SUBLINGUAL Q5M PRN (Reason: chest pain) Rx Instructions: do not exceed 3 doses per episode acetaminophen 325 mg Tablet 650 mg PO Q6H PRN (Reason: Mild/Mod Pain Or Temp >/= 101) Qty: 30 0RF carvedilol 12.5 mg Tablet 12.5 mg PO BID Qty: 180 0RF amlodipine 10 mg Tablet 10 mg PO DAILY Qty: 90 0RF atorvastatin 10 mg tablet 10 mg PO BEDTIME ketoconazole 2 % cream 1 applic TOPICAL BID ondansetron 4 mg tablet,disintegrating See Rx Instructions .ROUTE .COMPLEX Rx Instructions: dissolve one tablet on tongue and swallow with saliva EVERY SIX hours as needed for nausea/emesis. multivitamin with folic acid [Tab-A-Rossi] 400 mcg tablet 1 tab PO DAILY insulin lispro [Humalog U-100 Insulin] 100 unit/mL Solution See Rx Instructions .ROUTE .COMPLEX Qty: 3 0RF Rx Instructions: low dose intensity sliding scale Discharge Orders: Discharge ED (Routine); Ordered 01/11/25 Ordered By: Ricco Lay Referrals: Sammie Rocha DO [Primary Care Provider, Family Practice] Discharge Diet: Advance as tolerated Discharge Activity: Increase activity as tolerated Patient Instructions: Colitis (ED), Opioid Safety, Pain Management Activity Restrictions/Additional Instructions: DISCHARGE INSTRUCTIONS: Diagnosis: Colitis Medications: - Ciprofloxacin: Take as prescribed to treat the infection - Metronidazole (Flagyl): Take as prescribed to treat the infection Activity: No restrictions. Resume normal activities as tolerated. Diet: Stay well hydrated. Drink plenty of clear fluids. Consider a bland diet until symptoms improve. Follow-up: Follow up with your primary care physician within 1 week. Seek immediate medical attention if symptoms worsen. 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 Documented by User: Ricco Lay MD 01/11/25 23:51 HPI - Nausea/Vomiting/Diarrhea General: Chief complaint: Nausea/Vomiting/Diarrhea Stated complaint: N/D Time Seen by Provider: 01/11/25 16:47 Related Data Home Medications ?Medication ?Instructions ?Recorded ?Confirmed aspirin 81 mg tablet,delayed 81 mg PO DAILY 05/16/20 12/29/24 release bisacodyl 5 mg tablet,delayed 5 mg PO DAILY 05/16/20 12/29/24 release (Dulcolax (bisacodyl)) gabapentin 600 mg tablet 600 mg PO TID 05/16/20 12/29/24 potassium chloride 20 mEq 20 meq PO DAILY 03/01/23 12/29/24 tablet,extended release(part/cryst) Held on 10/29/24. Instructions: see pcp baclofen 20 mg tablet 20 mg PO TID PRN Pain 05/24/24 12/29/24 furosemide 40 mg tablet 40 mg PO DAILY 05/24/24 12/29/24 Held on 10/29/24. Instructions: see pcp nitroglycerin 0.4 mg sublingual 0.4 mg sublingual Q5M PRN chest 05/24/24 12/29/24 tablet (Nitrostat) pain oxycodone 20 mg tablet 20 mg PO Q4H PRN Pain 05/24/24 12/29/24 atorvastatin 10 mg tablet 10 mg PO BEDTIME 10/24/24 12/29/24 ketoconazole 2 % topical cream 1 applic topical BID 10/24/24 12/29/24 multivitamin with folic acid 400 1 tab PO DAILY 10/24/24 12/29/24 mcg tablet (Tab-A-Rossi) ondansetron 4 mg disintegrating See Rx Instructions .Route .COMPLEX 10/24/24 12/29/24 tablet Previous Rx's ?Medication ?Instructions ?Recorded tamsulosin 0.4 mg capsule (Flomax) 0.4 mg PO BID #60 caps 12/20/21 acetaminophen 325 mg tablet 650 mg (2 x 325 mg) PO Q6H PRN 05/29/24 Mild/Mod Pain Or Temp >/= 101 #30 tabs amlodipine 10 mg tablet 10 mg PO DAILY #90 tabs 05/29/24 carvedilol 12.5 mg tablet 12.5 mg PO BID #180 tabs 05/29/24 insulin lispro 100 unit/mL See Rx Instructions .Route 10/29/24 subcutaneous solution (Humalog .COMPLEX #3 mL U-100 Insulin) Diabetic shoes #1 ea 12/01/24 Lactobacillus acidophilus 100 mg PO BID #20 caps 01/11/25 (Acidophilus capsule) ciprofloxacin HCl 500 mg tablet 500 mg PO BID #14 tabs 01/11/25 (Cipro) metronidazole 500 mg tablet 500 mg PO Q6H #28 tabs 01/11/25 Allergies Allergy/AdvReac Type Severity Reaction Status Date / Time metoclopramide (From Reglan) Allergy Severe ADR-Nausea Verified 12/29/24 09:56 [facility] [place] ED PFSH: Medical History Diastolic CHF Pulmonary embolism History of proctoscopy Chronic back pain Diabetes Hypertension GERD (gastroesophageal reflux disease) BPH loc w urin obs/LUTS Vomiting Surgical History History of back surgery History of ankle surgery History of lumbar surgery History of hernia surgery S/P TURP Family History Father , AT 86 of unknown cause Mother , AT 36 Lupus Denies family history of Anesthesia complication Bleeding disorder Social History Smoking and tobacco/nicotine status: never used tobacco/nicotine Alcohol intake: never Substance/Drug Use: never Marital status: Current occupational status: disabled Course Vital Signs: Vital signs: Vital Signs Temperature 98.0 F 01/11/25 16:42 Pulse Rate 93 01/12/25 00:07 Respiratory Rate 17 01/12/25 00:07 Blood Pressure 159/90 01/12/25 00:07 Pulse Oximetry 99 01/12/25 00:07 Oxygen Delivery Me thod Nasal Cannula 01/11/25 23:00 Oxygen Flow Rate 2 01/11/25 23:00 MDM - Nausea/Vomiting/Diarrhea Medical Decision Making Patient was turned over to me by Dr. Conner pending labs, ct abdomen/pelvis, and recheck. HPI: Patient is a male who presents to the ED with a chief complaint of abdominal pain and diarrhea for the past couple of days. The patient reports having severe diarrhea but denies vomiting. He initially suspected he might have C. difficile infection again, as he reports a previous episode while in a fdc. The patient denies fever, black stools, or bloody stools. He has been on multiple antibiotics recently for a right foot infection. Of note, the patient was unable to complete a CT scan due to inability to lay flat secondary to back pain from a previous back operation several years ago. The patient was adamant that he could not tolerate lying flat for the procedure despite offers of pain or anxiety medication to assist with the procedure. ROS: Constitutional: Denies fever. Gastrointestinal: Positive for diarrhea and abdominal pain. Denies vomiting, black stools, or bloody stools. Musculoskeletal: Reports chronic back pain from previous surgery, unable to lay flat. All other systems reviewed and negative or noncontributory. MEDICATIONS AND ALLERGIES: Meds: Multiple antibiotics recently for foot infection, specific names not provided. Allergies: No known allergies mentioned. PAST HISTORICAL DATA: PMH: History of C. difficile infection while in fdc, right foot infection. PSH: Back surgery several years ago. Social: Previously in fdc, current living situation not specified. PHYSICAL EXAM: General: Alert, chronically ill appearing, in no apparent distress. HEENT: Head normocephalic and atraumatic. Mucous membranes moist. Neck: Supple. Respiratory: No increased work of breathing, no wheezing. Cardiac: Regular rate and rhythm, 2+ pulses in all extremities. Abdomen: Soft, non-distended, no rebound or guarding. Patient reports pain. Extremities: Right foot examined, appears to be healing from previous infection. Neuro: Cranial nerves grossly intact, no focal motor or sensory deficits noted. INITIAL IMPRESSION AND PLAN: Given the history and presentation, the primary working diagnosis is infectious colitis, possibly C. difficile colitis given patient's history of recent antibiotic use and prior C. difficile infection. Additional considerations include inflammatory bowel disease, ischemic colitis, and medication-induced diarrhea. Based on this initial impression I will order stool studies to evaluate for C. difficile and other infectious etiologies. CT scan of the abdomen/pelvis was ultimately able to be done after pain medicaiton provided to allow patient to tolerate supine position. FINAL IMPRESSION: Based on all the above, my clinical impression is most compatible with colitis, likely infectious in etiology. The clinical picture is not currently suggestive of C. difficile colitis given the lack of significant diarrhea during the ED stay. Although other conditions were also considered, they were deemed unlikely based on the clinical information available. CLINICAL DISPOSITION: The patient's current condition is stable in my estimation and the most appropriate and indicated disposition at this time is discharge home with oral antibiotics. The patient is safe for discharge as imaging showed colitis which can be appropriately treated with oral antibiotics on an outpatient basis. The patient has not had significant diarrhea during the ED stay, is hemodynamically stable, and has arranged for transportation home. The patient has been prescribed ciprofloxacin and metronidazole (Flagyl) for treatment of colitis, and strict return precautions have been provided. RISK STRATIFICATION AND CLINICAL DECISION RULES APPLIED: No formal clinical decision rules were applied during this encounter. CASE SUMMARY: Male patient presented to the ED with abdominal pain and diarrhea for the past couple of days. Patient has a history of recent antibiotic use for a foot infection and previous C. difficile infection while in a fdc. Initially, CT scan was ordered but could not be performed due to patient's inability to lay flat secondary to back pain from previous surgery. Despite this limitation, imaging was eventually obtained showing findings consistent with colitis. Patient did not have significant diarrhea during the ED stay other than a small solid bowel movement, making C. difficile colitis unlikely. Patient was treated with oral ciprofloxacin and metronidazole (Flagyl) and discharged home with instructions to continue the antibiotics and return if symptoms worsen. Patient arranged for family member transportation home. Lab Data I reviewed the patient's lab results. 01/11/25 18:05 01/11/25 18:05 Radiology Impressions Abdomen/Pelvis CT 01/11/25 17:37 IMPRESSION: Circumferential bowel wall thickening mid descending colon through the mid sigmoid colon which is nonspecific but may represent inflammatory or infectious colitis. No diverticula identified. Laboratory Results WBC 17.27 10^3/uL (3.29-11.43) H 01/11/25 18:05 RBC 5.03 10^6/uL (3.85-5.65) 01/11/25 18:05 Hgb 12.90 g/dL (11.27-16.99) 01/11/25 18:05 Hct 43.5 % (37-53) 01/11/25 18:05 MCV 86.5 fl (82-101) 01/11/25 18:05 MCH 25.6 pg (27-33) L 01/11/25 18:05 MCHC 29.7 g/dL (30-55) L 01/11/25 18:05 RDW 15.0 % (12.1-15.1) 01/11/25 18:05 Plt Count 248 10^3/cmm ([id number]) 01/11/25 18:05 MPV 9.9 fL (7.4-10.4) 01/11/25 18:05 Neut % (Auto) 76.8 % 01/11/25 18:05 Lymph % (Auto) 11.3 % 01/11/25 18:05 [place] % (Auto) 8.0 % 01/11/25 18:05 Eos % (Auto) 3.1 % 01/11/25 18:05 Baso % (Auto) 0.5 % 01/11/25 18:05 Neut # (Auto) 13.26 10^3/uL (1.8-7.7) H 01/11/25 18:05 Lymph # (Auto) 2.0 10^3/uL (0.8-4.8) 01/11/25 18:05 [place] # (Auto) 1.4 10^3/uL (0.2-0.9) H 01/11/25 18:05 Eos # (Auto) 0.5 10^3/uL (0.0-0.8) 01/11/25 18:05 Baso # (Auto) 0.1 10^3/uL (0.0-0.1) 01/11/25 18:05 Nucleated RBC % (auto) 0 % 01/11/25 18:05 Nucleated RBCs # 0.0 /100WBC 01/11/25 18:05 Sodium 140 mmol/L (136-145) 01/11/25 18:05 Potassium 4.1 mmol/L (3.5-5.1) 01/11/25 18:05 Chloride 108 mmol/L (98-107) H 01/11/25 18:05 Carbon Dioxide 20 mmol/L (22-29) L 01/11/25 18:05 Anion Gap 16.1 (5-19) 01/11/25 18:05 BUN 19 mg/dL (8-23) 01/11/25 18:05 Creatinine 1.3 mg/dL (0.7-1.2) H 01/11/25 18:05 GFR Calculation Not Reportable 01/11/25 18:05 Glucose 177 mg/dL (65-115) H 01/11/25 18:05 Calculated Osmolality 297 mOsm/kg (285-295) H 01/11/25 18:05 Lactic Acid 0.8 mmol/L (0.5-2.2) 01/11/25 19:42 Calcium 8.1 mg/dL (8.5-10.5) L 01/11/25 18:05 Total Bilirubin 0.6 mg/dL (0.15-1.2) 01/11/25 18:05 AST 18 U/L (0-40) 01/11/25 18:05 ALT 18 U/L (0-41) 01/11/25 18:05 Alkaline Phosphatase 115 U/L (40-130) 01/11/25 18:05 Total Protein 6.9 g/dL (6.6-8.7) 01/11/25 18:05 Albumin 3.4 g/dL (3.5-5.2) L 01/11/25 18:05 Globulin 3.5 g/dL (1.3-4.6) 01/11/25 18:05 Urine Color Yellow (Yellow) 01/11/25 20:52 Urine Appearance Clear (CLEAR) 01/11/25 20:52 Urine pH 5.0 (5-7) 01/11/25 20:52 Ur Specific [place] 1.017 (1.005-1.030) 01/11/25 20:52 Urine Protein Trace (Negative) A 01/11/25 20:52 Urine Glucose (UA) Negative (Normal) 01/11/25 20:52 Urine Ketones Trace (Negative) 01/11/25 20:52 Urine Blood Negative (Negative) 01/11/25 20:52 Urine Nitrate Negative (Negative) 01/11/25 20:52 Urine Bilirubin Negative (Negative) 01/11/25 20:52 Urine Urobilinogen 1.0 mg/dL (Negative) 01/11/25 20:52 Ur Leukocyte Esterase Negative (Negative) 01/11/25 20:52 Urine RBC 0-2 /hpf (0-2) 01/11/25 20:52 Urine WBC 0-5 /hpf (0-5) 01/11/25 20:52 Ur Squamous Epith Cells 0-5 /hpf (0-5) 01/11/25 20:52 Amorphous Sediment Not Reportable 01/11/25 20:52 Urine Bacteria None seen /hpf (NONE) 01/11/25 20:52 Hyaline Casts 0.40 /lpf 01/11/25 20:52 All radiology interpretation(s) finalized by discharge Discharge Plan Discharge Patient Disposition: Home Clinical Impression: Colitis Condition: Stable Prescriptions: New ciprofloxacin HCl [Cipro] 500 mg tablet 500 mg PO BID Qty: 14 0RF metronidazole 500 mg tablet 500 mg PO Q6H Qty: 28 0RF Acidophilus Capsule 100 mg PO BID Qty: 20 0RF No Action bisacodyl [Dulcolax (bisacodyl)] 5 mg tablet,delayed release (DR/EC) 5 mg PO DAILY aspirin 81 mg tablet,delayed release (DR/EC) 81 mg PO DAILY gabapentin 600 mg tablet 600 mg PO TID tamsulosin [Flomax] 0.4 mg capsule 0.4 mg PO BID Qty: 60 12RF (DME) Diabetic shoes See Rx Instructions .ROUTE .MEDSUPPLY Qty: 1 0RF Rx Instructions: With 3 pairs of inserts potassium chloride 20 mEq tablet,ER particles/crystals 20 meq PO DAILY oxycodone 20 mg tablet 20 mg PO Q4H PRN (Reason: Pain) furosemide 40 mg tablet 40 mg PO DAILY baclofen 20 mg tablet 20 mg PO TID PRN (Reason: Pain) nitroglycerin [Nitrostat] 0.4 mg Tablet, Sublingual 0.4 mg SUBLINGUAL Q5M PRN (Reason: chest pain) Rx Instructions: do not exceed 3 doses per episode acetaminophen 325 mg Tablet 650 mg PO Q6H PRN (Reason: Mild/Mod Pain Or Temp >/= 101) Qty: 30 0RF carvedilol 12.5 mg Tablet 12.5 mg PO BID Qty: 180 0RF amlodipine 10 mg Tablet 10 mg PO DAILY Qty: 90 0RF atorvastatin 10 mg tablet 10 mg PO BEDTIME ketoconazole 2 % cream 1 applic TOPICAL BID ondansetron 4 mg tablet,disintegrating See Rx Instructions .ROUTE .COMPLEX Rx Instructions: dissolve one tablet on tongue and swallow with saliva EVERY SIX hours as needed for nausea/emesis. multivitamin with folic acid [Tab-A-Rossi] 400 mcg tablet 1 tab PO DAILY insulin lispro [Humalog U-100 Insulin] 100 unit/mL Solution See Rx Instructions .ROUTE .COMPLEX Qty: 3 0RF Rx Instructions: low dose intensity sliding scale Discharge Orders: Discharge ED (Routine); Ordered 01/11/25 Ordered By: Ricco Lay Referrals: Sammie Rocha DO [Primary Care Provider, [facility]] Discharge Diet: Advance as tolerated Discharge Activity: Increase activity as tolerated Patient Instructions: Colitis (ED), Opioid Safety, Pain Management Activity Restrictions/Additional Instructions: DISCHARGE INSTRUCTIONS: Diagnosis: Colitis Medications: - Ciprofloxacin: Take as prescribed to treat the infection - Metronidazole (Flagyl): Take as prescribed to treat the infection Activity: No restrictions. Resume normal activities as tolerated. Diet: Stay well hydrated. Drink plenty of clear fluids. Consider a bland diet until symptoms improve. Follow-up: Follow up with your primary care physician within 1 week. Seek immediate medical attention if symptoms worsen. 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
--- NOTE | 2025-01-11 17:19 | ECG_ITS ---
[facility] Test Date: 2025-01-11 Pat Name: Alen Appiah Department: Room: Gender: Male [employer]: : [id number] Requested By: Jamari Graham Order Number: [id number] Veda MD: Cristino Francois M.D. Measurements Intervals [place]illa Rate: 86 P: 27 NH: 211 QRS: -58 QRSD: 91 T: 58 QT: 393 QTc: 471 Interpretive Statements SINUS RHYTHM WITH FIRST DEGREE AV BLOCK LEFT AXIS DEVIATION [QRS AXIS < -30] POSSIBLE ANTERIOR MYOCARDIAL INFARCTION , OF INDETERMINATE AGE [30 ms Q WAVE IN V3/V4, OR R < 0.2 mV IN V4] Compared to ECG 03/01/2023 15:17:48 First degree AV block now present Myocardial infarct finding still present Electronically Signed On 01-12-2025 17:19:12 CDT by Cristino Francois M.D. [email or web address]
--- NOTE | 2025-01-11 17:37 | CTR_ITS ---
PROCEDURE INFORMATION: Exam: CT Abdomen And Pelvis With Contrast Exam date and time: 01/11/2025 9:25 PM Age: 74 years old Clinical indication: Abdominal pain; Generalized; Additional info: Abd pain TECHNIQUE: Imaging protocol: Computed tomography of the abdomen and pelvis with contrast. Radiation optimization: All CT scans at this facility use at least one of these dose optimization techniques: automated exposure control; mA and/or kV adjustment per patient size (includes targeted exams where dose is matched to clinical indication); or iterative reconstruction. Contrast material: OMNI 350; Contrast volume: 100 ml; Contrast route: INTRAVENOUS (IV); COMPARISON: CT abdomen pelvis w con* [id number] 10/24/2024 7:34 AM RADIATION DOSE METRICS: Total DLP (mGy-cm): 1206 FINDINGS: Liver: Normal. No mass. Gallbladder and biliary ducts: Normal. No calcified stones. No ductal dilation. Pancreas: Normal. No ductal dilation. Spleen: The spleen is enlarged measuring up to 17.4 cm in length. Adrenal glands: Normal. No mass. Kidneys and ureters: Normal. No hydronephrosis. Stomach and bowel: Circumferential bowel wall thickening mid descending colon through the mid sigmoid colon which is nonspecific but may represent inflammatory or infectious colitis. No diverticula identified. Appendix: No evidence of appendicitis. Intraperitoneal space: Unremarkable. No free air. No significant fluid collection. Vasculature: Unremarkable. No abdominal aortic aneurysm. Lymph nodes: Unremarkable. No enlarged lymph nodes. Urinary bladder: Unremarkable as visualized. Reproductive: Unremarkable as visualized. Bones/joints: Posterior fusion at L3 and L5 without evidence of hardware failure or loosening. Soft tissues: Unremarkable. CT/CT abdomen pelvis w con* [id number] IMPRESSION: Circumferential bowel wall thickening mid descending colon through the mid sigmoid colon which is nonspecific but may represent inflammatory or infectious colitis. No diverticula identified.
[2025-01-11 18:11] LABS: Basophils # 0.1 10^3/uL (0.0-0.1); Basophils % 0.5 %; Eosinophils # 0.5 10^3/uL (0.0-0.8); Eosinophils % 3.1 %; Hematocrit 43.5 % (37-53); Lymphocytes % 11.3 %; Mean Corpuscular HGB Conc 29.7 g/dL (30-55); Mean Corpuscular Hemoglobin 25.6 pg (27-33); Mean Corpuscular Volume 86.5 fl (82-101); Mean Platelet Volume 9.9 fL (7.4-10.4); Monocytes # 1.4 10^3/uL (0.2-0.9); Neutrophils # 13.26 10^3/uL (1.8-7.7); Neutrophils % 76.8 %; Nucleated Red Blood Cells % 0 %; Platelet Count 248 10^3/cmm (157-399); Red Blood Count 5.03 10^6/uL (3.85-5.65); White Blood Count 17.27 10^3/uL (3.29-11.43)
[2025-01-11 18:37] LABS: Alanine Aminotransferase 18 U/L (0-41); Albumin Level 3.4 g/dL (3.5-5.2); Alkaline Phosphatase 115 U/L (40-130); Anion Gap 16.1 (5-19); Aspartate Amino Transferase 18 U/L (0-40); Blood Urea Nitrogen 19 mg/dL (8-23); Calcium 8.1 mg/dL (8.5-10.5); Carbon Dioxide 20 mmol/L (22-29); Chloride 108 mmol/L (98-107); Creatinine Clr Calc Pharmacy 65.7419; Globulin 3.5 g/dL (1.3-4.6); Glucose 177 mg/dL (65-115); Osmolality Calculated 297 mOsm/kg (285-295); Potassium 4.1 mmol/L (3.5-5.1); Sodium 140 mmol/L (136-145); Total Bilirubin 0.6 mg/dL (0.15-1.2); Total Protein 6.9 g/dL (6.6-8.7)
[2025-01-11 20:12] LABS: Lactic Sepsis W/Reflex 0.8 mmol/L (0.5-2.2)
[2025-01-11] MEDS: morphine 4 mg/mL SDV 1 mL IVP (21:00)
[2025-01-11 21:02] LABS: Bilirubin Urine Negative (Negative); Blood Urine Negative (Negative); Glucose Urine UA Negative (Normal); Ketones Urine Trace (Negative); Leukocyte Esterase Urine Negative (Negative); Nitrate Urine Negative (Negative); Protein Urine Trace (Negative); Specific Gravity, Urine 1.017 (1.005-1.030); Urine Appearance Clear (CLEAR); Urine Color Yellow (Yellow)
[2025-01-11 21:05] LABS: Add Urine Microscopic? YES; Bacteria Urine None Seen /hpf; RBC Urine 0-2 /hpf (0-2); Squamous Epithelial Cell Urine 0-5 /hpf (0-5); WBC Urine 0-5 /hpf (0-5)
[2025-01-11] MEDS: iohexol 350 mg/mL 500 mL Btl (per mL) IV (21:28)
[2025-01-12] MEDS: ciprofloxacin 500 mg Tablet PO (00:01)
[2025-01-12] MEDS: metroNIDAZOLE 500 MG Tablet PO (00:02)
[2025-01-12 00:07] VITALS: BP 159/90; PULSE 93; RESP 17; O2SAT 99
== END 2025-01-12 00:31 | disposition home or self-care (01) ==
PROVIDERS: Family Medicine; Emergency Provider Student in an Organized Health Care Education/Training Program; PCP Family Medicine
DX: K52.9 Noninfective gastroenteritis and colitis, unspecified (principal); Z79.82 Long term (current) use of aspirin; Z79.4 Long term (current) use of insulin; E11.9 Type 2 diabetes mellitus without complications; I11.0 Hypertensive heart disease with heart failure; I50.30 Unspecified diastolic (congestive) heart failure
CPT/HCPCS: 36415; 74177; 80053; 81001; 83605; 85025; 87040; 93005; 96374; 99285; J2270; J7030; J9999

== ENCOUNTER → 2025-01-12 10:48 | Outpatient (BNVA) | payer MEDICARE, MEDICAID, SELFPAY | PROVIDERS: PCP Family Medicine; Visit Provider Podiatrist Foot & Ankle Surgery | DX: E11.621 Type 2 diabetes mellitus with foot ulcer (principal); L97.421 Non-pressure chronic ulcer of left heel and midfoot limited to breakdown of skin; L97.412 Non-pressure chronic ulcer of right heel and midfoot with fat layer exposed; E11.42 Type 2 diabetes mellitus with diabetic polyneuropathy; M21.41 Flat foot [pes planus] (acquired), right foot; M21.42 Flat foot [pes planus] (acquired), left foot; M20.41 Other hammer toe(s) (acquired), right foot; M20.42 Other hammer toe(s) (acquired), left foot; Z79.4 Long term (current) use of insulin | CPT/HCPCS: 29445 ==

== ENCOUNTER → 2025-01-19 14:34 | Outpatient (BNVA) | payer MEDICARE, MEDICAID, SELFPAY | PROVIDERS: PCP Family Medicine; Visit Provider Podiatrist Foot & Ankle Surgery | DX: E11.42 Type 2 diabetes mellitus with diabetic polyneuropathy (principal); M21.41 Flat foot [pes planus] (acquired), right foot; M21.42 Flat foot [pes planus] (acquired), left foot; M20.41 Other hammer toe(s) (acquired), right foot; M20.42 Other hammer toe(s) (acquired), left foot; E11.621 Type 2 diabetes mellitus with foot ulcer; L97.421 Non-pressure chronic ulcer of left heel and midfoot limited to breakdown of skin; L97.412 Non-pressure chronic ulcer of right heel and midfoot with fat layer exposed; I73.9 Peripheral vascular disease, unspecified; Z79.4 Long term (current) use of insulin | CPT/HCPCS: 99214 ==

== ENCOUNTER → 2025-02-02 10:58 | Outpatient (BNVA) | payer MEDICARE, MEDICAID, SELFPAY | PROVIDERS: PCP Family Medicine; Visit Provider Podiatrist Foot & Ankle Surgery | DX: E11.42 Type 2 diabetes mellitus with diabetic polyneuropathy (principal); M21.41 Flat foot [pes planus] (acquired), right foot; M21.42 Flat foot [pes planus] (acquired), left foot; M20.41 Other hammer toe(s) (acquired), right foot; M20.42 Other hammer toe(s) (acquired), left foot; E11.621 Type 2 diabetes mellitus with foot ulcer; L97.421 Non-pressure chronic ulcer of left heel and midfoot limited to breakdown of skin; L97.412 Non-pressure chronic ulcer of right heel and midfoot with fat layer exposed; I73.9 Peripheral vascular disease, unspecified; Z79.4 Long term (current) use of insulin | CPT/HCPCS: 99214 ==

== ENCOUNTER → 2025-03-02 12:50 | Outpatient (BNVA) | payer MEDICARE, MEDICAID, SELFPAY | PROVIDERS: PCP Family Medicine; Visit Provider Podiatrist Foot & Ankle Surgery | DX: E11.8 Type 2 diabetes mellitus with unspecified complications (principal); E11.42 Type 2 diabetes mellitus with diabetic polyneuropathy; M21.41 Flat foot [pes planus] (acquired), right foot; M21.42 Flat foot [pes planus] (acquired), left foot; M20.41 Other hammer toe(s) (acquired), right foot; M20.42 Other hammer toe(s) (acquired), left foot; I73.9 Peripheral vascular disease, unspecified; Z79.4 Long term (current) use of insulin | CPT/HCPCS: 99213 ==

== ENCOUNTER → 2025-03-23 10:25 | Outpatient (BNVA) | payer MEDICARE, MEDICAID, SELFPAY | PROVIDERS: PCP Family Medicine; Visit Provider Podiatrist Foot & Ankle Surgery | DX: E11.42 Type 2 diabetes mellitus with diabetic polyneuropathy (principal); M21.41 Flat foot [pes planus] (acquired), right foot; M21.42 Flat foot [pes planus] (acquired), left foot; M20.41 Other hammer toe(s) (acquired), right foot; M20.42 Other hammer toe(s) (acquired), left foot; I73.9 Peripheral vascular disease, unspecified; I83.028 Varicose veins of left lower extremity with ulcer other part of lower leg; L97.929 Non-pressure chronic ulcer of unspecified part of left lower leg with unspecified severity; E11.621 Type 2 diabetes mellitus with foot ulcer; E11.622 Type 2 diabetes mellitus with other skin ulcer; L97.411 Non-pressure chronic ulcer of right heel and midfoot limited to breakdown of skin; Z79.4 Long term (current) use of insulin | CPT/HCPCS: 99213 ==

== ENCOUNTER → 2025-03-29 07:34 | Outpatient (BNVA) | payer MEDICARE, MEDICAID, SELFPAY | PROVIDERS: PCP Family Medicine; Visit Provider Podiatrist Foot & Ankle Surgery | DX: E11.42 Type 2 diabetes mellitus with diabetic polyneuropathy (principal); M21.41 Flat foot [pes planus] (acquired), right foot; M21.42 Flat foot [pes planus] (acquired), left foot; M20.41 Other hammer toe(s) (acquired), right foot; M20.42 Other hammer toe(s) (acquired), left foot; I73.9 Peripheral vascular disease, unspecified; I83.028 Varicose veins of left lower extremity with ulcer other part of lower leg; L97.929 Non-pressure chronic ulcer of unspecified part of left lower leg with unspecified severity; Z79.4 Long term (current) use of insulin | CPT/HCPCS: 99213 ==

== ENCOUNTER → 2025-04-12 08:28 | Outpatient (BNVA) | payer MEDICARE, MEDICAID, SELFPAY | PROVIDERS: PCP Family Medicine; Visit Provider Dermatology | DX: L21.8 Other seborrheic dermatitis (principal); L82.1 Other seborrheic keratosis; D69.2 Other nonthrombocytopenic purpura; D48.5 Neoplasm of uncertain behavior of skin; L57.0 Actinic keratosis | CPT/HCPCS: 11102; 17000; 99204 ==

== ENCOUNTER → 2025-04-19 08:45 | Outpatient (BNVA) | payer MEDICARE, MEDICAID, SELFPAY | PROVIDERS: PCP Family Medicine; Visit Provider Podiatrist Foot & Ankle Surgery | DX: E11.42 Type 2 diabetes mellitus with diabetic polyneuropathy (principal); M21.41 Flat foot [pes planus] (acquired), right foot; M21.42 Flat foot [pes planus] (acquired), left foot; M20.41 Other hammer toe(s) (acquired), right foot; M20.42 Other hammer toe(s) (acquired), left foot; I73.9 Peripheral vascular disease, unspecified; Z79.4 Long term (current) use of insulin | CPT/HCPCS: 99213 ==

== ENCOUNTER → 2025-05-17 06:43 | Outpatient (BNVA) | payer MEDICARE, MEDICAID, SELFPAY | PROVIDERS: PCP Family Medicine; Visit Provider Podiatrist Foot & Ankle Surgery | DX: E11.8 Type 2 diabetes mellitus with unspecified complications (principal); E11.42 Type 2 diabetes mellitus with diabetic polyneuropathy; M21.41 Flat foot [pes planus] (acquired), right foot; M21.42 Flat foot [pes planus] (acquired), left foot; M20.41 Other hammer toe(s) (acquired), right foot; M20.42 Other hammer toe(s) (acquired), left foot; I73.9 Peripheral vascular disease, unspecified; Z79.4 Long term (current) use of insulin | CPT/HCPCS: 99213 ==

== ENCOUNTER → 2025-07-19 07:18 | Outpatient (BNVA) | payer MEDICARE, MEDICAID, SELFPAY | PROVIDERS: PCP Family Medicine; Visit Provider Podiatrist Foot & Ankle Surgery | DX: E11.8 Type 2 diabetes mellitus with unspecified complications (principal); E11.42 Type 2 diabetes mellitus with diabetic polyneuropathy; M21.41 Flat foot [pes planus] (acquired), right foot; M21.42 Flat foot [pes planus] (acquired), left foot; M20.41 Other hammer toe(s) (acquired), right foot; M20.42 Other hammer toe(s) (acquired), left foot; I73.9 Peripheral vascular disease, unspecified; Z79.4 Long term (current) use of insulin | CPT/HCPCS: 99213 ==